=== PATIENT | female | born 1955 | race African-American/Black ===

== ENCOUNTER 2017-05-05 10:51 | Emergency (ER) | payer MEDICARE, MEDICAID ==
[2017-05-05] MEDS ORDERED: Amlodipine 5 MG TAB ONE (12:18)
[2017-05-05] MEDS ORDERED: hydrALAZINE 20 MG/ML VIAL ONE (12:18)
[2017-05-05 12:53] LABS: #Basophils 0.1 thou/uL (0.0-0.2); #Eosinphils 0.2 thou/uL (0.0-0.7); #Monocytes 0.3 thou/uL (0.11-0.59); #Neutrophils 4.5 thou/uL (1.40-6.50); %Basophils 1.1 % (0.0-1.0); %Eosinophils 2.6 % (0.0-10.0); %Lymphocytes 28.1 % (21.0-51.0); %Monocytes 3.7 % (0.0-10.0); %Neutrophils 64.5 % (42.0-75.0); Hemoglobin 11.1 g/dL (12.0-16.0); Mean Corpuscular HGB CONC 32.5 g/dL (32.0-36.0); Mean Corpuscular Hemoglobin 29.1 pg (27.0-31.0); Mean Corpuscular Volume 89.4 fl (81.0-99.0); Mean Platelet Volume 8.8 fL (7.4-10.4); Platelet Count 233 thou/uL (130-400); RBC Distribution Width 12.9 % (11.5-14.5); Red Blood Cell (RBC) Count 3.81 mill/uL (4.20-5.40)
[2017-05-05 13:12] LABS: ALT (SGPT) 20 U/L (8-55); AST (SGOT) 18 U/L (5-34); Albumin 3.8 g/dL (3.4-4.8); Alkaline Phosphatase 181 U/L (40-150); Anion Gap 18 mmol/L (10-20); BUN (Urea Nitrogen) 21 mg/dL (9.8-20.1); Bilirubin, Total 0.5 mg/dL (0.2-1.2); Calc. Creatinine Clearance 0 mL/min (70-130); Calcium 9.7 mg/dL (7.8-10.44); Carbon Dioxide 22 mmol/L (23-31); Chloride 99 mmol/L (98-107); Estimated GFR-MDRD 40; Globulin 3.8 g/dL (2.4-3.5); Glucose 536 mg/dL (80-115); Potassium 4.1 mmol/L (3.5-5.1); Protein, Total 7.6 g/dL (6.0-8.3); Sodium 135 mmol/L (136-145)
[2017-05-05 13:17] LABS: CKMB 1.3 ng/mL (0-6.6); Troponin I Less than 0.010 ng/mL (< 0.028)
[2017-05-05] MEDS ORDERED: Insulin Regular 300 UNITS/3 ML VIAL ONE (13:29)
[2017-05-05 13:48] LABS: Bilirubin Negative (Negative); Blood, Urine Negative (Negative); Clarity CLEAR (Clear); Glucose, Urine (Dipstick) >=1000 mg/dL (Negative); Leukocyte Negative (Negative); Nitrite Negative (Negative); Protein, Urine (Dipstick) 100 mg/dL (Neg-Trace); Specific Gravity, Urine 1.025 (1.002-1.036); Urobilinogen 0.2 mg/dL (0.2-1.0); pH, Urine 6.5 (5.0-9.0)
[2017-05-05 13:53] LABS: Bacteria/HPF Rare-Few HPF (None Seen); Hyaline Casts/LPF 0-3 HYALINE CAST LPF (0-3 Hyaline); Squamous Epithelial 0-3 HPF (0-3); WBC/HPF None Seen HPF (0-3)
[2017-05-05 14:02] LABS: RBC/HPF 0-3 HPF (0-3)
[2017-05-05 15:09] LABS: Base Excess-Venous 2.3 mmol/L (-30.0-30.0); Bicarbonate (HCO3v) 24.1 mmol/L (1.0-85.0); CO2 Tension (PvCO2) 28.4 mmHg (41.0-51.0); Calcium, Ionized 1.02 mmol/L (1.12-1.32); Hemoglobin - Calc 11.9 g/dL (12.0-18.0); O2 Tension (PvO2) 191.7 mmHg (35.0-45.0); Potassium 3.5 mmol/L (3.4-4.7); pH (Venous) 7.537 (7.35-7.45); vO2 Saturation-calc 99.8 % (0.0-100.0)
== END 2017-05-05 17:25 | disposition home or self-care (01) ==
LOC: ERS 10:51
DX: E11.65 Type 2 diabetes mellitus with hyperglycemia (principal); I10 Essential (primary) hypertension; I25.10 Atherosclerotic heart disease of native coronary artery without angina pectoris; F41.9 Anxiety disorder, unspecified; F32.9 Major depressive disorder, single episode, unspecified; F17.210 Nicotine dependence, cigarettes, uncomplicated; Z79.899 Other long term (current) drug therapy; Z79.4 Long term (current) use of insulin; Z79.82 Long term (current) use of aspirin
CPT/HCPCS: 36415; 36416; 80053; 81003; 81015; 82010; 82330; 82553; 82803; 84484; 85025; 87086; 96361; 96374; 96375; 96376; J0360; J1815

== ENCOUNTER 2017-05-12 02:21 | Inpatient (IN) | payer MEDICARE, MEDICAID ==
[2017-05-12] MEDS ORDERED: Ondansetron HCl/PF 4 MG/2 ML Vial ONE ×2 (02:59→09:31)
[2017-05-12 03:02] LABS: #Basophils 0.1 thou/uL (0.0-0.2); #Monocytes 0.3 thou/uL (0.11-0.59); #Neutrophils 8.3 thou/uL (1.40-6.50); %Basophils 0.5 % (0.0-1.0); %Eosinophils 0.2 % (0.0-10.0); %Lymphocytes 18.5 % (21.0-51.0); %Monocytes 2.7 % (0.0-10.0); %Neutrophils 78.2 % (42.0-75.0); Hemoglobin 12.5 g/dL (12.0-16.0); Mean Corpuscular HGB CONC 32.4 g/dL (32.0-36.0); Mean Corpuscular Hemoglobin 28.6 pg (27.0-31.0); Mean Corpuscular Volume 88.1 fl (81.0-99.0); Mean Platelet Volume 8.2 fL (7.4-10.4); Platelet Count 284 thou/uL (130-400); RBC Distribution Width 13.3 % (11.5-14.5); Red Blood Cell (RBC) Count 4.39 mill/uL (4.20-5.40); White Blood Cell (WBC) Count 10.6 thou/uL (4.8-10.8)
[2017-05-12 03:23] LABS: Anion Gap 28 mmol/L (10-20); BUN (Urea Nitrogen) 24 mg/dL (9.8-20.1); Calc. Creatinine Clearance 0 mL/min (70-130); Calcium 10.4 mg/dL (7.8-10.44); Carbon Dioxide 15 mmol/L (23-31); Chloride 98 mmol/L (98-107); Estimated GFR-MDRD 38; Glucose 442 mg/dL (80-115); Magnesium 1.4 mg/dL (1.6-2.6); Phosphorus 6.4 mg/dL (2.3-4.7); Sodium 137 mmol/L (136-145)
[2017-05-12] MEDS ORDERED: Insulin Regular 100 UNITS in Sodium Chloride 0.9% 100 ML IVPB SCH (04:00)
[2017-05-12] MEDS ORDERED: hydrALAZINE 20 MG/ML VIAL ONE (04:05)
[2017-05-12] MEDS ORDERED: Insulin Regular 300 UNITS/3 ML VIAL ONE (04:05)
[2017-05-12] MEDS ORDERED: Metoclopramide HCl 10 MG/2 ML VIAL ONE (04:44)
[2017-05-12] MEDS ORDERED: Magnesium Sulfate 2 GM/100 ML BAG ONE (06:15)
[2017-05-12 06:44] LABS: Anion Gap 22 mmol/L (10-20); BUN (Urea Nitrogen) 24 mg/dL (9.8-20.1); Calc. Creatinine Clearance 0 mL/min (70-130); Calcium 9.1 mg/dL (7.8-10.44); Carbon Dioxide 15 mmol/L (23-31); Chloride 106 mmol/L (98-107); Estimated GFR-MDRD 46; Glucose 302 mg/dL (80-115); Potassium 3.2 mmol/L (3.5-5.1); Sodium 140 mmol/L (136-145)
[2017-05-12 07:15] LABS: Bilirubin Negative (Negative); Blood, Urine Small (Negative); Clarity CLEAR (Clear); Glucose, Urine (Dipstick) >=1000 mg/dL (Negative); Leukocyte Negative (Negative); Nitrite Negative (Negative); Protein, Urine (Dipstick) > or equal to 300 mg/dL (Neg-Trace); Specific Gravity, Urine 1.027 (1.002-1.036); Urobilinogen 0.2 mg/dL (0.2-1.0); pH, Urine 5.5 (5.0-9.0)
[2017-05-12 07:19] LABS: Hyaline Casts/LPF 0-3 HYALINE CAST LPF (0-3 Hyaline); Pathc Cast-AUWi Flag 0.27 (0-2.49); RBC/HPF 0-3 HPF (0-3); WBC/HPF 0-3 HPF (0-3)
[2017-05-12] MEDS ORDERED: Dextrose 5 %-0.45 % NaCl 1,000 ML IV PRN (07:29)
[2017-05-12] MEDS ORDERED: Loperamide HCl 2 MG CAP PO PRN (07:29)
[2017-05-12] MEDS ORDERED: Artificial Tears 18 DROP/0.9 ML EA EYE PRN (07:29)
[2017-05-12] MEDS ORDERED: Ondansetron ODT 4 MG TAB PO PRN (07:29)
[2017-05-12] MEDS ORDERED: HYDROcodone/Acetaminophen 5/325 mg Tablet PO PRN (07:29)
[2017-05-12] MEDS ORDERED: NS 0.9% w/ 20 MEQ KCL 1,000 ML IV PRN ×2 (07:29)
[2017-05-12] MEDS ORDERED: Sodium Chloride 0.65% Nasal 44 ML BOT EA NARE PRN (07:29)
[2017-05-12] MEDS ORDERED: Mag-Al 1200 mg/1200 mg/30 ML UDCUP PO PRN (07:29)
[2017-05-12] MEDS ORDERED: hydrALAZINE 20 MG/ML VIAL SLOW IVP PRN (07:29)
[2017-05-12] MEDS ORDERED: Diabetic Tussin 200 MG/10 ML UDCUP PO PRN (07:29)
[2017-05-12] MEDS ORDERED: Loratadine 10 MG TAB PO PRN (07:29)
[2017-05-12] MEDS ORDERED: Eucerin (Mineral Oil/Petrolatum,White) 30 gm Jar TOP PRN (07:29)
[2017-05-12] MEDS ORDERED: Milk Of Magnesia 30 ML UDCUP PO PRN (07:29)
[2017-05-12] MEDS ORDERED: cloNIDine 0.1 MG TAB PO PRN (07:29)
[2017-05-12] MEDS ORDERED: Ondansetron HCl/PF 4 MG/2 ML Vial IVP PRN (07:29)
[2017-05-12] MEDS ORDERED: Zolpidem Tartrate 5 MG TAB PO PRN (07:29)
[2017-05-12] MEDS ORDERED: Sodium Chloride 0.9% 1,000 ML IV PRN ×4 (07:29)
[2017-05-12] MEDS ORDERED: Senokot 8.6 MG TAB PO PRN (07:29)
[2017-05-12] MEDS ORDERED: Labetalol HCl 100 MG/20 ML VIAL SLOW IVP PRN (07:29)
[2017-05-12] MEDS ORDERED: Chloraseptic Spray 180 ml Bottle PO PRN (07:29)
[2017-05-12] MEDS ORDERED: CCU Electrolyte Replacement 1 EACH IVPB SCH (07:29)
[2017-05-12] MEDS ORDERED: Acetaminophen 325 MG TAB PO PRN (07:29)
[2017-05-12 07:34] LABS: Bacteria/HPF Rare-Few HPF (None Seen)
[2017-05-12] MEDS ORDERED: Magnesium Oxide 400 MG TAB PO PRN ×2 (08:09)
[2017-05-12] MEDS ORDERED: Magnesium 2 GM/NS 0.9% 100 ML 2 GM in Premix Bag 1 BAG IVPB PRN (08:09)
[2017-05-12] MEDS ORDERED: Potassium Chloride 40 MEQ in Premix Bag 1 BAG IVPB PRN (08:09)
[2017-05-12] MEDS ORDERED: Potassium Phosphate 12 MMOL in Sodium Chloride 0.9% 250 ML 250 ML IV PRN (08:09)
[2017-05-12] MEDS ORDERED: CCU ELECTROLYTE REPLACEMENT PROTOCOL FS PRN (08:09)
[2017-05-12] MEDS ORDERED: Potassium Phosphate 9 MMOL in Sodium Chloride 0.9% 100 ML IVPB PRN (08:09)
[2017-05-12] MEDS ORDERED: Potassium Chloride 20 MEQ TAB PO PRN (08:09)
[2017-05-12] MEDS ORDERED: Potassium Chloride 40 MEQ in Sodium Chloride 0.9% 250 ML 250 ML IVPB PRN (08:09)
[2017-05-12] MEDS ORDERED: Potassium Phosphate 15 MMOL in Sodium Chloride 0.9% 250 ML 250 ML IV PRN (08:09)
[2017-05-12 08:14] LABS: Anion Gap 19 mmol/L (10-20); BUN (Urea Nitrogen) 23 mg/dL (9.8-20.1); Calc. Creatinine Clearance 0 mL/min (70-130); Calcium 8.9 mg/dL (7.8-10.44); Carbon Dioxide 17 mmol/L (23-31); Chloride 108 mmol/L (98-107); Estimated GFR-MDRD 50; Glucose 245 mg/dL (80-115); Sodium 141 mmol/L (136-145)
[2017-05-12] MEDS ORDERED: ENALAPRIL MALEATE 5 MG PO SCH (09:00)
[2017-05-12] MEDS ORDERED: Metoclopramide HCl 10 MG/2 ML VIAL IVP PRN (10:34)
--- NOTE | 2017-05-12 10:43 | HP ---
PRIMARY CARE PHYSICIAN: Dr. Valdo Rosales. REASON FOR ADMISSION: Nausea, vomiting, diarrhea, diabetes, ketoacidosis. HISTORY OF PRESENT ILLNESS: A 62-year-old -[place] female who has underlying history of hype rtension and diabetes type 2 requiring insulin, who had several admissions in our past. At this time , she came to ER with the acute onset of nausea, vomiting, diarrhea. She was also having crampy abdo dereck discomfort. She denies any melena or hematochezia. She denies any hematemesis. She denies an y fever or chills. She denies any unusual food ingestion. She was not able to keep anything down an d that is why she was not taking her insulin as well as she was not taking any medication because she was not able to keep anything down. Patient was feeling more fatigued, more dizzy and lightheaded and she was feeling more weak and short of breath and that is why she decided to come to the emergency room for evaluation. In the emergenc y room, the patient's routine blood test showed hyperglycemia. She had elevated serum ketones as wel l as elevated creatinine with metabolic acidosis. This patient was diagnosed with diabetic ketoacido sis. She also had abnormal electrolytes with low magnesium and low potassium. ER physician decided to admit this patient in the hospital. This patient does not have any bed available at [facility] and that is why she remained as an ER hold and I saw this patient in the emergency room. When we started giving her oral medication, the patient was not tolerating p.o. and that is why we have to give her more Zofran as well as symptomatic treatment for hypertension. In the emergency room, patient has received a bunch of IV fluid and insulin drip as well as magnesium sulfate. This patient does not have any UTI symptoms. She denies any focal motor symptoms. She de nies any headaches. She denies any chest pain, palpitations. She denies any focal motor weakness or sensory symptoms. REVIEW OF SYSTEMS: The following complete review of systems was negative, unless otherwise mentioned in the HPI or below: Constitutional: Weight loss or gain, ability to conduct usual activities. Sk in: Rash, itching. Eyes: Double vision, pain. ENT/Mouth: Nose bleeding, neck stiffness, pain, te nderness. Cardiovascular: Palpitations, dyspnea on exertion, orthopnea. Respiratory: Shortness of breath, wheezing, cough, hemoptysis, fever or night sweats. Gastrointestinal: Poor appetite, abdom inal pain, heartburn, nausea, vomiting, constipation, or diarrhea. Genitourinary: Urgency, frequenc y, dysuria, nocturia. Musculoskeletal: Pain, swelling. Neurologic/Psychiatric: Anxiety, depressio n. Allergy/Immunologic: Skin rash, bleeding tendency. Please see my HPI for pertinent positive and negative. All other review of systems reviewed and negative except as mentioned in the HPI. ALLERGIES: NUBAIN. CURRENT HOME MEDICATIONS: Gabapentin 400 mg p.o. 3 times daily, Coreg 3.125 mg twice daily, amlodipi ne 5 mg p.o. daily, enalapril 5 mg p.o. daily, metformin 500 mg p.o. twice daily, hydralazine 25 mg t wice daily, vitamin D2 of 50,000 units once a week, Brintellix 10 mg p.o. daily, Protonix 40 mg p.o. daily, vitamin B1 of 100 mg p.o. daily, aspirin 81 mg p.o. daily, Levemir 25 units subcutaneously twi ce daily. EMERGENCY ROOM COURSE: So far, patient has received IV fluid 3 liter, insulin drip after bolus, Regl an 10 mg, Zofran 4 mg, magnesium sulfate 2 gram. PAST MEDICAL HISTORY: Diabetes type 2, poorly controlled, insulin requiring; chronic kidney disease stage 3, hypertension, chronic hepatitis C, anemia of chronic disease, gastroparesis. PAST SURGICAL HISTORY: Cholecystectomy, temporal artery biopsy. PAST PSYCHIATRIC HISTORY: Reviewed and negative. FAMILY HISTORY: No strong family history of premature coronary artery disease, stroke or cancer. SOCIAL HISTORY: Patient is smoking about one half pack per day. She drinks alcohol socially. She d enies any other illicit drug abuse. PHYSICAL EXAMINATION: VITAL SIGNS: Currently, blood pressure 204/118, pulse 101, respiratory rate 16, temperature 98.4, sa turation 99% on room air, weight 59.4 kilograms. GENERAL: Patient is currently alert, awake, mild distress due to nausea. HEENT: Head, normocephalic, atraumatic. Eyes: Pupils are round, reactive to light. Extraocular mu scles are intact. ENT: Dry mucous membranes, no oral lesion, no pharyngeal erythema, no exudate. NECK: Supple, no JVD, no thyromegaly, no carotid bruit, no jugular venous distention. LUNGS: Clear to auscultation without any rhonchi or rales. CARDIAC: S1, S2 regular without any murmur. ABDOMEN: Soft, bowel sounds present, nontender, nondistended. No organomegaly, no mass, no suprapub ic tenderness. BACK: Unremarkable, no CVA tenderness. EXTREMITIES: Upper extremity passive movement of all joints are normal. Lower extremity: No edema. Good peripheral pulsation. SKIN: No skin rash. HEMATOLOGICAL: No lymphadenopathy. PSYCHIATRIC: Normal affect. SIGNIFICANT LABS: EKG showing normal sinus rhythm, sinus arrhythmia, left anterior fascicular block, nonspecific ST-T changes. WBC 10.6, hemoglobin 12.5, platelets 284. BMP shows sodium 141, potassium 3.0, chloride 108, carbon dioxide 17, BUN 23, creatinine 1.30, calcium 8.9. On admission, phosphorus 6.4, magnesium 1.4, creat inine 1.63. Glucose 442. Urinalysis: Proteinuria, glucosuria, ketonuria, serum ketone 7.25 and the n 3.23. ASSESSMENT AND PLAN: 1. Nausea, vomiting, diarrhea, rule out infectious etiology. If the patient is able to provide a st ool sample, then we will check ova and parasite, Campylobacter antigen, and Clostridium difficile. If negative, then patient will need symptomatic treatment for nausea, vomiting, diarrhea, and hydration with IV fluid to prevent dehydration. 2. Acute diabetes ketoacidosis, likely the patient was not taking insulin and because of poor tolera nce secondary to nausea, vomiting, diarrhea, and that could have precipitated her DKA. Patient is [facility] diabetic ketoacidosis protocol treatment. She is on insulin drip. We will keep her in IMCU. We will monitor Accu-Chek every 1 hourly and titrate insulin drip accordingly. We will monitor BMP e very 4 hourly and serum q.4 hourly x2. All blood tests will be repeated again tomorrow morning. Whe n blood sugar reaches below 250, at that point, we will overlap with the dextrose and insulin drip to clear all ketones. Tomorrow, we will resume patient's home dose of Levemir insulin. Diabetic diet education given. 3. Acute on chronic kidney failure, baseline chronic kidney disease stage 3. The patient's creatini ne was elevated on admission with a creatinine of 1.63. With IV fluid, her creatinine is improving t o 1.30 likely due to osmotic diuresis and nausea, vomiting, diarrhea. We will monitor renal function and avoid nephrotoxin agent. 4. Abnormal electrolytes. This patient has hypokalemia and hypomagnesemia. Potassium and magnesium will be replaced and we will repeat labs tomorrow morning. 5. Mild protein calorie malnutrition. The patient will need nutritional support upon discharge. 6. Hypertension with hypertensive urgency. At this point, we will try to use parenteral blood press ure medication, hydralazine and labetalol as patient is not tolerating p.o. If patient tolerates p.o ., then we will resume her home medication orally. 7. Dyslipidemia. We will continue lovastatin 20 mg p.o. at bedtime. 8. Gastroesophageal reflux disease. Continue Protonix 40 mg p.o. daily. 9. Chronic kidney disease stage 3. We will monitor renal function and avoid nephrotoxin agents. 10. Deep venous thrombosis prophylaxis. Heparin 5000 units subcu twice daily. 11. Gastrointestinal prophylaxis, Protonix 40 mg p.o. daily. CODE STATUS: The patient is FULL CODE. Patient does not have any surrogate decision maker. Disposition plan based on clinical course. We are expecting patient's stay in hospital more than 2 m idnights. Plan of care discussed with the patient in detail.
[2017-05-12 12:29] LABS: Anion Gap 13 mmol/L (10-20); BUN (Urea Nitrogen) 21 mg/dL (9.8-20.1); Calc. Creatinine Clearance 42 mL/min (70-130); Calcium 8.8 mg/dL (7.8-10.44); Carbon Dioxide 20 mmol/L (23-31); Chloride 110 mmol/L (98-107); Estimated GFR-MDRD 55; Glucose 107 mg/dL (80-115); Sodium 140 mmol/L (136-145)
[2017-05-12] MEDS: D5 1/2 NS w/20 mEq KCL 1,000 ML IV PRN ×2 (13:01→21:22)
[2017-05-12] MEDS: Heparin 5,000 UNITS/ML VIAL SC SCH ×2 (15:48→21:22)
[2017-05-12] MEDS: hydrALAZINE 25 MG TAB PO SCH ×3 (15:49→21:21)
[2017-05-12 16:10] LABS: Anion Gap 13 mmol/L (10-20); BUN (Urea Nitrogen) 20 mg/dL (9.8-20.1); Calc. Creatinine Clearance 37 mL/min (70-130); Calcium 8.8 mg/dL (7.8-10.44); Carbon Dioxide 20 mmol/L (23-31); Chloride 108 mmol/L (98-107); Estimated GFR-MDRD 48; Glucose 260 mg/dL (80-115); Potassium 3.3 mmol/L (3.5-5.1); Sodium 138 mmol/L (136-145)
[2017-05-12] MEDS ORDERED: Non-Formulary Item 1 EACH (Lovastatin [Lovastatin] 20 MG) PO SCH (17:00)
[2017-05-12] MEDS: Amlodipine 10 MG TAB PO SCH (17:15)
[2017-05-12] MEDS: Gabapentin 400 MG CAP PO SCH ×3 (17:16→21:21)
[2017-05-12] MEDS: metFORMIN 500 MG TAB PO SCH ×2 (17:17→21:20)
[2017-05-12] MEDS: Simvastatin 5 MG TAB PO SCH (21:22)
[2017-05-13 04:34] LABS: #Monocytes 0.6 thou/uL (0.11-0.59); #Neutrophils 6.5 thou/uL (1.40-6.50); %Basophils 0.3 % (0.0-1.0); %Eosinophils 0.2 % (0.0-10.0); %Lymphocytes 29.4 % (21.0-51.0); %Neutrophils 64.1 % (42.0-75.0); Hemoglobin 10.4 g/dL (12.0-16.0); Mean Corpuscular HGB CONC 32.6 g/dL (32.0-36.0); Mean Corpuscular Hemoglobin 28.6 pg (27.0-31.0); Mean Corpuscular Volume 87.7 fl (81.0-99.0); Mean Platelet Volume 8.1 fL (7.4-10.4); Platelet Count 224 thou/uL (130-400); RBC Distribution Width 13.2 % (11.5-14.5); Red Blood Cell (RBC) Count 3.64 mill/uL (4.20-5.40); White Blood Cell (WBC) Count 10.1 thou/uL (4.8-10.8)
[2017-05-13 05:36] LABS: Anion Gap 9 mmol/L (10-20); BUN (Urea Nitrogen) 17 mg/dL (9.8-20.1); Calc. Creatinine Clearance 40 mL/min (70-130); Carbon Dioxide 19 mmol/L (23-31); Chloride 109 mmol/L (98-107); Estimated GFR-MDRD 52; Potassium 3.8 mmol/L (3.5-5.1); Sodium 133 mmol/L (136-145)
[2017-05-13 05:37] LABS: ALT (SGPT) 16 U/L (8-55); AST (SGOT) 21 U/L (5-34); Albumin 2.7 g/dL (3.4-4.8); Alkaline Phosphatase 92 U/L (40-150); Bilirubin, Total 0.2 mg/dL (0.2-1.2); Calcium 7.9 mg/dL (7.8-10.44); Globulin 3.4 g/dL (2.4-3.5); Glucose 257 mg/dL (80-115); Magnesium 1.8 mg/dL (1.6-2.6); Protein, Total 6.1 g/dL (6.0-8.3)
[2017-05-13] MEDS: Gabapentin 400 MG CAP PO SCH ×3 (08:50→20:55)
[2017-05-13] MEDS: metFORMIN 500 MG TAB PO SCH ×2 (08:50→20:55)
[2017-05-13] MEDS: Amlodipine 10 MG TAB PO SCH (08:51)
[2017-05-13] MEDS: Heparin 5,000 UNITS/ML VIAL SC SCH ×2 (08:51→20:56)
[2017-05-13] MEDS: hydrALAZINE 25 MG TAB PO SCH ×3 (08:51→20:55)
[2017-05-13] MEDS: Insulin Detemir 100 UNITS/ML 15 UNITS in Pre-Filled Syringe 1 EACH SC SCH ×2 (08:52→20:57)
[2017-05-13 09:58] VITALS: BMI 20.2
--- NOTE | 2017-05-13 12:05 | PDOC.PN ---
- Subjective Encounter Start Date: 05/13/17 Encounter Start Time: 09:00 -: old records requested/rev Patient seen and examined. No new complaints. No overnight events - Objective Resuscitation Status: Resuscitation Status FULL:Full Resuscitation MAR Reviewed: Yes Vital Signs & Weight: Vital Signs (12 hours) Temp Pulse Resp BP BP BP Pulse Ox 05/13/17 10:59 98.2 F 87 16 148/77 H 100 05/13/17 08:51 91 114/59 L 05/13/17 08:50 114/59 L 05/13/17 08:00 98.7 F 91 19 99 05/13/17 07:22 98.7 F 91 19 130/75 99 05/13/17 04:00 98.6 F 96 14 118/65 98 Weight Admit Weight 123 lb Weight 133 lb 3.2 oz I&O: 05/12/17 05/13/17 05/14/17 06:59 06:59 06:59 Intake Total 3250 Output Total 300 Balance 2950 Result Diagrams: 05/13/17 04:21 05/13/17 04:21 Additional Labs: Accuchecks 05/13/17 05/13/17 05/13/17 10:15 08:49 08:24 POC Glucose 180 H 104 119 H 05/13/17 05/13/17 05/13/17 07:10 06:01 05:25 POC Glucose 209 H 229 H 252 H 05/13/17 05/13/17 05/13/17 04:03 03:06 02:01 POC Glucose 232 H 241 H 200 H 05/13/17 05/13/17 05/12/17 01:01 00:00 22:59 POC Glucose 183 H 163 H 113 H 05/12/17 05/12/17 05/12/17 21:58 21:01 20:14 POC Glucose 104 129 H 156 H 05/12/17 05/12/17 05/12/17 18:58 18:04 17:16 POC Glucose 210 H 233 H 281 H 05/12/17 05/12/17 05/12/17 15:42 14:26 13:03 POC Glucose 248 H 229 H 153 H EKG Reviewed by me: Yes (nsr) Phys Exam - Physical Examination Constitutional: NAD HEENT: PERRLA, moist MMs, sclera anicteric Neck: no JVD, supple Respiratory: no wheezing, no rales, no rhonchi Cardiovascular: RRR, no significant murmur, no rub Gastrointestinal: soft, non-tender, no distention, positive bowel sounds Musculoskeletal: no edema, pulses present Neurological: non-focal, normal sensation, moves all 4 limbs Lymphatic: no nodes Psychiatric: normal affect, A&O x 3 Skin: no rash, normal turgor Dx/Plan (1) Acute diarrhea Code(s): R19.7 - DIARRHEA, UNSPECIFIED Status: Acute (2) DKA (diabetic ketoacidoses) Code(s): E13.10 - OTH DIABETES MELLITUS WITH KETOACIDOSIS WITHOUT COMA Status : Acute (3) Hypertensive urgency Code(s): I16.0 - HYPERTENSIVE URGENCY Status: Acute (4) Hypokalemia Code(s): E87.6 - HYPOKALEMIA Status: Acute (5) Hypomagnesemia Code(s): E83.42 - HYPOMAGNESEMIA Status: Acute (6) Nausea & vomiting Code(s): R11.2 - NAUSEA WITH VOMITING, UNSPECIFIED Status: Acute (7) DM type 2 (diabetes mellitus, type 2) Status: Chronic Qualifiers: (8) Diabetic gastroparesis Code(s): E11.43 - TYPE 2 DIABETES W DIABETIC AUTONOMIC (POLY)NEUROPATHY; K31.84 - GASTROPARESIS Status: Chronic (9) HTN (hypertension) Code(s): I10 - ESSENTIAL (PRIMARY) HYPERTENSION Status: Chronic Qualifiers: (10) Noncompliance Code(s): Z91.19 - PATIENT'S NONCOMPLIANCE W OTH MEDICAL TREATMENT AND REGIMEN Status: Chronic - Plan cont current plan of care * DC insulin drip * start home dose of insulin * medication reviewed as below * symptomatic treatment * transfer to medical * advance diet * expecting discharge tomorrow . Review of Systems - Review of Systems Constitutional: negative: fever, chills, sweats, weakness, malaise, other Eyes: negative: Pain, Vision Change, Conjunctivae Inflammation, Eyelid Inflammation, Redness, Other ENT: negative: Ear Pain, Ear Discharge, Nose Pain, Nose Discharge, Nose Congestion, Mouth Pain, Mouth Swelling, Throat Pain, Throat Swelling, Other Respiratory: negative: Cough, Dry, Shortness of Breath, Hemoptysis, SOB with Excertion, Pleuritic Pain, Sputum, Wheezing Cardiovascular: negative: chest pain, palpitations, orthopnea, paroxysmal nocturnal dyspnea, edema, light headedness, other Gastrointestinal: negative: Nausea, Vomiting, Abdominal Pain, Diarrhea, Constipation, Melena, Hematochezia, Other Genitourinary: negative: Dysuria, Frequency, Incontinence, Hematuria, Retention , Other Musculoskeletal: negative: Neck Pain, Shoulder Pain, Arm Pain, Back Pain, Hand Pain, Leg Pain, Foot Pain, Other Skin: negative: Rash, Lesions, Tenzin, Bruising, Other - Medications/Allergies Allergies/Adverse Reactions: Allergies Allergy/AdvReac Type Severity Reaction Status Date / Time nalbuphine HCl [From Nubain] AdvReac Intermediate Verified 06/29/16 03:41 Medications: Current Medications Acetaminophen (Tylenol) 650 mg PO Q4H PRN PRN Reason: Headache/Fever or Pain Hydrocodone Bitart/Acetaminophen (Madison 5/325) 1 tab PO Q4H PRN PRN Reason: Moderate Pain (4-6) Al Hydroxide/Mg Hydroxide (Maalox) 30 ml PO Q6H PRN PRN Reason: Heartburn or Indigestion Amlodipine Besylate (Norvasc) 10 mg PO DAILY [facility] Last Admin: 05/13/17 08:51 Dose: Not Given Artificial Tears (Tears Naturale) 0 drop EA EYE PRN PRN PRN Reason: Dry Eyes Aspirin (Aspirin Chewable) 81 mg PO DAILY [facility] Last Admin: 05/13/17 08:50 Dose: 81 mg Clonidine (Catapres) 0.1 mg PO Q4H PRN PRN Reason: Systolic BP > 180 Enalapril Maleate (Vasotec) 5 mg PO BID [facility] Last Admin: 05/13/17 08:50 Dose: 5 mg Gabapentin (Neurontin) 400 mg PO TID [facility] Last Admin: 05/13/17 08:50 Dose: 400 mg Guaifenesin (Robitussin Sf) 200 mg PO Q4H PRN PRN Reason: Cough Heparin Sodium (Porcine) (Heparin) 5,000 units SC BID [facility] Last Admin: 05/13/17 08:51 Dose: 5,000 units Hydralazine HCl (Apresoline) 10 mg SLOW IVP Q4H PRN PRN Reason: Systolic BP > 180 Last Admin: 05/12/17 13:01 Dose: 10 mg Hydralazine HCl (Apresoline) 25 mg PO TID [facility] Last Admin: 05/13/17 08:51 Dose: 25 mg Insulin Detemir 15 units/ (Miscellaneous Medication) 0.15 mls @ 0 mls/hr SC BID [facility] Last Admin: 05/13/17 08:52 Dose: 0.15 mls Labetalol HCl (Normodyne) 20 mg SLOW IVP Q4H PRN PRN Reason: Systolic BP > 180 Loperamide HCl (Imodium) 2 mg PO PRN PRN PRN Reason: Diarrhea/Loose Stools Loratadine (Claritin) 10 mg PO DAILYPRN PRN PRN Reason: Sinus Symptoms Magnesium Hydroxide (Milk Of Magnesium) 30 ml PO DAILYPRN PRN PRN Reason: Constipation Metformin HCl (Glucophage) 500 mg PO BID [facility] Last Admin: 05/13/17 08:50 Dose: 500 mg Metoclopramide HCl (Reglan) 10 mg IVP Q6H PRN PRN Reason: Nausea/Vomiting Mineral Oil/White Petrolatum (Eucerin Cream) 0 gm TOP BIDPRN PRN PRN Reason: Dry Skin Ondansetron HCl (Zofran Odt) 4 mg PO Q6H PRN PRN Reason: Nausea/Vomiting Ondansetron HCl (Zofran) 4 mg IVP Q6H PRN PRN Reason: Nausea/Vomiting Pantoprazole Sodium (Protonix) 40 mg PO DAILY [facility] Last Admin: 05/13/17 08:51 Dose: 40 mg Phenol (Chloraseptic Gervais 180 Ml Bot) 0 ml PO PRN PRN PRN Reason: Sore Throat Senna (Senokot) 2 tab PO HSPRN PRN PRN Reason: Constipation Simvastatin (Zocor) 10 mg PO HS [facility] Last Admin: 05/12/17 21:22 Dose: 10 mg Zolpidem Tartrate (Ambien) 5 mg PO HSPRN PRN PRN Reason: Insomnia
[2017-05-13] MEDS ORDERED: Dextrose 50% Abboject 50 ML SYRINGE IVP PRN (16:52)
[2017-05-13] MEDS ORDERED: Dextrose 5% in Water 1,000 ML IV PRN (16:52)
[2017-05-13] MEDS: HumaLOG 300 UNITS/3 ML VIAL SC PRN (17:23)
[2017-05-13] MEDS: Simvastatin 5 MG TAB PO SCH (20:56)
[2017-05-14] MEDS: metFORMIN 500 MG TAB PO SCH (08:42)
[2017-05-14] MEDS: Amlodipine 10 MG TAB PO SCH (08:42)
[2017-05-14] MEDS: Gabapentin 400 MG CAP PO SCH (08:43)
[2017-05-14] MEDS: hydrALAZINE 25 MG TAB PO SCH (08:43)
[2017-05-14] MEDS: Heparin 5,000 UNITS/ML VIAL SC SCH (08:44)
[2017-05-14] MEDS: Insulin Detemir 100 UNITS/ML 15 UNITS in Pre-Filled Syringe 1 EACH SC SCH (08:44)
[2017-05-14] MEDS: HumaLOG 300 UNITS/3 ML VIAL SC PRN (12:26)
[2017-05-14 14:41] VITALS: BP 171/75; TEMP 98.3
--- NOTE | 2017-05-14 15:36 | DIS ---
DISCHARGE DISPOSITION: Home. FOLLOWUP: With primary care physician, Dr. Valdo Rosales in 1 week. ALLERGIES: The patient is allergic to NALBUPHINE. The patient was seen and examined on the day of discharge. Denies any new complaints. No chest pain , shortness of breath, palpitations, nausea, vomiting, or diarrhea reported. SIGNIFICANT LABORATORY: Ketones on admission 7.25, at discharge 0.04. Bicarbonate on admission was 15. Magnesium on admission 1.4, after replacement 1.8. Phosphorus of 2.0. Creatinine on admission was 1.63, at discharge is 1.26. Lowest potassium was 3.0, at discharge is 3.8. DISCHARGE MEDICATIONS: Amlodipine 10 mg daily, enalapril 5 mg b.i.d., aspirin 81 mg daily, metformin 500 mg b.i.d., hydralazine 25 mg three times daily, Protonix 40 mg daily, lovastatin 20 mg daily, Le vemir 15 units b.i.d., gabapentin 400 mg 3 times a day, K-Phos 250 mg 4 times a day. INPATIENT CONSULTANTS: None. BRIEF HOSPITAL COURSE: The patient is a 62-year-old female with hypertension and di abetes mellitus type 2, presented to the hospital with nausea, vomiting, and diarrhea. Please refer to the history and physical dated 05/12/2017 for further details. The patient was admitted to the intermediate care unit with a diagnosis of diabetic ketoacidosis. Pl ease note that patient did not take her insulin due to persistent nausea and vomiting. She was place d on insulin drip. Later on insulin drip was changed to subcutaneous insulin. Her ketone level is n ormal. Acidosis has been corrected. She was extensively counseled on diabetes and DKA. She appears stable for discharge. FINAL DIAGNOSES: 1. Diabetic ketoacidosis. 2. Nausea, vomiting, diarrhea, probably acute gastroenteritis, resolved. 3. Acute kidney injury on chronic kidney disease stage 3, improved. 4. Abnormal electrolytes. The patient hypokalemia, hypomagnesemia, and hypophosphatemia. 5. Hypertension with hypertensive urgency. 6. Mild protein calorie malnutrition. 7. Gastroesophageal reflux disease. 8. Dyslipidemia. 9. Metabolic acidosis secondary to diabetic ketoacidosis. Plan of care was discussed with the patient in detail. She stated understanding.
== END 2017-05-14 14:20 | disposition home or self-care (01) | DRG 638 ==
LOC: ERS 02:21 → ERHOLD 04:06 → IMCU/EMU 10:27 → T4-A 05-13 11:57
PROVIDERS: ADMIT Internal Medicine; ATTEND Internal Medicine
DX: E11.10 Type 2 diabetes mellitus with ketoacidosis without coma (principal); N17.9 Acute kidney failure, unspecified; N18.3 Chronic kidney disease, stage 3 (moderate); K31.84 Gastroparesis; E44.1 Mild protein-calorie malnutrition; E83.42 Hypomagnesemia; E83.39 Other disorders of phosphorus metabolism; F17.210 Nicotine dependence, cigarettes, uncomplicated; I12.9 Hypertensive chronic kidney disease with stage 1 through stage 4 chronic kidney disease, or unspecified chronic kidney disease; Z79.4 Long term (current) use of insulin; E11.22 Type 2 diabetes mellitus with diabetic chronic kidney disease; B19.20 Unspecified viral hepatitis C without hepatic coma; D63.1 Anemia in chronic kidney disease; E11.43 Type 2 diabetes mellitus with diabetic autonomic (poly)neuropathy; Z68.20 Body mass index [BMI] 20.0-20.9, adult; I16.0 Hypertensive urgency; E78.5 Hyperlipidemia, unspecified; K21.9 Gastro-esophageal reflux disease without esophagitis; E87.6 Hypokalemia; Z79.84 Long term (current) use of oral hypoglycemic drugs
CPT/HCPCS: 36415; 36416; 80048; 80053; 81003; 81015; 82010; 83735; 84100; 85025; 93005; J0360; J1644; J1815; J2405; J2765; J3475; J7050

== ENCOUNTER 2017-08-27 14:59 | Inpatient (IN) | payer MEDICARE, MEDICAID ==
[2017-08-27] MEDS ORDERED: Ondansetron ODT 4 MG TAB ONE ×2 (15:01→16:28)
[2017-08-27] MEDS ORDERED: Mag-Al 1200 mg/1200 mg/30 ML UDCUP ONE (16:28)
[2017-08-27] MEDS ORDERED: Lidocaine Viscous Sol 2% 15 ml UD Cup ONE (16:28)
[2017-08-27 17:49] LABS: #Lymphocytes 1.4 thou/uL (1.20-3.40); #Monocytes 0.3 thou/uL (0.11-0.59); %Basophils 0.4 % (0.0-1.0); %Eosinophils 0.4 % (0.0-10.0); %Lymphocytes 15.8 % (21.0-51.0); %Monocytes 3.5 % (0.0-10.0); %Neutrophils 79.9 % (42.0-75.0); Hemoglobin 12.2 g/dL (12.0-16.0); Mean Corpuscular HGB CONC 34.3 g/dL (32.0-36.0); Mean Corpuscular Hemoglobin 29.3 pg (27.0-31.0); Mean Corpuscular Volume 85.6 fL (78.0-98.0); Mean Platelet Volume 8.1 fL (7.4-10.4); Platelet Count 204 thou/uL (130-400); RBC Distribution Width 13.2 % (11.5-14.5); Red Blood Cell (RBC) Count 4.15 mill/uL (4.20-5.40); White Blood Cell (WBC) Count 8.7 thou/uL (4.8-10.8)
[2017-08-27 18:07] LABS: ALT (SGPT) 29 U/L (8-55); AST (SGOT) 29 U/L (5-34); Albumin 4.1 g/dL (3.4-4.8); Alkaline Phosphatase 90 U/L (40-150); Anion Gap 18 mmol/L (10-20); BUN (Urea Nitrogen) 27 mg/dL (9.8-20.1); Bilirubin, Total 0.7 mg/dL (0.2-1.2); Calc. Creatinine Clearance 0 mL/min (70-130); Carbon Dioxide 20 mmol/L (23-31); Chloride 104 mmol/L (98-107); Estimated GFR-MDRD 37; Globulin 3.9 g/dL (2.4-3.5); Glucose 248 mg/dL (80-115); Lipase 42 U/L (8-78); Potassium 3.6 mmol/L (3.5-5.1); Sodium 138 mmol/L (136-145)
[2017-08-27 18:26] LABS: Magnesium 1.6 mg/dL (1.6-2.6); Phosphorus 3.6 mg/dL (2.3-4.7)
[2017-08-27 19:06] LABS: Bilirubin Negative (Negative); Blood, Urine Small (Negative); Clarity CLOUDY (Clear); Glucose, Urine (Dipstick) 500 mg/dL (Negative); Leukocyte Small (Negative); Nitrite Negative (Negative); Protein, Urine (Dipstick) 300 mg/dL (Neg-Trace); Specific Gravity, Urine 1.018 (1.002-1.036)
[2017-08-27 19:08] LABS: Bacteria/HPF 1+ HPF (None Seen); Hyaline Casts/LPF 0-3 HYALINE CAST LPF (0-3 Hyaline)
[2017-08-27] MEDS ORDERED: Promethazine HCl 25 MG/ML VIAL ONE (19:16)
[2017-08-27 19:17] LABS: Yeast-AUWi Flag 164.7 (0-25.0)
[2017-08-27 19:19] LABS: RBC/HPF 0-3 HPF (0-3); Yeast-All Forms None Seen HPF (None Seen)
[2017-08-27] MEDS ORDERED: Acetaminophen 650 MG Suppository PR PRN (19:25)
[2017-08-27] MEDS ORDERED: D5 1/2 NS w/20 mEq KCL 1,000 ML IV PRN (19:25)
[2017-08-27] MEDS ORDERED: Dextrose 5 %-0.45 % NaCl 1,000 ML IV PRN (19:25)
[2017-08-27] MEDS ORDERED: Sodium Chloride 0.9% 1,000 ML IV PRN ×4 (19:25)
[2017-08-27] MEDS ORDERED: CCU Electrolyte Replacement 1 EACH IVPB SCH (19:25)
[2017-08-27] MEDS ORDERED: NS 0.9% w/ 20 MEQ KCL 1,000 ML IV PRN (19:25)
[2017-08-27] MEDS ORDERED: Insulin Regular 100 units/100 ml in NS IVPB SCH (19:30)
[2017-08-27] MEDS ORDERED: hydrALAZINE 20 MG/ML VIAL ONE (19:54)
[2017-08-27 20:15] LABS: Anion Gap 17 mmol/L (10-20); BUN (Urea Nitrogen) 26 mg/dL (9.8-20.1); Calc. Creatinine Clearance 0 mL/min (70-130); Calcium 9.6 mg/dL (7.8-10.44); Carbon Dioxide 19 mmol/L (23-31); Chloride 106 mmol/L (98-107); Estimated GFR-MDRD 42; Glucose 247 mg/dL (80-115); Potassium 3.5 mmol/L (3.5-5.1); Sodium 138 mmol/L (136-145)
--- NOTE | 2017-08-27 20:24 | HP ---
PRIMARY CARE PROVIDER: Valdo Rosales M.D. CHIEF COMPLAINT: Nausea and vomiting. HISTORY OF PRESENT ILLNESS: Ms. Loco is a pleasant 62-year-old lady, who was seen at [facility] on 08/27/2017. She was hospitalized here from 05/12 to 05/14 of this year for d iabetic ketoacidosis, nausea, and vomiting. She reports that she was doing well until yesterday. Today, she started having nausea and vomiting. She reports vomiting multiple times, unable to maintain any oral intake. She tried to eat, but subs equently vomited up the food as well. She currently denies any abdominal pain, although she did repo rt some right-sided abdominal pain to the emergency room physician. She denies constipation, diarrhe a, dysuria, increased frequency of urination or cough. She denies any fevers or chills. She denies any chest pain. REVIEW OF SYSTEMS: All other systems reviewed and found to be negative. PAST MEDICAL HISTORY: Diabetes mellitus, type 2; hypertension; chronic kidney disease, stage 3; [employer] hepatitis C; anemia of chronic disease; and gastroparesis. PAST SURGICAL HISTORY: Cholecystectomy and temporal artery biopsy. FAMILY HISTORY: No family history of premature coronary artery disease. SOCIAL HISTORY: The patient smokes half a pack of cigarettes a day. She drinks alcohol occasionally . She denies any recreational drug use. ALLERGIES: NUBAIN. CURRENT MEDICATIONS: Gabapentin 400 mg 3 times a day, Coreg 3.125 mg 2 times a day, amlodipine 5 mg daily, enalapril 5 mg daily, metformin 500 mg 2 times a day, hydralazine 25 mg 2 times a day, vitamin D2 of 50,000 units every week, Brintellix 10 mg daily, pantoprazole 40 mg daily, vitamin B1 of 100 m g daily, aspirin 81 mg daily, and Lantus insulin, dose unknown. PHYSICAL EXAMINATION: GENERAL: On examination, Ms. Loco is awake and alert, in mild distress from nausea. VITAL SIGNS: Blood pressure is 179/77, pulse 96, respiratory rate 19. She is saturating 100% on [place] m air. She is afebrile. EYES: No scleral icterus. No conjunctival pallor. ENT: Dry mucosal membranes, no oropharyngeal erythema or exudates. NECK: Supple, nontender, normal range of movement. Trachea is midline. RESPIRATORY: Accessory muscles of breathing are not active. Chest wall movements are symmetric bila terally. Lungs are clear to auscultation, without wheeze, rhonchi or crepitations. CARDIOVASCULAR: S1 and S2 are heard, regular. No pericardial rub, no carotid bruit, peripheral puls es palpable. ABDOMEN: Soft, nontender, bowel sounds are heard, no hepatomegaly, no splenomegaly. NEUROLOGIC: Cranial nerves II-XII intact, deep tendon reflexes are 2+. MUSCULOSKELETAL: Power is 5/5 in all 4 extremities. SKIN: No rashes or subcutaneous nodules. LYMPHATIC: No cervical lymphadenopathy. PSYCHIATRIC: The patient appears anxious, oriented to person, place, and time. LABORATORY DATA AND IMAGING: Ms. Loco's labs and investigations were reviewed. She has normal whi te count, normal hemoglobin, normal platelet count, normal sodium, normal potassium, decreased carbon dioxide of 20, anion gap of 18, elevated blood urea nitrogen of 27, elevated creatinine of 1.70, las t known creatinine 1.26 on 05/13/2017, elevated glucose of 248, normal phosphorous, normal magnesium, normal calcium, unremarkable liver profile, normal lipase, urinalysis positive for small amount of l eukocyte esterase and blood and serum beta hydroxybutyrate level elevated at 1.62. ASSESSMENT AND PLAN: Ms. Loco is a pleasant 62-year-old lady, who was seen at [facility] on 08/27/2017. Her problem list includes: 1. Diabetic ketoacidosis: Ms. Loco is presenting with recurrent diabetic ketoacidosis. She will be admitted to the hospital for further management, including DKA protocol. 2. Nausea and vomiting: Etiology unclear at this point, could be related to viral gastroenteritis. The patient is receiving peripheral IV hydration, we will continue. We will keep the patient n.p.o. except for medications as needed. 3. Hypertension: Start p.r.n. IV hydralazine in case the patient is unable to take her oral antihyp ertensives. 4. Acute on chronic renal failure: At least some of this component is from diabetic ketoacidosis. Hydrate patient, manage DKA and recheck creatinine level. Hold nephrotoxic medications including ksenia lapril for now. 5. Gastroesophageal reflux disease: Continue proton pump inhibitor. Many thanks for allowing me to participate in your patient's care. Please feel free to contact me wi any questions or concerns. LEVEL OF RISK: Moderate. LEVEL OF COMPLEXITY: Moderate.
[2017-08-27] MEDS ORDERED: Magnesium 2 GM/NS 0.9% 100 ML 2 GM in Premix Bag 1 BAG IVPB PRN (21:39)
[2017-08-27] MEDS ORDERED: Potassium Phosphate 15 MMOL in Sodium Chloride 0.9% 250 ML 250 ML IV PRN (21:39)
[2017-08-27] MEDS ORDERED: Potassium Chloride 40 MEQ in Premix Bag 1 BAG IVPB PRN (21:39)
[2017-08-27] MEDS ORDERED: Potassium Chloride 40 MEQ in Sodium Chloride 0.9% 250 ML 250 ML IVPB PRN (21:39)
[2017-08-27] MEDS ORDERED: Potassium Chloride 20 MEQ TAB PO PRN (21:39)
[2017-08-27] MEDS ORDERED: Potassium Phosphate 9 MMOL in Sodium Chloride 0.9% 100 ML IVPB PRN (21:39)
[2017-08-27] MEDS ORDERED: CCU ELECTROLYTE REPLACEMENT PROTOCOL FS PRN (21:39)
[2017-08-27] MEDS ORDERED: Magnesium Oxide 400 MG TAB PO PRN ×2 (21:39)
[2017-08-27] MEDS ORDERED: Potassium Phosphate 12 MMOL in Sodium Chloride 0.9% 250 ML 250 ML IV PRN (21:39)
[2017-08-27] MEDS: Pantoprazole 40 MG VIAL IVP SCH (22:09)
[2017-08-27] MEDS: Nicotine 14 MG PATCH TD SCH (22:09)
[2017-08-27] MEDS: Heparin 5,000 UNITS/ML VIAL SC SCH (22:09)
[2017-08-27] MEDS: NS 0.9% w/ 20 MEQ KCL 1,000 ML IV PRN (22:10)
[2017-08-28] MEDS: Metoprolol Tartrate 5 MG/5 ML VIAL IVP PRN ×2 (00:07→15:12)
[2017-08-28 00:41] LABS: Anion Gap 15 mmol/L (10-20); BUN (Urea Nitrogen) 24 mg/dL (9.8-20.1); Calc. Creatinine Clearance 41 mL/min (70-130); Calcium 9.6 mg/dL (7.8-10.44); Carbon Dioxide 20 mmol/L (23-31); Chloride 110 mmol/L (98-107); Estimated GFR-MDRD 48; Glucose 114 mg/dL (80-115); Potassium 3.1 mmol/L (3.5-5.1); Sodium 142 mmol/L (136-145)
[2017-08-28] MEDS: NS 0.9% w/ 20 MEQ KCL 1,000 ML IV PRN (01:14)
[2017-08-28] MEDS: hydrALAZINE 20 MG/ML VIAL SLOW IVP PRN ×3 (02:06→20:05)
[2017-08-28] MEDS ORDERED: hydrALAZINE 20 MG/ML VIAL SLOW IVP SCH (05:00)
[2017-08-28 05:03] LABS: #Lymphocytes 1.4 thou/uL (1.20-3.40); #Monocytes 0.3 thou/uL (0.11-0.59); #Neutrophils 10.3 thou/uL (1.40-6.50); %Basophils 0.1 % (0.0-1.0); %Eosinophils 0.1 % (0.0-10.0); %Lymphocytes 11.5 % (21.0-51.0); %Monocytes 2.8 % (0.0-10.0); %Neutrophils 85.4 % (42.0-75.0); Hemoglobin 11.2 g/dL (12.0-16.0); Mean Corpuscular HGB CONC 33.1 g/dL (32.0-36.0); Mean Corpuscular Hemoglobin 28.5 pg (27.0-31.0); Mean Corpuscular Volume 86.1 fL (78.0-98.0); Mean Platelet Volume 8.6 fL (7.4-10.4); Platelet Count 209 thou/uL (130-400); RBC Distribution Width 13.4 % (11.5-14.5); Red Blood Cell (RBC) Count 3.94 mill/uL (4.20-5.40)
[2017-08-28 05:21] LABS: Anion Gap 15 mmol/L (10-20); BUN (Urea Nitrogen) 20 mg/dL (9.8-20.1); Calc. Creatinine Clearance 46 mL/min (70-130); Calcium 9.5 mg/dL (7.8-10.44); Carbon Dioxide 18 mmol/L (23-31); Chloride 110 mmol/L (98-107); Estimated GFR-MDRD 54; Glucose 203 mg/dL (80-115); Magnesium 1.6 mg/dL (1.6-2.6); Potassium 3.7 mmol/L (3.5-5.1); Sodium 139 mmol/L (136-145)
[2017-08-28] MEDS: Ondansetron HCl/PF 4 MG/2 ML Vial IVP PRN ×3 (06:09→21:05)
[2017-08-28] MEDS: Carvedilol 6.25 MG TAB PO SCH ×2 (07:57→21:20)
[2017-08-28] MEDS: Amlodipine 10 MG TAB PO SCH (07:58)
[2017-08-28] MEDS: hydrALAZINE 25 MG TAB PO SCH ×2 (07:59→21:21)
[2017-08-28] MEDS: Heparin 5,000 UNITS/ML VIAL SC SCH ×3 (07:59→21:10)
[2017-08-28] MEDS ORDERED: Dextrose 50% Abboject 50 ML SYRINGE IVP PRN (08:38)
[2017-08-28] MEDS ORDERED: Dextrose 5% in Water 1,000 ML IV PRN (08:38)
[2017-08-28] MEDS: Insulin Glargine 25 UNITS in Pre-Filled Syringe 1 EACH SC SCH (10:43)
[2017-08-28] MEDS: Acetaminophen 325 MG TAB PO PRN (12:10)
--- NOTE | 2017-08-28 15:45 | PDOC.PN ---
- Subjective Encounter Start Date: 08/28/17 Encounter Start Time: 09:40 Pt seen for followup re: DKA. Reports nausea is better, but still present. denies chest pain, shortness of breath, fevers or chills. - Objective MAR Reviewed: Yes Vital Signs & Weight: Vital Signs (12 hours) Temp Pulse Resp BP BP BP Pulse Ox 08/28/17 15:34 98.2 F 88 189/94 H 99 08/28/17 12:09 98 185/92 H 08/28/17 11:13 98.0 F 98 20 184/87 H 96 08/28/17 08:00 98 F 102 H 20 08/28/17 07:59 102 H 177/86 H 08/28/17 07:58 104 H 177/86 H 08/28/17 07:57 177/86 H 08/28/17 07:55 177/86 H 08/28/17 07:31 98.0 F 99 20 183/87 H 97 08/28/17 06:34 161/82 H 08/28/17 06:13 110 H 184/94 H 08/28/17 04:40 104 H 203/106 H Weight Weight 135 lb 5.821 oz I&O: 08/27/17 08/28/17 08/29/17 06:59 06:59 06:59 Intake Total 3295 Output Total 2650 Balance 645 Result Diagrams: 08/28/17 04:16 08/28/17 04:16 Additional Labs: Accuchecks 08/28/17 08/28/17 08/28/17 10:31 08:21 07:01 POC Glucose 156 H 221 H 249 H 08/28/17 08/28/17 08/28/17 06:03 05:04 04:01 POC Glucose 273 H 232 H 191 H 08/28/17 08/28/17 08/28/17 03:01 02:00 00:59 POC Glucose 130 H 112 H 106 08/27/17 08/27/17 08/27/17 23:59 23:01 21:45 POC Glucose 96 118 H 204 H 08/27/17 20:45 POC Glucose 232 H EKG Reviewed by me: Yes (Tele: NSR) Phys Exam - Physical Examination Constitutional: NAD HEENT: moist MMs, sclera anicteric, oral pharynx no lesions, 2+ tonsils Neck: no nodes, no JVD, supple, full ROM Respiratory: no wheezing, no rales, no rhonchi, clear to auscultation bilateral Cardiovascular: RRR, no rub S1, S2 Gastrointestinal: soft, non-tender, no distention, positive bowel sounds Neurological: moves all 4 limbs Psychiatric: normal affect, A&O x 3 Dx/Plan (1) DKA (diabetic ketoacidoses) Code(s): E13.10 - OTH DIABETES MELLITUS WITH KETOACIDOSIS WITHOUT COMA Status : Acute Comment: Improved, transition to SC insulin (2) Nausea & vomiting Code(s): R11.2 - NAUSEA WITH VOMITING, UNSPECIFIED Status: Acute Comment: Improving (3) Diabetic gastroparesis Code(s): E11.43 - TYPE 2 DIABETES W DIABETIC AUTONOMIC (POLY)NEUROPATHY; K31.84 - GASTROPARESIS Status: Chronic Comment: continue home medications (4) HTN (hypertension) Code(s): I10 - ESSENTIAL (PRIMARY) HYPERTENSION Status: Chronic Qualifiers: (5) CKD (chronic kidney disease) Code(s): N18.9 - CHRONIC KIDNEY DISEASE, UNSPECIFIED Status: Chronic Comment : acute on chronic renal failure has resolved (6) Dyslipidemia Code(s): E78.5 - HYPERLIPIDEMIA, UNSPECIFIED Status: Chronic Comment: continue statin - Plan * . Review of Systems - Review of Systems Constitutional: negative: fever, chills, sweats, weakness, malaise Respiratory: negative: Cough, Dry, Shortness of Breath, Hemoptysis, SOB with Excertion, Pleuritic Pain, Sputum, Wheezing Cardiovascular: negative: chest pain, palpitations, orthopnea, paroxysmal nocturnal dyspnea, edema, light headedness Gastrointestinal: Nausea. negative: Vomiting, Abdominal Pain, Diarrhea, Constipation, Melena, Hematochezia Genitourinary: negative: Dysuria, Frequency, Incontinence, Hematuria, Retention Skin: negative: Rash, Lesions, Tenzin, Bruising - Medications/Allergies Allergies/Adverse Reactions: Allergies Allergy/AdvReac Type Severity Reaction Status Date / Time nalbuphine HCl [From Nubain] AdvReac Intermediate Verified 06/29/16 03:41 Medications: Current Medications Acetaminophen (Tylenol) 650 mg PO Q4H PRN PRN Reason: Headache/Fever or Pain Last Admin: 08/28/17 12:10 Dose: 650 mg Acetaminophen (Tylenol) 650 mg [place] Q4H PRN PRN Reason: Headache/Fever or Pain Amlodipine Besylate (Norvasc) 5 mg PO DAILY [facility] Last Admin: 08/28/17 07:58 Dose: 5 mg Carvedilol (Coreg) 12.5 mg PO BID [facility] Last Admin: 08/28/17 07:57 Dose: 12.5 mg Dextrose/Water (Dextrose 50%) 25 gm IVP PRN PRN PRN Reason: HYPOGLYCEMIA PROTOCOL Enalapril Maleate (Vasotec) 10 mg PO DAILY [facility] Last Admin: 08/28/17 07:55 Dose: 10 mg Glucagon (Glucagon) 1 mg IM PRN PRN PRN Reason: HYPOGLYCEMIA PROTOCOL Heparin Sodium (Porcine) (Heparin) 5,000 units SC TID [facility] Last Admin: 08/28/17 15:11 Dose: 5,000 units Hydralazine HCl (Apresoline) 10 mg SLOW IVP Q6H PRN PRN Reason: SBP Greater Than 170 Last Admin: 08/28/17 12:09 Dose: 10 mg Hydralazine HCl (Apresoline) 25 mg PO BID [facility] Last Admin: 08/28/17 07:59 Dose: 25 mg Potassium Chloride 40 meq/ (Sodium Chloride) 270 mls @ 135 mls/hr IVPB ASDIR PRN PRN Reason: FOR SERUM K+ 2.5 - 3.5 Potassium Chloride 40 meq/ (Device) 100 mls @ 50 mls/hr IVPB ASDIR PRN PRN Reason: FOR SERUM K+ 2.5 - 3.5 Magnesium Sulfate 1 gm/ Sodium (Chloride) 102 mls @ 102 mls/hr IV PRN PRN PRN Reason: MAG LEVEL 1.4 - 2.0 Last Admin: 08/28/17 05:36 Dose: 102 mls Magnesium Sulfate 2 gm/ Device 100 mls @ 100 mls/hr IVPB ASDIR PRN PRN Reason: MAGNESIUM < 1.4 Potassium Phosphate 9 mmol/ (Sodium Chloride) 103 mls @ 25.75 mls/hr IVPB ASDIR PRN PRN Reason: Phosphate 1.0-1.8 Potassium Phosphate 12 mmol/ (Sodium Chloride) 254 mls @ 63.5 mls/hr IV ASDIR PRN PRN Reason: Serum phosphate 0.5-0.9 Potassium Phosphate 15 mmol/ (Sodium Chloride) 255 mls @ 63.75 mls/hr IV ASDIR PRN PRN Reason: Serum Phos < 0.5 Insulin Glargine 20 units/ (Miscellaneous Medication) 0.2 mls @ 0 mls/hr SC HS [facility] Insulin Glargine 25 units/ (Miscellaneous Medication) 0.25 mls @ 0 mls/hr SC QAM [facility] Last Admin: 08/28/17 10:43 Dose: 0.25 mls Dextrose/Water (D5w) 1,000 mls @ 0 mls/hr IV INF PRN; As Directed PRN Reason: HYPOGLYCEMIA PROTOCOL Insulin Human Lispro (Humalog) 0 units SC .MILD SLIDING SCALE PRN; Protocol PRN Reason: MILD SLIDING SCALE Magnesium Oxide (Magnesium Oxide) 400 mg PO BIDPRN PRN PRN Reason: FOR SERUM MAG 1.4 - 2.0 Magnesium Oxide (Magnesium Oxide) 800 mg PO PRN PRN PRN Reason: FOR SERUM MAG < 1.4 Metoprolol Tartrate (Lopressor) 5 mg IVP Q6H PRN PRN Reason: SBP Greater Than 180 Last Admin: 08/28/17 15:12 Dose: 5 mg Miscellaneous Medication (Ccu Electrolyte Replacement) 1 each IVPB ONE [facility] Stop: 09/26/17 19:26 Miscellaneous Medication (Phos-Nak) 1 pkt PO TIDPRN PRN PRN Reason: FOR PHOS LEVEL 1.0 - 1.8 Miscellaneous Medication (Phos-Nak) 2 pkt PO TIDPRN PRN PRN Reason: FOR PHOS LEVEL 0.5 - 1.0 Nicotine (Nicoderm Patch) 14 mg TD Q24HR [facility] Last Admin: 08/27/17 22:09 Dose: Not Given Ccu Electrolyte (Replacement Protocol) 0 each FS PRN PRN PRN Reason: FOR ELECTROLYTE REPLACEMENT Ondansetron HCl (Zofran) 4 mg IVP Q6H PRN PRN Reason: Nausea/Vomiting Last Admin: 08/28/17 12:09 Dose: 4 mg Pantoprazole Sodium (Protonix) 40 mg IVP Q24HR [facility] Last Admin: 08/27/17 22:09 Dose: 40 mg Potassium Chloride (K-Dur) 40 meq PO ASDIR PRN PRN Reason: FOR SERUM K+ 2.5 - 3.5 Potassium Chloride (Klor-Con) 40 meq PER TUBE ASDIR PRN PRN Reason: FOR SERUM K+ 2.5-3.5 Sodium Chloride (Flush - Normal Saline) 10 ml IVF PRN PRN PRN Reason: Saline Flush
[2017-08-28] MEDS: HumaLOG 300 UNITS/3 ML VIAL SC PRN (17:29)
[2017-08-28] MEDS: K-Phos Neutral 250 MG TAB PO SCH ×2 (17:30→21:22)
[2017-08-28] MEDS: Insulin Glargine 20 UNITS in Pre-Filled Syringe 1 EACH SC SCH (21:11)
[2017-08-28] MEDS: Pantoprazole 40 MG VIAL IVP SCH (21:13)
[2017-08-28] MEDS: Nicotine 14 MG PATCH TD SCH (21:20)
[2017-08-28] MEDS: Gabapentin 400 MG CAP PO SCH (21:22)
[2017-08-28] MEDS: metFORMIN 500 MG TAB PO SCH (21:24)
[2017-08-29 05:29] LABS: #Lymphocytes 1.7 thou/uL (1.20-3.40); #Monocytes 0.8 thou/uL (0.11-0.59); #Neutrophils 9.1 thou/uL (1.40-6.50); %Basophils 0.2 % (0.0-1.0); %Eosinophils 0.2 % (0.0-10.0); %Lymphocytes 14.4 % (21.0-51.0); %Monocytes 6.9 % (0.0-10.0); %Neutrophils 78.3 % (42.0-75.0); Hemoglobin 11.2 g/dL (12.0-16.0); Mean Corpuscular HGB CONC 32.3 g/dL (32.0-36.0); Mean Corpuscular Hemoglobin 27.8 pg (27.0-31.0); Mean Corpuscular Volume 86.2 fL (78.0-98.0); Mean Platelet Volume 8.6 fL (7.4-10.4); Platelet Count 195 thou/uL (130-400); RBC Distribution Width 13.5 % (11.5-14.5); Red Blood Cell (RBC) Count 4.02 mill/uL (4.20-5.40); White Blood Cell (WBC) Count 11.6 thou/uL (4.8-10.8)
[2017-08-29 05:47] LABS: Anion Gap 11 mmol/L (10-20); BUN (Urea Nitrogen) 20 mg/dL (9.8-20.1); Calc. Creatinine Clearance 41 mL/min (70-130); Calcium 9.5 mg/dL (7.8-10.44); Carbon Dioxide 21 mmol/L (23-31); Chloride 108 mmol/L (98-107); Estimated GFR-MDRD 48; Glucose 132 mg/dL (80-115); Magnesium 1.7 mg/dL (1.6-2.6); Potassium 3.2 mmol/L (3.5-5.1); Sodium 137 mmol/L (136-145)
[2017-08-29] MEDS: K-Phos Neutral 250 MG TAB PO SCH ×4 (09:18→20:50)
[2017-08-29] MEDS: Insulin Glargine 25 UNITS in Pre-Filled Syringe 1 EACH SC SCH (09:18)
[2017-08-29] MEDS: Heparin 5,000 UNITS/ML VIAL SC SCH ×3 (09:23→20:50)
[2017-08-29] MEDS: Carvedilol 6.25 MG TAB PO SCH ×2 (09:26→20:49)
[2017-08-29] MEDS: hydrALAZINE 25 MG TAB PO SCH ×2 (09:27→20:49)
[2017-08-29] MEDS: Atorvastatin Calcium 40 MG TAB PO SCH (09:27)
[2017-08-29] MEDS: Amlodipine 10 MG TAB PO SCH (09:28)
[2017-08-29] MEDS: Gabapentin 400 MG CAP PO SCH ×3 (09:28→20:49)
[2017-08-29] MEDS: metFORMIN 500 MG TAB PO SCH ×2 (09:29→20:48)
--- NOTE | 2017-08-29 15:20 | PQF ---
DATE: 08-29-17 ATTN: DR. CHAIM TIPTON Please exercise your independent, professional judgment in responding to the clarification form. Clinical indicators are provided on the bottom of this form for your review Please check appropriate box(s): [ ] UTI [ X ] Contaminated urine specimen without UTI [ ] Other diagnosis [ ] Unable to determine In addition, please specify: Present on Admission (POA): [ ] Yes [ ] No [ ] Unable to determine For continuity of documentation, please document condition throughout progress notes and discharge summary. Thank You. CLINICAL INDICATORS - SIGNS / SYMPTOMS / LABS URINALYSIS: 08-27-17: URINE PROTEIN: 300 H URINE GLUCOSE: 500 H URINE KETONES: 40 H URINE BLOOD: SMALL H UR LEUKOCYTE ESTERASE: SMALL H URINE WBC: GREATER THAN 50- TNTC H URINE BACTERIA: 1+ H RISK FACTORS: ER: HX OF DM 2, HTN, CKD 3,. CHRONIC HEP C, ANEMIA OF CHRONIC DISEASE, SMOKER TREATMENT: ER: IVF NS 2L (This form is maintained as a part of the permanent medical record) 2014 [employer] All Rights Reserved [email or web address] Office: [phone] [facility]
--- NOTE | 2017-08-29 17:41 | PDOC.PN ---
- Subjective Encounter Start Date: 08/29/17 Encounter Start Time: 09:40 Pt seen for followup re: nausea and vomiting. Feels slightly better. - Objective MAR Reviewed: Yes Vital Signs & Weight: Vital Signs (12 hours) Temp Pulse Resp BP BP Pulse Ox 08/29/17 15:24 98.8 F 89 18 115/59 L 97 08/29/17 11:30 98.1 F 103 H 18 165/83 H 97 08/29/17 09:23 180/97 H 08/29/17 07:53 98.2 F 88 16 100 08/29/17 07:23 98.2 F 88 16 153/85 H 100 Weight Weight 135 lb 5.821 oz I&O: 08/28/17 08/29/17 08/30/17 06:59 06:59 06:59 Intake Total 3295 2020 670 Output Total 2650 1550 600 Balance 645 470 70 Result Diagrams: 08/30/17 05:00 08/30/17 05:00 Additional Labs: Accuchecks 08/29/17 08/29/17 08/29/17 16:31 10:50 05:21 POC Glucose 98 151 H 137 H 08/28/17 19:56 POC Glucose 169 H EKG Reviewed by me: Yes (Tele: NSR) Phys Exam - Physical Examination Constitutional: NAD HEENT: moist MMs, sclera anicteric, oral pharynx no lesions, 2+ tonsils Neck: no nodes, no JVD, supple, full ROM Respiratory: no wheezing, no rales, no rhonchi, clear to auscultation bilateral Cardiovascular: RRR, no rub S1, S2 Gastrointestinal: soft, non-tender, no distention, positive bowel sounds Neurological: moves all 4 limbs Psychiatric: normal affect, A&O x 3 Dx/Plan (1) Nausea & vomiting Code(s): R11.2 - NAUSEA WITH VOMITING, UNSPECIFIED Status: Acute Comment: Improving, continue PRN antiemetics (2) Diabetic gastroparesis Code(s): E11.43 - TYPE 2 DIABETES W DIABETIC AUTONOMIC (POLY)NEUROPATHY; K31.84 - GASTROPARESIS Status: Chronic Comment: continue home medications (3) HTN (hypertension) Code(s): I10 - ESSENTIAL (PRIMARY) HYPERTENSION Status: Chronic Qualifiers: Comment: Blood pressure high, increase amlodipine dose (4) CKD (chronic kidney disease) Code(s): N18.9 - CHRONIC KIDNEY DISEASE, UNSPECIFIED Status: Chronic Comment : renal function around baseline (5) Dyslipidemia Code(s): E78.5 - HYPERLIPIDEMIA, UNSPECIFIED Status: Chronic Comment: continue statin (6) DKA (diabetic ketoacidoses) Code(s): E13.10 - OTH DIABETES MELLITUS WITH KETOACIDOSIS WITHOUT COMA Status : Resolved - Plan * . Review of Systems - Review of Systems Constitutional: weakness. negative: fever, chills, sweats, malaise Respiratory: negative: Cough, Shortness of Breath, SOB with Excertion, Pleuritic Pain, Wheezing Cardiovascular: negative: chest pain, palpitations, orthopnea, paroxysmal nocturnal dyspnea, edema, light headedness Gastrointestinal: Nausea, Vomiting. negative: Abdominal Pain, Diarrhea, Constipation, Melena, Hematochezia Genitourinary: negative: Dysuria, Frequency, Incontinence, Hematuria, Retention Skin: negative: Rash, Lesions, Tenzin, Bruising - Medications/Allergies Allergies/Adverse Reactions: Allergies Allergy/AdvReac Type Severity Reaction Status Date / Time nalbuphine HCl [From Nubain] AdvReac Intermediate Verified 06/29/16 03:41 Medications: Current Medications Acetaminophen (Tylenol) 650 mg PO Q4H PRN PRN Reason: Headache/Fever or Pain Last Admin: 08/28/17 12:10 Dose: 650 mg Acetaminophen (Tylenol) [address] Q4H PRN PRN Reason: Headache/Fever or Pain Amlodipine Besylate (Norvasc) 5 mg PO DAILY [facility] Last Admin: 08/29/17 09:28 Dose: 5 mg Aspirin (Aspirin Chewable) 81 mg PO DAILY [facility] Last Admin: 08/29/17 09:27 Dose: 81 mg Atorvastatin Calcium (Lipitor) 40 mg PO DAILY [facility] Last Admin: 08/29/17 09:27 Dose: 40 mg Carvedilol (Coreg) 12.5 mg PO BID [facility] Last Admin: 08/29/17 09:26 Dose: 12.5 mg Dextrose/Water (Dextrose 50%) 25 gm IVP PRN PRN PRN Reason: HYPOGLYCEMIA PROTOCOL Enalapril Maleate (Vasotec) 10 mg PO DAILY [facility] Last Admin: 08/29/17 09:23 Dose: 10 mg Gabapentin (Neurontin) 400 mg PO TID [facility] Last Admin: 08/29/17 15:45 Dose: 400 mg Glucagon (Glucagon) 1 mg IM PRN PRN PRN Reason: HYPOGLYCEMIA PROTOCOL Heparin Sodium (Porcine) (Heparin) 5,000 units SC TID [facility] Last Admin: 08/29/17 15:45 Dose: 5,000 units Hydralazine HCl (Apresoline) 10 mg SLOW IVP Q6H PRN PRN Reason: SBP Greater Than 170 Last Admin: 08/28/17 20:05 Dose: 10 mg Hydralazine HCl (Apresoline) 25 mg PO BID [facility] Last Admin: 08/29/17 09:27 Dose: 25 mg Potassium Chloride 40 meq/ (Sodium Chloride) 270 mls @ 135 mls/hr IVPB ASDIR PRN PRN Reason: FOR SERUM K+ 2.5 - 3.5 Potassium Chloride 40 meq/ (Device) 100 mls @ 50 mls/hr IVPB ASDIR PRN PRN Reason: FOR SERUM K+ 2.5 - 3.5 Magnesium Sulfate 1 gm/ Sodium (Chloride) 102 mls @ 102 mls/hr IV PRN PRN PRN Reason: MAG LEVEL 1.4 - 2.0 Last Admin: 08/28/17 05:36 Dose: 102 mls Magnesium Sulfate 2 gm/ Device 100 mls @ 100 mls/hr IVPB ASDIR PRN PRN Reason: MAGNESIUM < 1.4 Potassium Phosphate 9 mmol/ (Sodium Chloride) 103 mls @ 25.75 mls/hr IVPB ASDIR PRN PRN Reason: Phosphate 1.0-1.8 Potassium Phosphate 12 mmol/ (Sodium Chloride) 254 mls @ 63.5 mls/hr IV ASDIR PRN PRN Reason: Serum phosphate 0.5-0.9 Potassium Phosphate 15 mmol/ (Sodium Chloride) 255 mls @ 63.75 mls/hr IV ASDIR PRN PRN Reason: Serum Phos < 0.5 Insulin Glargine 20 units/ (Miscellaneous Medication) 0.2 mls @ 0 mls/hr SC HS [facility] Last Admin: 08/28/17 21:11 Dose: 0.2 mls Insulin Glargine 25 units/ (Miscellaneous Medication) 0.25 mls @ 0 mls/hr SC QAM [facility] Last Admin: 08/29/17 09:18 Dose: 0.25 mls Dextrose/Water (D5w) 1,000 mls @ 0 mls/hr IV INF PRN; As Directed PRN Reason: HYPOGLYCEMIA PROTOCOL Insulin Human Lispro (Humalog) 0 units SC .MILD SLIDING SCALE PRN; Protocol PRN Reason: MILD SLIDING SCALE Last Admin: 08/28/17 17:29 Dose: 3 units Magnesium Oxide (Magnesium Oxide) 400 mg PO BIDPRN PRN PRN Reason: FOR SERUM MAG 1.4 - 2.0 Magnesium Oxide (Magnesium Oxide) 800 mg PO PRN PRN PRN Reason: FOR SERUM MAG < 1.4 Metformin HCl (Glucophage) 500 mg PO BID [facility] Last Admin: 08/29/17 09:29 Dose: 500 mg Metoprolol Tartrate (Lopressor) 5 mg IVP Q6H PRN PRN Reason: SBP Greater Than 180 Last Admin: 08/28/17 15:12 Dose: 5 mg Miscellaneous Medication (Ccu Electrolyte Replacement) 1 each IVPB ONE [facility] Stop: 09/26/17 19:26 Miscellaneous Medication (Phos-Nak) 1 pkt PO TIDPRN PRN PRN Reason: FOR PHOS LEVEL 1.0 - 1.8 Miscellaneous Medication (Phos-Nak) 2 pkt PO TIDPRN PRN PRN Reason: FOR PHOS LEVEL 0.5 - 1.0 Nicotine (Nicoderm Patch) 14 mg TD Q24HR [facility] Last Admin: 08/28/17 21:20 Dose: Not Given Ccu Electrolyte (Replacement Protocol) 0 each FS PRN PRN PRN Reason: FOR ELECTROLYTE REPLACEMENT Ondansetron HCl (Zofran) 4 mg IVP Q6H PRN PRN Reason: Nausea/Vomiting Last Admin: 08/28/17 21:05 Dose: 4 mg Pantoprazole Sodium (Protonix) 40 mg IVP Q24HR [facility] Last Admin: 08/28/17 21:13 Dose: 40 mg Pantoprazole Sodium (Protonix) 40 mg PO DAILY [facility] Last Admin: 08/29/17 09:29 Dose: 40 mg Vortioxetine Hydrobromide [ Trintellix] 10 Mg 0 each PO DAILY [facility] Phosphorus (Kphos Neutral) 250 mg PO QID[facility] Last Admin: 08/29/17 12:00 Dose: Not Given Potassium Chloride (K-Dur) 40 meq PO ASDIR PRN PRN Reason: FOR SERUM K+ 2.5 - 3.5 Last Admin: 08/29/17 15:45 Dose: 40 meq Potassium Chloride (Klor-Con) 40 meq PER TUBE ASDIR PRN PRN Reason: FOR SERUM K+ 2.5-3.5 Sodium Chloride (Flush - Normal Saline) 10 ml IVF PRN PRN PRN Reason: Saline Flush Last Admin: 08/29/17 09:19 Dose: 10 ml
[2017-08-29] MEDS ORDERED: Amlodipine 5 MG TAB PO SCH (18:00)
[2017-08-29] MEDS: Pantoprazole 40 MG VIAL IVP SCH (20:49)
[2017-08-29] MEDS: Nicotine 14 MG PATCH TD SCH (20:50)
[2017-08-29] MEDS: Insulin Glargine 20 UNITS in Pre-Filled Syringe 1 EACH SC SCH (20:50)
[2017-08-30 05:57] LABS: Anion Gap 12 mmol/L (10-20); BUN (Urea Nitrogen) 33 mg/dL (9.8-20.1); Calc. Creatinine Clearance 28 mL/min (70-130); Calcium 9.2 mg/dL (7.8-10.44); Carbon Dioxide 20 mmol/L (23-31); Chloride 108 mmol/L (98-107); Estimated GFR-MDRD 30; Potassium 3.7 mmol/L (3.5-5.1); Sodium 136 mmol/L (136-145)
[2017-08-30 06:08] LABS: Band 10 % (5-11); Hemoglobin 10.6 g/dL (12.0-16.0); Lymphocytes 19 % (21-51); MDiff Complete? YES; Mean Corpuscular HGB CONC 32.9 g/dL (32.0-36.0); Mean Corpuscular Hemoglobin 28.3 pg (27.0-31.0); Mean Corpuscular Volume 85.9 fL (78.0-98.0); Mean Platelet Volume 8.2 fL (7.4-10.4); Monocytes 5 % (0-10); Neutrophil 66 % (42-75); PLT Morphology Comment Appears Adequate; Platelet Count 170 thou/uL (130-400); RBC Distribution Width 13.3 % (11.5-14.5); Red Blood Cell (RBC) Count 3.76 mill/uL (4.20-5.40); White Blood Cell (WBC) Count 9.6 thou/uL (4.8-10.8)
[2017-08-30 06:09] LABS: Glucose 58 mg/dL (80-115)
[2017-08-30] MEDS: K-Phos Neutral 250 MG TAB PO SCH ×2 (07:47→12:16)
[2017-08-30] MEDS: Gabapentin 400 MG CAP PO SCH ×3 (07:47→20:05)
[2017-08-30] MEDS: Atorvastatin Calcium 40 MG TAB PO SCH (07:47)
[2017-08-30] MEDS: metFORMIN 500 MG TAB PO SCH (07:47)
[2017-08-30] MEDS: Carvedilol 6.25 MG TAB PO SCH ×2 (07:48→20:05)
[2017-08-30] MEDS: Heparin 5,000 UNITS/ML VIAL SC SCH ×3 (07:49→20:06)
[2017-08-30] MEDS: Amlodipine 10 MG TAB PO SCH (08:34)
[2017-08-30] MEDS: hydrALAZINE 25 MG TAB PO SCH ×2 (08:35→20:05)
[2017-08-30] MEDS: Insulin Glargine 25 UNITS in Pre-Filled Syringe 1 EACH SC SCH (08:35)
[2017-08-30] MEDS: Sodium Chloride 0.9% 1,000 ML IV SCH ×2 (12:16→23:12)
[2017-08-30] MEDS: Vortioxetine Hydrobromide [Trintellix] 10 MG PO SCH (14:34)
--- NOTE | 2017-08-30 17:42 | PDOC.PN ---
- Subjective Encounter Start Date: 08/30/17 Encounter Start Time: 08:40 Pt seen fo4r followup re: acute on chronic renal failure. Denies chest pain, shortness of breath, fevers or chills. - Objective MAR Reviewed: Yes Vital Signs & Weight: Vital Signs (12 hours) Temp Pulse Resp BP BP BP Pulse Ox 08/30/17 16:00 99.3 F 92 20 126/68 98 08/30/17 11:00 97.9 F 94 20 93/55 L 99 08/30/17 08:35 104/61 08/30/17 08:34 81 104/61 08/30/17 08:00 98.6 F 81 20 08/30/17 07:48 104/61 08/30/17 07:44 98.6 F 85 20 104/61 97 Weight Weight 135 lb 5.821 oz I&O: 08/29/17 08/30/17 08/31/17 06:59 06:59 06:59 Intake Total 2020 670 240 Output Total 1550 600 Balance 470 70 240 Result Diagrams: 08/30/17 05:00 08/30/17 05:00 Additional Labs: Accuchecks 08/30/17 08/30/17 08/29/17 06:15 04:54 19:44 POC Glucose 130 H 65 L 101 Labs reviewed by me Phys Exam - Physical Examination Constitutional: NAD HEENT: sclera anicteric, oral pharynx no lesions, 2+ tonsils Dry mucoase Neck: no nodes, no JVD, supple, full ROM Respiratory: no wheezing, no rales, no rhonchi, clear to auscultation bilateral Cardiovascular: RRR, no rub S1, S2 Gastrointestinal: soft, non-tender, no distention, positive bowel sounds Neurological: non-focal, moves all 4 limbs Psychiatric: normal affect, A&O x 3 Skin: no rash Dx/Plan (1) Acute on chronic renal failure Code(s): N17.9 - ACUTE KIDNEY FAILURE, UNSPECIFIED; N18.9 - CHRONIC KIDNEY DISEASE, UNSPECIFIED Status: Acute Comment: Likely prerenal from vomiting, start IV fluids, recheck creatinine (2) Hypoglycemia Code(s): E16.2 - HYPOGLYCEMIA, UNSPECIFIED Status: Acute Comment: likely from renal insufficiency, with diminished excretion of insulin (3) HTN (hypertension) Code(s): I10 - ESSENTIAL (PRIMARY) HYPERTENSION Status: Chronic Qualifiers: Comment: Blood pressure high, increase amlodipine dose (4) Dyslipidemia Code(s): E78.5 - HYPERLIPIDEMIA, UNSPECIFIED Status: Chronic Comment: continue statin (5) Diabetic gastroparesis Code(s): E11.43 - TYPE 2 DIABETES W DIABETIC AUTONOMIC (POLY)NEUROPATHY; K31.84 - GASTROPARESIS Status: Chronic (6) Nausea & vomiting Code(s): R11.2 - NAUSEA WITH VOMITING, UNSPECIFIED Status: Resolved - Plan * . Review of Systems - Review of Systems Constitutional: negative: fever, chills, sweats, weakness, malaise Respiratory: negative: Cough, Shortness of Breath, SOB with Excertion, Pleuritic Pain, Wheezing Cardiovascular: negative: chest pain, palpitations, orthopnea, paroxysmal nocturnal dyspnea, edema, light headedness Gastrointestinal: negative: Nausea, Vomiting, Abdominal Pain, Diarrhea, Constipation, Melena, Hematochezia Genitourinary: negative: Dysuria, Frequency, Incontinence, Hematuria, Retention Musculoskeletal: negative: Neck Pain, Shoulder Pain, Arm Pain, Back Pain, Hand Pain, Leg Pain, Foot Pain - Medications/Allergies Allergies/Adverse Reactions: Allergies Allergy/AdvReac Type Severity Reaction Status Date / Time nalbuphine HCl [From Nubain] AdvReac Intermediate Verified 06/29/16 03:41 Medications: Current Medications Acetaminophen (Tylenol) 650 mg PO Q4H PRN PRN Reason: Headache/Fever or Pain Last Admin: 08/28/17 12:10 Dose: 650 mg Acetaminophen (Tylenol) 650 mg [place] Q4H PRN PRN Reason: Headache/Fever or Pain Amlodipine Besylate (Norvasc) 10 mg PO DAILY [facility] Last Admin: 08/30/17 08:34 Dose: Not Given Aspirin (Aspirin Chewable) 81 mg PO DAILY [facility] Last Admin: 08/30/17 07:47 Dose: 81 mg Atorvastatin Calcium (Lipitor) 40 mg PO DAILY [facility] Last Admin: 08/30/17 07:47 Dose: 40 mg Carvedilol (Coreg) 12.5 mg PO BID [facility] Last Admin: 08/30/17 07:48 Dose: 12.5 mg Dextrose/Water (Dextrose 50%) 25 gm IVP PRN PRN PRN Reason: HYPOGLYCEMIA PROTOCOL Enalapril Maleate (Vasotec) 10 mg PO DAILY [facility] Last Admin: 08/30/17 08:35 Dose: Not Given Gabapentin (Neurontin) 400 mg PO TID [facility] Last Admin: 08/30/17 16:12 Dose: 400 mg Glucagon (Glucagon) 1 mg IM PRN PRN PRN Reason: HYPOGLYCEMIA PROTOCOL Heparin Sodium (Porcine) (Heparin) 5,000 units SC TID [facility] Last Admin: 08/30/17 16:12 Dose: 5,000 units Hydralazine HCl (Apresoline) 10 mg SLOW IVP Q6H PRN PRN Reason: SBP Greater Than 170 Last Admin: 08/28/17 20:05 Dose: 10 mg Hydralazine HCl (Apresoline) 25 mg PO BID [facility] Last Admin: 08/30/17 08:35 Dose: Not Given Insulin Glargine 20 units/ (Miscellaneous Medication) 0.2 mls @ 0 mls/hr SC HS [facility] Last Admin: 08/29/17 20:50 Dose: 0.2 mls Insulin Glargine 25 units/ (Miscellaneous Medication) 0.25 mls @ 0 mls/hr SC QAM [facility] Last Admin: 08/30/17 08:35 Dose: Not Given Dextrose/Water (D5w) 1,000 mls @ 0 mls/hr IV INF PRN; As Directed PRN Reason: HYPOGLYCEMIA PROTOCOL Sodium Chloride (Normal Saline 0.9%) 1,000 mls @ 100 mls/hr IV .Q10H [facility] Last Admin: 08/30/17 12:16 Dose: 1,000 mls Insulin Human Lispro (Humalog) 0 units SC .MILD SLIDING SCALE PRN; Protocol PRN Reason: MILD SLIDING SCALE Last Admin: 08/28/17 17:29 Dose: 3 units Metformin HCl (Glucophage) 500 mg PO BID [facility] Last Admin: 08/30/17 07:47 Dose: 500 mg Nicotine (Nicoderm Patch) 14 mg TD Q24HR [facility] Last Admin: 08/29/17 20:50 Dose: Not Given Ondansetron HCl (Zofran) 4 mg IVP Q6H PRN PRN Reason: Nausea/Vomiting Last Admin: 08/28/17 21:05 Dose: 4 mg Pantoprazole Sodium (Protonix) 40 mg PO DAILY [facility] Last Admin: 08/30/17 07:47 Dose: 40 mg Sodium Chloride (Flush - Normal Saline) 10 ml IVF PRN PRN PRN Reason: Saline Flush Last Admin: 08/29/17 20:49 Dose: 10 ml
[2017-08-30] MEDS: Nicotine 14 MG PATCH TD SCH (19:46)
[2017-08-30] MEDS: Insulin Glargine 20 UNITS in Pre-Filled Syringe 1 EACH SC SCH (20:06)
[2017-08-30] MEDS: Acetaminophen 325 MG TAB PO PRN (20:09)
[2017-08-31] MEDS: Sodium Chloride 0.9% 1,000 ML IV SCH ×4 (05:01→18:55)
[2017-08-31 05:52] LABS: Anion Gap 9 mmol/L (10-20); BUN (Urea Nitrogen) 37 mg/dL (9.8-20.1); Calc. Creatinine Clearance 28 mL/min (70-130); Calcium 8.5 mg/dL (7.8-10.44); Carbon Dioxide 22 mmol/L (23-31); Chloride 114 mmol/L (98-107); Estimated GFR-MDRD 31; Glucose 60 mg/dL (80-115); Potassium 3.2 mmol/L (3.5-5.1); Sodium 142 mmol/L (136-145)
[2017-08-31] MEDS: Atorvastatin Calcium 40 MG TAB PO SCH (08:50)
[2017-08-31] MEDS: Carvedilol 6.25 MG TAB PO SCH ×2 (08:50→20:29)
[2017-08-31] MEDS: Gabapentin 400 MG CAP PO SCH ×3 (08:50→20:29)
[2017-08-31] MEDS: hydrALAZINE 25 MG TAB PO SCH ×2 (08:50→20:29)
[2017-08-31] MEDS: Amlodipine 10 MG TAB PO SCH (08:50)
[2017-08-31] MEDS: Heparin 5,000 UNITS/ML VIAL SC SCH ×3 (08:51→20:29)
[2017-08-31] MEDS: Insulin Glargine 25 UNITS in Pre-Filled Syringe 1 EACH SC SCH (08:51)
--- NOTE | 2017-08-31 14:46 | PDOC.PN ---
- Subjective Encounter Start Date: 08/31/17 Encounter Start Time: 09:20 Pt seen for followup re: acute renal failure. Feels better, denies chest pain, shortness of breath, fevers or chills. - Objective MAR Reviewed: Yes Vital Signs & Weight: Vital Signs (12 hours) Temp Pulse Resp BP BP BP Pulse Ox 08/31/17 11:00 97.8 F 81 20 136/85 100 08/31/17 09:08 98.0 F 83 18 99 08/31/17 08:50 83 136/85 08/31/17 07:49 98.0 F 83 18 136/85 99 08/31/17 05:25 98.3 F 76 18 112/56 L Weight Weight 135 lb 5.821 oz I&O: 08/30/17 08/31/17 09/01/17 06:59 06:59 06:59 Intake Total 670 2620 Output Total 600 Balance 70 2620 Result Diagrams: 08/30/17 05:00 08/31/17 04:26 Additional Labs: Accuchecks 08/31/17 08/31/17 08/30/17 11:26 05:30 19:54 POC Glucose 73 55 L* 141 H 08/30/17 08/30/17 16:25 11:32 POC Glucose 131 H 81 labs reviewed by me Phys Exam - Physical Examination Constitutional: NAD HEENT: moist MMs Neck: supple Respiratory: clear to auscultation bilateral Cardiovascular: RRR Gastrointestinal: soft Neurological: moves all 4 limbs Psychiatric: normal affect Dx/Plan (1) Acute on chronic renal failure Code(s): N17.9 - ACUTE KIDNEY FAILURE, UNSPECIFIED; N18.9 - CHRONIC KIDNEY DISEASE, UNSPECIFIED Status: Acute Comment: creatinine still high, held ACEI and metformin, will increase IV NS to 125 ml/hr (2) Hypoglycemia Code(s): E16.2 - HYPOGLYCEMIA, UNSPECIFIED Status: Acute Comment: likely from renal insufficiency, with diminished excretion of insulin. Decreased PM dose of lantus insulin to 10 units (from 20 units) (3) Hypokalemia Code(s): E87.6 - HYPOKALEMIA Status: Acute Comment: replace potassium (4) HTN (hypertension) Code(s): I10 - ESSENTIAL (PRIMARY) HYPERTENSION Status: Chronic Qualifiers: Comment: controlled (5) Dyslipidemia Code(s): E78.5 - HYPERLIPIDEMIA, UNSPECIFIED Status: Chronic Comment: continue statin (6) Diabetic gastroparesis Code(s): E11.43 - TYPE 2 DIABETES W DIABETIC AUTONOMIC (POLY)NEUROPATHY; K31.84 - GASTROPARESIS Status: Chronic (7) Nausea & vomiting Code(s): R11.2 - NAUSEA WITH VOMITING, UNSPECIFIED Status: Resolved - Plan * . Review of Systems - Review of Systems Respiratory: negative: Cough, Shortness of Breath, SOB with Excertion, Pleuritic Pain, Wheezing Cardiovascular: negative: chest pain, palpitations, orthopnea, paroxysmal nocturnal dyspnea, edema, light headedness - Medications/Allergies Allergies/Adverse Reactions: Allergies Allergy/AdvReac Type Severity Reaction Status Date / Time nalbuphine HCl [From Nubain] AdvReac Intermediate Verified 06/29/16 03:41 Medications: Current Medications Acetaminophen (Tylenol) 650 mg PO Q4H PRN PRN Reason: Headache/Fever or Pain Last Admin: 08/30/17 20:09 Dose: 650 mg Acetaminophen (Tylenol) 650 mg VT Q4H PRN PRN Reason: Headache/Fever or Pain Amlodipine Besylate (Norvasc) 10 mg PO DAILY [facility] Last Admin: 08/31/17 08:50 Dose: 10 mg Aspirin (Aspirin Chewable) 81 mg PO DAILY [facility] Last Admin: 08/31/17 08:50 Dose: 81 mg Atorvastatin Calcium (Lipitor) 40 mg PO DAILY [facility] Last Admin: 08/31/17 08:50 Dose: 40 mg Carvedilol (Coreg) 12.5 mg PO BID [facility] Last Admin: 08/31/17 08:50 Dose: 12.5 mg Dextrose/Water (Dextrose 50%) 25 gm IVP PRN PRN PRN Reason: HYPOGLYCEMIA PROTOCOL Gabapentin (Neurontin) 400 mg PO TID [facility] Last Admin: 08/31/17 08:50 Dose: 400 mg Glucagon (Glucagon) 1 mg IM PRN PRN PRN Reason: HYPOGLYCEMIA PROTOCOL Heparin Sodium (Porcine) (Heparin) 5,000 units SC TID [facility] Last Admin: 08/31/17 08:51 Dose: 5,000 units Hydralazine HCl (Apresoline) 10 mg SLOW IVP Q6H PRN PRN Reason: SBP Greater Than 170 Last Admin: 08/28/17 20:05 Dose: 10 mg Hydralazine HCl (Apresoline) 25 mg PO BID [facility] Last Admin: 08/31/17 08:50 Dose: 25 mg Insulin Glargine 25 units/ (Miscellaneous Medication) 0.25 mls @ 0 mls/hr SC QAM [facility] Last Admin: 08/31/17 08:51 Dose: Not Given Dextrose/Water (D5w) 1,000 mls @ 0 mls/hr IV INF PRN; As Directed PRN Reason: HYPOGLYCEMIA PROTOCOL Insulin Glargine 10 units/ (Miscellaneous Medication) 0.1 mls @ 0 mls/hr SC HS [facility] Sodium Chloride (Normal Saline 0.9%) 1,000 mls @ 125 mls/hr IV .Q8H [facility] Insulin Human Lispro (Humalog) 0 units SC .MILD SLIDING SCALE PRN; Protocol PRN Reason: MILD SLIDING SCALE Last Admin: 08/28/17 17:29 Dose: 3 units Nicotine (Nicoderm Patch) 14 mg TD Q24HR [facility] Last Admin: 08/30/17 19:46 Dose: Not Given Ondansetron HCl (Zofran) 4 mg IVP Q6H PRN PRN Reason: Nausea/Vomiting Last Admin: 08/28/17 21:05 Dose: 4 mg Pantoprazole Sodium (Protonix) 40 mg PO DAILY [facility] Last Admin: 08/31/17 08:50 Dose: 40 mg Potassium Chloride (K-Dur) 40 meq PO ONE [facility] Sodium Chloride (Flush - Normal Saline) 10 ml IVF PRN PRN PRN Reason: Saline Flush Last Admin: 08/29/17 20:49 Dose: 10 ml
[2017-08-31] MEDS ORDERED: Potassium Chloride 20 MEQ TAB PO SCH (15:00)
[2017-08-31] MEDS: Nicotine 14 MG PATCH TD SCH (18:57)
[2017-08-31] MEDS: Insulin Glargine 10 UNITS in Pre-Filled Syringe 1 EACH SC SCH (19:13)
[2017-08-31] MEDS: Acetaminophen 325 MG TAB PO PRN (20:29)
[2017-09-01] MEDS: Sodium Chloride 0.9% 1,000 ML IV SCH ×3 (04:12→20:24)
[2017-09-01 05:05] LABS: Anion Gap 9 mmol/L (10-20); BUN (Urea Nitrogen) 21 mg/dL (9.8-20.1); Calc. Creatinine Clearance 34 mL/min (70-130); Calcium 8.5 mg/dL (7.8-10.44); Carbon Dioxide 23 mmol/L (23-31); Chloride 112 mmol/L (98-107); Estimated GFR-MDRD 38; Glucose 154 mg/dL (80-115); Potassium 4.2 mmol/L (3.5-5.1); Sodium 140 mmol/L (136-145)
[2017-09-01] MEDS: hydrALAZINE 25 MG TAB PO SCH ×2 (08:36→21:03)
[2017-09-01] MEDS: Amlodipine 10 MG TAB PO SCH (08:36)
[2017-09-01] MEDS: Carvedilol 6.25 MG TAB PO SCH ×2 (08:37→21:03)
[2017-09-01] MEDS: Gabapentin 400 MG CAP PO SCH ×3 (08:37→21:04)
[2017-09-01] MEDS: Heparin 5,000 UNITS/ML VIAL SC SCH (08:37)
[2017-09-01] MEDS: Atorvastatin Calcium 40 MG TAB PO SCH (08:37)
[2017-09-01] MEDS: Insulin Glargine 25 UNITS in Pre-Filled Syringe 1 EACH SC SCH (09:18)
[2017-09-01] MEDS: cefTRIAXone\\ROCEPHIN 1 GM in Sodium Chloride 0.9% 100 ML IVPB SCH (09:40)
[2017-09-01] MEDS: HumaLOG 300 UNITS/3 ML VIAL SC PRN (12:27)
[2017-09-01] MEDS: Nicotine 14 MG PATCH TD SCH (21:00)
[2017-09-01] MEDS: Insulin Glargine 10 UNITS in Pre-Filled Syringe 1 EACH SC SCH (21:04)
[2017-09-01] MEDS: Acetaminophen 325 MG TAB PO PRN (21:08)
--- NOTE | 2017-09-01 21:13 | PDOC.PN ---
- Subjective Encounter Start Date: 09/01/17 Encounter Start Time: 13:30 Patient seen and examined for TIGRE. No new complaints. No overnight events. No N/ V or urinary symptoms. - Objective MAR Reviewed: Yes Vital Signs & Weight: Vital Signs (12 hours) Temp Pulse Resp BP BP BP Pulse Ox 09/01/17 21:03 85 159/68 H 09/01/17 19:54 98.3 F 85 16 159/68 H 98 09/01/17 15:46 98.0 F 79 16 151/89 H 98 09/01/17 12:00 98.7 F 80 16 126/72 98 Weight Weight 135 lb 5.821 oz I&O: 08/31/17 09/01/17 09/02/17 06:59 06:59 06:59 Intake Total 2620 2885 1800 Balance 2620 2885 1800 Result Diagrams: 08/30/17 05:00 09/02/17 04:30 Additional Labs: Accuchecks 09/01/17 09/01/17 09/01/17 15:54 11:24 05:02 POC Glucose 114 H 327 H 177 H 08/31/17 20:20 POC Glucose 201 H Phys Exam - Physical Examination Constitutional: NAD Respiratory: no wheezing, no rhonchi Cardiovascular: RRR, no rub Gastrointestinal: soft, non-tender, positive bowel sounds Musculoskeletal: no edema Neurological: moves all 4 limbs Psychiatric: A&O x 3 Dx/Plan (1) TIGRE (acute kidney injury) Code(s): N17.9 - ACUTE KIDNEY FAILURE, UNSPECIFIED Status: Acute Plan: Cont IVF, Change to 75 ml/hr (2) UTI (urinary tract infection) Status: Acute Plan: Start IV Ceftriaxone, Will change to Cipro at dc Comment: No cultures sent on admission (3) CKD (chronic kidney disease) stage 3, GFR 30-59 ml/min Code(s): N18.3 - CHRONIC KIDNEY DISEASE, STAGE 3 (MODERATE) Status: Acute (4) Tobacco dependence Code(s): F17.200 - NICOTINE DEPENDENCE, UNSPECIFIED, UNCOMPLICATED Status: Acute Comment: Counselled. (5) HTN (hypertension) Code(s): I10 - ESSENTIAL (PRIMARY) HYPERTENSION Status: Chronic Qualifiers: Plan: Cont current home meds Comment: controlled (6) DKA (diabetic ketoacidoses) Code(s): E13.10 - OTH DIABETES MELLITUS WITH KETOACIDOSIS WITHOUT COMA Status : Resolved Comment: resolved. - Plan DVT proph w/lovenox, DVT proph w/SCDs Reduce IVF to 75 ml/hr -: AM labs Review of Systems - Review of Systems Respiratory: negative: Cough, Dry, Shortness of Breath, Hemoptysis, SOB with Excertion, Pleuritic Pain, Sputum, Wheezing Cardiovascular: negative: chest pain, palpitations, orthopnea, paroxysmal nocturnal dyspnea, edema, light headedness, other - Medications/Allergies Allergies/Adverse Reactions: Allergies Allergy/AdvReac Type Severity Reaction Status Date / Time nalbuphine HCl [From Nubain] AdvReac Intermediate Verified 06/29/16 03:41 Medications: Current Medications Acetaminophen (Tylenol) 650 mg PO Q4H PRN PRN Reason: Headache/Fever or Pain Last Admin: 09/01/17 21:08 Dose: 650 mg Acetaminophen (Tylenol) 650 mg NC Q4H PRN PRN Reason: Headache/Fever or Pain Amlodipine Besylate (Norvasc) 10 mg PO DAILY [facility] Last Admin: 09/01/17 08:36 Dose: 10 mg Aspirin (Aspirin Chewable) 81 mg PO DAILY [facility] Last Admin: 09/01/17 08:36 Dose: 81 mg Atorvastatin Calcium (Lipitor) 40 mg PO DAILY [facility] Last Admin: 09/01/17 08:37 Dose: 40 mg Carvedilol (Coreg) 12.5 mg PO BID [facility] Last Admin: 09/01/17 21:03 Dose: 12.5 mg Dextrose/Water (Dextrose 50%) 25 gm IVP PRN PRN PRN Reason: HYPOGLYCEMIA PROTOCOL Gabapentin (Neurontin) 400 mg PO TID [facility] Last Admin: 09/01/17 21:04 Dose: 400 mg Glucagon (Glucagon) 1 mg IM PRN PRN PRN Reason: HYPOGLYCEMIA PROTOCOL Hydralazine HCl (Apresoline) 10 mg SLOW IVP Q6H PRN PRN Reason: SBP Greater Than 170 Last Admin: 08/28/17 20:05 Dose: 10 mg Hydralazine HCl (Apresoline) 25 mg PO BID [facility] Last Admin: 09/01/17 21:03 Dose: 25 mg Insulin Glargine 25 units/ (Miscellaneous Medication) 0.25 mls @ 0 mls[facility] [place] Last Admin: 09/01/17 09:18 Dose: 0.25 mls Dextrose/Water (D5w) 1,000 mls @ 0 mls/hr IV INF PRN; As Directed PRN Reason: HYPOGLYCEMIA PROTOCOL Insulin Glargine 10 units/ (Miscellaneous Medication) 0.1 mls @ 0 mls/hr SC HS [facility] Last Admin: 09/01/17 21:04 Dose: 0.1 mls Ceftriaxone Sodium 1 gm/ (Sodium Chloride) 100 mls @ 200 mls/hr IVPB 0900 [facility] Last Admin: 09/01/17 09:40 Dose: 100 mls Sodium Chloride (Normal Saline 0.9%) 1,000 mls @ 75 mls/hr IV .[id number] [facility] Last Admin: 09/01/17 15:42 Dose: 1,000 mls Insulin Human Lispro (Humalog) 0 units SC .MILD SLIDING SCALE PRN; Protocol PRN Reason: MILD SLIDING SCALE Last Admin: 09/01/17 12:27 Dose: 5 units Nicotine (Nicoderm Patch) 14 mg TD Q24HR [facility] Last Admin: 09/01/17 21:00 Dose: Not Given Ondansetron HCl (Zofran) 4 mg IVP Q6H PRN PRN Reason: Nausea/Vomiting Last Admin: 08/28/17 21:05 Dose: 4 mg Pantoprazole Sodium (Protonix) 40 mg PO DAILY [facility] Last Admin: 09/01/17 08:36 Dose: 40 mg Sodium Chloride (Flush - Normal Saline) 10 ml IVF PRN PRN PRN Reason: Saline Flush Last Admin: 08/29/17 20:49 Dose: 10 ml
[2017-09-02] MEDS: Sodium Chloride 0.9% 1,000 ML IV SCH (03:48)
[2017-09-02] MEDS: HumaLOG 300 UNITS/3 ML VIAL SC PRN ×2 (05:16→12:58)
[2017-09-02 05:42] LABS: Anion Gap 10 mmol/L (10-20); BUN (Urea Nitrogen) 21 mg/dL (9.8-20.1); Calc. Creatinine Clearance 38 mL/min (70-130); Calcium 8.6 mg/dL (7.8-10.44); Carbon Dioxide 25 mmol/L (23-31); Chloride 110 mmol/L (98-107); Estimated GFR-MDRD 44; Glucose 231 mg/dL (80-115); Potassium 3.9 mmol/L (3.5-5.1); Sodium 141 mmol/L (136-145)
[2017-09-02] MEDS: Insulin Glargine 25 UNITS in Pre-Filled Syringe 1 EACH SC SCH (08:51)
[2017-09-02] MEDS: cefTRIAXone\\ROCEPHIN 1 GM in Sodium Chloride 0.9% 100 ML IVPB SCH (08:52)
[2017-09-02] MEDS: Carvedilol 6.25 MG TAB PO SCH (08:54)
[2017-09-02] MEDS: Amlodipine 10 MG TAB PO SCH (08:54)
[2017-09-02] MEDS: Gabapentin 400 MG CAP PO SCH (08:54)
[2017-09-02] MEDS: Atorvastatin Calcium 40 MG TAB PO SCH (08:54)
[2017-09-02] MEDS: hydrALAZINE 25 MG TAB PO SCH (08:55)
[2017-09-02 11:27] VITALS: BP 135/74; TEMP 98.4
--- NOTE | 2017-09-03 07:29 | DIS ---
DATE OF ADMISSION: 08/27/2017 DATE OF DISCHARGE: 09/02/2017 DISCHARGE DISPOSITION: Home. FOLLOWUP: 1. Follow up with primary care physician, Dr. Valdo Rosales in 1 week. 2. Repeat base met after 1 week is recommended. Primary care physician is advised to follow. DISCHARGE MEDICATIONS: 1. Ciprofloxacin 250 mg twice a day for 3 days. 2. K-Phos Neutral 250 mg 4 times a day, #10. 3. All other home medications were resumed. 4. The patient was advised to resume enalapril after 2 days. 5. The patient was advised to resume metformin after the repeat base met (after 1 week). SIGNIFICANT LABORATORY DATA: Creatinine on the day of discharge is 1.45, on admission was 1.7. Maxi mum creatinine was 2.0. Urinalysis showed greater than 50 WBCs with 1+ bacteria. Ketones on admissi on was 1.62. Maximum WBC was 12.0. BRIEF HOSPITAL COURSE: The patient is a 62-year-old female with hypertension and diabetes mellitus t ype 2, presented to the hospital with nausea, vomiting along with some abdominal discomfort. Her ini tial vital signs in the emergency room showed blood pressure of 220/116 with pulse rate of 107, tempe rature 98.6. She was started on IV fluids with insulin drip for mild DKA. Please refer to the histo ry and physical for further details. The patient was admitted to the intermediate care unit with the above diagnosis. Insulin drip was ch anged to subcutaneous insulin. She had some episodes of hypoglycemia on her home insulin dose. For this reason, night insulin dose was reduced to 10 units. She was advised to monitor her blood sugar on a daily basis. She also developed acute kidney injury that improved with IV fluids. She was also diagnosed with urinary tract infection. She received ceftriaxone during this hospital stay and has been changed to ciprofloxacin. Nausea and vomiting has completely resolved. Her blood pressure on t day of discharge is 135/74. Plan of care was discussed with the patient in detail. She stated un derstanding. FINAL DIAGNOSES: 1. Intractable nausea and vomiting secondary to diabetic ketoacidosis, resolved. 2. Acute kidney injury on chronic kidney disease stage 3, resolved. 3. Urinary tract infection. Please note that urine cultures were not sent on admission. 4. Tobacco dependence. The patient was extensively counseled. 5. Hypertension with hypertensive urgency on admission. 6. Metabolic acidosis secondary to diabetic ketoacidosis. 7. Chronic anemia. Plan of care was discussed with the patient.
== END 2017-09-02 14:35 | disposition home health service (06) | DRG 638 ==
LOC: ERS 14:59 → IMCU/EMU 20:39 → T4-A 08-29 17:02
PROVIDERS: ADMIT Internal Medicine; ATTEND Internal Medicine
DX: E11.10 Type 2 diabetes mellitus with ketoacidosis without coma (principal); N17.9 Acute kidney failure, unspecified; N39.0 Urinary tract infection, site not specified; I16.0 Hypertensive urgency; F17.210 Nicotine dependence, cigarettes, uncomplicated; I12.9 Hypertensive chronic kidney disease with stage 1 through stage 4 chronic kidney disease, or unspecified chronic kidney disease; E11.22 Type 2 diabetes mellitus with diabetic chronic kidney disease; E11.649 Type 2 diabetes mellitus with hypoglycemia without coma; E87.6 Hypokalemia; N18.3 Chronic kidney disease, stage 3 (moderate); D63.1 Anemia in chronic kidney disease; E11.43 Type 2 diabetes mellitus with diabetic autonomic (poly)neuropathy; K31.84 Gastroparesis; K21.9 Gastro-esophageal reflux disease without esophagitis; E78.5 Hyperlipidemia, unspecified; Z79.4 Long term (current) use of insulin; Z88.5 Allergy status to narcotic agent; Z79.899 Other long term (current) drug therapy; Z79.82 Long term (current) use of aspirin; Z90.49 Acquired absence of other specified parts of digestive tract; Z87.19 Personal history of other diseases of the digestive system
CPT/HCPCS: 36415; 36416; 80048; 80053; 81003; 81015; 82010; 83690; 83735; 84100; 85025; 96361; 96365; 96375; A4216; C9113; J0360; J0696; J1644; J1815; J2405; J2550; J3475; J7050; Q0162

== ENCOUNTER 2017-12-20 10:02 | Emergency (ER) | payer MEDICARE, MEDICAID ==
[2017-12-20 10:51] LABS: Bilirubin Negative (Negative); Blood, Urine Trace (Negative); Glucose, Urine (Dipstick) 500 mg/dL (Negative); Leukocyte Negative (Negative); Nitrite Negative (Negative); Protein, Urine (Dipstick) 100 mg/dL (Neg-Trace); Urobilinogen 0.2 mg/dL (0.2-1.0)
[2017-12-20 10:52] LABS: #Eosinphils 0.1 thou/uL (0.0-0.7); #Monocytes 0.4 thou/uL (0.11-0.59); #Neutrophils 3.2 thou/uL (1.40-6.50); %Basophils 0.5 % (0.0-1.0); %Lymphocytes 35.5 % (21.0-51.0); %Monocytes 6.1 % (0.0-10.0); %Neutrophils 56.9 % (42.0-75.0); Hemoglobin 11.8 g/dL (12.0-16.0); Mean Corpuscular HGB CONC 32.1 g/dL (32.0-36.0); Mean Corpuscular Hemoglobin 28.1 pg (27.0-31.0); Mean Corpuscular Volume 87.5 fL (78.0-98.0); Mean Platelet Volume 8.6 fL (7.4-10.4); Platelet Count 211 thou/uL (130-400); RBC Distribution Width 13.1 % (11.5-14.5); Red Blood Cell (RBC) Count 4.21 mill/uL (4.20-5.40); White Blood Cell (WBC) Count 5.7 thou/uL (4.8-10.8)
[2017-12-20 10:55] LABS: Clarity Clear (Clear)
[2017-12-20 10:59] LABS: WBC/HPF 0-3 HPF (0-3)
[2017-12-20 11:00] LABS: Bacteria/HPF None Seen HPF (None Seen); Hyaline Casts/LPF NONE SEEN LPF (0-3 Hyaline)
[2017-12-20] MEDS ORDERED: Ondansetron ODT 4 MG TAB ONE (11:01)
[2017-12-20] MEDS ORDERED: ISOVUE-370 76%-LOCM 1 ML ONE (11:09)
[2017-12-20 11:10] LABS: Chloride 103 mmol/L (98-107); Potassium 4.5 mmol/L (3.5-5.1); Sodium 138 mmol/L (136-145)
[2017-12-20 11:11] LABS: ALT (SGPT) 21 U/L (8-55); AST (SGOT) 21 U/L (5-34); Albumin 4.4 g/dL (3.4-4.8); Alkaline Phosphatase 72 U/L (40-150); BUN (Urea Nitrogen) 23 mg/dL (9.8-20.1); Bilirubin, Total 0.5 mg/dL (0.2-1.2); Calc. Creatinine Clearance 0 mL/min (70-130); Calcium 10.1 mg/dL (7.8-10.44); Carbon Dioxide 26 mmol/L (23-31); Estimated GFR-MDRD 32; Globulin 3.5 g/dL (2.4-3.5); Glucose 269 mg/dL (80-115); Protein, Total 7.9 g/dL (6.0-8.3)
[2017-12-20 11:20] LABS: CKMB 1.3 ng/mL (0-6.6); Troponin I Less than 0.010 ng/mL (< 0.028)
[2017-12-20] MEDS ORDERED: cloNIDine 0.1 MG TAB ONE (12:11)
[2017-12-20] MEDS ORDERED: Pantoprazole 40 MG VIAL ONE (12:28)
[2017-12-20] MEDS ORDERED: Dicyclomine 20 MG TAB ONE (12:28)
[2017-12-20 12:32] LABS: Anion Gap 14 mmol/L (10-20)
[2017-12-20] MEDS ORDERED: Ketorolac Tromethamine 30 MG/ML VIAL ONE (12:41)
[2017-12-20] MEDS ORDERED: hydrALAZINE 20 MG/ML VIAL ONE (13:13)
[2017-12-20] MEDS ORDERED: METHOCARBAMOL IVPB SCH (13:15)
[2017-12-20] MEDS ORDERED: ADMIXTURE FEE IVPB SCH (13:15)
[2017-12-20] MEDS ORDERED: SODIUM CHLORIDE IVPB SCH (13:15)
[2017-12-20] MEDS ORDERED: Methocarbamol 1 GM, Admixture Fee 1 EACH in Sodium Chloride 0.9% 100 ML IVPB SCH (13:15)
[2017-12-20] MEDS ORDERED: Lorazepam 2 MG/ML VIAL ONE (13:59)
[2017-12-20] MEDS ORDERED: Metoclopramide HCl 10 MG/2 ML VIAL ONE (13:59)
--- NOTE | 2017-12-20 15:55 | CT ---
CT ARTERIOGRAM CHEST WITH IV CONTRAST AND 3D MIP IMAGING: Date: 12/20/17 HISTORY: Chest pain. Fever. COMPARISON: 08/02/12. FINDINGS: There is good contrast opacification of the pulmonary arteries and thoracic aorta with bovine origin of the great vessels at the aortic arch. No pleural fluid or mediastinal adenopathy. No lobar consoli dation. IMPRESSION: No CT evidence of pulmonary embolus. POS: [facility]
== END 2017-12-20 16:06 | disposition home or self-care (01) ==
LOC: ERS 10:02
DX: E86.0 Dehydration (principal); R11.2 Nausea with vomiting, unspecified; E11.9 Type 2 diabetes mellitus without complications; I10 Essential (primary) hypertension; F32.9 Major depressive disorder, single episode, unspecified; F17.210 Nicotine dependence, cigarettes, uncomplicated; Z79.891 Long term (current) use of opiate analgesic; Z79.82 Long term (current) use of aspirin; Z79.899 Other long term (current) drug therapy; Z79.4 Long term (current) use of insulin
CPT/HCPCS: 71275; 80053; 81003; 81015; 82553; 84484; 85025; 96361; 96365; 96366; 96375; C9113; J0360; J1885; J2060; J2765; J2800; J7050; Q0162

== ENCOUNTER 2018-01-19 03:10 | Emergency (ER) | payer MEDICARE, MEDICAID ==
[2018-01-19] MEDS ORDERED: Acetaminophen 325 MG TAB ONE (04:26)
--- NOTE | 2018-01-19 09:55 | RAD ---
RIBS RIGHT SIDED GREATER/EQUAL TO TWO VIEWS WITH A PA CHEST RADIOGRAPH: History: Pain. Comparison: None. FINDINGS: No right sided rib fracture. The thoracic vertebrae appear normal. Lungs are clear. No pneumothorax o r effusion. Right upper quadrant surgical clips. IMPRESSION: 1. No acute abnormality. 2. 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 POS: [facility]
== END 2018-01-19 05:21 | disposition home or self-care (01) ==
LOC: ERS 03:10
DX: R07.81 Pleurodynia (principal); E11.9 Type 2 diabetes mellitus without complications; I10 Essential (primary) hypertension; F32.9 Major depressive disorder, single episode, unspecified; F17.210 Nicotine dependence, cigarettes, uncomplicated; Z79.899 Other long term (current) drug therapy; Z79.4 Long term (current) use of insulin; Z79.82 Long term (current) use of aspirin
CPT/HCPCS: 36416

== ENCOUNTER 2018-01-28 09:09 | Observation (INO) | payer MEDICARE, MEDICAID ==
[2018-01-28] MEDS ORDERED: Ondansetron PF 4 MG/2 ML Vial ONE ×2 (09:54→11:50)
[2018-01-28] MEDS ORDERED: Nitroglycerin 2% Ointment 1 INCH/1 GM Packet ONE (10:10)
[2018-01-28 10:11] LABS: Bilirubin Negative (Negative); Blood, Urine Negative (Negative); Clarity CLEAR (Clear); Glucose, Urine (Dipstick) >=1000 mg/dL (Negative); Leukocyte Negative (Negative); Nitrite Negative (Negative); Protein, Urine (Dipstick) 300 mg/dL (Neg-Trace); Specific Gravity, Urine 1.022 (1.002-1.036); pH, Urine 6.5 (5.0-9.0)
[2018-01-28 10:12] LABS: Bacteria/HPF Rare-Few HPF (None Seen); Hyaline Casts/LPF 0-3 HYALINE CAST LPF (0-3 Hyaline); Pathc Cast-AUWi Flag 0.43 (0-2.49); WBC/HPF 0-3 HPF (0-3)
[2018-01-28 10:14] LABS: Renal Epithelial None Seen HPF (0-3); Transitional Epithelial NONE SEEN HPF (0-3)
[2018-01-28 10:27] LABS: #Basophils 0.1 thou/uL (0.0-0.2); #Eosinphils 0.1 thou/uL (0.0-0.7); #Monocytes 0.3 thou/uL (0.11-0.59); #Neutrophils 2.8 thou/uL (1.40-6.50); %Basophils 1.3 % (0.0-1.0); %Eosinophils 1.8 % (0.0-10.0); %Lymphocytes 38.6 % (21.0-51.0); %Monocytes 6.1 % (0.0-10.0); %Neutrophils 52.1 % (42.0-75.0); Hemoglobin 11.1 g/dL (12.0-16.0); Mean Corpuscular HGB CONC 33.2 g/dL (32.0-36.0); Mean Corpuscular Hemoglobin 28.5 pg (27.0-31.0); Mean Corpuscular Volume 85.9 fL (78.0-98.0); Mean Platelet Volume 8.6 fL (7.4-10.4); Platelet Count 219 thou/uL (130-400); RBC Distribution Width 13.3 % (11.5-14.5); Red Blood Cell (RBC) Count 3.91 mill/uL (4.20-5.40); White Blood Cell (WBC) Count 5.3 thou/uL (4.8-10.8)
[2018-01-28 10:50] LABS: ALT (SGPT) 12 U/L (8-55); AST (SGOT) 19 U/L (5-34); Albumin 3.8 g/dL (3.4-4.8); Alkaline Phosphatase 66 U/L (40-150); Anion Gap 14 mmol/L (10-20); BUN (Urea Nitrogen) 18 mg/dL (9.8-20.1); Bilirubin, Total 0.5 mg/dL (0.2-1.2); CK (CPK) 128 U/L (29-168); Calc. Creatinine Clearance 0 mL/min (70-130); Calcium 9.5 mg/dL (7.8-10.44); Carbon Dioxide 24 mmol/L (23-31); Chloride 105 mmol/L (98-107); Estimated GFR-MDRD 38; Globulin 3.3 g/dL (2.4-3.5); Glucose 235 mg/dL (80-115); Lipase 15 U/L (8-78); Potassium 3.9 mmol/L (3.5-5.1); Protein, Total 7.1 g/dL (6.0-8.3); Sodium 139 mmol/L (136-145)
[2018-01-28 10:53] LABS: Troponin I Less than 0.010 ng/mL (< 0.028)
--- NOTE | 2018-01-28 10:53 | RAD ---
RADIOGRAPH CHEST 1 VIEW: HISTORY: 63-year-old female with chest pain. FINDINGS: There are no air space densities, pulmonary edema, pneumothorax, or cardiomegaly. The lateral costop hrenic angles are sharp. IMPRESSION: No acute cardiopulmonary findings. clovis [] POS: [facility]
[2018-01-28] MEDS ORDERED: Ondansetron PF 4 MG/2 ML Vial IVP PRN ×2 (13:07→14:47)
[2018-01-28] MEDS ORDERED: Acetaminophen 325 MG TAB PO PRN ×2 (13:07→14:47)
[2018-01-28] MEDS ORDERED: Ondansetron ODT 4 MG TAB SL PRN (13:07)
[2018-01-28] MEDS ORDERED: Sodium Chloride 0.9% 1,000 ML IV SCH (13:07)
[2018-01-28 13:11] VITALS: BMI 19.2
[2018-01-28 14:03] LABS: Troponin I Less than 0.010 ng/mL (< 0.028)
[2018-01-28] MEDS ORDERED: hydrALAZINE 20 MG/ML VIAL SLOW IVP PRN (14:47)
[2018-01-28] MEDS ORDERED: Dextrose 5% in Water 1,000 ML IV PRN (14:47)
[2018-01-28] MEDS ORDERED: Dextrose 50% Abboject 50 ML SYRINGE SLOW IVP PRN (14:47)
[2018-01-28] MEDS ORDERED: Enoxaparin Sodium 30 MG/0.3 ML SYRINGE SC SCH ×2 (14:47→23:45)
[2018-01-28] MEDS ORDERED: Ondansetron ODT 4 MG TAB PO PRN (14:47)
[2018-01-28] MEDS: Gabapentin 400 MG CAP PO SCH ×2 (15:17→21:07)
[2018-01-28 16:12] LABS: CKMB 1.4 ng/mL (0-6.6); Troponin I Less than 0.010 ng/mL (< 0.028)
[2018-01-28] MEDS: Metoclopramide HCl 10 MG TAB PO SCH ×2 (17:05→21:07)
[2018-01-28] MEDS: HumaLOG 300 UNITS/3 ML VIAL SC PRN (17:10)
[2018-01-28] MEDS ORDERED: Nitroglycerin 2% Ointment 1 INCH/1 GM Packet TOP SCH (18:00)
[2018-01-28] MEDS: Carvedilol 6.25 MG TAB PO SCH (21:06)
[2018-01-28] MEDS: hydrALAZINE 25 MG TAB PO SCH (21:07)
[2018-01-28 23:31] LABS: CKMB 0.8 ng/mL (0-6.6); Troponin I Less than 0.010 ng/mL (< 0.028)
[2018-01-29 05:35] LABS: Hemoglobin A1c 8.3 % (4.0-6.0)
[2018-01-29 05:37] LABS: Anion Gap 10 mmol/L (10-20); BUN (Urea Nitrogen) 23 mg/dL (9.8-20.1); Calc. Creatinine Clearance 30 mL/min (70-130); Calcium 9.3 mg/dL (7.8-10.44); Carbon Dioxide 24 mmol/L (23-31); Chloride 108 mmol/L (98-107); Estimated GFR-MDRD 36; Glucose 82 mg/dL (80-115); Sodium 139 mmol/L (136-145)
[2018-01-29 05:41] LABS: Potassium 2.9 mmol/L (3.5-5.1)
[2018-01-29 06:02] LABS: Eosinophils 2 % (0-10); Hemoglobin 9.9 g/dL (12.0-16.0); Lymphocytes 47 % (21-51); MDiff Complete? YES; Mean Corpuscular HGB CONC 33.1 g/dL (32.0-36.0); Mean Corpuscular Hemoglobin 28.5 pg (27.0-31.0); Mean Corpuscular Volume 85.9 fL (78.0-98.0); Mean Platelet Volume 8.7 fL (7.4-10.4); Monocytes 11 % (0-10); Neutrophil 40 % (42-75); PLT Morphology Comment Appears Adequate; Platelet Count 198 thou/uL (130-400); RBC Distribution Width 13.4 % (11.5-14.5); Red Blood Cell (RBC) Count 3.46 mill/uL (4.20-5.40); White Blood Cell (WBC) Count 5.4 thou/uL (4.8-10.8)
[2018-01-29] MEDS ORDERED: Potassium Chloride 30 MEQ in Sodium Chloride 0.9% 250 ML 250 ML IVPB SCH (06:30)
[2018-01-29] MEDS ORDERED: Magnesium 2 GM/50 ML 2 GM in Premix Bag 1 BAG IVPB SCH (07:30)
[2018-01-29] MEDS ORDERED: Vortioxetine Hydrobromide [Trintellix] 10 MG PO SCH (09:00)
[2018-01-29] MEDS: hydrALAZINE 25 MG TAB PO SCH ×2 (10:00→20:40)
[2018-01-29] MEDS: Insulin Glargine 30 UNITS in Pre-Filled Syringe 1 EACH SC SCH (10:00)
[2018-01-29] MEDS: Metoclopramide HCl 10 MG TAB PO SCH ×4 (10:01→20:40)
[2018-01-29] MEDS: Atorvastatin Calcium 40 MG TAB PO SCH (10:01)
[2018-01-29] MEDS: Amlodipine 10 MG TAB PO SCH (10:01)
[2018-01-29] MEDS: Gabapentin 400 MG CAP PO SCH ×3 (10:01→20:40)
[2018-01-29] MEDS: Carvedilol 6.25 MG TAB PO SCH ×2 (10:02→20:40)
[2018-01-29] MEDS: PARoxetine 20 MG TAB PO SCH (10:38)
[2018-01-29] MEDS ORDERED: Potassium Chloride 20 MEQ TAB PO SCH (14:00)
[2018-01-29] MEDS ORDERED: Enoxaparin Sodium 30 MG/0.3 ML SYRINGE SC SCH (21:00)
[2018-01-29] MEDS ORDERED: HumaLOG 300 UNITS/3 ML VIAL SC PRN (21:21)
[2018-01-30 04:04] LABS: #Eosinphils 0.2 thou/uL (0.0-0.7); #Lymphocytes 2.7 thou/uL (1.20-3.40); #Monocytes 0.5 thou/uL (0.11-0.59); #Neutrophils 3.2 thou/uL (1.40-6.50); %Basophils 0.2 % (0.0-1.0); %Eosinophils 2.5 % (0.0-10.0); %Lymphocytes 41.3 % (21.0-51.0); %Monocytes 8.1 % (0.0-10.0); %Neutrophils 47.9 % (42.0-75.0); Hemoglobin 9.1 g/dL (12.0-16.0); Mean Corpuscular HGB CONC 33.4 g/dL (32.0-36.0); Mean Corpuscular Hemoglobin 28.8 pg (27.0-31.0); Mean Corpuscular Volume 86.3 fL (78.0-98.0); Mean Platelet Volume 8.9 fL (7.4-10.4); Platelet Count 180 thou/uL (130-400); RBC Distribution Width 13.5 % (11.5-14.5); Red Blood Cell (RBC) Count 3.14 mill/uL (4.20-5.40); White Blood Cell (WBC) Count 6.6 thou/uL (4.8-10.8)
[2018-01-30 04:25] LABS: Anion Gap 8 mmol/L (10-20); BUN (Urea Nitrogen) 32 mg/dL (9.8-20.1); Calc. Creatinine Clearance 29 mL/min (70-130); Carbon Dioxide 25 mmol/L (23-31); Chloride 108 mmol/L (98-107); Estimated GFR-MDRD 34; Glucose 204 mg/dL (80-115); Potassium 3.8 mmol/L (3.5-5.1); Sodium 137 mmol/L (136-145)
--- NOTE | 2018-01-30 07:49 | PRG ---
DATE OF SERVICE: 01/29/2018 SUBJECTIVE: The patient reports she is feeling better. Nausea and vomiting has resolved. No further chest pain. No abdominal pain. The patient reports she does have a PCP, Dr. Rosales. She has not had any cardiac stress testing in the past that she is aware of. OBJECTIVE: VITAL SIGNS: Temperature 98.9, pulse 78, respirations 16, O2 saturation 98% on room air, BP 136/65. GENERAL APPEARANCE: Age-appropriate female. She is in no distress. Awake, alert, oriented, pleasant, cooperative. HEENT: PERRL. No OP lesions. HEART: Regular rate and rhythm without murmurs, gallops, or rubs. LUNGS: Clear to auscultation bilaterally. Good chest wall expansion and air exchange. ABDOMEN: Soft, nontender, nondistended. Positive bowel sounds. No masses. No organomegaly. EXTREMITIES: Warm and dry. No edema. LABORATORY DATA: White count 5.6, hemoglobin 9.9 with 11% monocytes, 40% neutrophils. Sodium 139, potassium 2.9, chloride 108, CO2 of 24, BUN 23, creatinine 1.73, glucose 79. A1c is 8.3, magnesium 1.5. Troponins negative x4. IMPRESSION AND PLAN: 1. Nausea and vomiting, resolved. Continue p.r.n.'s as needed. 2. Chest pain. The patient was ruled out for acute myocardial injury. She says she has intermittent chest pain and she has not had evaluation. Given her risk factors, I believe she deserves a stress test. We will not do that today given her electrolyte abnormalities. We will work on getting those addressed today and plan on a stress test tomorrow. 3. Hypokalemia. Replete and recheck. 4. Hypomagnesemia. Replete and recheck. 5. Diabetes mellitus. The patient is well controlled. Currently, her A1c is above desired range, but is not terrible. We will continue with current regimen including sliding scale. 6. Chronic kidney disease. Her numbers are consistent with her typical baseline recently. Consistent with stage 3 disease. We will avoid nephrotoxins. 7. Anemia. This appears to be consistent with her baseline numbers as well, likely related to her chronic kidney disease. 8. History of depression/anxiety. Do not have Trintellix here. We will try to substitute that with some Paxil in the short-term. 9. Discussed all this with the patient. We answered all her questions. Job ID: [id number]
[2018-01-30] MEDS ORDERED: Sodium Chloride 0.9% 1,000 ML IV SCH (08:00)
[2018-01-30] MEDS: Metoclopramide HCl 10 MG TAB PO SCH ×2 (09:44→11:11)
[2018-01-30] MEDS: Insulin Glargine 30 UNITS in Pre-Filled Syringe 1 EACH SC SCH (11:10)
[2018-01-30] MEDS ORDERED: ADENOSINE 60 MG/20 ML VIAL ONE (11:10)
[2018-01-30] MEDS: Carvedilol 6.25 MG TAB PO SCH (11:10)
[2018-01-30] MEDS: Atorvastatin Calcium 40 MG TAB PO SCH (11:12)
[2018-01-30] MEDS: Amlodipine 10 MG TAB PO SCH (11:12)
[2018-01-30] MEDS: Gabapentin 400 MG CAP PO SCH ×2 (11:12→15:05)
[2018-01-30] MEDS: PARoxetine 20 MG TAB PO SCH (11:13)
[2018-01-30] MEDS: hydrALAZINE 25 MG TAB PO SCH (11:14)
[2018-01-30 11:48] VITALS: BP 165/67; TEMP 98
[2018-01-30] MEDS: HumaLOG 300 UNITS/3 ML VIAL SC PRN (11:55)
--- NOTE | 2018-01-30 13:01 | NM ---
NUCLEAR MEDICINE CARDIAC MYOCARDIAL PERFUSION SPECT EJECTION FRACTION STUDY WALL MOTION CINE: DATE: 02-04-18 HISTORY: 63-year-old female with chest pain. TECHNIQUE: Number of days: 1 Rest study: Tc99m sestamibi (Cardiolite) dose: 11.0 mCi Pharmacologic stress: adenosine dose: 33 mg Stress study: Tc99m sestamibi (Cardiolite) dose: 3.0 mCi FINDINGS: CARDIAC (MYOCARDIAL PERFUSION) SPECT Distribution of sestamibi is homogeneous throughout the left ventricle, with no fixed or reversible m yocardial perfusion defects. EJECTION FRACTION STUDY EF = 71% WALL MOTION CINE The left ventricular wall motion is normal. There is normal systolic wall thickening. IMPRESSION: Normal. [facility] POS: [facility]
--- NOTE | 2018-01-31 15:21 | DIS ---
DATE OF ADMISSION: 01/28/2018 DATE OF DISCHARGE: 01/30/2018 PCP: Valdo Rosales MD CODE STATUS: Full. PROCEDURES PERFORMED: 1. The patient had a chest x-ray, which showed no acute cardiopulmonary process. 2. The patient had a nuclear stress test, which was normal with an ejection fraction of 71%. DISCHARGE DIAGNOSES: 1. Chest pain, most likely atypical. 2. Nausea and vomiting, resolved. 3. Hypokalemia, resolved. 4. Hypomagnesemia, resolved. 5. Diabetes mellitus. 6. Chronic kidney disease. 7. Anemia. 8. History of depression and anxiety. REVIEW OF SYSTEMS: The patient was examined this morning. Denies any complaints. Reports that her nausea and vomiting have resolved. Denies any chest pain or shortness of breath. All other systems were reviewed and are negative. PHYSICAL EXAMINATION: VITAL SIGNS: Temperature is 98.7, pulse is 74, respirations are 16, pulse ox is 98% on room air, and blood pressure is 128/60. CONSTITUTIONAL: The patient is alert, oriented, lying in the hospital bed, does not appear in any distress. HEAD: Atraumatic and normocephalic. EYES: Eyelids are normal to inspection. Pupils are equally round and reactive to light. ENT: Mouth exam is normal. Mucous membranes are moist. NECK: Trachea is midline. Normal range of motion. RESPIRATORY/CHEST: No respiratory distress. Breath sounds are clear. No wheezing, rales, or rhonchi. CARDIOVASCULAR: Normal S1 and S2. Regular rate and rhythm. No murmurs, rubs, or gallops. ABDOMEN: Female. Nontender. Bowel sounds are heard in 4 quadrants. BACK: Normal inspection. Normal range of motion. EXTREMITIES: Upper extremities; normal inspection, normal range of motion. Sensation and pulses are intact bilaterally. Lower extremities; normal range of motion, normal inspection. Strength is normal bilaterally. Sensation and pedal pulses are normal bilaterally. No edema noted. NEURO: The patient is oriented to person, place, and time. Speech is normal. SKIN: Skin is warm, dry, normal in color. HOSPITAL COURSE: The patient reported to the emergency on 01/28/2018, for vomiting. She reports a decreased oral intake and reports similar episodes in the past. Denied any urinary symptoms. Reports intermittent constipation. The last bowel movement was the day before admission. Reported an episode of chest pain earlier that morning and reports a history of an irregular heart beat. The patient reports that she feels dizzy all the time. The patient was admitted for nausea, vomiting, and chest pain rule out. She underwent a stress test, which showed normal with an EF of 71%. She was also shown to have some hypokalemia and some hypomagnesemia, which were replaced. The patient was examined this morning. Denied any chest pain, abdominal pain, nausea, or vomiting. States she would like to go home. Case was discussed with Dr. Rowe, who agreed with the discharge plan. The patient was discharged home. ALLERGIES: NALBUPHINE. MEDICATIONS: Home medications are restarted. 1. Norvasc 5 mg p.o. daily. 2. Lipitor 40 mg p.o. daily. 3. Coreg 12.5 mg b.i.d. 4. Enalapril 10 mg p.o. daily. 5. Apresoline 25 mg p.o. b.i.d. 6. Long-acting insulin Toujeo 30 units subcu q.a.m. 7. Trintellix 10 mg p.o. daily. 8. Aspirin 81 mg p.o. daily. 9. Gabapentin 400 mg p.o. t.i.d. CONDITION: Stable. DISPOSITION: The patient will be discharged home. REFERRALS: The patient should follow up with Dr. Rosales in the next week. Job ID: [id number]
--- NOTE | 2018-02-04 14:17 | EKG ---
Test Reason : Blood Pressure : / mmHG Vent. Rate : 077 BPM Atrial Rate : 077 BPM P-R Int : 120 ms QRS Dur : 066 ms QT Int : 412 ms P-R-T Axes : 002 -70 097 degrees QTc Int : 466 ms Normal sinus rhythm Left anterior fascicular block Inferior infarct , age undetermined Abnormal ECG Confirmed by NIKOS TIWARI, SALVADOR ([id number]), content editor JIN DHALIWAL ([id number]) on 02/04/2018 2:16:34 PM Referred By: Confirmed By:SALVADOR KNOTT MD
== END 2018-01-30 16:05 | disposition home or self-care (01) ==
LOC: ERS 09:09 → 2SW 13:01
PROVIDERS: ADMIT Internal Medicine Infectious Disease; ATTEND Internal Medicine Infectious Disease
DX: R07.9 Chest pain, unspecified (principal); R11.2 Nausea with vomiting, unspecified; E87.6 Hypokalemia; E83.42 Hypomagnesemia; E11.22 Type 2 diabetes mellitus with diabetic chronic kidney disease; N18.9 Chronic kidney disease, unspecified; E11.40 Type 2 diabetes mellitus with diabetic neuropathy, unspecified; F41.9 Anxiety disorder, unspecified; F32.9 Major depressive disorder, single episode, unspecified; D64.9 Anemia, unspecified; Z88.5 Allergy status to narcotic agent; Z90.49 Acquired absence of other specified parts of digestive tract; Z79.4 Long term (current) use of insulin; Z79.82 Long term (current) use of aspirin; Z79.899 Other long term (current) drug therapy; Z98.890 Other specified postprocedural states
CPT/HCPCS: 71045; 78452; 80048 ×2; 80053; 82550; 82553 ×2; 82962 ×3; 83036; 83690; 83735; 84484 ×2; 85025 ×3; 93005; 93017; 96361; 96365; 96366; 96367; 96372; 96375 ×2; 96376; 99285; A9500; G0378 ×2; 36415; 36416; 81003; 81015; 96374; J0153; J0360; J1650; J2405; J3480; J7050; Q0162

== ENCOUNTER 2018-03-08 13:55 | Inpatient (IN) | payer MEDICARE, MEDICAID ==
[2018-03-08] MEDS ORDERED: Ondansetron ODT 4 MG TAB ONE (14:53)
[2018-03-08] MEDS ORDERED: Nitroglycerin 0.4 MG TAB (25 Tab Bottle) ONE (14:53)
[2018-03-08] MEDS ORDERED: Nitroglycerin 2% Ointment 1 INCH/1 GM Packet ONE (14:53)
--- NOTE | 2018-03-08 15:36 | RAD ---
SINGLE VIEW OF THE CHEST: Comparison: 01-28-18 History: Chest pain FINDINGS: Single view of the chest shows a normal sized cardiomediastinal silhouette. There is no evidence of c onsolidation, mass, or pleural effusion. The bones are unremarkable. IMPRESSION: No evidence of acute cardiopulmonary disease. POS: [facility]
[2018-03-08 15:41] LABS: #Lymphocytes 1.1 thou/uL (1.20-3.40); #Monocytes 0.2 thou/uL (0.11-0.59); #Neutrophils 3.6 thou/uL (1.40-6.50); %Basophils 0.4 % (0.0-1.0); %Eosinophils 0.6 % (0.0-10.0); %Lymphocytes 22.7 % (21.0-51.0); %Monocytes 3.8 % (0.0-10.0); %Neutrophils 72.4 % (42.0-75.0); Hemoglobin 11.5 g/dL (12.0-16.0); Mean Corpuscular HGB CONC 33.6 g/dL (32.0-36.0); Mean Corpuscular Hemoglobin 28.5 pg (27.0-31.0); Mean Corpuscular Volume 84.8 fL (78.0-98.0); Mean Platelet Volume 8.2 fL (7.4-10.4); Platelet Count 259 thou/uL (130-400); RBC Distribution Width 13.4 % (11.5-14.5); Red Blood Cell (RBC) Count 4.02 mill/uL (4.20-5.40)
[2018-03-08 15:50] LABS: ALT (SGPT) 16 U/L (8-55); AST (SGOT) 17 U/L (5-34); Albumin 3.7 g/dL (3.4-4.8); Alkaline Phosphatase 67 U/L (40-150); Anion Gap 17 mmol/L (10-20); BUN (Urea Nitrogen) 18 mg/dL (9.8-20.1); Bilirubin, Total 0.7 mg/dL (0.2-1.2); Calc. Creatinine Clearance 0 mL/min (70-130); Calcium 10.1 mg/dL (7.8-10.44); Carbon Dioxide 20 mmol/L (23-31); Chloride 106 mmol/L (98-107); Estimated GFR-MDRD 37; Globulin 4.2 g/dL (2.4-3.5); Glucose 229 mg/dL (80-115); Magnesium 1.8 mg/dL (1.6-2.6); Potassium 3.3 mmol/L (3.5-5.1); Protein, Total 7.9 g/dL (6.0-8.3); Sodium 140 mmol/L (136-145)
[2018-03-08 16:26] LABS: Bilirubin Small (Negative); Blood, Urine Trace (Negative); Clarity CLEAR (Clear); Glucose, Urine (Dipstick) 500 mg/dL (Negative); Leukocyte Negative (Negative); Nitrite Negative (Negative); Protein, Urine (Dipstick) 300 mg/dL (Neg-Trace); Specific Gravity, Urine 1.022 (1.002-1.036)
[2018-03-08 16:29] LABS: Bacteria/HPF Rare-Few HPF (None Seen); Hyaline Casts/LPF 0-3 HYALINE CAST LPF (0-3 Hyaline); Pathc Cast-AUWi Flag 0.14 (0-2.49); WBC/HPF 0-3 HPF (0-3)
[2018-03-08] MEDS ORDERED: Potassium Chloride 30 MEQ in Sodium Chloride 0.9% 1,000 ML IV SCH (16:30)
[2018-03-08 16:38] LABS: RBC/HPF 0-3 HPF (0-3); Renal Epithelial None Seen HPF (0-3); Transitional Epithelial NONE SEEN HPF (0-3)
[2018-03-08] MEDS ORDERED: Potassium Chloride 20 MEQ TAB ONE (17:09)
[2018-03-08] MEDS ORDERED: Ondansetron PF 4 MG/2 ML Vial ONE (17:09)
[2018-03-08] MEDS ORDERED: hydrALAZINE 20 MG/ML VIAL ONE (17:09)
[2018-03-08] MEDS ORDERED: Ondansetron PF 4 MG/2 ML Vial IVP PRN (21:08)
[2018-03-08] MEDS ORDERED: Acetaminophen 650 MG Suppository PR PRN (21:09)
[2018-03-08] MEDS: Promethazine HCl 25 MG/ML VIAL IM/IV PRN (21:29)
[2018-03-08] MEDS: hydrALAZINE 20 MG/ML VIAL SLOW IVP PRN (21:42)
[2018-03-08 21:55] VITALS: BMI 18.3
[2018-03-08] MEDS ORDERED: Lorazepam 2 MG/ML VIAL SLOW IVP PRN (23:38)
[2018-03-08] MEDS ORDERED: Lorazepam 2 MG/ML VIAL ONE (23:59)
[2018-03-09] MEDS ORDERED: Bisacodyl 10 MG SUPP PR PRN (00:34)
[2018-03-09] MEDS ORDERED: HumaLOG 300 UNITS/3 ML VIAL SC PRN ×2 (00:34)
[2018-03-09] MEDS ORDERED: Senokot S 8.6-50 MG TAB PO PRN (00:34)
[2018-03-09] MEDS ORDERED: Bisacodyl 5 MG TAB PO PRN (00:34)
[2018-03-09] MEDS ORDERED: Dextrose 50% Abboject 50 ML SYRINGE SLOW IVP PRN (00:34)
[2018-03-09] MEDS ORDERED: Dextrose 5% in Water 1,000 ML IV PRN (00:34)
[2018-03-09] MEDS: Sodium Chloride 0.9% 1,000 ML IV SCH ×3 (01:28→21:08)
[2018-03-09] MEDS: hydrALAZINE 20 MG/ML VIAL SLOW IVP PRN (02:50)
[2018-03-09] MEDS: Acetaminophen 325 MG TAB PO PRN (02:52)
[2018-03-09] MEDS: Promethazine HCl 25 MG/ML VIAL IM/IV PRN (04:36)
[2018-03-09] MEDS: hydrALAZINE 25 MG TAB PO SCH ×2 (06:04→21:07)
[2018-03-09] MEDS: Carvedilol 6.25 MG TAB PO SCH ×2 (06:05→21:07)
[2018-03-09] MEDS: Amlodipine 10 MG TAB PO SCH (06:26)
[2018-03-09] MEDS ORDERED: Labetalol HCl 100 MG/20 ML VIAL SLOW IVP PRN (06:55)
[2018-03-09 07:18] LABS: #Monocytes 0.5 thou/uL (0.11-0.59); #Neutrophils 6.8 thou/uL (1.40-6.50); %Basophils 0.3 % (0.0-1.0); %Eosinophils 0.2 % (0.0-10.0); %Lymphocytes 12.5 % (21.0-51.0); %Monocytes 5.5 % (0.0-10.0); %Neutrophils 81.4 % (42.0-75.0); Mean Corpuscular HGB CONC 32.1 g/dL (32.0-36.0); Mean Corpuscular Hemoglobin 27.7 pg (27.0-31.0); Mean Corpuscular Volume 86.4 fL (78.0-98.0); Mean Platelet Volume 8.4 fL (7.4-10.4); Platelet Count 257 thou/uL (130-400); RBC Distribution Width 13.6 % (11.5-14.5); Red Blood Cell (RBC) Count 3.59 mill/uL (4.20-5.40); White Blood Cell (WBC) Count 8.3 thou/uL (4.8-10.8)
[2018-03-09 07:41] LABS: ALT (SGPT) 14 U/L (8-55); AST (SGOT) 15 U/L (5-34); Alkaline Phosphatase 62 U/L (40-150); Anion Gap 21 mmol/L (10-20); BUN (Urea Nitrogen) 23 mg/dL (9.8-20.1); BUN/Creatinine Ratio 14.02; Bilirubin, Total 0.7 mg/dL (0.2-1.2); Calc. Creatinine Clearance 30 mL/min (70-130); Calcium 9.6 mg/dL (7.8-10.44); Carbon Dioxide 15 mmol/L (23-31); Chloride 108 mmol/L (98-107); Estimated GFR-MDRD 38; Globulin 3.4 g/dL (2.4-3.5); Glucose 309 mg/dL (80-115); Phosphorus 3.8 mg/dL (2.3-4.7); Potassium 3.7 mmol/L (3.5-5.1); Protein, Total 7.4 g/dL (6.0-8.3); Sodium 140 mmol/L (136-145)
[2018-03-09] MEDS ORDERED: Vortioxetine Hydrobromide [Trintellix] 10 MG PO SCH (09:00)
[2018-03-09] MEDS ORDERED: Famotidine/PF 20 mg/2ml Vial SLOW IVP SCH (09:00)
[2018-03-09] MEDS ORDERED: INSULIN GLARGINE HUM REC ANLOG 30 UNIT SQ SCH (09:00)
[2018-03-09] MEDS ORDERED: Prevnar 13-Val Conj/PF 0.5 ML SYRINGE IM ONE (09:00)
[2018-03-09] MEDS ORDERED: Famotidine 20 MG TAB PO SCH (09:00)
[2018-03-09] MEDS: Enoxaparin Sodium 30 MG/0.3 ML SYRINGE SC SCH (09:33)
[2018-03-09] MEDS: Atorvastatin Calcium 40 MG TAB PO SCH (09:34)
[2018-03-09] MEDS: Gabapentin 400 MG CAP PO SCH ×3 (09:34→21:07)
--- NOTE | 2018-03-09 10:24 | HP ---
CHIEF COMPLAINT: Nausea and vomiting. HISTORY OF PRESENT ILLNESS: This is a 63-year-old lady with past medical history of diabetes mellitus type 2, hypertension, chronic kidney disease stage 3, chronic hepatitis C, anemia of chronic disease, and gastroparesis, presenting with nausea, vomiting. Per the patient, she has been having nausea, vomiting, diarrhea starting the past 2 days prior to the day of admission. The patient states that she had diabetes mellitus, however, she has not been able to take her medications due to her nausea and vomiting. The patient states that she has not also administered her insulin that she is supposed to administer at home. At this time, the patient is having associated nausea, inability to tolerate p.o. and the patient is also having vomiting. Of note, the patient was seen in the hospital on 08/27/2017 for similar presentation, whereby the patient came in and the patient was having nausea and vomiting. During that time, the patient also reported episode of chest pain. Therefore, the patient was worked up for chest pain. An echo was done, which showed ejection fraction of 71%. Cardiology saw the patient and the patient was discharged home. At this time, the patient denies any constipation, diarrhea, dysuria, increased frequency with urination, cough, fever, chills, chest pain. REVIEW OF SYSTEMS: All other systems have been reviewed and are negative except for nausea and vomiting. PAST MEDICAL HISTORY: Diabetes mellitus type 2, hypertension, chronic kidney disease stage 3, chronic hepatitis C, anemia of chronic disease, and gastroparesis. PAST SURGICAL HISTORY: Cholecystectomy and temporal artery biopsy. FAMILY HISTORY: No family history of premature coronary artery disease. SOCIAL HISTORY: The patient smokes half a pack of cigarettes a day. The patient drinks occasionally and the patient denies any illicit drug use. ALLERGIES: THE PATIENT IS ALLERGIC TO NUBAIN. CURRENT MEDICATIONS: The patient takes; 1. Gabapentin 400 t.i.d. 2. Coreg 3.125. 3. Amlodipine 5 mg. 4. Enalapril 5 mg. 5. Metformin 500 mg b.i.d. 6. Hydralazine 25 mg. 7. Vitamin D2 50,000 weekly. 8. Brintellix 10 mg. 9. Pantoprazole 40 mg. 10. B1 of 100 mg. 11. Aspirin 81 mg. 12. Lantus. PHYSICAL EXAMINATION: VITAL SIGNS: Blood pressure is 211/111, pulse of 106, respiratory rate of 24, temperature is 97.8, and oxygen saturation is 100%. GENERAL: The patient is lying in bed, does not appear to be in any acute distress. The patient is speaking to me in full sentences. HEENT: Normocephalic and atraumatic. Pupils are equally round and reactive to light. Extraocular movements are intact. No scleral icterus. Mucous membranes are moist. NECK: Trachea is midline. Full range of motion. CARDIAC: Positive S1 and S2. Regular rate and rhythm. No murmurs, no gallops, no rubs appreciated. LUNGS: Clear to auscultation bilaterally. No wheezing, no rales, no rhonchi appreciated. ABDOMEN: Soft, nontender, and nondistended. Positive bowel sounds in all quadrants. EXTREMITIES: The patient has very thin extremities. The patient has 5/5 upper extremity strength. The patient has good pulses bilaterally of the lower extremities and good strength bilaterally of the lower extremities. There is no edema noted. NEUROLOGIC: Cranial nerves 2 through 12 grossly intact. No neurologic deficits noted. LABORATORY DATA: WBC is 5.0, hemoglobin is 11.5, hematocrit is 34.1. Electrolytes; sodium is 140, potassium is 3.3, carbon dioxide of 20, anion gap of 17, creatinine is 1.64, glucose is 229. Urinalysis; negative for nitrites, negative for leukocyte esterases. ASSESSMENT AND PLAN: This is a 63-year-old female, being admitted for nausea and vomiting. Etiology unclear at this time, but likely due to gastroparesis. At this point, the patient has been put on antiemetic. We will continue the patient on these medications. We will continue IV hydration since the patient seemed to be very dehydrated. We will continue to monitor the patient closely. 1. Diabetes mellitus type 2. The patient is noncompliant with medication. The patient's blood glucose is currently elevated. At this point, we will continue insulin sliding scale. We will start the patient on Lantus and t.i.d. NovoLog. 2. Hypertension, uncontrolled. The patient seemed to become noncompliant with her medications. The patient's blood pressure is currently elevated. At this time, we have p.r.n. blood pressure medications to treat the patient's blood pressure accordingly and we will adjust the patient's blood pressure medication and we will advice the patient to take her medications. 3. Acute on chronic kidney disease. At this point, the patient's creatinine is 1.67. We have started the patient on IV fluids, and we will continue IV fluids. We will trend the patient's creatinine. If the patient's creatinine does not trend down and if it trends up, we will consult Nephrology. 4. DVT and GI prophylaxis. Job ID: [id number]
[2018-03-09] MEDS ORDERED: Insulin Glargine 24 UNITS in Pre-Filled Syringe 1 EACH SC SCH (11:30)
[2018-03-09 13:09] LABS: Amphetamine Not Detected (NotDetected); Barbiturates Screen Not Detected (NotDetected); Benzodiazepine Screen Not Detected (NotDetected); Cocaine Metabolite Screen Not Detected (NotDetected); Medtox Reader # READER 4; Methadone Not Detected (NotDetected); Methamphetamine Not Detected (NotDetected); Opiate Screen Not Detected (NotDetected); Oxycodone Screen Not Detected (NotDetected); Phencyclidine (PCP) Not Detected (NotDetected); THC/Cannabinoid Screen Detected (NotDetected); Tricyclic Screen Not Detected (NotDetected)
[2018-03-09 13:10] LABS: Medtox Control Line Valid? VALID (VALID)
--- NOTE | 2018-03-09 15:14 | PDOC.PN ---
- Subjective Encounter Start Date: 03/09/18 Encounter Start Time: 15:08 Patient lying in bed, she reports feeling much better. She denies chest pain, shortness of breath. Abdominal pain improved with improved nausea and vomiting. Recurrent elevated BP with home medications and PRN IV antihypertensives. - Objective Resuscitation Status - Order Detail: 03/09/18 00:34 Resuscitation Status Routine Resuscitation Status: FULL: Full Resuscitation MAR Reviewed: Yes Vital Signs & Weight: Vital Signs (12 hours) Temp Pulse Resp BP BP Pulse Ox 03/09/18 11:00 98.2 F 97 18 179/87 H 98 03/09/18 10:27 98 198/88 H 03/09/18 07:52 98.5 F 102 H 18 193/92 H 99 03/09/18 06:26 112 H 211/97 H 03/09/18 06:05 211/97 H 03/09/18 06:04 112 H 211/97 H 03/09/18 04:40 98 F 118 H 18 183/81 H 98 Weight Admit Weight 124 lb Weight 124 lb 1.924 oz I&O: 03/08/18 03/09/18 03/10/18 06:59 06:59 06:59 Intake Total 500 Output Total 400 Balance 100 Result Diagrams: 03/09/18 06:56 03/09/18 06:56 Additional Labs: Accuchecks 03/09/18 03/09/18 03/08/18 11:21 05:21 22:37 POC Glucose 295 H 268 H 276 H Radiology Reviewed by me: Yes EKG Reviewed by me: Yes Phys Exam - Physical Examination Constitutional: NAD HEENT: PERRLA, moist MMs, oral pharynx no lesions Neck: no nodes, no JVD, supple Respiratory: no wheezing, no rales, no rhonchi, clear to auscultation bilateral Cardiovascular: RRR, no significant murmur, no rub Gastrointestinal: soft, non-tender, no distention, positive bowel sounds Musculoskeletal: no edema, pulses present Neurological: non-focal, normal sensation, moves all 4 limbs Lymphatic: no nodes Psychiatric: normal affect, A&O x 3 Skin: no rash, normal turgor, cap refill <2 seconds Dx/Plan (1) Hypertensive urgency Code(s): I16.0 - HYPERTENSIVE URGENCY Status: Acute (2) CKD (chronic kidney disease) Code(s): N18.9 - CHRONIC KIDNEY DISEASE, UNSPECIFIED Status: Chronic Comment : renal function around baseline (3) DM type 2 (diabetes mellitus, type 2) Status: Chronic Qualifiers: (4) HTN (hypertension) Code(s): I10 - ESSENTIAL (PRIMARY) HYPERTENSION Status: Chronic Qualifiers: - Plan cont current plan of care, DVT proph w/lovenox * BP improving now, will closely monitor and add further coverage as needed * With persistent elevated BPs, ordered drug screen which was positive for cannibinoids * Start on Full liquid diet and advance as tolerated * Continue home medications and encourage compliance
[2018-03-09 21:44] LABS: Actual Bicarbonate (HCO3a) 22.9 mEq/L (22-28); Base Excess (BEa) -0.8 mEq/L (-2.0 to +3.0); CO2 Tension 33.8 mmHg (35.0-45.0); Calcium, Ionized 1.15 mmol/L (1.12-1.30); Hemoglobin (Hb) 9.2 g/dL (12.0-16.0); pH, Arterial 7.45 (7.35-7.45)
[2018-03-09 21:54] LABS: Puncture Site R RADIAL
[2018-03-09 22:23] LABS: #Lymphocytes 2.4 thou/uL (1.20-3.40); #Monocytes 0.8 thou/uL (0.11-0.59); #Neutrophils 4.9 thou/uL (1.40-6.50); %Basophils 0.1 % (0.0-1.0); %Eosinophils 0.2 % (0.0-10.0); %Lymphocytes 29.6 % (21.0-51.0); %Monocytes 9.9 % (0.0-10.0); %Neutrophils 60.2 % (42.0-75.0); Hemoglobin 9.4 g/dL (12.0-16.0); Mean Corpuscular HGB CONC 32.8 g/dL (32.0-36.0); Mean Corpuscular Hemoglobin 27.9 pg (27.0-31.0); Mean Corpuscular Volume 85.2 fL (78.0-98.0); Mean Platelet Volume 8.3 fL (7.4-10.4); Platelet Count 234 thou/uL (130-400); RBC Distribution Width 13.8 % (11.5-14.5); Red Blood Cell (RBC) Count 3.38 mill/uL (4.20-5.40); White Blood Cell (WBC) Count 8.1 thou/uL (4.8-10.8)
[2018-03-09 22:39] LABS: Anion Gap 11 mmol/L (10-20); BUN (Urea Nitrogen) 29 mg/dL (9.8-20.1); Calc. Creatinine Clearance 25 mL/min (70-130); Calcium 9.4 mg/dL (7.8-10.44); Carbon Dioxide 21 mmol/L (23-31); Chloride 108 mmol/L (98-107); Estimated GFR-MDRD 30; Glucose 198 mg/dL (80-115); Potassium 3.3 mmol/L (3.5-5.1); Sodium 137 mmol/L (136-145)
[2018-03-10] MEDS: Insulin Glargine 24 UNITS in Pre-Filled Syringe 1 EACH SC SCH (07:53)
[2018-03-10] MEDS: Carvedilol 6.25 MG TAB PO SCH ×2 (07:54→20:20)
[2018-03-10] MEDS: Enoxaparin Sodium 30 MG/0.3 ML SYRINGE SC SCH (07:54)
[2018-03-10] MEDS: Atorvastatin Calcium 40 MG TAB PO SCH (07:55)
[2018-03-10] MEDS: Gabapentin 400 MG CAP PO SCH ×3 (07:55→20:20)
[2018-03-10] MEDS: hydrALAZINE 25 MG TAB PO SCH ×2 (07:55→20:20)
[2018-03-10] MEDS: Amlodipine 10 MG TAB PO SCH (07:55)
[2018-03-10] MEDS: Famotidine 20 MG TAB PO SCH (07:56)
[2018-03-10] MEDS: Acetaminophen 325 MG TAB PO PRN ×2 (07:56→23:18)
[2018-03-10] MEDS: Famotidine/PF 20 mg/2ml Vial SLOW IVP SCH (07:57)
[2018-03-10] MEDS: Sodium Chloride 0.9% 1,000 ML IV SCH ×3 (08:01→23:19)
[2018-03-10 13:43] LABS: #Eosinphils 0.1 thou/uL (0.0-0.7); #Lymphocytes 3.7 thou/uL (1.20-3.40); #Monocytes 0.5 thou/uL (0.11-0.59); #Neutrophils 4.1 thou/uL (1.40-6.50); %Basophils 0.4 % (0.0-1.0); %Eosinophils 0.8 % (0.0-10.0); %Lymphocytes 43.9 % (21.0-51.0); %Monocytes 6.1 % (0.0-10.0); %Neutrophils 48.9 % (42.0-75.0); Hemoglobin 10.7 g/dL (12.0-16.0); Mean Corpuscular HGB CONC 33.1 g/dL (32.0-36.0); Mean Corpuscular Volume 87.5 fL (78.0-98.0); Mean Platelet Volume 7.7 fL (7.4-10.4); Platelet Count 283 thou/uL (130-400); RBC Distribution Width 13.8 % (11.5-14.5); Red Blood Cell (RBC) Count 3.69 mill/uL (4.20-5.40); White Blood Cell (WBC) Count 8.3 thou/uL (4.8-10.8)
[2018-03-10 14:09] LABS: Anion Gap 14 mmol/L (10-20); BUN (Urea Nitrogen) 27 mg/dL (9.8-20.1); Calc. Creatinine Clearance 26 mL/min (70-130); Calcium 9.6 mg/dL (7.8-10.44); Carbon Dioxide 19 mmol/L (23-31); Chloride 110 mmol/L (98-107); Estimated GFR-MDRD 32; Glucose 80 mg/dL (80-115); Sodium 139 mmol/L (136-145)
--- NOTE | 2018-03-10 15:57 | PDOC.PN ---
- Subjective Encounter Start Date: 03/10/18 Encounter Start Time: 15:55 Patient lying in bed this morning and feeling well. No complaints at that time. She denies chest pain, shortness of breath or abdominal pain. No headache, fever , chills, dizziness. No n/v/d. Later in the day, I received a call about her falling upon standing, she denies passing out, palpitations or any further symptoms. Labs displayed TIGRE, orthostatic vitals were obtained and positive. - Objective Resuscitation Status - Order Detail: 03/09/18 00:34 Resuscitation Status Routine Resuscitation Status: FULL: Full Resuscitation MAR Reviewed: Yes Vital Signs & Weight: Vital Signs (12 hours) Temp Pulse Resp BP BP BP BP 03/10/18 13:16 113/71 03/10/18 13:13 125/75 104/66 03/10/18 13:10 115/41 L 154/77 H 03/10/18 11:00 98.4 F 75 18 149/81 H 03/10/18 07:55 89 03/10/18 07:35 99.7 F H 89 18 162/81 H Pulse Ox 03/10/18 13:16 03/10/18 13:13 03/10/18 13:10 03/10/18 11:00 100 03/10/18 07:55 03/10/18 07:35 95 Weight Admit Weight 124 lb Weight 124 lb 1.924 oz I&O: 03/09/18 03/10/18 03/11/18 06:59 06:59 06:59 Intake Total 500 50 Output Total 400 Balance 100 50 Result Diagrams: 03/10/18 13:22 03/10/18 13:22 Additional Labs: Accuchecks 03/10/18 03/10/18 03/10/18 11:26 07:53 05:08 POC Glucose 167 H 147 H 90 03/10/18 03/10/18 03/09/18 04:24 00:10 22:00 POC Glucose 64 L 101 188 H 03/09/18 03/09/18 03/09/18 20:51 19:56 16:22 POC Glucose 108 83 225 H Radiology Reviewed by me: Yes Phys Exam - Physical Examination Constitutional: NAD HEENT: PERRLA, moist MMs, oral pharynx no lesions Neck: no nodes, no JVD, supple Respiratory: no wheezing, no rales, no rhonchi, clear to auscultation bilateral Cardiovascular: RRR, no significant murmur, no rub Gastrointestinal: soft, non-tender, no distention, positive bowel sounds Musculoskeletal: no edema, pulses present Neurological: non-focal, normal sensation, moves all 4 limbs Lymphatic: no nodes Psychiatric: normal affect, A&O x 3 Skin: no rash, normal turgor, cap refill <2 seconds Dx/Plan (1) Hypertensive urgency Code(s): I16.0 - HYPERTENSIVE URGENCY Status: Resolved (2) CKD (chronic kidney disease) Code(s): N18.9 - CHRONIC KIDNEY DISEASE, UNSPECIFIED Status: Chronic Comment : renal function around baseline (3) DM type 2 (diabetes mellitus, type 2) Status: Chronic Qualifiers: (4) HTN (hypertension) Code(s): I10 - ESSENTIAL (PRIMARY) HYPERTENSION Status: Chronic Qualifiers: (5) Orthostatic hypotension Code(s): I95.1 - ORTHOSTATIC HYPOTENSION Status: Acute (6) TIGRE (acute kidney injury) Code(s): N17.9 - ACUTE KIDNEY FAILURE, UNSPECIFIED Status: Acute - Plan cont current plan of care, DVT proph w/SCDs * Due to new TIGRE and orthostatic hypotension IV fluids will be increased to 125ml/hr and place compression stockings * Monitor vital signs and labs * Patient remains asymptomatic and denied passing out, dizziness or vertigo * Patient tolerating diabetic diet * Hold discharge as patient not stable for discharge, switch to inpatient
--- NOTE | 2018-03-10 22:59 | PDOC.EVN ---
Event Note - Event Note Event Note: Patient seen and examined. Chart reviewed.
[2018-03-11 07:40] VITALS: TEMP 98.4
[2018-03-11] MEDS: Insulin Glargine 24 UNITS in Pre-Filled Syringe 1 EACH SC SCH (08:40)
[2018-03-11] MEDS: Gabapentin 400 MG CAP PO SCH (08:41)
[2018-03-11] MEDS: Amlodipine 10 MG TAB PO SCH (08:41)
[2018-03-11] MEDS: Atorvastatin Calcium 40 MG TAB PO SCH (08:42)
[2018-03-11] MEDS: Carvedilol 6.25 MG TAB PO SCH (08:42)
[2018-03-11] MEDS: Famotidine 20 MG TAB PO SCH (08:43)
[2018-03-11] MEDS: Sodium Chloride 0.9% 1,000 ML IV SCH (08:43)
[2018-03-11] MEDS: hydrALAZINE 25 MG TAB PO SCH (08:44)
[2018-03-11] MEDS: Famotidine/PF 20 mg/2ml Vial SLOW IVP SCH (08:44)
--- NOTE | 2018-03-11 11:34 | PDOC.EVN ---
Event Note - Event Note Event Note: DC SUMMARY #[id number]
[2018-03-11 13:03] VITALS: BP 165/73
--- NOTE | 2018-03-11 16:08 | DIS ---
DATE OF ADMISSION: 03/10/2018 DATE OF DISCHARGE: 03/11/2018 ADMITTING DIAGNOSES: Nausea, vomiting, diabetes mellitus type 2, hypertension, chronic kidney disease 3, chronic hepatitis, and anemia. DISCHARGE DIAGNOSES: Nausea and vomiting, resolved. Diabetes mellitus type 2, stable. Hypertension, stable. Chronic kidney disease stage 3, stable. Chronic hepatitis C, stable. HOSPITAL COURSE: This is a 63-year-old lady, who was admitted to the hospital with nausea, vomiting, and gastroparesis. The patient was admitted to Internal Medicine Team, was also followed very closely to evaluate for any symptoms or changes in her condition. The patient had a chest x-ray done, which did not show any cardiopulmonary abnormalities. The patient was started on supportive care, medical management, and was found to have significant improvement in her condition. The patient upon the time of discharge, was able to tolerate diet, had no nausea, vomiting, diarrhea, constipation, chest pain, fevers, chills, or shortness of breath. The patient was stable, stated that she was back to her baseline and ready to go home. DISPOSITION: Home. FOLLOWUP: Follow up with her PCP. MEDICATIONS: Resume home medications. No new prescriptions. CONDITION: Stable. PROGNOSIS: Good. ACTIVITY: As tolerated with assistance as needed. DIET: The patient was advised to pursue a low-fat, low-calorie, low-carb, high-fiber diet, and contact her PCP if any issues or go to the ER for any life-threatening issues. Case and plan discussed with the patient at length. She understood and agreed with this plan. Job ID: [id number]
--- NOTE | 2018-03-13 12:54 | PQF ---
[employer] Crystal Reports Winform SINDY Klein ROHAN [id number] [facility]409 [id number] CLINICAL DOCUMENTATION IMPROVEMENT CLARIFICATION FORM: ICD-10 Updated PLEASE DO AN ADDENDUM TO THE PROGRESS NOTE WITH ANY DOCUMENTATION UPDATES OR ADDITIONS AND CARRY THROUGH TO DC SUMMARY. THANK YOU. DATE: 03-13-18 ATTN: DR. VELASQUEZ Please exercise your independent, professional judgment in responding to the clarification form. Clinical indicators are provided on the bottom of this form for your review Please check appropriate box(s): [ ] Diabetes Type II with Gastroparesis [ ] Diabetes Type II with out Gastroparesis [ ] Other cause of Nausea and Vomiting [ ] Other diagnosis [ ] Unable to determine In addition, please specify: Present on Admission (POA): [ ] Yes [ ] No [ ] Unable to determine CLINICAL INDICATORS - SIGNS / SYMPTOMS / LABS H&P: * HX OF GASTROPARESIS AND DM TYPE II. HX GASTROPARESIS * NAUSEA, VOMITING, DIARRHEA STARTING THE PAST 2 DAYS PRIOR TO DAY OF ADMISSION. * TIGRE ON CKD STAGE 3 * ADMITTED FOR NAUSEA AND VOMITING. ETIOLOGY UNCLEAR AT THIS TIME, BUT LIKELY DUE TO GASTROPARESIS. LABS: GLUCOSE LEVEL 1-9 @1524 229 -10 @0659 309 - @2204 198 -11 @1322 80 RISK FACTORS H&P: * DM TYPE II - NONCOMPLIANT WITH MEDICATION * HX GASTROPARESIS * VERY DEHYDRATED * ADMITTED FOR NAUSEA AND VOMITING. ETIOLOGY UNCLEAR AT THIS TIME, BUT LIKELY DUE TO GASTROPARESIS. TREATMENTS: H&P: INSULIN SLIDING SCALE; START LANTUS AND t.i.d. NOVOLOG IV FLUIDS () TREND PT'S CREATININE (-/ 03-10) THANK YOU, ALIA (This form is maintained as a part of the permanent medical record) 2015 [employer]. All Rights Reserved Alia Hamm, RN, BS [email or web address]
== END 2018-03-11 13:29 | disposition home or self-care (01) | DRG 305 ==
LOC: ERS 13:55 → T4-A 19:51 → OBSVTOIN 03-10 15:31
PROVIDERS: ADMIT Internal Medicine; ATTEND Internal Medicine
DX: I16.0 Hypertensive urgency (principal); N17.9 Acute kidney failure, unspecified; N18.3 Chronic kidney disease, stage 3 (moderate); E11.22 Type 2 diabetes mellitus with diabetic chronic kidney disease; B18.2 Chronic viral hepatitis C; I12.9 Hypertensive chronic kidney disease with stage 1 through stage 4 chronic kidney disease, or unspecified chronic kidney disease; I95.1 Orthostatic hypotension
CPT/HCPCS: 36415; 36416; 71045; 80048; 80053; 80069; 80306; 81003; 81015; 82140; 82805; 83735; 84484; 85025; 87804; 90471; 90662; 96361; 96374; 96375; G0008; J0360; J1650; J2060; J2405; J2550; J3480; J7050; Q0162; S0028

== ENCOUNTER 2018-04-19 10:36 | Emergency (ER) | payer MEDICARE, MEDICAID ==
[2018-04-19] MEDS ORDERED: Metoclopramide HCl 10 MG/2 ML VIAL ONE (12:24)
[2018-04-19 13:39] LABS: #Basophils 0.1 thou/uL (0.0-0.2); #Eosinphils 0.1 thou/uL (0.0-0.7); #Lymphocytes 2.2 thou/uL (1.20-3.40); #Monocytes 0.4 thou/uL (0.11-0.59); #Neutrophils 2.3 thou/uL (1.40-6.50); %Basophils 1.1 % (0.0-1.0); %Eosinophils 1.5 % (0.0-10.0); %Lymphocytes 44.6 % (21.0-51.0); %Monocytes 7.2 % (0.0-10.0); %Neutrophils 45.5 % (42.0-75.0); Hemoglobin 10.5 g/dL (12.0-16.0); Mean Corpuscular Hemoglobin 28.6 pg (27.0-31.0); Mean Corpuscular Volume 89.1 fL (78.0-98.0); Mean Platelet Volume 8.7 fL (7.4-10.4); Platelet Count 175 thou/uL (130-400); RBC Distribution Width 13.2 % (11.5-14.5); Red Blood Cell (RBC) Count 3.67 mill/uL (4.20-5.40)
[2018-04-19 14:10] LABS: ALT (SGPT) 9 U/L (8-55); AST (SGOT) 16 U/L (5-34); Albumin 3.8 g/dL (3.4-4.8); Alkaline Phosphatase 62 U/L (40-150); Anion Gap 14 mmol/L (10-20); BUN (Urea Nitrogen) 18 mg/dL (9.8-20.1); Bilirubin, Total 0.5 mg/dL (0.2-1.2); Calc. Creatinine Clearance 0 mL/min (70-130); Calcium 9.2 mg/dL (7.8-10.44); Carbon Dioxide 23 mmol/L (23-31); Chloride 105 mmol/L (98-107); Estimated GFR-MDRD 35; Globulin 2.9 g/dL (2.4-3.5); Glucose 168 mg/dL (80-115); Lipase 22 U/L (8-78); Potassium 3.8 mmol/L (3.5-5.1); Protein, Total 6.7 g/dL (6.0-8.3); Sodium 138 mmol/L (136-145)
[2018-04-19 16:29] LABS: Bilirubin Small (Negative); Blood, Urine Negative (Negative); Clarity TURBID (Clear); Glucose, Urine (Dipstick) 100 mg/dL (Negative); Leukocyte Small (Negative); Nitrite Negative (Negative); Protein, Urine (Dipstick) 300 mg/dL (Neg-Trace); Specific Gravity, Urine 1.024 (1.002-1.036)
[2018-04-19 16:30] LABS: Bacteria/HPF 4+ HPF (None Seen)
[2018-04-19 16:32] LABS: Pathc Cast-AUWi Flag 15.41 (0-2.49); Yeast-AUWi Flag 48.6 (0-25.0)
[2018-04-19 16:42] LABS: Hyaline Casts/LPF 0-3 HYALINE CAST LPF (0-3 Hyaline); Manual Microscopic Reviewed? No Path Casts Seen; Yeast-All Forms None Seen HPF (None Seen)
== END 2018-04-19 17:28 | disposition home or self-care (01) ==
LOC: ERS 10:36
DX: E86.0 Dehydration (principal); E11.9 Type 2 diabetes mellitus without complications; I10 Essential (primary) hypertension; F32.9 Major depressive disorder, single episode, unspecified; F17.210 Nicotine dependence, cigarettes, uncomplicated; Z79.899 Other long term (current) drug therapy; Z79.84 Long term (current) use of oral hypoglycemic drugs; Z79.82 Long term (current) use of aspirin
CPT/HCPCS: 36415; 51701; 80053; 81003; 81015; 83690; 84484; 85025; 87086; 93005; 96365; 96366; A4353; J2765

== ENCOUNTER 2018-09-30 20:44 | Emergency (ER) | payer MEDICARE, MEDICAID ==
[2018-09-30] MEDS ORDERED: diphenhydrAMINE 50 MG/ML VIAL ONE (21:10)
[2018-09-30] MEDS ORDERED: Metoclopramide HCl 10 MG/2 ML VIAL ONE (21:10)
[2018-09-30] MEDS ORDERED: methylPREDNISolone Sod Succ/PF 125 MG/2 ML VIAL ONE (21:10)
[2018-09-30 21:40] LABS: #Basophils 0.1 thou/uL (0.0-0.2); #Eosinphils 0.3 thou/uL (0.0-0.7); #Lymphocytes 3.2 thou/uL (1.20-3.40); #Monocytes 0.7 thou/uL (0.11-0.59); #Neutrophils 6.1 thou/uL (1.40-6.50); %Basophils 0.7 % (0.0-1.0); %Neutrophils 58.3 % (42.0-75.0); Hemoglobin 11.1 g/dL (12.0-16.0); Mean Corpuscular HGB CONC 32.5 g/dL (32.0-36.0); Mean Corpuscular Hemoglobin 28.6 pg (27.0-31.0); Mean Corpuscular Volume 88.1 fL (78.0-98.0); Mean Platelet Volume 8.5 fL (7.4-10.4); Platelet Count 207 thou/uL (130-400); RBC Distribution Width 13.2 % (11.5-14.5); Red Blood Cell (RBC) Count 3.89 mill/uL (4.20-5.40); White Blood Cell (WBC) Count 10.5 thou/uL (4.8-10.8)
--- NOTE | 2018-09-30 21:49 | CT ---
BRAIN CT WITHOUT IV CONTRAST: 09/30/18. HISTORY: Headache, nausea, vomiting, weakness, history of diabetes mellitus and hypertension. No focal mass or midline shift. No intra or extra-axial hemorrhage. Sinus mucosal disease including the ethmoid, sphe noid and maxillary sinuses. No acute process from 07/19/16. IMPRESSION: No mass, bleed or other acute process. Sinus mucosal disease. POS: [facility]
[2018-09-30 22:08] LABS: ALT (SGPT) 14 U/L (8-55); AST (SGOT) 22 U/L (5-34); Albumin 3.9 g/dL (3.4-4.8); Alkaline Phosphatase 82 U/L (40-150); Anion Gap 17 mmol/L (10-20); BUN (Urea Nitrogen) 21 mg/dL (9.8-20.1); Bilirubin, Total 0.4 mg/dL (0.2-1.2); Calc. Creatinine Clearance 0 mL/min (70-130); Calcium 9.1 mg/dL (7.8-10.44); Carbon Dioxide 20 mmol/L (23-31); Chloride 101 mmol/L (98-107); Estimated GFR-MDRD 33; Globulin 3.3 g/dL (2.4-3.5); Glucose 268 mg/dL (80-115); Potassium 3.6 mmol/L (3.5-5.1); Protein, Total 7.2 g/dL (6.0-8.3); Sodium 134 mmol/L (136-145)
== END 2018-10-01 00:38 | disposition home or self-care (01) ==
LOC: ERS 20:44
DX: I10 Essential (primary) hypertension (principal); E11.9 Type 2 diabetes mellitus without complications; F32.9 Major depressive disorder, single episode, unspecified; F17.210 Nicotine dependence, cigarettes, uncomplicated; Z79.891 Long term (current) use of opiate analgesic; Z79.82 Long term (current) use of aspirin; Z79.899 Other long term (current) drug therapy; I20.9 Angina pectoris, unspecified
CPT/HCPCS: 36415; 70450; 80053; 84484; 85025; 93005; 96361; 96374; 96375; J1200; J2765; J2930

== ENCOUNTER 2018-11-20 09:27 | Emergency (ER) | payer MEDICARE, MEDICAID ==
[2018-11-20 10:36] LABS: #Basophils 0.1 thou/uL (0.0-0.2); #Eosinphils 0.1 thou/uL (0.0-0.7); #Lymphocytes 2.1 thou/uL (1.20-3.40); #Monocytes 0.3 thou/uL (0.11-0.59); #Neutrophils 3.2 thou/uL (1.40-6.50); %Basophils 1.2 % (0.0-1.0); %Eosinophils 1.8 % (0.0-10.0); %Lymphocytes 36.2 % (21.0-51.0); %Monocytes 5.2 % (0.0-10.0); %Neutrophils 55.7 % (42.0-75.0); Hemoglobin 13.6 g/dL (12.0-16.0); Mean Corpuscular HGB CONC 32.7 g/dL (32.0-36.0); Mean Corpuscular Hemoglobin 28.7 pg (27.0-31.0); Mean Corpuscular Volume 87.7 fL (78.0-98.0); Mean Platelet Volume 9.5 fL (7.4-10.4); Platelet Count 200 thou/uL (130-400); RBC Distribution Width 13.3 % (11.5-14.5); Red Blood Cell (RBC) Count 4.75 mill/uL (4.20-5.40); White Blood Cell (WBC) Count 5.7 thou/uL (4.8-10.8)
[2018-11-20 10:59] LABS: ALT (SGPT) 29 U/L (8-55); AST (SGOT) 31 U/L (5-34); Albumin 4.3 g/dL (3.4-4.8); Alkaline Phosphatase 77 U/L (40-150); Anion Gap 17 mmol/L (10-20); BUN (Urea Nitrogen) 36 mg/dL (9.8-20.1); Bilirubin, Total 0.6 mg/dL (0.2-1.2); CK (CPK) 141 U/L (29-168); Calc. Creatinine Clearance 0 mL/min (70-130); Calcium 9.8 mg/dL (7.8-10.44); Carbon Dioxide 21 mmol/L (23-31); Chloride 100 mmol/L (98-107); Estimated GFR-MDRD 23; Globulin 3.3 g/dL (2.4-3.5); Glucose 311 mg/dL (80-115); Lipase 35 U/L (8-78); Potassium 4.7 mmol/L (3.5-5.1); Protein, Total 7.6 g/dL (6.0-8.3); Sodium 133 mmol/L (136-145)
== END 2018-11-20 11:24 | disposition home or self-care (01) ==
LOC: ERS 09:27
DX: F43.20 Adjustment disorder, unspecified (principal); I12.9 Hypertensive chronic kidney disease with stage 1 through stage 4 chronic kidney disease, or unspecified chronic kidney disease; N18.9 Chronic kidney disease, unspecified; E11.65 Type 2 diabetes mellitus with hyperglycemia; F32.9 Major depressive disorder, single episode, unspecified; F17.210 Nicotine dependence, cigarettes, uncomplicated; Z79.899 Other long term (current) drug therapy; Z79.82 Long term (current) use of aspirin
CPT/HCPCS: 36415; 80053; 82010; 82550; 83690; 84484; 85025; 93005

== ENCOUNTER 2018-11-22 09:04 | Inpatient (IN) | payer MEDICARE, MEDICAID ==
--- NOTE | 2018-11-22 11:33 | CT ---
CT OF THE ABDOMEN AND PELVIS WITHOUT IV CONTRAST INDICATION: 53-year-old female with nausea vomiting that started last night COMPARISON: Contrast-enhanced CT of the abdomen and pelvis dated November 12, 2015 FINDINGS: The lack of IV contrast limits evaluation of the solid organs of the abdomen and pelvis. ABDOMEN: Lung bases: Clear Liver: There is diffuse fatty infiltration of the liver Gallbladder: Surgically absent Pancreas: Normal. Adrenal glands: There is a 2 cm left adrenal adenoma. Right adrenal gland is normal-appearing. Spleen: Normal. Kidneys: Normal. Retroperitoneum of the upper abdomen: No lymphadenopathy or free fluid is identified. Additional findings: None. Pelvis: Small and large bowel: Unopacified large and small bowel are normal caliber. There is a normal append ix in the right lower quadrant of the abdomen. Bladder: Normal. Rectal and perirectal soft tissues:Normal. Reproductive structures: Normal. Free fluid in pelvis: No free fluid is evident. Lymphadenopathy pelvis: No lymphadenopathy is evident. Osseous structures: There is prominent endplate degenerative change at L4-5. There is a posterior lotus tral projecting protrusion at L4-5 likely inducing at least severe central canal narrowing. There is a prominent disc osteophyte complex and facet joint degenerative change at L4-5 likely inducing at least mild bilateral osseous neural foraminal narrowing. There is vacuum disc phenomenon at L3-4 and L4-5 likely indicative of some is disc instability. There is scattered degenerative and osteoart hritic changes. IMPRESSION: 1. Prominent central projecting disc protrusion at L4-5 inducing at least severe central canal narrow ing. Disc osteophyte complex and facet joint degenerative change at this level induces mild bilateral neural foraminal narrowing. 2. Diffuse fatty liver 3. Left adrenal adenoma
--- NOTE | 2018-11-22 11:40 | CT ---
CT BRAIN: Date: 11/22/18 PROVIDED CLINICAL HISTORY: Injury. FINDINGS: Comparison with 09/30/18. The ventricular system appears normal in size and morphology. There is no evidence for intracranial h emorrhage or mass effect. Chronic microvascular ischemic changes are again seen. The soft tissues and osseous structures appear unremarkable. IMPRESSION: No evidence for intracranial hemorrhage or mass effect. POS: [facility]
[2018-11-22 11:53] LABS: #Lymphocytes 1.3 thou/uL (1.20-3.40); #Monocytes 0.5 thou/uL (0.11-0.59); #Neutrophils 9.7 thou/uL (1.40-6.50); %Basophils 0.1 % (0.0-1.0); %Eosinophils 0.1 % (0.0-10.0); %Lymphocytes 11.4 % (21.0-51.0); %Monocytes 4.6 % (0.0-10.0); %Neutrophils 83.7 % (42.0-75.0); Hemoglobin 12.8 g/dL (12.0-16.0); Mean Corpuscular HGB CONC 31.7 g/dL (32.0-36.0); Mean Corpuscular Hemoglobin 27.9 pg (27.0-31.0); Mean Platelet Volume 9.9 fL (7.4-10.4); Platelet Count 191 thou/uL (130-400); Red Blood Cell (RBC) Count 4.58 mill/uL (4.20-5.40); White Blood Cell (WBC) Count 11.5 thou/uL (4.8-10.8)
[2018-11-22] MEDS ORDERED: Ondansetron PF 4 MG/2 ML Vial ONE ×2 (11:59→13:01)
[2018-11-22] MEDS ORDERED: hydrALAZINE 20 MG/ML VIAL ONE (11:59)
[2018-11-22 12:05] LABS: ALT (SGPT) 29 U/L (8-55); AST (SGOT) 23 U/L (5-34); Albumin 4.8 g/dL (3.4-4.8); Alkaline Phosphatase 85 U/L (40-110); Anion Gap 36 mmol/L (10-20); BUN (Urea Nitrogen) 53 mg/dL (9.8-20.1); Bilirubin, Total 0.6 mg/dL (0.2-1.2); Calc. Creatinine Clearance 0 mL/min (70-130); Calcium 9.9 mg/dL (7.8-10.44); Chloride 93 mmol/L (98-107); Estimated GFR-MDRD 16; Globulin 3.7 g/dL (2.4-3.5); Lipase 160 U/L (8-78); Potassium 5.5 mmol/L (3.5-5.1); Protein, Total 8.5 g/dL (6.0-8.3); Sodium 132 mmol/L (136-145)
[2018-11-22 12:14] LABS: Carbon Dioxide 9 mmol/L (23-31); Glucose 666 mg/dL (80-115)
[2018-11-22 12:25] LABS: CKMB 3.8 ng/mL (0-6.6)
[2018-11-22 13:03] LABS: Base Excess-Venous -15.3 mmol/L (-2.0 to 3.0); Bicarbonate (HCO3v) 9.1 mmol/L (22.0-28.0); CO2 Tension (PvCO2) 18.9 mmHg (40.0-50.0); Chloride 104 mmol/L (98-107); Potassium 4.8 mmol/L (3.5-5.1); Sodium 130 mmol/L (138-145); T. Carbon Dioxide 9.6 mmol/L (22.0-28.0); vO2 Saturation-calc 80.9 % (60.0-85.0)
[2018-11-22] MEDS ORDERED: Insulin Regular 300 UNITS/3 ML VIAL ONE (13:48)
[2018-11-22] MEDS ORDERED: Dextrose 5 %-0.45 % NaCl 1,000 ML IV PRN (14:39)
[2018-11-22] MEDS ORDERED: NS 0.9% w/ 20 MEQ KCL 1,000 ML IV PRN ×2 (14:39)
[2018-11-22] MEDS ORDERED: CCU Electrolyte Replacement 1 EACH IVPB ONE (14:39)
[2018-11-22] MEDS ORDERED: Sodium Chloride 0.9% 1,000 ML IV PRN ×4 (14:39)
[2018-11-22] MEDS ORDERED: HUMULIN R 100 UNITS in Sodium Chloride 0.9% 100 ML IVPB SCH (14:39)
[2018-11-22] MEDS ORDERED: Potassium Chloride 20 MEQ TAB PO PRN (14:44)
[2018-11-22] MEDS ORDERED: Potassium Phosphate 15 MMOL in Sodium Chloride 0.9% 250 ML 250 ML IV PRN (14:44)
[2018-11-22] MEDS ORDERED: CCU ELECTROLYTE REPLACEMENT PROTOCOL FS PRN (14:44)
[2018-11-22] MEDS ORDERED: Potassium Chloride 40 MEQ in Sodium Chloride 0.9% 250 ML 250 ML IVPB PRN (14:44)
[2018-11-22] MEDS ORDERED: Potassium Phosphate 9 MMOL in Sodium Chloride 0.9% 100 ML IVPB PRN (14:44)
[2018-11-22] MEDS ORDERED: Magnesium Oxide 400 MG TAB PO PRN ×2 (14:44)
[2018-11-22] MEDS ORDERED: PHOS-NAK 1 PKT PACK PO PRN ×2 (14:44)
[2018-11-22] MEDS ORDERED: Magnesium 2 GM/50 ML 2 GM in Premix Bag 1 BAG IVPB PRN (14:44)
[2018-11-22] MEDS ORDERED: Potassium Phosphate 12 MMOL in Sodium Chloride 0.9% 250 ML 250 ML IV PRN (14:44)
[2018-11-22] MEDS ORDERED: Potassium Chloride 40 MEQ in Premix Bag 1 BAG IVPB PRN (14:44)
--- NOTE | 2018-11-22 15:03 | HP ---
PRIMARY CARE PROVIDER: Valdo Rosales MD. HISTORY OF PRESENT ILLNESS: [facility] diabetic ketoacidosis. The patient has had nausea and vomiting for 3 days. No definite pain. She has had some diarrhea all day yesterday. No blood in her stools. No fever. No chills. PAST MEDICAL HISTORY: Pertinent for diabetes mellitus, type 2, insulin dependent; coronary artery disease; hypertension; history of pancreatitis; and major depressive disorder. PAST SURGICAL HISTORY: Includes temporal vein biopsy and cholecystectomy. CURRENT MEDICATIONS: 1. Insulin Toujeo 30 units subcutaneously in the morning. 2. Gabapentin 400 mg 3 times a day. 3. Coreg 3.125 mg twice a day. 4. Amlodipine 5 mg a day. 5. Enalapril 5 mg a day. 6. Hydralazine 25 mg twice a day. 7. Brintellix 10 mg a day. 8. Aspirin 81 mg a day. 9. Protonix 40 mg a day. ALLERGIES: NUBAIN. FAMILY HISTORY: Negative for bleeding disorders. No immune dysfunction. Positive for diabetes mellitus. SOCIAL HISTORY: No alcohol or drugs. Smokes less than 5 cigarettes a day. Full code status. She gave no surrogate decision maker. REVIEW OF SYSTEMS: GENERAL: She is dizzy all the time. She is weak in her legs and falls frequently. 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 EARS, NOSE, AND THROAT: No ear pain or drainage. No nasal bleeding. No trouble swallowing. CARDIAC: No chest pain, orthopnea, or paroxysmal nocturnal dyspnea. RESPIRATORY: No cough, wheezing, or asthma. GASTROINTESTINAL: See present illness. GENITOURINARY: Frequency, nocturia. No hematuria. MUSCULOSKELETAL: She states she is weak in her legs. She has trouble getting up and that she falls frequently. NEUROLOGIC: She states she had a stroke in 2017, with no focal residual. PSYCHIATRIC: She has anxiety and depression, takes medications. SKIN: No bruising, bleeding, or rash. HEME/LYMPH: No tender or swollen lymph nodes in axilla, inguinal, or cervical area. PHYSICAL EXAMINATION: GENERAL: Alert, pleasant lady. VITAL SIGNS: Blood pressure 170/77, pulse 104, respirations 18, room air saturation 99%. HEAD, EYES, EARS, NOSE, AND THROAT: Revealed blind in right eye. Extraocular movements are intact. Pupillary response is intact on left eye. Sclerae are white. Tympanic membranes are clear. Nose is clear. Oral mucous membranes are wet. NECK: Supple without jugular venous distention, adenopathy, or thyromegaly. CHEST: Clear to auscultation and percussion. HEART: Had a regular rate and rhythm. First and second heart sounds are clear. No murmurs or gallops. ABDOMEN: Soft. Bowel sounds are normal. There is no hepatosplenomegaly. No mass. No rebound. EXTREMITIES: Revealed no cyanosis, clubbing, or edema. PULSES: Carotid, radial, femoral, and dorsalis pedis pulses are intact. SKIN: Warm and dry without bruises or rash. HEME/LYMPH: No tender or swollen lymph nodes in axilla, inguinal, or cervical area. NEUROLOGIC: Absent deep tendon reflexes in the legs. Subjective decreased strength in the legs compared to the arms. Both are symmetric. IMAGING DATA: EKG, none. I have ordered one. Chest x-ray, none. I have ordered one. CT scan of the brain done for reasons unknown reveals no acute intracranial process, reviewed by me. Abdominal pelvis CT reveals no pancreatic findings. Gallbladder surgically absent. Heterogeneous liver. There is a left adrenal adenoma. A prominent L4-L5 disk protrusion causing severe spinal canal stenosis. LABORATORY DATA: Blood gas reveals a pH of 7.29. White count 11.5, hemoglobin 12.8, platelet count 191,000. Chemistries; sodium 132; potassium 5.5; CO2 of 9; BUN 53; creatinine 3.52, it was 2.56 two days ago, 1.67 nine months ago; glucose is 666. ADMITTING DIAGNOSES: Diabetic ketoacidosis, [id number] renal failure, coronary artery disease, hypertension, lumbar spinal stenosis, and adrenal adenoma. PLAN: Admit to [facility]. DKA protocol. Selected home medicines. The patient will need workup for severe spinal canal stenosis before she leaves. Job ID: [id number]
[2018-11-22 15:45] LABS: BUN (Urea Nitrogen) 54 mg/dL (9.8-20.1); Calc. Creatinine Clearance 0 mL/min (70-130); Calcium 9.2 mg/dL (7.8-10.44); Chloride 99 mmol/L (98-107); Estimated GFR-MDRD 18; Glucose 546 mg/dL (80-115); Phosphorus 4.9 mg/dL (2.3-4.7); Potassium 4.3 mmol/L (3.5-5.1); Sodium 134 mmol/L (136-145)
[2018-11-22 15:49] LABS: Carbon Dioxide Less than 8 mmol/L (23-31)
--- NOTE | 2018-11-22 15:52 | RAD ---
CHEST 2 VIEWS: HISTORY: Nausea and vomiting. COMPARISON: Chest radiograph 10/18/2016. FINDINGS: Lungs are clear. No pneumothorax or effusion. Cardiac silhouette and mediastinal contours are withi n normal limits. No acute osseous abnormality. Incidental note is made of a right coracoclavicular joint. IMPRESSION: No acute intrathoracic abnormality. POS: [facility]
[2018-11-22 16:25] LABS: Bacteria/HPF None Seen HPF (None Seen); Bilirubin Negative (Negative); Blood, Urine Trace (Negative); Clarity Clear (Clear); Glucose, Urine (Dipstick) Greater than 1000 mg/dL (Negative); Leukocyte Negative Leu/uL (Negative); Nitrite Negative (Negative); Protein, Urine (Dipstick) 50 mg/dL (Neg-Trace); Squamous Epithelial 0-3 HPF (0-3); Urobilinogen Normal mg/dL (Less than 2); WBC/HPF 0-3 HPF (0-3)
[2018-11-22 17:22] VITALS: BMI 14.8
[2018-11-22] MEDS: D5 1/2 NS w/20 mEq KCL 1,000 ML IV PRN ×2 (17:44→23:58)
[2018-11-22 20:21] LABS: Anion Gap 25 mmol/L (10-20); BUN (Urea Nitrogen) 47 mg/dL (9.8-20.1); Calc. Creatinine Clearance 14 mL/min (70-130); Calcium 8.6 mg/dL (7.8-10.44); Chloride 106 mmol/L (98-107); Estimated GFR-MDRD 20; Glucose 470 mg/dL (80-115); Sodium 134 mmol/L (136-145)
[2018-11-22 20:28] LABS: Carbon Dioxide 8 mmol/L (23-31)
[2018-11-22] MEDS: Acetaminophen 325 MG TAB PO PRN (21:35)
[2018-11-22] MEDS: Zolpidem Tartrate 5 MG TAB PO PRN (21:35)
[2018-11-22] MEDS: hydrALAZINE 20 MG/ML VIAL SLOW IVP PRN (23:17)
[2018-11-22 23:36] LABS: Anion Gap 15 mmol/L (10-20); BUN (Urea Nitrogen) 39 mg/dL (9.8-20.1); Calc. Creatinine Clearance 16 mL/min (70-130); Carbon Dioxide 16 mmol/L (23-31); Chloride 106 mmol/L (98-107); Estimated GFR-MDRD 23; Glucose 222 mg/dL (80-115); Potassium 4.3 mmol/L (3.5-5.1); Sodium 133 mmol/L (136-145)
[2018-11-23] MEDS: hydrALAZINE 20 MG/ML VIAL SLOW IVP PRN ×2 (02:11→11:53)
[2018-11-23] MEDS: D5 1/2 NS w/20 mEq KCL 1,000 ML IV PRN (04:23)
[2018-11-23 06:10] LABS: Hemoglobin 11.7 g/dL (12.0-16.0); Mean Corpuscular HGB CONC 35.5 g/dL (32.0-36.0); Mean Corpuscular Hemoglobin 29.5 pg (27.0-31.0); Mean Corpuscular Volume 83.1 fL (78.0-98.0); Mean Platelet Volume 9.3 fL (7.4-10.4); Platelet Count 163 thou/uL (130-400); RBC Distribution Width 13.1 % (11.5-14.5); Red Blood Cell (RBC) Count 3.95 mill/uL (4.20-5.40); White Blood Cell (WBC) Count 12.2 thou/uL (4.8-10.8)
--- NOTE | 2018-11-23 08:03 | PDOC.HOSPP ---
- Subjective Encounter Date: 11/23/18 Encounter Time: 08:01 Subjective: feels better, no sob, nausea - Objective Vital Signs & Weight: Vital Signs (12 hours) Temp Pulse Ox 11/23/18 07:18 100 11/23/18 06:56 97.5 F L 11/23/18 03:30 97.9 F 11/22/18 23:00 98.2 F Weight Weight 100 lb 12.8 oz Most Recent Monitor Data Heart Rate from ECG 100 NIBP 168/90 NIBP BP-Mean 116 Respiration from ECG 19 SpO2 97 I&O: 11/22/18 11/23/18 11/24/18 06:59 06:59 06:59 Intake Total 4289 255 Output Total 1400 0 Balance 2889 255 Result Diagrams: 11/23/18 06:01 11/23/18 07:39 Additional Labs: Accuchecks 11/23/18 11/23/18 11/23/18 06:57 05:59 05:02 POC Glucose 145 H 171 H 201 H 11/23/18 11/23/18 11/23/18 04:08 03:01 01:58 POC Glucose 210 H 209 H 188 H 11/23/18 11/23/18 11/22/18 00:59 00:04 22:58 POC Glucose 172 H 148 H 198 H 11/22/18 11/22/18 11/22/18 22:07 21:10 20:08 POC Glucose 261 H 324 H 412 H 11/22/18 11/22/18 11/22/18 18:56 18:06 17:05 POC Glucose 514 H 500 H 362 H 11/22/18 11/22/18 16:00 13:58 POC Glucose 441 H Greater than 550 H* Hospitalist ROS - Medication Medications: Active Medications Generic Name Dose Route Start Last Admin Trade Name Freq PRN Reason Stop Dose Admin Acetaminophen 650 mg 11/22/18 14:39 11/22/18 21:35 Tylenol PO 650 mg Q4H PRN Administration Headache/Fever/Mild Pain (1-3) Hydralazine HCl 10 mg 11/22/18 22:59 11/23/18 02:11 Apresoline SLOW IVP 10 mg Q4H PRN Administration SBP>170 Potassium Chloride/Dextrose/Sod Cl 1,000 mls @ 250 mls/hr 11/22/18 14:39 04:23 D5 1/2 Ns W/20 Meq Kcl IV 1,000 mls .Q4H PRN Administration Step 4 of DKA Protocol Protocol Insulin Human Regular 100 101 mls @ 0 mls/hr 11/22/18 14:39 11/22/18 17:44 units/ Sodium Chloride IVPB 101 mls INF YVETTE Administration Protocol Titrate Sodium Chloride 1,000 mls @ 250 mls/hr 11/22/18 14:39 11/22/18 21:35 Normal Saline 0.9% IV 1,000 mls .Q4H PRN Administration SEE STEP 3 OF DKA PROTOCOL Protocol Potassium Chloride/Sodium Chloride 1,000 mls @ 500 mls/hr 11/22/18 14:39 20:00 Ns 0.9% W/ 20 Meq Kcl IV 1,000 mls .Q2H PRN Administration Step 2 of DKA Protocol Protocol Zolpidem Tartrate 5 mg 11/22/18 14:39 11/22/18 21:35 Ambien PO 5 mg HSPRN PRN Administration Insomnia - Exam General Appearance: awake alert Neck: no JVD Heart: RRR, no murmur Respiratory: CTAB Gastrointestinal: soft, normal bowel sounds Extremities: no edema Hosp A/P (1) DKA (diabetic ketoacidoses) Code(s): E13.10 - OTH DIABETES MELLITUS WITH KETOACIDOSIS WITHOUT COMA Status : Resolved Qualifiers: Diabetes mellitus type: type 2 Diabetes mellitus complication detail: without coma Qualified Code(s): E11.10 - Type 2 diabetes mellitus with ketoacidosis without coma (2) Acute on chronic renal failure Code(s): N17.9 - ACUTE KIDNEY FAILURE, UNSPECIFIED; N18.9 - CHRONIC KIDNEY DISEASE, UNSPECIFIED Status: Acute Qualifiers: Acute renal failure type: unspecified (3) Dyslipidemia Code(s): E78.5 - HYPERLIPIDEMIA, UNSPECIFIED Status: Chronic (4) HTN (hypertension) Code(s): I10 - ESSENTIAL (PRIMARY) HYPERTENSION Status: Chronic Qualifiers: Hypertension type: essential hypertension Qualified Code(s): I10 - Essential (primary) hypertension (5) Nausea & vomiting Code(s): R11.2 - NAUSEA WITH VOMITING, UNSPECIFIED Status: Resolved Qualifiers: Vomiting Intractability: unspecified - Plan BS stable acidosis improving BMP pending institute antihypertensives, etc DC iv insulin q4h accu/moderate sliding scale, advance diet
[2018-11-23 08:40] LABS: Anion Gap 12 mmol/L (10-20); BUN (Urea Nitrogen) 28 mg/dL (9.8-20.1); Calc. Creatinine Clearance 22 mL/min (70-130); Calcium 8.9 mg/dL (7.8-10.44); Carbon Dioxide 16 mmol/L (23-31); Chloride 109 mmol/L (98-107); Estimated GFR-MDRD 33; Glucose 138 mg/dL (80-115); Potassium 3.9 mmol/L (3.5-5.1); Sodium 133 mmol/L (136-145)
[2018-11-23] MEDS: hydrALAZINE 25 MG TAB PO SCH ×2 (08:43→20:26)
[2018-11-23] MEDS: Aspirin Chewable 81 MG TAB PO SCH (08:43)
[2018-11-23] MEDS: Carvedilol 6.25 MG TAB PO SCH ×2 (08:43→20:25)
[2018-11-23] MEDS: Atorvastatin Calcium 40 MG TAB PO SCH (08:43)
[2018-11-23] MEDS: Amlodipine 5 MG TAB PO SCH (08:43)
[2018-11-23] MEDS: Enoxaparin Sodium 30 MG/0.3 ML SYRINGE SC SCH (08:43)
[2018-11-23] MEDS: Lisinopril 10 MG TAB PO SCH (08:44)
[2018-11-23] MEDS: Gabapentin 400 MG CAP PO SCH ×3 (08:44→20:25)
[2018-11-23] MEDS ORDERED: Amlodipine 10 MG TAB PO SCH (09:00)
[2018-11-23] MEDS ORDERED: Non-Formulary Item 1 EACH (Carvedilol [Carvedilol] 12.5 MG) PO SCH (09:00)
[2018-11-23] MEDS ORDERED: Non-Formulary Item 1 EACH (Vortioxetine Hydrobromide [Trintellix] 10 MG) PO SCH (09:00)
[2018-11-23] MEDS ORDERED: Dextrose 5% in Water 1,000 ML IV PRN (10:55)
[2018-11-23] MEDS ORDERED: Dextrose 50% Abboject 50 ML SYRINGE SLOW IVP PRN (10:55)
[2018-11-23] MEDS ORDERED: Insulin Glargine 30 UNITS in Pre-Filled Syringe 1 EACH SC SCH (11:00)
[2018-11-23] MEDS: Ondansetron ODT 4 MG TAB PO PRN ×2 (11:52→20:29)
[2018-11-23] MEDS: HumaLOG 300 UNITS/3 ML VIAL SC PRN (16:02)
--- NOTE | 2018-11-23 16:16 | CON ---
DATE OF CONSULTATION: HISTORY OF PRESENT ILLNESS: Saray Loco is a 63-year-old female with history of diabetes, hypertension, high cholesterol, presents with nausea and vomiting and vague abdominal pain. She was dizzy. Came to the ER with elevated blood sugar. This morning, she is still feeling vague abdominal pain. PAST MEDICAL HISTORY: Diabetes, hypertension, previous pancreatitis, and history of depression. PREVIOUS SURGERIES: Include an elbow surgery and cholecystectomy. HOME MEDICATIONS: Include; 1. Hydralazine 25 twice a day. 2. Insulin 30 units once a day. 3. Neurontin 400. 4. Coreg 12.5 b.i.d. 5. Lipitor 40. 6. Aspirin. 7. Norvasc 5. SOCIAL HISTORY: Smokes a pack a day. No alcohol abuse. No drug abuse. ALLERGIES: NUBAIN. REVIEW OF SYSTEMS: Ten-point negative. PHYSICAL EXAMINATION: VITAL SIGNS: Blood pressure is 200/105, temp 97, sats 100%, and respiratory rate 18. CHEST: No wheezing or crackles. CARDIAC: Normal S1 and S2. No gallops. ABDOMEN: No masses. LABORATORY DATA: White count 12,000 and H and H 10/32. Creatinine is 1.86, sodium 133, and glucose 138. ASSESSMENT: 1. Abdominal pain, nausea, and vomiting. 2. Azotemia. 3. Diabetes. 4. Hypertension. 5. Former smoker. PLAN: Continue insulin drip. Supportive care. Slow hydration. Job ID: [id number]
[2018-11-23] MEDS: Zolpidem Tartrate 5 MG TAB PO PRN (20:29)
[2018-11-24 07:12] LABS: Anion Gap 10 mmol/L (10-20); BUN (Urea Nitrogen) 7 mg/dL (9.8-20.1); Calc. Creatinine Clearance 23 mL/min (70-130); Calcium 8.8 mg/dL (7.8-10.44); Carbon Dioxide 19 mmol/L (23-31); Chloride 108 mmol/L (98-107); Estimated GFR-MDRD 36; Glucose 204 mg/dL (80-115); Potassium 4.1 mmol/L (3.5-5.1); Sodium 133 mmol/L (136-145)
[2018-11-24] MEDS ORDERED: INSULIN GLARGINE HUM REC ANLOG 30 UNIT SQ SCH (09:00)
[2018-11-24] MEDS: Amlodipine 5 MG TAB PO SCH (09:07)
[2018-11-24] MEDS: Aspirin Chewable 81 MG TAB PO SCH (09:07)
[2018-11-24] MEDS: Atorvastatin Calcium 40 MG TAB PO SCH (09:07)
[2018-11-24] MEDS: Carvedilol 6.25 MG TAB PO SCH ×2 (09:07→21:07)
[2018-11-24] MEDS: Gabapentin 400 MG CAP PO SCH ×3 (09:08→21:08)
[2018-11-24] MEDS: hydrALAZINE 25 MG TAB PO SCH ×2 (09:08→21:08)
[2018-11-24] MEDS: Enoxaparin Sodium 30 MG/0.3 ML SYRINGE SC SCH (09:08)
[2018-11-24] MEDS: Lisinopril 10 MG TAB PO SCH (09:09)
[2018-11-24] MEDS: Insulin Glargine 30 UNITS in Pre-Filled Syringe 1 EACH SC SCH (09:09)
--- NOTE | 2018-11-24 09:41 | PRG ---
DATE OF SERVICE: 11/24/2018 SUBJECTIVE: This morning, the patient is somewhat better. She is less encephalopathic. OBJECTIVE: VITAL SIGNS: Temperature 97, blood pressure 140/72, pulse 80, and respirations are 18. CHEST: No wheezing or crackles. CARDIAC: Normal S1 and S2. No gallops. LABORATORY DATA: Creatinine 1.34. Blood sugars are down trended to 295. ASSESSMENT: 1. Uncontrolled diabetes. 2. Azotemia, much improved. 3. Nausea and vomiting, improved. PLAN: Pulmonary-rivera, she appears to be stabilized. Disposition as per primary care physician. Pulmonary will follow at a distance. Call if needed. Job ID: [id number]
[2018-11-24] MEDS: Vortioxetine Hydrobromide [Trintellix] 10 MG TAB PO SCH ×2 (13:51)
[2018-11-24] MEDS: Acetaminophen 325 MG TAB PO PRN ×2 (15:34→22:21)
[2018-11-24] MEDS: HumaLOG 300 UNITS/3 ML VIAL SC PRN (16:52)
--- NOTE | 2018-11-24 18:21 | PDOC.HOSPP ---
- Subjective Encounter Date: 11/24/18 Subjective: reports generalized weakness, off insulin drip; tolerating oral intake; awaiting physical therapy evaluation - Objective Vital Signs & Weight: Vital Signs (12 hours) Temp Pulse BP Pulse Ox 11/24/18 15:16 97.7 F 11/24/18 11:27 97.2 F L 11/24/18 09:09 147/83 H 11/24/18 09:08 82 147/83 H 11/24/18 09:07 84 147/83 H 11/24/18 08:00 100 11/24/18 07:25 97.7 F Weight Admit Weight 100 lb 12.8 oz Weight 100 lb 12.8 oz Most Recent Monitor Data Heart Rate from ECG 85 NIBP 115/62 NIBP BP-Mean 79 Respiration from ECG 28 SpO2 98 I&O: 11/23/18 11/24/18 11/25/18 06:59 06:59 06:59 Intake Total 4289 1974.9 1197 Output Total 1400 1325 575 Balance 2889 649.9 622 Result Diagrams: 11/23/18 06:01 11/24/18 05:51 Additional Labs: Accuchecks 11/24/18 11/24/18 11/24/18 16:24 12:08 08:50 POC Glucose 282 H 174 H 195 H 11/24/18 11/23/18 11/23/18 03:51 23:52 20:07 POC Glucose 176 H 183 H 157 H Hospitalist ROS - Review of Systems Constitutional: reports: weakness Respiratory: denies: shortness of breath Gastrointestinal: denies: nausea, vomiting, abdominal pain - Medication Medications: Active Medications Generic Name Dose Route Start Last Admin Trade Name Freq PRN Reason Stop Dose Admin Acetaminophen 650 mg 11/22/18 14:39 11/24/18 15:34 Tylenol PO 650 mg Q4H PRN Administration Headache/Fever/Mild Pain (1-3) Amlodipine Besylate 5 mg 11/23/18 09:00 11/24/18 09:07 Norvasc PO 5 mg DAILY YVETTE Administration Aspirin 81 mg 11/23/18 09:00 11/24/18 09:07 Aspirin Chewable PO 81 mg DAILY YVETTE Administration Atorvastatin Calcium 40 mg 11/23/18 09:00 11/24/18 09:07 Lipitor PO 40 mg DAILY YVETTE Administration Carvedilol 12.5 mg 11/23/18 09:00 11/24/18 09:07 Coreg PO 12.5 mg BID YVETTE Administration Enoxaparin Sodium 30 mg 11/23/18 09:00 11/24/18 09:08 Lovenox SC 30 mg 0900 YVETTE Administration Gabapentin 400 mg 11/23/18 09:00 11/24/18 15:01 Neurontin PO 400 mg TID YVETTE Administration Hydralazine HCl 10 mg 11/22/18 22:59 11/23/18 11:53 Apresoline SLOW IVP 10 mg Q4H PRN Administration SBP>170 Hydralazine HCl 25 mg 11/23/18 09:00 11/24/18 09:08 Apresoline PO 25 mg BID YVETTE Administration Insulin Glargine 30 units/ 0.3 mls @ 0 mls/hr 11/24/18 09:00 11/24/18 09:09 Miscellaneous Medication SC 0.3 mls QAM YVETTE Administration Insulin Human Lispro 0 units 11/23/18 10:55 11/24/18 16:52 Humalog SC 6 unit .MODERATE SLIDING SC PRN Administration Moderate Correctional Scale Lisinopril 10 mg 11/23/18 09:00 11/24/18 09:09 Zestril PO 10 mg DAILY YVETTE Administration Ondansetron HCl 4 mg 11/22/18 14:39 11/23/18 20:29 Zofran Odt PO 4 mg Q6H PRN Administration Nausea/Vomiting Vortioxetine 0 each 11/23/18 09:00 11/24/18 13:51 Hydrobromide [ PO 1 each Trintellix] 10 Mg DAILY YVETTE Administration Tab Sodium Chloride 10 ml 11/23/18 09:00 11/24/18 09:10 Flush - Normal Saline IVF 10 ml Q12HR YVETTE Administration Zolpidem Tartrate 5 mg 11/22/18 14:39 11/23/18 20:29 Ambien PO 5 mg HSPRN PRN Administration Insomnia - Exam General Appearance: NAD, awake alert Eye: PERRL, anicteric sclera ENT: normocephalic atraumatic, no oropharyngeal lesions Neck: supple, no JVD Heart: RRR, no murmur Respiratory: CTAB, no wheezes, no rales Gastrointestinal: soft, non-tender, non-distended Skin: normal turgor Neurological: cranial nerve grossly intact, normal sensation to touch Musculoskeletal: normal tone, normal strength Psychiatric: normal affect, normal behavior, A&O x 3 Hosp A/P (1) Acute on chronic renal failure Code(s): N17.9 - ACUTE KIDNEY FAILURE, UNSPECIFIED; N18.9 - CHRONIC KIDNEY DISEASE, UNSPECIFIED Status: Acute Qualifiers: Acute renal failure type: unspecified Plan: continue to avoid nephrotoxins; closely monitor urine output; renal dose medications (2) Orthostatic hypotension Code(s): I95.1 - ORTHOSTATIC HYPOTENSION Status: Acute Plan: likely due to autonomic dysfunction; fall risk precautions; continue working with physical therapy (3) DM type 2 (diabetes mellitus, type 2) Status: Chronic Qualifiers: Diabetes mellitus intermediate frame tender insulin use: with halfway use Diabetes mellitus complication status: with ketoacidosis Diabetes mellitus complication detail: without coma Qualified Code(s): E11.10 - Type 2 diabetes mellitus with ketoacidosis without coma; Z79.4 - retirement (current) use of insulin Plan: DKA resolved and now off insulin drip (4) Diabetic gastroparesis Code(s): E11.43 - TYPE 2 DIABETES W DIABETIC AUTONOMIC (POLY)NEUROPATHY; K31.84 - GASTROPARESIS Status: Chronic Plan: continue with reglan (5) DKA (diabetic ketoacidoses) Code(s): E13.10 - OTH DIABETES MELLITUS WITH KETOACIDOSIS WITHOUT COMA Status : Resolved Qualifiers: Diabetes mellitus type: type 2 Diabetes mellitus complication detail: without coma Qualified Code(s): E11.10 - Type 2 diabetes mellitus with ketoacidosis without coma - Plan discharge home orthostatic has improved
[2018-11-24] MEDS: Sodium Chloride 0.9% 1,000 ML IV SCH (21:07)
[2018-11-24] MEDS: Zolpidem Tartrate 5 MG TAB PO PRN (22:19)
[2018-11-25] MEDS: Sodium Chloride 0.9% 1,000 ML IV SCH ×3 (03:41→14:10)
[2018-11-25 05:39] LABS: Anion Gap 9 mmol/L (10-20); BUN (Urea Nitrogen) 24 mg/dL (9.8-20.1); Calc. Creatinine Clearance 22 mL/min (70-130); Calcium 8.1 mg/dL (7.8-10.44); Carbon Dioxide 20 mmol/L (23-31); Chloride 111 mmol/L (98-107); Estimated GFR-MDRD 34; Glucose 167 mg/dL (80-115); Potassium 3.7 mmol/L (3.5-5.1); Sodium 136 mmol/L (136-145)
[2018-11-25] MEDS: Aspirin Chewable 81 MG TAB PO SCH (08:54)
[2018-11-25] MEDS: Carvedilol 6.25 MG TAB PO SCH ×2 (08:54→20:48)
[2018-11-25] MEDS: Atorvastatin Calcium 40 MG TAB PO SCH (08:54)
[2018-11-25] MEDS: Enoxaparin Sodium 30 MG/0.3 ML SYRINGE SC SCH (08:54)
[2018-11-25] MEDS: Gabapentin 400 MG CAP PO SCH ×3 (08:54→20:48)
[2018-11-25] MEDS: Amlodipine 5 MG TAB PO SCH (08:55)
[2018-11-25] MEDS: Vortioxetine Hydrobromide [Trintellix] 10 MG TAB PO SCH (08:56)
[2018-11-25] MEDS: Acetaminophen 325 MG TAB PO PRN ×2 (09:03→20:48)
[2018-11-25] MEDS: Insulin Glargine 30 UNITS in Pre-Filled Syringe 1 EACH SC SCH (09:04)
[2018-11-25] MEDS: hydrALAZINE 25 MG TAB PO SCH (10:06)
[2018-11-25] MEDS: Lisinopril 10 MG TAB PO SCH (10:07)
--- NOTE | 2018-11-25 17:32 | PDOC.HOSPP ---
- Subjective Encounter Date: 11/25/18 Subjective: feeling much better; she is at baseline; no events overnight; reports he is anxious about being home alone and is asking to stay in the hospital - Objective Vital Signs & Weight: Vital Signs (12 hours) Temp Pulse Resp BP BP BP BP 11/25/18 17:23 99.9 F H 85 16 11/25/18 12:28 97.9 F 73 18 11/25/18 10:54 95/60 94/60 108/66 11/25/18 10:07 108/63 11/25/18 10:06 70 108/63 11/25/18 09:00 11/25/18 08:55 70 123/73 11/25/18 08:54 125/73 11/25/18 08:16 98.3 F 70 18 BP BP Pulse Ox 11/25/18 17:23 136/69 99 11/25/18 12:28 113/59 L 100 11/25/18 10:54 112/65 11/25/18 10:07 11/25/18 10:06 11/25/18 09:00 98 11/25/18 08:55 11/25/18 08:54 11/25/18 08:16 125/73 98 Weight Admit Weight 100 lb 12.8 oz Weight 100 lb 12.8 oz Most Recent Monitor Data Heart Rate from ECG 85 NIBP 115/62 NIBP BP-Mean 79 Respiration from ECG 28 SpO2 98 I&O: 11/24/18 11/25/18 11/26/18 06:59 06:59 06:59 Intake Total 1974.9 3097 Output Total 1325 575 Balance 649.9 2522 Result Diagrams: 11/23/18 06:01 11/25/18 04:36 Additional Labs: Accuchecks 11/25/18 11/25/18 11/25/18 11:30 09:42 05:16 POC Glucose 140 H 171 H 134 H 11/25/18 11/25/18 11/25/18 03:39 03:17 00:10 POC Glucose 235 H 79 84 11/24/18 19:34 POC Glucose 107 Hospitalist ROS - Review of Systems Respiratory: denies: cough, shortness of breath Gastrointestinal: denies: nausea, vomiting, abdominal pain Genitourinary: denies: dysuria, frequency - Medication Medications: Active Medications Generic Name Dose Route Start Last Admin Trade Name Freq PRN Reason Stop Dose Admin Acetaminophen 650 mg 11/22/18 14:39 11/25/18 09:03 Tylenol PO 650 mg Q4H PRN Administration Headache/Fever/Mild Pain (1-3) Amlodipine Besylate 5 mg 11/23/18 09:00 11/25/18 08:55 Norvasc PO 5 mg DAILY YVETTE Administration Aspirin 81 mg 11/23/18 09:00 11/25/18 08:54 Aspirin Chewable PO 81 mg DAILY YVETTE Administration Atorvastatin Calcium 40 mg 11/23/18 09:00 11/25/18 08:54 Lipitor PO 40 mg DAILY YVETTE Administration Carvedilol 12.5 mg 11/23/18 09:00 11/25/18 08:54 Coreg PO 12.5 mg BID YVETTE Administration Dextrose/Water 25 gm 11/23/18 10:55 11/25/18 03:24 Dextrose 50% SLOW IVP 25 gm PRN PRN Administration Hypoglycemia Enoxaparin Sodium 30 mg 11/23/18 09:00 11/25/18 08:54 Lovenox SC 30 mg 09 YVETTE Administration Gabapentin 400 mg 11/23/18 09:00 11/25/18 15:30 Neurontin PO 400 mg TID YVETTE Administration Hydralazine HCl 10 mg 11/22/18 22:59 11/23/18 11:53 Apresoline SLOW IVP 10 mg Q4H PRN Administration SBP>170 Hydralazine HCl 25 mg 11/23/18 09:00 11/25/18 10:06 Apresoline PO Not Given BID [facility] Insulin Glargine 30 units/ 0.3 mls @ 0 mls/hr 11/24/18 09:00 11/25/18 09:04 Miscellaneous Medication SC 0.3 mls QAM YVETTE Administration Sodium Chloride 1,000 mls @ 125 mls/hr 11/24/18 18:45 11/25/18 14:10 Normal Saline 0.9% IV 1,000 mls .Q8H YVETTE Administration Insulin Human Lispro 0 units 11/23/18 10:55 11/24/18 16:52 Humalog SC 6 unit .MODERATE SLIDING SC PRN Administration Moderate Correctional Scale Lisinopril 10 mg 11/23/18 09:00 11/25/18 10:07 Zestril PO Not Given DAILY YVETTE Ondansetron HCl 4 mg 11/22/18 14:39 11/23/18 20:29 Zofran Odt PO 4 mg Q6H PRN Administration Nausea/Vomiting Vortioxetine 0 each 11/23/18 09:00 11/25/18 08:56 Hydrobromide [ PO 1 each Trintellix] 10 Mg DAILY YVETTE Administration Tab Sodium Chloride 10 ml 11/23/18 09:00 11/25/18 09:04 Flush - Normal Saline IVF Not Given Q12HR YVETTE Zolpidem Tartrate 5 mg 11/22/18 14:39 11/24/18 22:19 Ambien PO 5 mg HSPRN PRN Administration Insomnia - Exam General Appearance: NAD, awake alert Eye: PERRL, anicteric sclera ENT: normocephalic atraumatic, no oropharyngeal lesions, moist mucosa Neck: supple, symmetric, no JVD, no thyromegaly, no lymphadenopathy, no carotid bruit Heart: RRR, no murmur, no gallops, no rubs, normal peripheral pulses Respiratory: CTAB, no wheezes, no rales, no ronchi, normal chest expansion, no tachypnea, normal percussion Gastrointestinal: soft, non-tender, non-distended, normal bowel sounds, no palpable masses, no hepatomegaly, no splenomegaly, no bruit Extremities: no cyanosis, no clubbing, no edema Skin: normal turgor, no lesions, no rashes Neurological: cranial nerve grossly intact, normal sensation to touch, no weakness, no focal deficits, no new deficit Musculoskeletal: normal tone, normal strength, no muscle wasting Psychiatric: normal affect, normal behavior, A&O x 3 Hosp A/P (1) Acute on chronic renal failure Code(s): N17.9 - ACUTE KIDNEY FAILURE, UNSPECIFIED; N18.9 - CHRONIC KIDNEY DISEASE, UNSPECIFIED Status: Acute Qualifiers: Acute renal failure type: unspecified Plan: now resolved; avoid nephrotoxins; renal dose medications; monitor urine output (2) Orthostatic hypotension Code(s): I95.1 - ORTHOSTATIC HYPOTENSION Status: Acute Plan: acute on chronic, now resolved (3) DM type 2 (diabetes mellitus, type 2) Status: Chronic Qualifiers: Diabetes mellitus remote computer terminal operator insulin use: with fdc use Diabetes mellitus complication status: with ketoacidosis Diabetes mellitus complication detail: without coma Qualified Code(s): E11.10 - Type 2 diabetes mellitus with ketoacidosis without coma; Z79.4 - intermission coordinator (current) use of insulin Plan: continue bedside glucose monitor with insulin sliding scale goal blood sugar of 150 (4) Diabetic gastroparesis Code(s): E11.43 - TYPE 2 DIABETES W DIABETIC AUTONOMIC (POLY)NEUROPATHY; K31.84 - GASTROPARESIS Status: Chronic - Plan discharge home orthostatic has improved
[2018-11-26 05:12] LABS: Anion Gap 8 mmol/L (10-20); BUN (Urea Nitrogen) 22 mg/dL (9.8-20.1); Calc. Creatinine Clearance 25 mL/min (70-130); Calcium 8.4 mg/dL (7.8-10.44); Carbon Dioxide 22 mmol/L (23-31); Chloride 110 mmol/L (98-107); Estimated GFR-MDRD 38; Glucose 72 mg/dL (80-115); Potassium 3.8 mmol/L (3.5-5.1); Sodium 136 mmol/L (136-145)
[2018-11-26] MEDS: Atorvastatin Calcium 40 MG TAB PO SCH (09:05)
[2018-11-26] MEDS: Lisinopril 10 MG TAB PO SCH (09:05)
[2018-11-26] MEDS: Aspirin Chewable 81 MG TAB PO SCH (09:05)
[2018-11-26] MEDS: Amlodipine 5 MG TAB PO SCH (09:05)
[2018-11-26] MEDS: Carvedilol 6.25 MG TAB PO SCH (09:05)
[2018-11-26] MEDS: Insulin Glargine 30 UNITS in Pre-Filled Syringe 1 EACH SC SCH (09:06)
[2018-11-26] MEDS: Gabapentin 400 MG CAP PO SCH ×2 (09:06→14:22)
[2018-11-26] MEDS: Enoxaparin Sodium 30 MG/0.3 ML SYRINGE SC SCH (09:09)
[2018-11-26] MEDS: Vortioxetine Hydrobromide [Trintellix] 10 MG TAB PO SCH (09:10)
[2018-11-26] MEDS: HumaLOG 300 UNITS/3 ML VIAL SC PRN ×2 (12:30→17:39)
[2018-11-26 18:18] VITALS: BP 151/71; TEMP 98.1
--- NOTE | 2018-11-26 23:39 | DIS ---
DATE OF ADMISSION: 11/22/2018 DATE OF DISCHARGE: 11/26/2018 DISPOSITION: The patient was discharged home with home health. FINAL DIAGNOSES: 1. Acute on chronic renal failure. 2. Chronic orthostatic hypotension. 3. Diabetes mellitus type 2 with vascular complications with hyperglycemia. 4. Gastroparesis. 5. Lipidemia. 6. Diabetic ketoacidosis. CONDITION: Stable and improved. DIET: Carbohydrate controlled diet. MEDICATIONS: Please refer to medication discharge reconciliation form. ACTIVITY: As tolerated. Do not over exert yourself, no strenuous activities. DISCHARGE INSTRUCTIONS: If any fevers, chills, nausea, vomiting, chest pain, shortness of breath, bleeding, swelling, weakness, numbness, to seek immediate medical attention. CONSULTANTS: None. FOLLOWUP: With primary care physician in 1 week. BRIEF HOSPITAL COURSE: Saray Loco is a pleasant 63-year-old diabetic female who had presented to the emergency room with a 3-day history of intractable nausea and vomiting, was found to have diabetic ketoacidosis and was admitted to the [facility] where she was started on an insulin drip, rehydrated, there was no evidence of infection. Her diabetic ketoacidosis resolved. She has been ambulatory and tolerating oral intake. She was noted to have orthostatic hypotension. On the evening of November 24, she was kept overnight. She will be discharged home in a stable condition with home health. On the day of discharge, during my face-to- face meeting with the patient, I discussed all discharge instructions including the need for compliance with medication, followup and when to return to the emergency room for which she has verbalized understanding. TIME SPENT: Total discharge time spent 35 minutes. Job ID: [id number] [facility]
== END 2018-11-26 18:57 | disposition home health service (06) | DRG 638 ==
LOC: ERS 09:04 → ERHOLD 13:53 → IMCU/EMU 16:51 → T4-A 11-24 19:09
PROVIDERS: ADMIT Internal Medicine; ATTEND Internal Medicine
DX: E11.10 Type 2 diabetes mellitus with ketoacidosis without coma (principal); N17.9 Acute kidney failure, unspecified; E11.65 Type 2 diabetes mellitus with hyperglycemia; I25.10 Atherosclerotic heart disease of native coronary artery without angina pectoris; F32.9 Major depressive disorder, single episode, unspecified; F17.210 Nicotine dependence, cigarettes, uncomplicated; M48.061 Spinal stenosis, lumbar region without neurogenic claudication; D35.02 Benign neoplasm of left adrenal gland; I12.9 Hypertensive chronic kidney disease with stage 1 through stage 4 chronic kidney disease, or unspecified chronic kidney disease; N18.9 Chronic kidney disease, unspecified; R79.89 Other specified abnormal findings of blood chemistry; E11.43 Type 2 diabetes mellitus with diabetic autonomic (poly)neuropathy; K31.84 Gastroparesis; I95.1 Orthostatic hypotension; Z79.4 Long term (current) use of insulin; Z90.49 Acquired absence of other specified parts of digestive tract; Z79.82 Long term (current) use of aspirin; Z79.899 Other long term (current) drug therapy; Z88.8 Allergy status to other drugs, medicaments and biological substances
CPT/HCPCS: 36415; 36416; 70450; 71046; 74176; 80048; 80053; 81001; 82010; 82330; 82550; 82553; 82803; 83690; 83735; 84100; 84484; 85025; 85027; 93005; 96361; 96374; 96375; 96376; J0360; J1650; J1815; J2405; J3480; J3490; Q0162

== ENCOUNTER 2019-06-01 15:37 | Inpatient (IN) | payer MEDICARE, MEDICAID ==
[2019-06-01] MEDS ORDERED: Ondansetron ODT 4 MG TAB ONE (15:52)
[2019-06-01] MEDS ORDERED: Ondansetron PF 4 MG/2 ML Vial ONE (16:56)
[2019-06-01 17:03] LABS: #Eosinphils 0.1 thou/uL (0.0-0.7); #Lymphocytes 1.3 thou/uL (1.20-3.40); #Monocytes 0.2 thou/uL (0.11-0.59); #Neutrophils 6.9 thou/uL (1.40-6.50); %Basophils 0.4 % (0.0-1.0); %Eosinophils 0.9 % (0.0-10.0); %Lymphocytes 15.6 % (21.0-51.0); %Monocytes 2.3 % (0.0-10.0); %Neutrophils 80.7 % (42.0-75.0); Hemoglobin 12.3 g/dL (12.0-16.0); Mean Corpuscular HGB CONC 32.9 g/dL (32.0-36.0); Mean Corpuscular Hemoglobin 28.2 pg (27.0-31.0); Mean Corpuscular Volume 85.7 fL (78.0-98.0); Mean Platelet Volume 9.6 fL (7.4-10.4); Platelet Count 212 thou/uL (130-400); RBC Distribution Width 13.9 % (11.5-14.5); Red Blood Cell (RBC) Count 4.37 mill/uL (4.20-5.40); White Blood Cell (WBC) Count 8.6 thou/uL (4.8-10.8)
--- NOTE | 2019-06-01 17:15 | RAD ---
PORTABLE CHEST: 06/01/19 HISTORY: Cough, altered mental status. COMPARISON: 03/08/18 study. Heart size and mediastinum are within normal limits. Lungs are clear of infiltrates. No significant b katherine findings. IMPRESSION: No active intrathoracic disease. POS: [facility]
[2019-06-01 17:25] LABS: Bacteria/HPF None Seen HPF (None Seen); Bilirubin Negative (Negative); Blood, Urine Trace (Negative); Clarity Clear (Clear); Glucose, Urine (Dipstick) Greater than 1000 mg/dL (Negative); Leukocyte Negative Leu/uL (Negative); Nitrite Negative (Negative); Protein, Urine (Dipstick) 70 mg/dL (Neg-Trace); RBC/HPF 0-3 HPF (0-3); Squamous Epithelial 0-3 HPF (0-3); Urobilinogen Normal mg/dL (Less than 2); WBC/HPF 0-3 HPF (0-3)
[2019-06-01 17:41] LABS: ALT (SGPT) 27 U/L (8-55); AST (SGOT) 24 U/L (5-34); Albumin 4.9 g/dL (3.4-4.8); Alkaline Phosphatase 128 U/L (40-110); Anion Gap 21 mmol/L (10-20); BUN (Urea Nitrogen) 26 mg/dL (9.8-20.1); Bilirubin, Total 0.9 mg/dL (0.2-1.2); Calc. Creatinine Clearance 0 mL/min (70-130); Calcium 10.8 mg/dL (7.8-10.44); Carbon Dioxide 17 mmol/L (23-31); Chloride 103 mmol/L (98-107); Estimated GFR-MDRD 29; Glucose 420 mg/dL (80-115); Lipase 78 U/L (8-78); Magnesium 1.9 mg/dL (1.6-2.6); Potassium 4.1 mmol/L (3.5-5.1); Protein, Total 8.9 g/dL (6.0-8.3); Sodium 137 mmol/L (136-145)
[2019-06-01] MEDS ORDERED: HUMULIN R 100 UNITS in Sodium Chloride 0.9% 100 ML IVPB SCH ×2 (18:15→19:30)
--- NOTE | 2019-06-01 18:24 | CT ---
CT OF BRAIN PERFORMED WITHOUT CONTRAST ENHANCEMENT: 06/01/19 HISTORY: Altered mental status. Vomiting. COMPARISON: 11/22/18 study. Some mild generalized ventricular and sulcal prominence. There is decreased attenuation to the perive ntricular white matter consistent with some chronic white matter change. There is no signs of intrace rebral hemorrhage or extra-axial fluid collections. Mastoid air cells are clear. There is mucosal bryson nge within the sphenoid and ethmoid air cells and right maxillary sinus. IMPRESSION: 1. No acute intracranial abnormalities. 2. Mild sinus disease. POS: [facility]
--- NOTE | 2019-06-01 18:58 | CT ---
CT ABDOMEN AND PELVIS PERFORMED WITHOUT CONTRAST ENHANCEMENT: 06/01/19 HISTORY: Abdominal pain and vomiting. No IV contrast was administered due to low GFR. The lung bases are clear of any infiltrative process. Some minimal gravity dependent atelectasis is s een. The liver, spleen, and pancreas regions appear unremarkable. The gallbladder has been removed. Low attenuation areas involving both the right and left adrenal glands similar to a 11/22/18 study pro bably represent adenomas. The right and left kidneys are normal in size. There is no evidence of obst ruction. There is no significant periaortic or mesenteric adenopathy. CT OF PELVIS PERFORMED WITHOUT CONTRAST ENHANCEMENT: Moderate amount of stool within the rectum changes suggests stercoral colitis. No free fluid. No rodney opathy or mass. Bladder is moderately distended on this exam. The appendix is normal. There is some m inimal colonic diverticulosis which is more in the right colon. IMPRESSION: 1. Moderate amount of stool in the rectum. 2. Minimal colonic diverticulosis. 3. Probable bilateral adrenal adenomas. 4. Post cholecystectomy change. 5. Distended bladder. 6. Once again L4-5 central disc protrusion is noted with vacuum disc material seen at this level . Similar to the previous exam. POS: [facility]
[2019-06-01] MEDS ORDERED: Sodium Chloride 0.9% 1,000 ML IV PRN ×4 (19:22)
[2019-06-01] MEDS ORDERED: Dextrose 5 %-0.45 % NaCl 1,000 ML IV PRN (19:22)
[2019-06-01] MEDS ORDERED: CCU Electrolyte Replacement 1 EACH IVPB ONE (19:22)
[2019-06-01] MEDS ORDERED: NS 0.9% w/ 20 MEQ KCL 1,000 ML IV PRN ×2 (19:22)
[2019-06-01] MEDS ORDERED: Potassium Chloride 40 MEQ in Premix Bag 1 BAG IVPB PRN (19:29)
[2019-06-01] MEDS ORDERED: CCU ELECTROLYTE REPLACEMENT PROTOCOL FS PRN (19:29)
[2019-06-01] MEDS ORDERED: Potassium Chloride 20 MEQ TAB PO PRN (19:29)
[2019-06-01] MEDS ORDERED: Potassium Chloride 40 MEQ in Sodium Chloride 0.9% 250 ML 250 ML IVPB PRN (19:29)
[2019-06-01] MEDS ORDERED: PHOS-NAK 1 PKT PACK PO PRN ×2 (19:29)
[2019-06-01] MEDS ORDERED: Magnesium 2 GM/50 ML 2 GM in Premix Bag 1 BAG IVPB PRN (19:29)
[2019-06-01] MEDS ORDERED: Potassium Phosphate 12 MMOL in Sodium Chloride 0.9% 250 ML 250 ML IV PRN (19:29)
[2019-06-01] MEDS ORDERED: Potassium Phosphate 15 MMOL in Sodium Chloride 0.9% 250 ML 250 ML IV PRN (19:29)
[2019-06-01] MEDS ORDERED: Potassium Phosphate 9 MMOL in Sodium Chloride 0.9% 100 ML IVPB PRN (19:29)
[2019-06-01] MEDS ORDERED: Magnesium Oxide 400 MG TAB PO PRN ×2 (19:29)
[2019-06-01 20:07] LABS: Lactic Acid 1.4 mmol/L (0.5-2.2)
[2019-06-01 20:10] LABS: Anion Gap 20 mmol/L (10-20); BUN (Urea Nitrogen) 24 mg/dL (9.8-20.1); Calc. Creatinine Clearance 0 mL/min (70-130); Calcium 9.9 mg/dL (7.8-10.44); Carbon Dioxide 17 mmol/L (23-31); Chloride 107 mmol/L (98-107); Estimated GFR-MDRD 33; Glucose 333 mg/dL (80-115); Potassium 4.1 mmol/L (3.5-5.1); Sodium 140 mmol/L (136-145)
--- NOTE | 2019-06-01 20:32 | HP ---
CHIEF COMPLAINT: Nausea and vomiting. HISTORY OF PRESENT ILLNESS: Ms. Loco is a 64-year-old female with past medical history of diabetes mellitus, hypertension, hyperlipidemia, angina, pancreatitis, cigarette smoker, among others, presents to the emergency room with nausea and vomiting for the last few days. Also, she has been having generalized abdominal cramping and occasional cough. Denies chest pain, fever, or chills. Denies diarrhea. Workup in the emergency room, the patient was found to be in diabetic ketoacidosis with a glucose of 420, anion gap of 21. Also, the patient was found to be hypertensive with a blood pressure of 200/100. The patient is on IV fluids and insulin, the patient is being admitted to the hospital for further management. PAST MEDICAL HISTORY: As mentioned above in history present illness. PAST SURGICAL HISTORY: 1. Temporal vein biopsy. 2. Cholecystectomy. 3. Right elbow surgery. PAST PSYCHIATRIC HISTORY: Depression. SOCIAL HISTORY: The patient denies alcohol use. Denies drug abuse. She smokes cigarettes half pack a day. FAMILY HISTORY: Reviewed and noncontributory. HOME MEDICATIONS: Please see home medication reconciliation form for updated medications. The patient ran out of the needle for insulin in the last 2 days. ALLERGIES: ALLERGIC TO NALBUPHINE (NUBAIN). REVIEW OF SYSTEMS: Review of 14 systems negative except what is mentioned in history of present illness. PHYSICAL EXAMINATION: GENERAL: The patient is awake and alert, in moderate distress. VITAL SIGNS: Blood pressure 200/100, pulse is 88, respiratory rate is 18, temperature 97.6, and her oxygen saturation is 99% on room air. HEAD AND NECK: Normocephalic and atraumatic. Neck is supple. No JVD. CHEST: Fair bilateral air entry. HEART: S1 and S2. Regular. ABDOMEN: Soft with mild epigastric tenderness. Bowel sounds present. NEUROLOGIC: Awake, alert, and oriented x3. No focal deficits. PSYCHIATRIC: Unable to assess. EXTREMITIES: No clubbing. No cyanosis. GENITOURINARY: No suprapubic tenderness. No flank tenderness. ASSESSMENT AND PLAN: 1. Diabetic ketoacidosis. The patient is not taking her insulin for the last 2 days. 2. Hypertensive urgency. 3. Acute renal failure. Creatinine is 2.0. 4. Cigarette smoker. PLAN: 1. Admit. 2. IV fluids. 3. Insulin. 4. Monitor and correct electrolytes. 5. Monitor and control blood pressure. 6. Monitor kidney function and urine output. 7. Reconcile home medications. 8. DVT prophylaxis as appropriate. 9. Expected length of stay, 2 midnights or more. Job ID: [id number]
[2019-06-01] MEDS ORDERED: Ondansetron ODT 4 MG TAB SL PRN (20:38)
[2019-06-01] MEDS ORDERED: Ondansetron PF 4 MG/2 ML Vial IVP PRN (20:38)
[2019-06-01 21:22] VITALS: BMI 19.8
[2019-06-01] MEDS: hydrALAZINE 20 MG/ML VIAL SLOW IVP PRN (22:53)
[2019-06-01] MEDS: D5 1/2 NS w/20 mEq KCL 1,000 ML IV PRN (23:06)
[2019-06-01 23:54] LABS: Anion Gap 18 mmol/L (10-20); BUN (Urea Nitrogen) 22 mg/dL (9.8-20.1); Calc. Creatinine Clearance 31 mL/min (70-130); Calcium 9.6 mg/dL (7.8-10.44); Carbon Dioxide 18 mmol/L (23-31); Chloride 112 mmol/L (98-107); Estimated GFR-MDRD 36; Glucose 167 mg/dL (80-115); Potassium 3.7 mmol/L (3.5-5.1); Sodium 144 mmol/L (136-145)
[2019-06-02] MEDS: hydrALAZINE 20 MG/ML VIAL SLOW IVP PRN ×2 (03:21→08:18)
[2019-06-02] MEDS: D5 1/2 NS w/20 mEq KCL 1,000 ML IV PRN (03:26)
[2019-06-02 04:02] LABS: Anion Gap 14 mmol/L (10-20); BUN (Urea Nitrogen) 19 mg/dL (9.8-20.1); Calc. Creatinine Clearance 33 mL/min (70-130); Calcium 9.7 mg/dL (7.8-10.44); Carbon Dioxide 20 mmol/L (23-31); Chloride 109 mmol/L (98-107); Estimated GFR-MDRD 39; Glucose 210 mg/dL (80-115); Potassium 3.5 mmol/L (3.5-5.1); Sodium 139 mmol/L (136-145)
[2019-06-02] MEDS ORDERED: Dextrose 5% in Water 1,000 ML IV PRN (10:40)
[2019-06-02] MEDS ORDERED: Dextrose 50% Abboject 50 ML SYRINGE SLOW IVP PRN (10:40)
[2019-06-02] MEDS ORDERED: Insulin Regular 300 UNITS/3 ML VIAL SC PRN (10:40)
[2019-06-02] MEDS ORDERED: Senokot S 8.6-50 MG TAB PO PRN (10:41)
[2019-06-02] MEDS ORDERED: Acetaminophen 325 MG TAB PO PRN ×2 (10:41→12:56)
[2019-06-02] MEDS ORDERED: Ondansetron ODT 4 MG TAB PO PRN (10:41)
[2019-06-02] MEDS ORDERED: Calcium Carbonate 500 MG ChewTAB PO PRN (10:41)
[2019-06-02] MEDS ORDERED: Ondansetron PF 4 MG/2 ML Vial IVP PRN (10:41)
[2019-06-02] MEDS ORDERED: Insulin Glargine 10 UNITS in Pre-Filled Syringe 1 EACH SC SCH (10:45)
[2019-06-02] MEDS ORDERED: 1/2 NS w/KCL 20 mEq 1,000 ML IV SCH (11:00)
[2019-06-02] MEDS ORDERED: Amlodipine 5 MG TAB PO SCH (13:00)
[2019-06-02] MEDS ORDERED: Carvedilol 6.25 MG TAB PO SCH (13:00)
[2019-06-02 13:03] LABS: Magnesium 1.4 mg/dL (1.6-2.6)
[2019-06-02 13:07] LABS: Phosphorus 1.3 mg/dL (2.3-4.7)
[2019-06-02 13:09] LABS: Troponin I Less than 0.010 ng/mL (< 0.028)
[2019-06-02] MEDS: 1/2 NS w/KCL 20 mEq 1,000 ML IV SCH (13:11)
[2019-06-02] MEDS ORDERED: Sodium Phosphate 15 MMOL in Sodium Chloride 0.9% 250 ML 250 ML IVPB SCH (13:30)
[2019-06-02] MEDS ORDERED: Magnesium Sulfate 4 GM in Sodium Chloride 0.9% 250 ML 250 ML IVPB SCH (13:30)
--- NOTE | 2019-06-02 13:58 | PDOC.HOSPP ---
- Subjective Encounter Date: 06/02/19 Encounter Time: 11:30 Subjective: Patient seen and examined for DKA. Some nausea. Feels better. No CP/SOB. No other complaints. No overnight events - Objective Vital Signs & Weight: Vital Signs (12 hours) Temp Pulse BP Pulse Ox 06/02/19 13:11 102 H 178/92 H 06/02/19 11:04 97.4 F L 06/02/19 08:18 102 H 178/92 H 06/02/19 08:00 100 06/02/19 07:20 97.5 F L 06/02/19 03:42 98.8 F Weight Weight 134 lb 6.4 oz Most Recent Monitor Data Heart Rate from ECG 100 NIBP 181/89 NIBP BP-Mean 119 Respiration from ECG 19 SpO2 98 I&O: 06/01/19 06/02/19 06/03/19 06:59 06:59 06:59 Intake Total 2500 750 Output Total 1425 350 Balance 1075 400 Result Diagrams: 06/01/19 16:59 06/02/19 03:31 Additional Labs: Accuchecks 06/02/19 06/02/19 06/02/19 13:18 10:24 10:10 POC Glucose 184 H 151 H 145 H 06/02/19 06/02/19 06/02/19 09:15 08:15 07:07 POC Glucose 161 H 181 H 205 H 06/02/19 06/02/19 06/02/19 06:09 04:07 03:13 POC Glucose 217 H 235 H 215 H 06/02/19 06/02/19 06/02/19 02:13 01:07 00:03 POC Glucose 242 H 206 H 162 H 06/01/19 06/01/19 06/01/19 23:05 22:17 21:16 POC Glucose 125 H 210 H 261 H 06/01/19 06/01/19 19:46 16:08 POC Glucose 325 H 404 H EKG Reviewed by me: Yes (Tele SR) Hospitalist ROS - Review of Systems Respiratory: denies: cough, dry, shortness of breath, hemoptysis, SOB with excertion, pleuritic pain, sputum, wheezing, other Cardiovascular: denies: chest pain, palpitations, orthopnea, paroxysmal noc. dyspnea, edema, light headedness, other - Medication Medications: Active Medications Generic Name Dose Route Start Last Admin Trade Name Freq PRN Reason Stop Dose Admin Amlodipine Besylate 5 mg 06/02/19 13:00 06/02/19 13:11 Norvasc PO 06/02/19 16:00 5 mg NOW YVETTE Administration Carvedilol 12.5 mg 06/02/19 13:00 06/02/19 13:11 Coreg PO 06/02/19 16:00 12.5 mg NOW YVETTE Administration Potassium Chloride/Sodium Chloride 1,000 mls @ 75 mls/hr 06/02/19 12:58 06/01 13:11 1/2 Ns W/Kcl 20 Meq IV 1,000 mls .[id number] YVETTE Administration Ondansetron HCl 4 mg 06/02/19 10:41 06/02/19 13:11 Zofran IVP 4 mg Q6H PRN Administration Nausea/Vomiting - Exam General Appearance: NAD Neck: supple, no JVD Heart: RRR, no gallops, no rubs, normal peripheral pulses Respiratory: CTAB, no wheezes, no rales, no ronchi, normal chest expansion Gastrointestinal: non-tender, non-distended, normal bowel sounds Extremities: no clubbing Neurological: no new deficit Psychiatric: normal affect, A&O x 3 Hosp A/P - Plan DVT proph w/SCDs DKA TIGRE on CKD 3 DM2 - uncontrolled HTN urgency Gastroparesis Hypomagnesemia Hypophosphatemia Tobacco dep PLAN: Change Insulin drip to SQ Insulin DC DKA protocol Replace electrolyte Restart Coreg Advance diet Transfer to medical once off the drip AM labs Add sliding scale Full code. DPOA - self/family
[2019-06-02] MEDS: Gabapentin 400 MG CAP PO SCH ×2 (15:41→20:08)
[2019-06-02] MEDS: Insulin Regular 300 UNITS/3 ML VIAL SC PRN (15:51)
[2019-06-02] MEDS: Carvedilol 6.25 MG TAB PO SCH (20:05)
[2019-06-02] MEDS: Famotidine 20 MG TAB PO SCH (20:05)
[2019-06-02] MEDS: Insulin Glargine 10 UNITS in Pre-Filled Syringe 1 EACH SC SCH (20:08)
[2019-06-02] MEDS ORDERED: Non-Formulary Item 1 EACH (Carvedilol [Carvedilol] 12.5 MG) PO SCH (21:00)
[2019-06-03] MEDS: 1/2 NS w/KCL 20 mEq 1,000 ML IV SCH (01:54)
[2019-06-03 03:50] LABS: #Lymphocytes 1.4 thou/uL (1.20-3.40); #Monocytes 0.7 thou/uL (0.11-0.59); #Neutrophils 10.7 thou/uL (1.40-6.50); %Eosinophils 0.2 % (0.0-10.0); %Lymphocytes 11.1 % (21.0-51.0); %Monocytes 5.2 % (0.0-10.0); %Neutrophils 83.5 % (42.0-75.0); Hemoglobin 11.2 g/dL (12.0-16.0); Mean Corpuscular HGB CONC 32.7 g/dL (32.0-36.0); Mean Corpuscular Hemoglobin 28.2 pg (27.0-31.0); Mean Platelet Volume 9.6 fL (7.4-10.4); Platelet Count 170 thou/uL (130-400); RBC Distribution Width 14.3 % (11.5-14.5); Red Blood Cell (RBC) Count 3.99 mill/uL (4.20-5.40); White Blood Cell (WBC) Count 12.8 thou/uL (4.8-10.8)
[2019-06-03 04:11] LABS: Anion Gap 12 mmol/L (10-20); BUN (Urea Nitrogen) 15 mg/dL (9.8-20.1); Calc. Creatinine Clearance 34 mL/min (70-130); Calcium 9.3 mg/dL (7.8-10.44); Carbon Dioxide 20 mmol/L (23-31); Chloride 107 mmol/L (98-107); Estimated GFR-MDRD 40; Glucose 274 mg/dL (80-115); Magnesium 2.3 mg/dL (1.6-2.6); Phosphorus 3.3 mg/dL (2.3-4.7); Sodium 135 mmol/L (136-145)
[2019-06-03] MEDS: Insulin Regular 300 UNITS/3 ML VIAL SC PRN ×2 (05:02→12:03)
[2019-06-03 07:58] VITALS: TEMP 97.9
[2019-06-03] MEDS ORDERED: Atorvastatin Calcium 40 MG TAB PO SCH (09:00)
[2019-06-03] MEDS ORDERED: Amlodipine 5 MG TAB PO SCH (09:00)
[2019-06-03] MEDS ORDERED: Aspirin Chewable 81 MG TAB PO SCH (09:00)
[2019-06-03] MEDS: Famotidine 20 MG TAB PO SCH (09:30)
[2019-06-03] MEDS: Carvedilol 6.25 MG TAB PO SCH (09:30)
[2019-06-03] MEDS: Insulin Glargine 10 UNITS in Pre-Filled Syringe 1 EACH SC SCH (09:31)
[2019-06-03] MEDS: Gabapentin 400 MG CAP PO SCH (09:31)
[2019-06-03 09:46] VITALS: BP 193/90
--- NOTE | 2019-06-03 15:02 | DIS ---
DATE OF ADMISSION: 06/01/2019 DATE OF DISCHARGE: 06/03/2019 DISCHARGE DISPOSITION: Home. FOLLOWUP: Follow up with primary care physician, Dr. Rosales, in 1 week. ALLERGIES: THE PATIENT IS ALLERGIC TO NALBUPHINE. DISCHARGE MEDICATIONS: Same as admission medications. The patient was seen and examined on the day of discharge. Denies any new complaints. No chest pain, shortness of breath, or palpitations reported. BRIEF HOSPITAL COURSE: The patient is a 64-year-old female with diabetes mellitus type 2, currently out of insulin needles, presented to the hospital with nausea, vomiting with abdominal discomfort. Her workup was consistent with diabetic ketoacidosis. A CT scan of the abdomen and pelvis was negative for acute infectious etiology. She was monitored in the intermediate care unit, on insulin drip. She also had electrolyte imbalances, which were replaced. Her anion gap has normalized. She has been transitioned to subcu insulin. She denies any nausea, vomiting, or abdominal discomfort. She will pick up and delivery driver the insulin needles from the pharmacy today. No changes in her medications were made. She was advised to monitor her blood sugar on a daily basis and to maintain a log. FINAL DIAGNOSES: 1. Diabetic ketoacidosis. 2. Noncompliance with insulin regimen. Please note, the patient was out of needles. 3. Acute kidney injury on chronic kidney disease stage 3, resolved. 4. Uncontrolled diabetes mellitus type 2. 5. Hypertensive urgency on admission, improved. 6. History of gastroparesis. 7. Hypomagnesemia. 8. Hypophosphatemia. 9. Tobacco dependence. 10. The patient understands the above plan of care. Job ID: [id number]
--- NOTE | 2019-06-05 05:59 | PQF ---
SINDY TEJEDA MALIK MD [id number] CLINICAL DOCUMENTATION CLARIFICATION FORM: POST DISCHARGE Addendum to original discharge summary date: ____ Late entry note date: __ DATE: 06/05/2019 ATTN: Eliezer Garcia Please exercise your independent, professional judgment in responding to the clarification form. Clinical indicators are provided on the bottom of this form for your review In your clinical opinion based on clinical findings below, can you please identify the condition as the reason for Inpatient admission if due to: Please check appropriate box(s): [ x ] DKA [ x ] TIGRE [ ] HTN urgency [ ] Other diagnosis For continuity of documentation, please document condition throughout progress notes and discharge summary. Thank You. CLINICAL INDICATORS - SIGNS / SYMPTOMS / LABS Laboratory 05/31 BUN 26, Crratinine 2.06, GFR 29, Glucose 420, POC Glucseo 402; 325 Vital signs 05/31 BP 206/101, Pulse 93, Resp 18 ED notes p11 4/3 DKA, dehydration, vomiting H&P p1 4/3 Dr Jiang presents to ER with nasuea and vomint for the last martha days. Also she has been generalized abdominal cramping and occaisional cough H&P p1 4/3 Dr Jiang found to be in diabetic ketoacosis with glucose of 420, anion garp of 21 H&P p1 4/3 Dr Jiang the pt was found to be hypertensive with blood pressure of 200/100 H&P p2 4/3 Dr Jiang HTN urgency. Acute kidney injuty, creatinine is 2.0 RISK FACTORS H&P p1 4/3 64 year old Female H&P p1 4/3 HTN H&P p1 4/3 HLD H&P p1 4/3 DM H&P p1 4/3 Cigarette smoker H&P p1 4/3 CKD 3 DS p1 06/02 Noncompliance to insulin TREATMENTS: MAY 01 IV Hydralazine Hcl 10mg MAY 01 IV Insulin drip 100units MAY 01 IV KCL 20 Meq/D5 MAY 01 IVF NS 1L MAY 01 Coreg 12.5mg oral MAY 01 Insulin 10 units subq MAY 01 Aspirin 81mg oral H&P p2 05/31 Monitor and control [employer] H&P p2 05/31 Monitor kidney function and urine output H&P p2 05/31 Monitor and correct electrolytes (This form is maintained as a part of the permanent medical record) 2014 [email or web address], [employer]. All Rights Reserved [email or web address]
--- NOTE | 2019-06-05 06:01 | PQF ---
SINDY TEJEDA MALIK MD [id number] CLINICAL DOCUMENTATION CLARIFICATION FORM: POST DISCHARGE Addendum to original discharge summary date: ____ Late entry note date: __ DATE: 06/05/2019 ATTN: Eliezer Garcia Please exercise your independent, professional judgment in responding to the clarification form. Clinical indicators are provided on the bottom of this form for your review Please check appropriate box(s): [x ] Encephalopathy: Etiology: [ x ] Hypertensive [ x ] Metabolic [ x ] Toxic [ ] Other (please specify) [ ] Transient Alteration of Awareness [ ] Other diagnosis [ ] Unable to determine In addition, please specify: Present on Admission (POA): [ ] Yes [ ] No [ ] Unable to determine For continuity of documentation, please document condition throughout progress notes and discharge summary. Thank You. CLINICAL INDICATORS - SIGNS / SYMPTOMS / LABS Laboratory 05/31 BUN 26, Creatinine 2.06, GFR 29, Glucose 420, POC Glucseo 402; 325 Vital signs 05/31 BP 206/101, Pulse 93, Resp 18 GCS 13 ED note p10 Confused/Disoriented H&P p1 / Dr Jiang presents to ER with nasuea and vomint for the last martha days. Also she has been generalized abdominal cramping and occaisional cough H&P p1 4/3 Dr Jiang found to be in diabetic ketoacosis with glucose of 420, anion gap of 21 H&P p1 4/3 Dr Jiang the pt was found to be hypertensive with blood pressure of 200/100 H&P p2 4/3 Dr Jiang HTN urgency. Acute kidney injury, creatinine is 2.0 RISK FACTORS H&P p1 4/3 64 year old Female H&P p1 4/3 HTN H&P p1 4/3 HLD H&P p1 05/31 DM H&P p1 05/31 Cigarette smoker H&P p1 05/31 CKD 3 TREATMENTS: MAY 01 IV Hydralazine Hcl 10mg MAY 01 IV Insulin drip 100units MAY 01 IV KCL 20 Meq/D5 MAY 01 IVF NS 1L MAY 01 Coreg 12.5mg oral MAY 01 Insulin 10 units subq MAY 01 Aspirin 81mg oral H&P p2 05/31 Monitor and control [employer] H&P p2 05/31 Monitor kidney function and urine output H&P p2 05/31 Monitor and correct electrolytes (This form is maintained as a part of the permanent medical record) 2014 [employer], [employer]. All Rights Reserved [email or web address]
--- NOTE | 2019-06-06 13:56 | EKG ---
Test Reason : Blood Pressure : / mmHG Vent. Rate : 081 BPM Atrial Rate : 081 BPM P-R Int : 150 ms QRS Dur : 080 ms QT Int : 418 ms P-R-T Axes : 080 -69 075 degrees QTc Int : 485 ms Normal sinus rhythm with sinus arrhythmia Possible Left atrial enlargement Left anterior fascicular block Inferior infarct , age undetermined Abnormal ECG Confirmed by KAYLEEN LAZARO DO ([id number]), editorial director RAMÓN STEVENS ([id number]) on 06/06/2019 1:55:37 PM Referred By: Confirmed By:KAYLEEN LAZARO DO
== END 2019-06-03 12:29 | disposition home or self-care (01) | DRG 682 ==
LOC: ERS 15:37 → IMCU/EMU 18:53 → ONC 06-02 14:57
PROVIDERS: ADMIT Internal Medicine; ATTEND Internal Medicine
DX: N17.9 Acute kidney failure, unspecified (principal); E11.10 Type 2 diabetes mellitus with ketoacidosis without coma; G92 Toxic encephalopathy; I67.4 Hypertensive encephalopathy; Z79.4 Long term (current) use of insulin; I16.0 Hypertensive urgency; N18.3 Chronic kidney disease, stage 3 (moderate); E11.22 Type 2 diabetes mellitus with diabetic chronic kidney disease; I12.9 Hypertensive chronic kidney disease with stage 1 through stage 4 chronic kidney disease, or unspecified chronic kidney disease; E11.43 Type 2 diabetes mellitus with diabetic autonomic (poly)neuropathy; K31.84 Gastroparesis; E83.42 Hypomagnesemia; E83.39 Other disorders of phosphorus metabolism; F17.210 Nicotine dependence, cigarettes, uncomplicated; Z90.49 Acquired absence of other specified parts of digestive tract; Z88.6 Allergy status to analgesic agent; Z91.14 Patient's other noncompliance with medication regimen; Z79.899 Other long term (current) drug therapy; Z79.82 Long term (current) use of aspirin
CPT/HCPCS: 36415; 36416; 70450; 71045; 74176; 80048; 80053; 81003; 81015; 82010; 83605; 83690; 83735; 84100; 84484; 85025; 93005; 94760; 96361; 96365; 96374; J0360; J1815; J2405; J3475; J3480; J3490; J7050; Q0162

== ENCOUNTER 2020-05-30 08:57 | Inpatient (IN) | payer MEDICARE, MEDICAID ==
[2020-05-30] MEDS ORDERED: Ondansetron PF 4 MG/2 ML Vial ONE (09:45)
[2020-05-30] MEDS ORDERED: Fentanyl 100 MCG/2 ML VIAL ONE ×3 (09:45→13:14)
[2020-05-30 09:51] LABS: #Eosinphils 0.3 thou/uL (0.0-0.7); #Monocytes 0.5 thou/uL (0.11-0.59); %Basophils 0.7 % (0.0-1.0); %Eosinophils 4.9 % (0.0-10.0); %Monocytes 7.6 % (0.0-10.0); %Neutrophils 57.8 % (42.0-75.0); Hemoglobin 10.8 g/dL (12.0-16.0); Mean Corpuscular HGB CONC 32.3 g/dL (32.0-36.0); Mean Corpuscular Hemoglobin 28.4 pg (27.0-31.0); Mean Platelet Volume 9.3 fL (7.4-10.4); Platelet Count 171 thou/uL (130-400); RBC Distribution Width 14.6 % (11.5-14.5); Red Blood Cell (RBC) Count 3.81 mill/uL (4.20-5.40); White Blood Cell (WBC) Count 6.9 thou/uL (4.8-10.8)
[2020-05-30 10:13] LABS: ALT (SGPT) 16 U/L (8-55); AST (SGOT) 16 U/L (5-34); Alkaline Phosphatase 119 U/L (40-110); Anion Gap 12 mmol/L (10-20); BUN (Urea Nitrogen) 38 mg/dL (9.8-20.1); Bilirubin, Total 0.3 mg/dL (0.2-1.2); Calc. Creatinine Clearance 0 mL/min (70-130); Carbon Dioxide 21 mmol/L (23-31); Chloride 108 mmol/L (98-107); Globulin 3.4 g/dL (2.4-3.5); Glucose 330 mg/dL (80-115); Potassium 4.6 mmol/L (3.5-5.1); Protein, Total 7.4 g/dL (5.8-8.1); Sodium 136 mmol/L (136-145)
[2020-05-30] MEDS ORDERED: CEFAZOLIN 2 GM in Premix Bag 1 BAG IVPB SCH (12:00)
[2020-05-30] MEDS ORDERED: hydrALAZINE 20 MG/ML VIAL SLOW IVP PRN (12:59)
[2020-05-30] MEDS ORDERED: Ondansetron ODT 4 MG TAB PO PRN (12:59)
[2020-05-30] MEDS ORDERED: Dextrose 50% Abboject 50 ML SYRINGE SLOW IVP PRN (12:59)
[2020-05-30] MEDS ORDERED: Morphine 2 MG/ML VIAL SLOW IVP PRN (12:59)
[2020-05-30] MEDS ORDERED: Ondansetron PF 4 MG/2 ML Vial IVP PRN (12:59)
[2020-05-30] MEDS ORDERED: Dextrose 5% in Water 1,000 ML IV PRN (12:59)
[2020-05-30 13:02] LABS: SARS-CoV-2 NAA Rapid Test Not Detected (NotDetected)
[2020-05-30] MEDS ORDERED: Midazolam HCl 2 mg/2 ml Vial ONE (13:14)
[2020-05-30] MEDS ORDERED: Propofol 1,000 MG/100 ML VIAL IV ONE (13:14)
[2020-05-30] MEDS ORDERED: Phenylephrine 10 MG/ML VIAL ONE (13:16)
[2020-05-30] MEDS ORDERED: Morphine 4 MG/ML VIAL ONE (13:45)
[2020-05-30 14:09] LABS: Magnesium 1.9 mg/dL (1.6-2.6); Phosphorus 3.6 mg/dL (2.3-4.7)
[2020-05-30] MEDS ORDERED: PHENYLEPHRINE-NS 100 MCG/ML 10 ML SYRINGE ONE (14:44)
[2020-05-30] MEDS ORDERED: ePHEDrine 50 MG/ML VIAL ONE (14:44)
[2020-05-30 14:46] LABS: Hemoglobin A1c 9.9 % (4.0-6.0)
[2020-05-30] MEDS ORDERED: Morphine Sulfate 2 MG/ML SYRINGE SLOW IVP PRN (16:16)
[2020-05-30] MEDS ORDERED: PACU-Morphine 4MG/ML VIAL SLOW IVP PRN (16:16)
[2020-05-30] MEDS ORDERED: Ondansetron HCl/PF 4 MG/2 ML Vial IVP PRN (16:16)
[2020-05-30 18:41] VITALS: BMI 20.5
[2020-05-30] MEDS: Nicotine 14 MG PATCH TD SCH (18:44)
[2020-05-30] MEDS: Sodium Chloride 0.9% 1,000 ML IV SCH ×2 (18:44→22:58)
[2020-05-30] MEDS: Acetaminophen 500 MG TAB PO SCH ×2 (18:44→20:01)
[2020-05-30] MEDS: traMADol HCl 50 MG TAB PO SCH (18:44)
[2020-05-30] MEDS: Ferrous Sulfate 325 MG TAB PO SCH (18:45)
[2020-05-30] MEDS: Gabapentin 300 MG CAP PO SCH (19:59)
[2020-05-30] MEDS: Senokot S 8.6-50 MG TAB PO SCH (20:00)
[2020-05-30] MEDS: Famotidine 20 MG TAB PO SCH (20:00)
[2020-05-30] MEDS: Cyclobenzaprine 10 MG TAB PO PRN (20:00)
[2020-05-30] MEDS: Ascorbic Acid 500 mg Chewable Tablet PO SCH (20:02)
[2020-05-30] MEDS: CEFAZOLIN 2 GM in Premix Bag 1 BAG IVPB SCH (21:57)
[2020-05-30] MEDS: Insulin Regular 300 UNITS/3 ML VIAL SC PRN (23:35)
[2020-05-31] MEDS: traMADol HCl 50 MG TAB PO SCH ×2 (01:14→15:15)
[2020-05-31] MEDS: traMADol HCl 50 MG TAB PO PRN (01:15)
[2020-05-31] MEDS: Acetaminophen 500 MG TAB PO SCH ×4 (01:15→19:38)
[2020-05-31] MEDS: Sodium Chloride 0.9% 1,000 ML IV SCH (02:34)
[2020-05-31 05:10] LABS: #Eosinphils 0.2 thou/uL (0.0-0.7); #Lymphocytes 1.6 thou/uL (1.20-3.40); #Monocytes 0.5 thou/uL (0.11-0.59); #Neutrophils 4.7 thou/uL (1.40-6.50); %Basophils 0.6 % (0.0-1.0); %Eosinophils 2.7 % (0.0-10.0); %Lymphocytes 22.6 % (21.0-51.0); %Monocytes 6.5 % (0.0-10.0); %Neutrophils 67.6 % (42.0-75.0); Hemoglobin 6.7 g/dL (12.0-16.0); Mean Corpuscular Hemoglobin 29.1 pg (27.0-31.0); Mean Corpuscular Volume 88.1 fL (78.0-98.0); Mean Platelet Volume 9.1 fL (7.4-10.4); Platelet Count 116 thou/uL (130-400); RBC Distribution Width 14.3 % (11.5-14.5)
[2020-05-31] MEDS: Cyclobenzaprine 10 MG TAB PO PRN (05:25)
[2020-05-31] MEDS: CEFAZOLIN 2 GM in Premix Bag 1 BAG IVPB SCH (05:25)
[2020-05-31] MEDS: Insulin Regular 300 UNITS/3 ML VIAL SC PRN ×2 (05:30→21:02)
[2020-05-31 05:31] LABS: Phosphorus 3.3 mg/dL (2.3-4.7)
[2020-05-31 05:34] LABS: Anion Gap 12 mmol/L (10-20); BUN (Urea Nitrogen) 32 mg/dL (9.8-20.1); Calc. Creatinine Clearance 24 mL/min (70-130); Calcium 7.8 mg/dL (7.8-10.44); Carbon Dioxide 18 mmol/L (23-31); Chloride 110 mmol/L (98-107); Glucose 192 mg/dL (80-115); Magnesium 1.6 mg/dL (1.6-2.6); Sodium 136 mmol/L (136-145)
[2020-05-31] MEDS: Lisinopril 5 MG TAB PO SCH (08:09)
[2020-05-31] MEDS: Ferrous Sulfate 325 MG TAB PO SCH ×2 (08:09→16:29)
[2020-05-31] MEDS: Senokot S 8.6-50 MG TAB PO SCH ×2 (08:09→19:37)
[2020-05-31] MEDS: Ascorbic Acid 500 mg Chewable Tablet PO SCH ×2 (08:09→19:39)
[2020-05-31] MEDS: Gabapentin 300 MG CAP PO SCH (08:09)
[2020-05-31] MEDS: Amlodipine 5 MG TAB PO SCH (08:10)
[2020-05-31] MEDS: Polyethylene Glycol 3350 17 GM Packet PO SCH (08:10)
[2020-05-31] MEDS ORDERED: Amlodipine 10 MG TAB PO SCH ×2 (09:00)
[2020-05-31] MEDS ORDERED: Sodium Chloride 0.9% 1,000 ML IV SCH (12:30)
[2020-05-31] MEDS: Nicotine 14 MG PATCH TD SCH (15:15)
[2020-05-31 15:28] LABS: Hemoglobin 8.8 g/dL (12.0-16.0); Mean Corpuscular HGB CONC 32.1 g/dL (32.0-36.0); Mean Corpuscular Hemoglobin 28.6 pg (27.0-31.0); Mean Corpuscular Volume 89.1 fL (78.0-98.0); Mean Platelet Volume 9.4 fL (7.4-10.4); Platelet Count 121 thou/uL (130-400); Red Blood Cell (RBC) Count 3.06 mill/uL (4.20-5.40); White Blood Cell (WBC) Count 10.7 thou/uL (4.8-10.8)
[2020-05-31] MEDS: Gabapentin 100 MG CAP PO SCH (19:38)
[2020-05-31] MEDS: Famotidine 20 MG TAB PO SCH (19:39)
[2020-06-01] MEDS: traMADol HCl 50 MG TAB PO SCH ×2 (01:45→14:21)
[2020-06-01] MEDS: Acetaminophen 500 MG TAB PO SCH ×4 (01:46→20:03)
[2020-06-01 05:07] LABS: #Eosinphils 0.4 thou/uL (0.0-0.7); #Lymphocytes 1.7 thou/uL (1.20-3.40); #Monocytes 0.7 thou/uL (0.11-0.59); #Neutrophils 7.6 thou/uL (1.40-6.50); %Basophils 0.4 % (0.0-1.0); %Eosinophils 3.5 % (0.0-10.0); %Lymphocytes 16.5 % (21.0-51.0); %Monocytes 6.5 % (0.0-10.0); %Neutrophils 73.1 % (42.0-75.0); Hemoglobin 8.4 g/dL (12.0-16.0); Mean Corpuscular HGB CONC 33.1 g/dL (32.0-36.0); Mean Corpuscular Hemoglobin 29.4 pg (27.0-31.0); Mean Corpuscular Volume 88.9 fL (78.0-98.0); Mean Platelet Volume 9.2 fL (7.4-10.4); Platelet Count 109 thou/uL (130-400); RBC Distribution Width 13.9 % (11.5-14.5); Red Blood Cell (RBC) Count 2.84 mill/uL (4.20-5.40); White Blood Cell (WBC) Count 10.4 thou/uL (4.8-10.8)
[2020-06-01 05:25] LABS: Anion Gap 10 mmol/L (10-20); BUN (Urea Nitrogen) 27 mg/dL (9.8-20.1); Calc. Creatinine Clearance 25 mL/min (70-130); Calcium 8.1 mg/dL (7.8-10.44); Carbon Dioxide 24 mmol/L (23-31); Chloride 111 mmol/L (98-107); Glucose 151 mg/dL (80-115); Magnesium 2.5 mg/dL (1.6-2.6); Phosphorus 2.9 mg/dL (2.3-4.7); Potassium 4.5 mmol/L (3.5-5.1); Sodium 140 mmol/L (136-145)
[2020-06-01] MEDS: Insulin Regular 300 UNITS/3 ML VIAL SC PRN ×3 (06:08→17:44)
[2020-06-01] MEDS: Gabapentin 100 MG CAP PO SCH ×2 (09:00→20:04)
[2020-06-01] MEDS: Senokot S 8.6-50 MG TAB PO SCH ×2 (09:00→21:15)
[2020-06-01] MEDS: Polyethylene Glycol 3350 17 GM Packet PO SCH (09:00)
[2020-06-01] MEDS: Ferrous Sulfate 325 MG TAB PO SCH ×2 (09:00→17:43)
[2020-06-01] MEDS: Amlodipine 5 MG TAB PO SCH (09:01)
[2020-06-01] MEDS: Heparin 5,000 UNITS/ML VIAL SC SCH ×2 (09:01→20:03)
[2020-06-01] MEDS: Lisinopril 5 MG TAB PO SCH (09:01)
[2020-06-01] MEDS: Ascorbic Acid 500 mg Chewable Tablet PO SCH ×2 (09:01→20:04)
[2020-06-01] MEDS: traMADol HCl 50 MG TAB PO PRN (09:07)
[2020-06-01] MEDS: Nicotine 14 MG PATCH TD SCH (14:20)
[2020-06-01] MEDS: Gabapentin 300 MG CAP PO SCH (20:03)
[2020-06-01] MEDS: Famotidine 20 MG TAB PO SCH (20:04)
[2020-06-01] MEDS: Atorvastatin Calcium 40 MG TAB PO SCH (20:04)
[2020-06-02] MEDS: traMADol HCl 50 MG TAB PO SCH ×2 (01:14→14:08)
[2020-06-02] MEDS: Acetaminophen 500 MG TAB PO SCH ×4 (01:15→20:29)
[2020-06-02 04:58] LABS: Hemoglobin 7.9 g/dL (12.0-16.0); Mean Corpuscular HGB CONC 33.1 g/dL (32.0-36.0); Mean Corpuscular Hemoglobin 29.2 pg (27.0-31.0); Mean Corpuscular Volume 88.4 fL (78.0-98.0); Mean Platelet Volume 9.2 fL (7.4-10.4); Platelet Count 115 thou/uL (130-400); RBC Distribution Width 13.9 % (11.5-14.5); White Blood Cell (WBC) Count 7.5 thou/uL (4.8-10.8)
[2020-06-02 05:22] LABS: Anion Gap 11 mmol/L (10-20); BUN (Urea Nitrogen) 26 mg/dL (9.8-20.1); Calc. Creatinine Clearance 24 mL/min (70-130); Calcium 8.2 mg/dL (7.8-10.44); Carbon Dioxide 23 mmol/L (23-31); Chloride 107 mmol/L (98-107); Glucose 175 mg/dL (80-115); Magnesium 2.1 mg/dL (1.6-2.6); Phosphorus 2.6 mg/dL (2.3-4.7); Potassium 4.2 mmol/L (3.5-5.1); Sodium 137 mmol/L (136-145)
[2020-06-02] MEDS: Senokot S 8.6-50 MG TAB PO SCH ×2 (08:28→20:29)
[2020-06-02] MEDS: Amlodipine 5 MG TAB PO SCH (08:28)
[2020-06-02] MEDS: Ferrous Sulfate 325 MG TAB PO SCH ×2 (08:29→17:11)
[2020-06-02] MEDS: Gabapentin 300 MG CAP PO SCH ×2 (08:29→20:30)
[2020-06-02] MEDS: traMADol HCl 50 MG TAB PO PRN ×2 (08:30→20:32)
[2020-06-02] MEDS: Ascorbic Acid 500 mg Chewable Tablet PO SCH ×2 (08:30→20:29)
[2020-06-02] MEDS: Carvedilol 3.125 MG TAB PO SCH (08:30)
[2020-06-02] MEDS: Lisinopril 5 MG TAB PO SCH (08:30)
[2020-06-02] MEDS: Gabapentin 100 MG CAP PO SCH ×2 (08:32→20:29)
[2020-06-02] MEDS: Heparin 5,000 UNITS/ML VIAL SC SCH ×2 (08:32→20:31)
[2020-06-02] MEDS: Polyethylene Glycol 3350 17 GM Packet PO SCH (08:48)
[2020-06-02] MEDS: Insulin Regular 300 UNITS/3 ML VIAL SC PRN ×2 (11:24→17:12)
[2020-06-02] MEDS: Nicotine 14 MG PATCH TD SCH (14:08)
[2020-06-02] MEDS: Famotidine 20 MG TAB PO SCH (20:29)
[2020-06-02] MEDS: Atorvastatin Calcium 40 MG TAB PO SCH (20:29)
[2020-06-03] MEDS: traMADol HCl 50 MG TAB PO SCH ×2 (02:17→13:37)
[2020-06-03] MEDS: Acetaminophen 500 MG TAB PO SCH ×3 (02:20→13:36)
[2020-06-03] MEDS: traMADol HCl 50 MG TAB PO PRN (05:21)
[2020-06-03] MEDS: Insulin Regular 300 UNITS/3 ML VIAL SC PRN ×2 (05:43→11:41)
[2020-06-03] MEDS: Gabapentin 100 MG CAP PO SCH (08:04)
[2020-06-03] MEDS: Ferrous Sulfate 325 MG TAB PO SCH (08:05)
[2020-06-03] MEDS: Ascorbic Acid 500 mg Chewable Tablet PO SCH (08:05)
[2020-06-03] MEDS: Lisinopril 5 MG TAB PO SCH (08:06)
[2020-06-03] MEDS: Carvedilol 3.125 MG TAB PO SCH (08:07)
[2020-06-03] MEDS: Amlodipine 5 MG TAB PO SCH (08:08)
[2020-06-03] MEDS: Senokot S 8.6-50 MG TAB PO SCH (08:08)
[2020-06-03] MEDS: Polyethylene Glycol 3350 17 GM Packet PO SCH (08:09)
[2020-06-03] MEDS: Heparin 5,000 UNITS/ML VIAL SC SCH (08:09)
[2020-06-03] MEDS: Gabapentin 300 MG CAP PO SCH (08:19)
[2020-06-03 13:09] VITALS: BP 136/67; TEMP 98.1
[2020-06-03] MEDS: Nicotine 14 MG PATCH TD SCH (13:37)
== END 2020-06-03 14:50 | disposition home health service (06) | DRG 481 ==
LOC: ERS 08:57 → ERHOLD 10:21 → SURG A 17:22
PROVIDERS: ADMIT Surgery; ATTEND Surgery
PROC: 0QS636Z Reposition Right Upper Femur with Intramedullary Internal Fixation Device, Percutaneous Approach (ICD-10-PCS; principal; 2020-05-30)
PROC: 30233N1 Transfusion of Nonautologous Red Blood Cells into Peripheral Vein, Percutaneous Approach (ICD-10-PCS; 2020-05-31)
DX: S72.141A Displaced intertrochanteric fracture of right femur, initial encounter for closed fracture (principal); N17.9 Acute kidney failure, unspecified; D62 Acute posthemorrhagic anemia; Z20.822 Contact with and (suspected) exposure to COVID-19; N18.30 Chronic kidney disease, stage 3 unspecified; I12.9 Hypertensive chronic kidney disease with stage 1 through stage 4 chronic kidney disease, or unspecified chronic kidney disease; E11.22 Type 2 diabetes mellitus with diabetic chronic kidney disease; E11.65 Type 2 diabetes mellitus with hyperglycemia; E78.5 Hyperlipidemia, unspecified; W18.30XA Fall on same level, unspecified, initial encounter; F17.210 Nicotine dependence, cigarettes, uncomplicated; E11.40 Type 2 diabetes mellitus with diabetic neuropathy, unspecified; F32.9 Major depressive disorder, single episode, unspecified; Z90.49 Acquired absence of other specified parts of digestive tract; Z88.5 Allergy status to narcotic agent; Z79.899 Other long term (current) drug therapy; Z79.82 Long term (current) use of aspirin; Z79.4 Long term (current) use of insulin
CPT/HCPCS: 0240U; 36415; 36416; 36430; 71045; 76000; 80048; 80053; 82010; 83036; 83735; 84100; 85025; 85027; 86850; 86900; 86901; 93005; 93010; 96374; 96375; 96376; C1713; G0390; J0690; J1644; J1815; J2250; J2270; J2370; J2405; J2704; J3010; J3475; J3490; P9016

== ENCOUNTER 2020-06-06 10:53 | Inpatient (IN) | payer MEDICARE, MEDICAID ==
[2020-06-06] MEDS ORDERED: Promethazine HCl 25 MG/ML VIAL ONE (11:12)
[2020-06-06 11:32] LABS: Analyzer IN Cardio ER; Base Excess -7.4 mEq/L (-2.0 to +3.0); Calcium, Ionized (venous) 1.11 mmol/L (1.16-1.32); Chloride (VBG) 102 mmol/L (98-106); Hemoglobin (Hb) 9.7 g/dL (11.7-16.1); Potassium (VBG) 4.18 mmol/L (3.70-5.30); Sodium 134.9 mmol/L (133-146)
[2020-06-06 11:35] LABS: Actual Bicarbonate (HCO3v) 14 mEq/L (22-28)
[2020-06-06 11:41] LABS: #Eosinphils 0.1 thou/uL (0.0-0.7); #Lymphocytes 1.4 thou/uL (1.20-3.40); #Monocytes 0.6 thou/uL (0.11-0.59); #Neutrophils 7.8 thou/uL (1.40-6.50); %Basophils 0.2 % (0.0-1.0); %Eosinophils 1.1 % (0.0-10.0); %Monocytes 5.6 % (0.0-10.0); %Neutrophils 79.1 % (42.0-75.0); Mean Corpuscular HGB CONC 32.6 g/dL (32.0-36.0); Mean Corpuscular Hemoglobin 28.7 pg (27.0-31.0); Mean Platelet Volume 8.1 fL (7.4-10.4); Platelet Count 281 thou/uL (130-400); RBC Distribution Width 14.3 % (11.5-14.5); Red Blood Cell (RBC) Count 3.13 mill/uL (4.20-5.40); White Blood Cell (WBC) Count 9.8 thou/uL (4.8-10.8)
[2020-06-06 11:51] LABS: Lipase 18 U/L (8-78); Phosphorus 2.9 mg/dL (2.3-4.7)
[2020-06-06 11:58] LABS: ALT (SGPT) Less than 7 U/L (8-55); AST (SGOT) 15 U/L (5-34); Alkaline Phosphatase 79 U/L (40-110); Anion Gap 23 mmol/L (10-20); BUN (Urea Nitrogen) 29 mg/dL (9.8-20.1); Bilirubin, Total 1.3 mg/dL (0.2-1.2); Calc. Creatinine Clearance 0 mL/min (70-130); Calcium 9.3 mg/dL (7.8-10.44); Carbon Dioxide 17 mmol/L (23-31); Chloride 101 mmol/L (98-107); Globulin 3.4 g/dL (2.4-3.5); Glucose 463 mg/dL (80-115); Potassium 4.3 mmol/L (3.5-5.1); Protein, Total 7.4 g/dL (5.8-8.1); Sodium 137 mmol/L (136-145)
[2020-06-06] MEDS ORDERED: INSULIN REGULAR IN 0.9 % NACL 100 UNIT/100 ML BAG ONE (13:48)
[2020-06-06] MEDS ORDERED: Haloperidol Lactate 5 MG/ML VIAL ONE (13:48)
[2020-06-06] MEDS ORDERED: Sodium Chloride 0.9% 1,000 ML IV PRN ×4 (14:23)
[2020-06-06] MEDS ORDERED: Loperamide HCl 2 MG CAP PO PRN (14:23)
[2020-06-06] MEDS ORDERED: Ondansetron PF 4 MG/2 ML Vial IVP PRN (14:23)
[2020-06-06] MEDS ORDERED: Senokot S 8.6-50 MG TAB PO PRN (14:23)
[2020-06-06] MEDS ORDERED: Dextrose 5 %-0.45 % NaCl 1,000 ML IV PRN (14:23)
[2020-06-06] MEDS ORDERED: Electrolyte Replacement Protocol 1 EACH IVPB ONE (14:23)
[2020-06-06] MEDS ORDERED: Acetaminophen 325 MG TAB PO PRN (14:23)
[2020-06-06] MEDS ORDERED: Bisacodyl 10 MG SUPP PR PRN (14:23)
[2020-06-06] MEDS ORDERED: HYDROcodone/Acetaminophen 5/325 mg Tablet PO PRN (14:23)
[2020-06-06] MEDS ORDERED: Ondansetron ODT 4 MG TAB PO PRN (14:23)
[2020-06-06] MEDS ORDERED: NS 0.9% w/ 20 MEQ KCL 1,000 ML IV PRN ×2 (14:23)
[2020-06-06] MEDS ORDERED: Calcium Carbonate 500 MG ChewTAB PO PRN (14:23)
[2020-06-06] MEDS ORDERED: Zolpidem Tartrate 5 MG TAB PO PRN (14:23)
[2020-06-06] MEDS ORDERED: HUMULIN R 100 UNITS in Sodium Chloride 0.9% 100 ML IVPB SCH (14:30)
[2020-06-06] MEDS ORDERED: Electrolyte Replacement Protocol FS PRN (14:45)
[2020-06-06] MEDS: NS 0.9% w/ 20 MEQ KCL 1,000 ML IV SCH ×3 (14:51→23:45)
[2020-06-06 15:13] LABS: Anion Gap 24 mmol/L (10-20); BUN (Urea Nitrogen) 28 mg/dL (9.8-20.1); Calc. Creatinine Clearance 0 mL/min (70-130); Calcium 9.1 mg/dL (7.8-10.44); Carbon Dioxide 15 mmol/L (23-31); Chloride 104 mmol/L (98-107); Glucose 407 mg/dL (80-115); Potassium 3.9 mmol/L (3.5-5.1); Sodium 139 mmol/L (136-145)
[2020-06-06] MEDS ORDERED: D5 1/2 NS w/20 mEq KCL 1,000 ML ONE (17:44)
[2020-06-06] MEDS: D5 1/2 NS w/20 mEq KCL 1,000 ML IV PRN ×2 (17:51→22:58)
[2020-06-06 18:50] LABS: ALT (SGPT) Less than 7 U/L (8-55); AST (SGOT) 17 U/L (5-34); Albumin 3.9 g/dL (3.4-4.8); Alkaline Phosphatase 75 U/L (40-110); Anion Gap 17 mmol/L (10-20); BUN (Urea Nitrogen) 26 mg/dL (9.8-20.1); Bilirubin, Total 0.8 mg/dL (0.2-1.2); Calc. Creatinine Clearance 0 mL/min (70-130); Calcium 9.2 mg/dL (7.8-10.44); Carbon Dioxide 20 mmol/L (23-31); Chloride 110 mmol/L (98-107); Globulin 3.9 g/dL (2.4-3.5); Glucose 132 mg/dL (80-115); Potassium 3.7 mmol/L (3.5-5.1); Protein, Total 7.8 g/dL (5.8-8.1); Sodium 143 mmol/L (136-145)
[2020-06-06 21:12] LABS: Anion Gap 22 mmol/L (10-20); BUN (Urea Nitrogen) 24 mg/dL (9.8-20.1); Calc. Creatinine Clearance 0 mL/min (70-130); Calcium 9.3 mg/dL (7.8-10.44); Carbon Dioxide 15 mmol/L (23-31); Chloride 108 mmol/L (98-107); Glucose 222 mg/dL (80-115); Potassium 4.4 mmol/L (3.5-5.1); Sodium 141 mmol/L (136-145)
[2020-06-06] MEDS: Heparin 5,000 UNITS/ML VIAL SC SCH (22:58)
[2020-06-06 23:13] VITALS: BMI 20.6
[2020-06-06] MEDS ORDERED: Lisinopril 5 MG TAB PO SCH (23:45)
[2020-06-06] MEDS ORDERED: Carvedilol 3.125 MG TAB PO SCH (23:45)
[2020-06-07] MEDS: NS 0.9% w/ 20 MEQ KCL 1,000 ML IV SCH ×10 (00:29→23:15)
[2020-06-07] MEDS: hydrALAZINE 20 MG/ML VIAL SLOW IVP PRN ×4 (01:26→17:26)
[2020-06-07] MEDS: D5 1/2 NS w/20 mEq KCL 1,000 ML IV PRN ×2 (02:56→07:11)
[2020-06-07 04:01] LABS: #Monocytes 0.6 thou/uL (0.11-0.59); #Neutrophils 10.6 thou/uL (1.40-6.50); %Basophils 0.2 % (0.0-1.0); %Eosinophils 0.1 % (0.0-10.0); %Lymphocytes 7.8 % (21.0-51.0); %Neutrophils 86.9 % (42.0-75.0); Hemoglobin 8.5 g/dL (12.0-16.0); Mean Corpuscular HGB CONC 33.9 g/dL (32.0-36.0); Mean Corpuscular Hemoglobin 29.6 pg (27.0-31.0); Mean Corpuscular Volume 87.3 fL (78.0-98.0); Platelet Count 292 thou/uL (130-400); RBC Distribution Width 15.3 % (11.5-14.5); Red Blood Cell (RBC) Count 2.86 mill/uL (4.20-5.40); White Blood Cell (WBC) Count 12.2 thou/uL (4.8-10.8)
[2020-06-07 04:16] LABS: ALT (SGPT) 9 U/L (8-55); AST (SGOT) 17 U/L (5-34); Albumin 3.7 g/dL (3.4-4.8); Alkaline Phosphatase 72 U/L (40-110); Anion Gap 17 mmol/L (10-20); BUN (Urea Nitrogen) 22 mg/dL (9.8-20.1); Bilirubin, Total 0.8 mg/dL (0.2-1.2); Calc. Creatinine Clearance 30 mL/min (70-130); Calcium 9.3 mg/dL (7.8-10.44); Carbon Dioxide 15 mmol/L (23-31); Chloride 109 mmol/L (98-107); Globulin 3.8 g/dL (2.4-3.5); Glucose 186 mg/dL (80-115); Magnesium 1.6 mg/dL (1.6-2.6); Phosphorus 1.7 mg/dL (2.3-4.7); Potassium 3.6 mmol/L (3.5-5.1); Protein, Total 7.5 g/dL (5.8-8.1); Sodium 137 mmol/L (136-145)
[2020-06-07] MEDS ORDERED: Magnesium 2 GM/50 ML 2 GM in Premix Bag 1 BAG IVPB SCH (06:45)
[2020-06-07] MEDS: Famotidine 20 MG TAB PO SCH (08:35)
[2020-06-07] MEDS: PHOS-NAK 1 PKT PACK PO SCH ×2 (08:35→12:35)
[2020-06-07] MEDS: Atorvastatin Calcium 40 MG TAB PO SCH (08:35)
[2020-06-07] MEDS: Heparin 5,000 UNITS/ML VIAL SC SCH ×2 (08:36→20:31)
[2020-06-07] MEDS ORDERED: Lisinopril 5 MG TAB PO SCH (09:00)
[2020-06-07] MEDS ORDERED: Amlodipine 5 MG TAB PO SCH (09:00)
[2020-06-07] MEDS ORDERED: Carvedilol 3.125 MG TAB PO SCH (09:00)
[2020-06-07] MEDS ORDERED: hydrALAZINE 20 MG/ML VIAL SLOW IVP PRN (09:40)
[2020-06-07] MEDS ORDERED: Cyclobenzaprine 10 MG TAB PO PRN (09:47)
[2020-06-07] MEDS: Acetaminophen 500 MG TAB PO SCH ×4 (10:26→23:04)
[2020-06-07] MEDS: Sodium Chloride 0.9% 1,000 ML IV SCH ×2 (10:27→20:38)
[2020-06-07] MEDS: Lantus 1000 UNITS/10 ML VIAL SC SCH ×2 (10:29→22:50)
[2020-06-07] MEDS: Insulin Regular 300 UNITS/3 ML VIAL SC PRN ×2 (12:35→17:29)
[2020-06-07 15:41] LABS: Anion Gap 15 mmol/L (10-20); BUN (Urea Nitrogen) 18 mg/dL (9.8-20.1); Calc. Creatinine Clearance 33 mL/min (70-130); Calcium 9.2 mg/dL (7.8-10.44); Carbon Dioxide 17 mmol/L (23-31); Chloride 107 mmol/L (98-107); Glucose 256 mg/dL (80-115); Potassium 4.2 mmol/L (3.5-5.1); Sodium 135 mmol/L (136-145)
[2020-06-07] MEDS: Ferrous Sulfate 325 MG TAB PO SCH (17:25)
[2020-06-07] MEDS ORDERED: Melatonin 3 MG TAB PO PRN (20:20)
[2020-06-07] MEDS: Ascorbic Acid 500 mg Chewable Tablet PO SCH (20:30)
[2020-06-07] MEDS: Gabapentin 100 MG CAP PO SCH (20:31)
[2020-06-07] MEDS: Carvedilol 3.125 MG TAB PO SCH (20:31)
[2020-06-07] MEDS: Amlodipine 5 MG TAB PO SCH (20:31)
[2020-06-08] MEDS: NS 0.9% w/ 20 MEQ KCL 1,000 ML IV SCH ×3 (00:43→04:52)
[2020-06-08] MEDS: Sodium Chloride 0.9% 1,000 ML IV SCH ×4 (01:04→22:01)
[2020-06-08] MEDS: hydrALAZINE 20 MG/ML VIAL SLOW IVP PRN ×2 (01:05→13:21)
[2020-06-08] MEDS: traMADol HCl 50 MG TAB PO PRN ×2 (02:40→21:56)
[2020-06-08 03:48] LABS: #Lymphocytes 1.5 thou/uL (1.20-3.40); #Neutrophils 10.6 thou/uL (1.40-6.50); %Basophils 0.1 % (0.0-1.0); %Eosinophils 0.3 % (0.0-10.0); %Lymphocytes 11.1 % (21.0-51.0); %Monocytes 7.6 % (0.0-10.0); Hemoglobin 8.5 g/dL (12.0-16.0); Mean Corpuscular HGB CONC 33.3 g/dL (32.0-36.0); Mean Corpuscular Hemoglobin 29.5 pg (27.0-31.0); Mean Corpuscular Volume 88.7 fL (78.0-98.0); Mean Platelet Volume 7.6 fL (7.4-10.4); Platelet Count 325 thou/uL (130-400); RBC Distribution Width 15.8 % (11.5-14.5); Red Blood Cell (RBC) Count 2.87 mill/uL (4.20-5.40); White Blood Cell (WBC) Count 13.1 thou/uL (4.8-10.8)
[2020-06-08 03:52] LABS: Hemoglobin A1c 8.4 % (4.0-6.0)
[2020-06-08 04:21] LABS: Anion Gap 15 mmol/L (10-20); BUN (Urea Nitrogen) 16 mg/dL (9.8-20.1); Calc. Creatinine Clearance 36 mL/min (70-130); Calcium 8.5 mg/dL (7.8-10.44); Carbon Dioxide 16 mmol/L (23-31); Chloride 109 mmol/L (98-107); Glucose 178 mg/dL (80-115); Magnesium 1.9 mg/dL (1.6-2.6); Phosphorus 3.5 mg/dL (2.3-4.7); Potassium 3.5 mmol/L (3.5-5.1); Sodium 136 mmol/L (136-145)
[2020-06-08] MEDS: Acetaminophen 500 MG TAB PO SCH ×4 (04:38→22:00)
[2020-06-08] MEDS ORDERED: Magnesium 2 GM/50 ML 2 GM in Premix Bag 1 BAG IVPB SCH (05:00)
[2020-06-08] MEDS: Insulin Regular 300 UNITS/3 ML VIAL SC PRN (05:06)
[2020-06-08] MEDS ORDERED: Potassium Chloride 20 MEQ in Premix Bag 1 BAG IVPB SCH (06:00)
[2020-06-08] MEDS ORDERED: Potassium Chloride 20 MEQ TAB PO SCH (06:00)
[2020-06-08] MEDS ORDERED: Non-Formulary Item 1 EACH (Vortioxetine Hydrobromide [Trintellix] 10 MG Tablet) PO SCH (09:00)
[2020-06-08] MEDS: Gabapentin 100 MG CAP PO SCH ×2 (09:55→21:55)
[2020-06-08] MEDS: Heparin 5,000 UNITS/ML VIAL SC SCH ×2 (09:55→21:56)
[2020-06-08] MEDS: Lantus 1000 UNITS/10 ML VIAL SC SCH ×2 (09:55→21:57)
[2020-06-08] MEDS: Aspirin Chewable 81 MG TAB PO SCH (09:57)
[2020-06-08] MEDS: Amlodipine 5 MG TAB PO SCH ×2 (09:57→21:55)
[2020-06-08] MEDS: Carvedilol 3.125 MG TAB PO SCH (09:57)
[2020-06-08] MEDS: Famotidine 20 MG TAB PO SCH (09:57)
[2020-06-08] MEDS: Ascorbic Acid 500 mg Chewable Tablet PO SCH ×2 (09:58→21:54)
[2020-06-08] MEDS: Atorvastatin Calcium 40 MG TAB PO SCH (09:58)
[2020-06-08] MEDS: Ferrous Sulfate 325 MG TAB PO SCH ×2 (09:58→16:09)
[2020-06-08] MEDS: Lisinopril 20 MG TAB PO SCH (09:58)
[2020-06-08] MEDS: Polyethylene Glycol 3350 17 GM Packet PO SCH (09:58)
[2020-06-08] MEDS: Carvedilol 6.25 MG TAB PO SCH (21:54)
[2020-06-09] MEDS: Acetaminophen 500 MG TAB PO SCH ×2 (04:37→10:10)
[2020-06-09 05:00] LABS: #Eosinphils 0.2 thou/uL (0.0-0.7); #Lymphocytes 1.1 thou/uL (1.20-3.40); #Monocytes 0.8 thou/uL (0.11-0.59); #Neutrophils 5.7 thou/uL (1.40-6.50); %Basophils 0.5 % (0.0-1.0); %Lymphocytes 14.4 % (21.0-51.0); %Monocytes 10.7 % (0.0-10.0); %Neutrophils 72.5 % (42.0-75.0); Hemoglobin 8.8 g/dL (12.0-16.0); Mean Corpuscular HGB CONC 32.7 g/dL (32.0-36.0); Mean Corpuscular Hemoglobin 29.5 pg (27.0-31.0); Mean Corpuscular Volume 90.3 fL (78.0-98.0); Platelet Count 339 thou/uL (130-400); RBC Distribution Width 15.9 % (11.5-14.5); Red Blood Cell (RBC) Count 2.99 mill/uL (4.20-5.40); White Blood Cell (WBC) Count 7.9 thou/uL (4.8-10.8)
[2020-06-09 05:30] LABS: Anion Gap 16 mmol/L (10-20); BUN (Urea Nitrogen) 16 mg/dL (9.8-20.1); Calc. Creatinine Clearance 34 mL/min (70-130); Calcium 8.3 mg/dL (7.8-10.44); Carbon Dioxide 16 mmol/L (23-31); Chloride 109 mmol/L (98-107); Glucose 113 mg/dL (80-115); Potassium 3.6 mmol/L (3.5-5.1); Sodium 137 mmol/L (136-145)
[2020-06-09] MEDS: Polyethylene Glycol 3350 17 GM Packet PO SCH (08:34)
[2020-06-09] MEDS: Gabapentin 100 MG CAP PO SCH (08:34)
[2020-06-09] MEDS: Aspirin Chewable 81 MG TAB PO SCH (08:35)
[2020-06-09] MEDS: Carvedilol 6.25 MG TAB PO SCH (08:35)
[2020-06-09] MEDS: Amlodipine 5 MG TAB PO SCH (08:35)
[2020-06-09] MEDS: Heparin 5,000 UNITS/ML VIAL SC SCH (08:35)
[2020-06-09] MEDS: Famotidine 20 MG TAB PO SCH (08:35)
[2020-06-09] MEDS: Ascorbic Acid 500 mg Chewable Tablet PO SCH (08:35)
[2020-06-09] MEDS: Atorvastatin Calcium 40 MG TAB PO SCH (08:35)
[2020-06-09] MEDS: Lisinopril 20 MG TAB PO SCH (08:35)
[2020-06-09] MEDS: Ferrous Sulfate 325 MG TAB PO SCH (08:35)
[2020-06-09] MEDS: Lantus 1000 UNITS/10 ML VIAL SC SCH (08:36)
[2020-06-09 11:24] VITALS: BP 142/66; TEMP 98.2
[2020-06-09] MEDS: Sodium Chloride 0.9% 1,000 ML IV SCH (14:17)
== END 2020-06-09 14:30 | disposition home or self-care (01) | DRG 638 ==
LOC: ERS 10:53 → ERHOLD 13:43 → IMCU/EMU 22:45 → 2NO 06-08 17:03
PROVIDERS: ADMIT Internal Medicine; ATTEND Family Medicine
DX: E11.10 Type 2 diabetes mellitus with ketoacidosis without coma (principal); N17.9 Acute kidney failure, unspecified; I16.0 Hypertensive urgency; Z79.82 Long term (current) use of aspirin; Z79.4 Long term (current) use of insulin; Z88.8 Allergy status to other drugs, medicaments and biological substances; E78.5 Hyperlipidemia, unspecified; Z90.49 Acquired absence of other specified parts of digestive tract; F32.9 Major depressive disorder, single episode, unspecified; F17.210 Nicotine dependence, cigarettes, uncomplicated; N18.30 Chronic kidney disease, stage 3 unspecified; E11.43 Type 2 diabetes mellitus with diabetic autonomic (poly)neuropathy; Z91.19 Patient's noncompliance with other medical treatment and regimen; I12.9 Hypertensive chronic kidney disease with stage 1 through stage 4 chronic kidney disease, or unspecified chronic kidney disease
CPT/HCPCS: 36415; 36416; 71045; 80048; 80053; 82010; 82805; 83036; 83690; 83735; 84100; 85025; 93005; 96365; 96366; 96367; 96375; J0360; J1630; J1644; J1815; J2405; J2550; J3475; J3480; J3490

== ENCOUNTER 2020-08-20 14:01 | Inpatient (IN) | payer MEDICARE, MEDICAID ==
[~2020-08-20 14:01] MED LIST: Iopamidol-370 76% 500 ML 1 ML ONE
[2020-08-20] MEDS ORDERED: Promethazine HCl 25 MG/ML VIAL ONE (14:41)
[2020-08-20 15:02] LABS: #Eosinphils 0.1 thou/uL (0.0-0.7); #Lymphocytes 1.5 thou/uL (1.20-3.40); #Monocytes 0.3 thou/uL (0.11-0.59); #Neutrophils 4.8 thou/uL (1.40-6.50); %Basophils 0.6 % (0.0-1.0); %Eosinophils 1.7 % (0.0-10.0); %Monocytes 3.8 % (0.0-10.0); Mean Corpuscular HGB CONC 33.1 g/dL (32.0-36.0); Mean Corpuscular Hemoglobin 28.9 pg (27.0-31.0); Mean Corpuscular Volume 87.4 fL (78.0-98.0); Mean Platelet Volume 8.6 fL (7.4-10.4); Platelet Count 188 thou/uL (130-400); RBC Distribution Width 13.5 % (11.5-14.5); Red Blood Cell (RBC) Count 3.79 mill/uL (4.20-5.40); White Blood Cell (WBC) Count 6.6 thou/uL (4.8-10.8)
[2020-08-20 15:22] LABS: ALT (SGPT) 45 U/L (8-55); AST (SGOT) 32 U/L (5-34); Alkaline Phosphatase 144 U/L (40-110); Anion Gap 15 mmol/L (10-20); BUN (Urea Nitrogen) 20 mg/dL (9.8-20.1); Bilirubin, Total 0.5 mg/dL (0.2-1.2); Calc. Creatinine Clearance 0 mL/min (70-130); Calcium 9.5 mg/dL (7.8-10.44); Carbon Dioxide 20 mmol/L (23-31); Chloride 106 mmol/L (98-107); Globulin 3.7 g/dL (2.4-3.5); Glucose 257 mg/dL (80-115); Lipase 23 U/L (8-78); Potassium 3.5 mmol/L (3.5-5.1); Protein, Total 7.7 g/dL (5.8-8.1); Sodium 137 mmol/L (136-145)
[2020-08-20] MEDS ORDERED: Metoclopramide HCl 10 MG/2 ML VIAL ONE (15:23)
[2020-08-20 15:29] LABS: Actual Bicarbonate (HCO3v) 20 mEq/L (22-28); Analyzer IN Cardio ER; Base Excess -1.8 mEq/L (-2.0 to +3.0); Calcium, Ionized (venous) 1.11 mmol/L (1.16-1.32); Chloride (VBG) 108 mmol/L (98-106); Potassium (VBG) 3.63 mmol/L (3.70-5.30); Sodium 138.3 mmol/L (133-146)
[2020-08-20 17:30] LABS: Bacteria/HPF None Seen HPF (None Seen); Bilirubin Negative (Negative); Blood, Urine Trace (Negative); Clarity Clear (Clear); Glucose, Urine (Dipstick) Greater than 1000 mg/dL (Negative); Ketone, Urine Trace mg/dL (Negative); Leukocyte Negative Leu/uL (Negative); Nitrite Negative (Negative); Protein, Urine (Dipstick) 50 mg/dL (Neg-Trace); RBC/HPF 0-3 HPF (0-3); Specific Gravity, Urine 1.015 (1.002-1.036); Squamous Epithelial 0-3 HPF (0-3); Urobilinogen Normal mg/dL (Less than 2); WBC/HPF 0-3 HPF (0-3)
[2020-08-20] MEDS ORDERED: hydrALAZINE 20 MG/ML VIAL ONE (20:29)
[2020-08-20] MEDS ORDERED: Ondansetron ODT 4 MG TAB PO PRN (21:20)
[2020-08-20] MEDS ORDERED: Acetaminophen 325 MG TAB PO PRN (21:20)
[2020-08-20] MEDS ORDERED: HYDROcodone/Acetaminophen 5/325 mg Tablet PO PRN (21:20)
[2020-08-20] MEDS ORDERED: hydrALAZINE 20 MG/ML VIAL SLOW IVP PRN (21:21)
[2020-08-20] MEDS ORDERED: Promethazine HCl 25 MG in Sodium Chloride 0.9% 50 ML IVPB PRN (21:23)
[2020-08-20] MEDS ORDERED: Dextrose 5% in Water 1,000 ML IV PRN (21:24)
[2020-08-20] MEDS ORDERED: HumaLOG 300 UNITS/3 ML VIAL SC PRN ×2 (21:24)
[2020-08-20] MEDS ORDERED: Dextrose 50% Abboject 50 ML SYRINGE SLOW IVP PRN (21:24)
[2020-08-20] MEDS ORDERED: Amlodipine 5 MG TAB PO SCH (21:45)
[2020-08-20] MEDS: Sodium Chloride 0.9% 1,000 ML IV SCH (22:20)
[2020-08-21] MEDS: Metoclopramide HCl 10 MG/2 ML VIAL IVP SCH ×3 (03:00→16:34)
[2020-08-21] MEDS: Sodium Chloride 0.9% 1,000 ML IV SCH ×2 (04:11→15:51)
[2020-08-21 06:49] LABS: #Lymphocytes 1.3 thou/uL (1.20-3.40); #Monocytes 0.3 thou/uL (0.11-0.59); #Neutrophils 7.1 thou/uL (1.40-6.50); %Basophils 0.3 % (0.0-1.0); %Eosinophils 0.1 % (0.0-10.0); %Lymphocytes 14.8 % (21.0-51.0); %Monocytes 3.8 % (0.0-10.0); Hemoglobin 11.2 g/dL (12.0-16.0); Mean Corpuscular HGB CONC 31.9 g/dL (32.0-36.0); Mean Corpuscular Hemoglobin 27.9 pg (27.0-31.0); Mean Corpuscular Volume 87.5 fL (78.0-98.0); Mean Platelet Volume 8.7 fL (7.4-10.4); Platelet Count 214 thou/uL (130-400); RBC Distribution Width 13.7 % (11.5-14.5); Red Blood Cell (RBC) Count 4.01 mill/uL (4.20-5.40); White Blood Cell (WBC) Count 8.7 thou/uL (4.8-10.8)
[2020-08-21 07:00] LABS: Anion Gap 15 mmol/L (10-20); BUN (Urea Nitrogen) 21 mg/dL (9.8-20.1); Calc. Creatinine Clearance 29 mL/min (70-130); Calcium 9.7 mg/dL (7.8-10.44); Carbon Dioxide 20 mmol/L (23-31); Chloride 107 mmol/L (98-107); Glucose 223 mg/dL (80-115); Potassium 3.3 mmol/L (3.5-5.1); Sodium 139 mmol/L (136-145)
[2020-08-21] MEDS ORDERED: Amlodipine 5 MG TAB PO SCH ×2 (09:00)
[2020-08-21 11:00] LABS: SARS-CoV-2 PCR by NAA Not Detected (NotDetected)
[2020-08-21] MEDS ORDERED: HumaLOG 300 UNITS/3 ML VIAL SC PRN (11:47)
[2020-08-21] MEDS ORDERED: hydrALAZINE 20 MG/ML VIAL SLOW IVP PRN (11:57)
[2020-08-21] MEDS ORDERED: Sodium Chloride 0.9% 1,000 ML IV SCH (12:00)
[2020-08-21] MEDS ORDERED: Polyethylene Glycol 3350 17 GM Packet PO SCH (12:00)
[2020-08-21] MEDS ORDERED: Lantus 1000 UNITS/10 ML VIAL SC SCH (12:00)
[2020-08-21] MEDS ORDERED: Senokot S 8.6-50 MG TAB PO SCH (12:15)
[2020-08-21] MEDS: Labetalol HCl 100 MG/20 ML VIAL SLOW IVP PRN ×2 (15:10→22:19)
[2020-08-21] MEDS: Carvedilol 6.25 MG TAB PO SCH (16:35)
[2020-08-21] MEDS: Potassium Chloride 20 MEQ TAB PO SCH (17:35)
[2020-08-21] MEDS: Ondansetron PF 4 MG/2 ML Vial IVP PRN (21:04)
[2020-08-21] MEDS: Polyethylene Glycol 3350 17 GM Packet PO SCH (21:04)
[2020-08-21] MEDS: Bisacodyl 10 MG SUPP PR SCH (21:05)
[2020-08-21] MEDS: Senokot S 8.6-50 MG TAB PO SCH (21:05)
[2020-08-21] MEDS: Amlodipine 5 MG TAB PO SCH (21:05)
[2020-08-21] MEDS: hydrALAZINE 25 MG TAB PO SCH (21:06)
[2020-08-21] MEDS: Lantus 1000 UNITS/10 ML VIAL SC SCH (21:07)
[2020-08-21] MEDS ORDERED: Melatonin 3 MG TAB PO PRN (21:27)
[2020-08-22] MEDS: Labetalol HCl 100 MG/20 ML VIAL SLOW IVP PRN ×2 (03:35→15:07)
[2020-08-22] MEDS: Sodium Chloride 0.9% 1,000 ML IV SCH (05:13)
[2020-08-22 06:27] LABS: Anion Gap 15 mmol/L (10-20); BUN (Urea Nitrogen) 19 mg/dL (9.8-20.1); Calc. Creatinine Clearance 32 mL/min (70-130); Calcium 9.5 mg/dL (7.8-10.44); Carbon Dioxide 19 mmol/L (23-31); Chloride 106 mmol/L (98-107); Glucose 126 mg/dL (80-115); Magnesium 1.7 mg/dL (1.6-2.6); Potassium 3.4 mmol/L (3.5-5.1); Sodium 137 mmol/L (136-145)
[2020-08-22 06:40] LABS: #Lymphocytes 1.9 thou/uL (1.20-3.40); #Monocytes 0.5 thou/uL (0.11-0.59); #Neutrophils 8.4 thou/uL (1.40-6.50); %Basophils 0.4 % (0.0-1.0); %Eosinophils 0.1 % (0.0-10.0); %Lymphocytes 17.4 % (21.0-51.0); %Monocytes 4.4 % (0.0-10.0); %Neutrophils 77.8 % (42.0-75.0); Hemoglobin 12.4 g/dL (12.0-16.0); Mean Corpuscular HGB CONC 33.4 g/dL (32.0-36.0); Mean Corpuscular Hemoglobin 29.2 pg (27.0-31.0); Mean Corpuscular Volume 87.4 fL (78.0-98.0); Mean Platelet Volume 8.9 fL (7.4-10.4); Platelet Count 188 thou/uL (130-400); RBC Distribution Width 13.8 % (11.5-14.5); Red Blood Cell (RBC) Count 4.26 mill/uL (4.20-5.40); White Blood Cell (WBC) Count 10.7 thou/uL (4.8-10.8)
[2020-08-22] MEDS: Lisinopril 10 MG TAB PO SCH (08:12)
[2020-08-22] MEDS: Polyethylene Glycol 3350 17 GM Packet PO SCH ×2 (08:12→20:19)
[2020-08-22] MEDS: Carvedilol 6.25 MG TAB PO SCH ×2 (08:12→16:31)
[2020-08-22] MEDS: hydrALAZINE 25 MG TAB PO SCH ×3 (08:12→20:18)
[2020-08-22] MEDS: Amlodipine 5 MG TAB PO SCH ×2 (08:12→20:17)
[2020-08-22] MEDS: Potassium Chloride 20 MEQ TAB PO SCH ×2 (08:12→09:48)
[2020-08-22] MEDS: Senokot S 8.6-50 MG TAB PO SCH ×2 (08:13→20:16)
[2020-08-22] MEDS: Atorvastatin Calcium 40 MG TAB PO SCH (08:13)
[2020-08-22] MEDS: Lantus 1000 UNITS/10 ML VIAL SC SCH ×3 (08:14→20:55)
[2020-08-22] MEDS: Ondansetron PF 4 MG/2 ML Vial IVP PRN (08:28)
[2020-08-22] MEDS ORDERED: Magnesium Sulfate 2 GM in Sodium Chloride 0.9% 100 ML IVPB SCH (09:00)
[2020-08-22] MEDS ORDERED: Potassium Chloride 20 MEQ TAB PO SCH (09:00)
[2020-08-22] MEDS ORDERED: Amlodipine 5 MG TAB PO SCH (09:00)
[2020-08-22] MEDS ORDERED: Magnesium 2 GM/50 ML 2 GM in Premix Bag 1 BAG IVPB SCH (09:30)
[2020-08-22] MEDS: Bisacodyl 10 MG SUPP PR SCH (20:17)
[2020-08-22] MEDS: Melatonin 3 MG TAB PO SCH (20:17)
[2020-08-23] MEDS: Labetalol HCl 100 MG/20 ML VIAL SLOW IVP PRN (02:14)
[2020-08-23] MEDS: Sodium Chloride 0.9% 1,000 ML IV SCH ×2 (03:38→08:23)
[2020-08-23 05:44] LABS: #Eosinphils 0.1 thou/uL (0.0-0.7); #Monocytes 0.5 thou/uL (0.11-0.59); #Neutrophils 5.3 thou/uL (1.40-6.50); %Basophils 0.2 % (0.0-1.0); %Eosinophils 0.8 % (0.0-10.0); %Lymphocytes 25.8 % (21.0-51.0); %Monocytes 6.7 % (0.0-10.0); %Neutrophils 66.6 % (42.0-75.0); Hemoglobin 12.3 g/dL (12.0-16.0); Mean Corpuscular HGB CONC 32.9 g/dL (32.0-36.0); Mean Corpuscular Hemoglobin 28.9 pg (27.0-31.0); Mean Corpuscular Volume 87.9 fL (78.0-98.0); Mean Platelet Volume 9.1 fL (7.4-10.4); Platelet Count 176 thou/uL (130-400); RBC Distribution Width 13.6 % (11.5-14.5); Red Blood Cell (RBC) Count 4.25 mill/uL (4.20-5.40); White Blood Cell (WBC) Count 7.9 thou/uL (4.8-10.8)
[2020-08-23 06:08] LABS: Anion Gap 11 mmol/L (10-20); BUN (Urea Nitrogen) 17 mg/dL (9.8-20.1); Calc. Creatinine Clearance 34 mL/min (70-130); Carbon Dioxide 21 mmol/L (23-31); Chloride 107 mmol/L (98-107); Glucose 75 mg/dL (80-115); Magnesium 2.1 mg/dL (1.6-2.6); Potassium 3.2 mmol/L (3.5-5.1); Sodium 136 mmol/L (136-145)
[2020-08-23] MEDS: Atorvastatin Calcium 40 MG TAB PO SCH (08:24)
[2020-08-23] MEDS: Lisinopril 10 MG TAB PO SCH (08:24)
[2020-08-23] MEDS: Senokot S 8.6-50 MG TAB PO SCH ×2 (08:24→20:26)
[2020-08-23] MEDS: Amlodipine 5 MG TAB PO SCH ×2 (08:24→20:25)
[2020-08-23] MEDS: Potassium Chloride 20 MEQ TAB PO SCH ×2 (08:24→16:55)
[2020-08-23] MEDS: hydrALAZINE 25 MG TAB PO SCH ×3 (08:25→20:25)
[2020-08-23] MEDS: Lantus 1000 UNITS/10 ML VIAL SC SCH ×2 (08:25→20:25)
[2020-08-23] MEDS: Carvedilol 6.25 MG TAB PO SCH ×2 (08:25→16:55)
[2020-08-23] MEDS: Melatonin 3 MG TAB PO SCH (20:26)
[2020-08-24] MEDS: Sodium Chloride 0.9% 1,000 ML IV SCH (01:08)
[2020-08-24] MEDS: hydrALAZINE 25 MG TAB PO SCH ×3 (09:16→21:07)
[2020-08-24] MEDS: Potassium Chloride 20 MEQ TAB PO SCH ×2 (09:16→16:25)
[2020-08-24] MEDS: Senokot S 8.6-50 MG TAB PO SCH ×2 (09:16→21:06)
[2020-08-24] MEDS: Amlodipine 5 MG TAB PO SCH ×2 (09:17→21:07)
[2020-08-24] MEDS: Lisinopril 10 MG TAB PO SCH (09:17)
[2020-08-24] MEDS: Carvedilol 6.25 MG TAB PO SCH ×2 (09:17→16:24)
[2020-08-24] MEDS: Atorvastatin Calcium 40 MG TAB PO SCH (09:17)
[2020-08-24] MEDS: Lantus 1000 UNITS/10 ML VIAL SC SCH ×2 (09:19→21:08)
[2020-08-24] MEDS: Melatonin 3 MG TAB PO SCH (21:07)
[2020-08-25] MEDS: Sodium Chloride 0.9% 1,000 ML IV SCH (00:39)
[2020-08-25 08:11] VITALS: BP 137/67; TEMP 98.7
[2020-08-25] MEDS: Lantus 1000 UNITS/10 ML VIAL SC SCH (08:35)
[2020-08-25] MEDS: Amlodipine 5 MG TAB PO SCH (08:36)
[2020-08-25] MEDS: Senokot S 8.6-50 MG TAB PO SCH (08:36)
[2020-08-25] MEDS: Atorvastatin Calcium 40 MG TAB PO SCH (08:36)
[2020-08-25] MEDS: Carvedilol 6.25 MG TAB PO SCH (08:37)
[2020-08-25] MEDS: Potassium Chloride 20 MEQ TAB PO SCH (08:37)
[2020-08-25] MEDS: hydrALAZINE 25 MG TAB PO SCH (08:37)
[2020-08-25] MEDS: Lisinopril 10 MG TAB PO SCH (08:38)
== END 2020-08-25 11:33 | disposition home or self-care (01) | DRG 304 ==
LOC: ERS 14:01 → T4-B 20:53 → OBSVTOIN 08-22 11:36
PROVIDERS: ADMIT Student in an Organized Health Care Education/Training Program; ATTEND Internal Medicine
DX: I16.0 Hypertensive urgency (principal); E11.10 Type 2 diabetes mellitus with ketoacidosis without coma; E11.43 Type 2 diabetes mellitus with diabetic autonomic (poly)neuropathy; E86.0 Dehydration; Z20.822 Contact with and (suspected) exposure to COVID-19; K59.00 Constipation, unspecified; R33.9 Retention of urine, unspecified; N18.30 Chronic kidney disease, stage 3 unspecified; E87.6 Hypokalemia; F32.9 Major depressive disorder, single episode, unspecified; E83.42 Hypomagnesemia; E11.22 Type 2 diabetes mellitus with diabetic chronic kidney disease; K31.84 Gastroparesis; I12.9 Hypertensive chronic kidney disease with stage 1 through stage 4 chronic kidney disease, or unspecified chronic kidney disease; E78.5 Hyperlipidemia, unspecified; F17.210 Nicotine dependence, cigarettes, uncomplicated; D63.1 Anemia in chronic kidney disease; Z91.81 History of falling; Z88.8 Allergy status to other drugs, medicaments and biological substances; Z90.49 Acquired absence of other specified parts of digestive tract; Z79.82 Long term (current) use of aspirin; Z79.899 Other long term (current) drug therapy
CPT/HCPCS: 36415; 36416; 74177; 80048; 80053; 81003; 81015; 82010; 82805; 83690; 83735; 83930; 84100; 84484; 85025; 93005; 96375; 96376; G0378; J0360; J1815; J2405; J2550; J2765; J3475; Q9967; U0003; U0005

== ENCOUNTER 2022-04-22 12:57 | Inpatient (IN) | payer OTHER, MEDICAID ==
[2022-04-22 13:40] LABS: Actual Bicarbonate (HCO3v) 19 mEq/L (22-28); Base Excess -3.3 mEq/L (-2.0 to +3.0); Calcium, Ionized (venous) 1.14 mmol/L (1.16-1.32); Chloride (VBG) 107 mmol/L (98-106); Hemoglobin (Hb) 13.6 g/dL (11.7-16.1); Potassium (VBG) 4.95 mmol/L (3.70-5.30); Sodium 141.2 mmol/L (133-146); pH (venous) 7.48 (7.32-7.43)
[2022-04-22] MEDS ORDERED: Ondansetron PF 4 MG/2 ML Vial ONE (13:41)
[2022-04-22] MEDS ORDERED: Promethazine HCl 12.5 MG in Sodium Chloride 0.9% 50 ML IVPB SCH (14:00)
[2022-04-22 14:25] LABS: #Basophils 0.1 thou/uL (0.0-0.2); #Eosinphils 0.2 thou/uL (0.0-0.7); #Lymphocytes 1.7 thou/uL (1.20-3.40); #Monocytes 0.4 thou/uL (0.11-0.59); #Neutrophils 4.8 thou/uL (1.40-6.50); %Basophils 0.9 % (0.0-1.0); %Eosinophils 2.5 % (0.0-10.0); %Lymphocytes 23.7 % (21.0-51.0); %Neutrophils 67.8 % (42.0-75.0); Mean Corpuscular HGB CONC 32.9 g/dL (32.0-36.0); Mean Corpuscular Volume 88.1 fl (78.0-98.0); Mean Platelet Volume 10.1 fL (7.4-10.4); Platelet Count 173 10x3/uL (130-400); RBC Distribution Width 13.7 % (11.5-14.5); Red Blood Cell (RBC) Count 4.47 mill/uL (4.20-5.40); White Blood Cell (WBC) Count 7.1 10x3/uL (4.8-10.8)
[2022-04-22 14:47] LABS: ALT (SGPT) 24 U/L (8-55); AST (SGOT) 28 U/L (5-34); Albumin 4.2 g/dL (3.4-4.8); Alkaline Phosphatase 88 U/L (40-110); Anion Gap 16 mmol/L (10-20); BUN (Urea Nitrogen) 36 mg/dL (9.8-20.1); Bilirubin, Total 0.6 mg/dL (0.2-1.2); Calc. Creatinine Clearance 0 mL/min (70-130); Calcium 10.2 mg/dL (7.8-10.44); Carbon Dioxide 17 mmol/L (23-31); Chloride 109 mmol/L (98-107); Estimated GFR 18; Glucose 245 mg/dL (80-115); Lipase 60 U/L (8-78); Protein, Total 8.2 g/dL (5.8-8.1); Sodium 138 mmol/L (136-145)
[2022-04-22] MEDS ORDERED: Pantoprazole 40 MG VIAL ONE (14:51)
[2022-04-22] MEDS ORDERED: Labetalol HCl 100 MG/20 ML VIAL ONE (16:56)
[2022-04-22 17:05] LABS: Bacteria/HPF None Seen HPF (None Seen); Bilirubin Negative (Negative); Blood, Urine Negative (Negative); Clarity Clear (Clear); Glucose, Urine (Dipstick) 500 mg/dL (Negative); Ketone, Urine Trace mg/dL (Negative); Leukocyte Negative Leu/uL (Negative); Nitrite Negative (Negative); Protein, Urine (Dipstick) 30 mg/dL (Neg-Trace); RBC/HPF 0-3 HPF (0-3); Squamous Epithelial 0-3 HPF (0-3); Urobilinogen Normal mg/dL (Less than 2); WBC/HPF 0-3 HPF (0-3); pH, Urine 6.5 (5.0-9.0)
[2022-04-22] MEDS ORDERED: Dextrose 50% Abboject 50 ML SYRINGE SLOW IVP PRN ×2 (17:44→20:11)
[2022-04-22] MEDS ORDERED: Ondansetron ODT 4 MG TAB PO PRN (17:44)
[2022-04-22] MEDS ORDERED: Dextrose 5% in Water 1,000 ML IV PRN ×2 (17:44→20:11)
[2022-04-22] MEDS ORDERED: HumaLOG 300 UNITS/3 ML VIAL SC PRN ×2 (17:44)
[2022-04-22] MEDS ORDERED: Acetaminophen 325 MG TAB PO PRN (17:44)
[2022-04-22] MEDS ORDERED: Acetaminophen 650 MG Suppository PR PRN (17:44)
[2022-04-22] MEDS ORDERED: Ondansetron PF 4 MG/2 ML Vial IVP PRN (17:44)
[2022-04-22] MEDS ORDERED: Promethazine HCl 25 MG in Sodium Chloride 0.9% 50 ML IVPB PRN (18:11)
[2022-04-22 19:09] VITALS: BMI 21.4
[2022-04-22] MEDS: hydrALAZINE 20 MG/ML VIAL SLOW IVP PRN (19:29)
[2022-04-22] MEDS: Sodium Chloride 0.9% 1,000 ML IV SCH (20:03)
[2022-04-22] MEDS ORDERED: cloNIDine 0.1 MG TAB PO PRN (20:08)
[2022-04-23] MEDS: hydrALAZINE 20 MG/ML VIAL SLOW IVP PRN (04:51)
[2022-04-23] MEDS: Sodium Chloride 0.9% 1,000 ML IV SCH ×2 (04:51→17:08)
[2022-04-23] MEDS: HumaLOG 300 UNITS/3 ML VIAL SC PRN ×3 (05:30→17:14)
[2022-04-23 05:43] LABS: #Lymphocytes 1.1 thou/uL (1.20-3.40); #Monocytes 0.3 thou/uL (0.11-0.59); #Neutrophils 8.1 thou/uL (1.40-6.50); %Basophils 0.3 % (0.0-1.0); %Eosinophils 0.2 % (0.0-10.0); %Monocytes 3.2 % (0.0-10.0); %Neutrophils 85.3 % (42.0-75.0); Hemoglobin 12.2 g/dL (12.0-16.0); Mean Corpuscular HGB CONC 32.3 g/dL (32.0-36.0); Mean Corpuscular Hemoglobin 28.5 pg (27.0-31.0); Mean Corpuscular Volume 88.3 fl (78.0-98.0); Mean Platelet Volume 9.7 fL (7.4-10.4); Platelet Count 176 10x3/uL (130-400); RBC Distribution Width 13.8 % (11.5-14.5); Red Blood Cell (RBC) Count 4.29 mill/uL (4.20-5.40); White Blood Cell (WBC) Count 9.5 10x3/uL (4.8-10.8)
[2022-04-23 06:02] LABS: Anion Gap 20 mmol/L (10-20); BUN (Urea Nitrogen) 35 mg/dL (9.8-20.1); Calc. Creatinine Clearance 25 mL/min (70-130); Calcium 9.4 mg/dL (7.8-10.44); Carbon Dioxide 14 mmol/L (23-31); Chloride 110 mmol/L (98-107); Estimated GFR 24; Glucose 292 mg/dL (80-115); Sodium 140 mmol/L (136-145)
[2022-04-23] MEDS: Pantoprazole 40 MG VIAL IVP SCH (08:55)
[2022-04-23] MEDS ORDERED: Lisinopril 20 MG TAB PO SCH (09:15)
[2022-04-23] MEDS ORDERED: Amlodipine 10 MG TAB PO SCH (09:15)
[2022-04-23] MEDS: Carvedilol 6.25 MG TAB PO SCH (20:05)
[2022-04-23] MEDS: hydrALAZINE 25 MG TAB PO SCH (20:05)
[2022-04-23] MEDS ORDERED: Atorvastatin Calcium 40 MG TAB PO SCH (21:00)
[2022-04-24] MEDS: Sodium Chloride 0.9% 1,000 ML IV SCH ×2 (03:35→13:00)
[2022-04-24] MEDS: HumaLOG 300 UNITS/3 ML VIAL SC PRN (05:43)
[2022-04-24] MEDS: Amlodipine 5 MG TAB PO SCH ×2 (05:43→08:57)
[2022-04-24] MEDS: hydrALAZINE 25 MG TAB PO SCH ×2 (08:56→14:23)
[2022-04-24] MEDS: Carvedilol 6.25 MG TAB PO SCH (08:56)
[2022-04-24] MEDS: Pantoprazole 40 MG VIAL IVP SCH (08:57)
[2022-04-24] MEDS ORDERED: Insulin Glargine 30 UNITS/0.3 ML VIAL SC SCH (09:00)
[2022-04-24] MEDS ORDERED: Aspirin 81 mg Enteric Coated Tablet PO SCH (09:00)
[2022-04-24] MEDS ORDERED: Vortioxetine Hydrobromide [Trintellix] 10 MG Tablet PO SCH (09:00)
[2022-04-24] MEDS ORDERED: Lisinopril 10 MG TAB PO SCH (09:00)
[2022-04-24 12:19] VITALS: TEMP 97.9
[2022-04-24 14:24] VITALS: BP 178/77
== END 2022-04-24 14:55 | disposition home or self-care (01) | DRG 305 ==
LOC: ERS 12:57 → T4-B 18:48 → OBSVTOIN 04-23 15:02
PROVIDERS: ADMIT Family Medicine; ATTEND Internal Medicine
DX: I16.0 Hypertensive urgency (principal); N17.9 Acute kidney failure, unspecified; E78.5 Hyperlipidemia, unspecified; E11.22 Type 2 diabetes mellitus with diabetic chronic kidney disease; I12.9 Hypertensive chronic kidney disease with stage 1 through stage 4 chronic kidney disease, or unspecified chronic kidney disease; F12.10 Cannabis abuse, uncomplicated; F17.210 Nicotine dependence, cigarettes, uncomplicated; Z60.2 Problems related to living alone; E11.65 Type 2 diabetes mellitus with hyperglycemia; N18.9 Chronic kidney disease, unspecified; Z88.8 Allergy status to other drugs, medicaments and biological substances; Z79.82 Long term (current) use of aspirin; Z79.899 Other long term (current) drug therapy; Z79.4 Long term (current) use of insulin; Z90.49 Acquired absence of other specified parts of digestive tract
CPT/HCPCS: 36415; 36416; 74176; 80048; 80053; 81003; 81015; 82010; 82805; 83690; 83930; 84484; 85025; 93005; 96361; 96365; 96372; 96375; 96376; C9113; G0378; J0360; J1650; J1815; J2405; J2550; J7050; U0003; U0005

== ENCOUNTER 2022-05-06 11:55 | Inpatient (IN) | payer OTHER, MEDICAID ==
[2022-05-06 13:00] LABS: #Eosinphils 0.2 thou/uL (0.0-0.7); #Lymphocytes 1.7 thou/uL (1.20-3.40); #Monocytes 0.4 thou/uL (0.11-0.59); #Neutrophils 4.6 thou/uL (1.40-6.50); %Basophils 0.6 % (0.0-1.0); %Eosinophils 2.5 % (0.0-10.0); %Lymphocytes 25.1 % (21.0-51.0); %Monocytes 5.4 % (0.0-10.0); %Neutrophils 66.4 % (42.0-75.0); Hemoglobin 10.1 g/dL (12.0-16.0); Mean Corpuscular HGB CONC 32.7 g/dL (32.0-36.0); Mean Corpuscular Hemoglobin 29.5 pg (27.0-31.0); Mean Corpuscular Volume 90.3 fl (78.0-98.0); Mean Platelet Volume 8.7 fL (7.4-10.4); Platelet Count 242 10x3/uL (130-400); RBC Distribution Width 13.5 % (11.5-14.5); Red Blood Cell (RBC) Count 3.42 mill/uL (4.20-5.40); White Blood Cell (WBC) Count 6.9 10x3/uL (4.8-10.8)
[2022-05-06 13:27] LABS: ALT (SGPT) 14 U/L (8-55); AST (SGOT) 17 U/L (5-34); Alkaline Phosphatase 116 U/L (40-110); Anion Gap 16 mmol/L (10-20); BUN (Urea Nitrogen) 21 mg/dL (9.8-20.1); Bilirubin, Total 0.4 mg/dL (0.2-1.2); Calc. Creatinine Clearance 0 mL/min (70-130); Calcium 9.5 mg/dL (7.8-10.44); Carbon Dioxide 21 mmol/L (23-31); Chloride 102 mmol/L (98-107); Estimated GFR 15; Globulin 3.6 g/dL (2.4-3.5); Potassium 5.3 mmol/L (3.5-5.1); Protein, Total 7.6 g/dL (5.8-8.1); Sodium 134 mmol/L (136-145)
[2022-05-06 13:36] LABS: Glucose 551 mg/dL (80-115)
[2022-05-06] MEDS ORDERED: Bacitracin 1 PK ONE (14:18)
[2022-05-06 14:51] LABS: Bilirubin Negative (Negative); Blood, Urine Negative (Negative); Clarity Clear (Clear); Glucose, Urine (Dipstick) Greater than 1000 mg/dL (Negative); Ketone, Urine Negative (Negative); Leukocyte Negative Leu/uL (Negative); Nitrite Negative (Negative); Protein, Urine (Dipstick) 20 mg/dL (Neg-Trace); Specific Gravity, Urine 1.019 (1.002-1.036); Urobilinogen Normal mg/dL (Less than 2); pH, Urine 6.5 (5.0-9.0)
[2022-05-06] MEDS ORDERED: Insulin Glargine 30 UNITS/0.3 ML VIAL SC SCH ×2 (15:30→21:00)
[2022-05-06] MEDS ORDERED: Dextrose 5% in Water 1,000 ML IV PRN (15:39)
[2022-05-06] MEDS ORDERED: Dextrose 50% Abboject 50 ML SYRINGE SLOW IVP PRN (15:39)
[2022-05-06] MEDS ORDERED: Insulin Regular 300 UNITS/3 ML VIAL SC PRN ×2 (15:39)
[2022-05-06] MEDS ORDERED: Ondansetron PF 4 MG/2 ML Vial IVP PRN (15:44)
[2022-05-06] MEDS ORDERED: Acetaminophen 325 MG TAB PO PRN ×2 (15:44→16:02)
[2022-05-06] MEDS ORDERED: Senokot S 8.6-50 MG TAB PO PRN (15:44)
[2022-05-06] MEDS ORDERED: Ondansetron ODT 4 MG TAB PO PRN (15:44)
[2022-05-06] MEDS ORDERED: Calcium Carbonate 500 MG ChewTAB PO PRN (15:44)
[2022-05-06] MEDS ORDERED: Nitroglycerin 0.4 MG TAB (25 Tab Bottle) SL PRN (15:56)
[2022-05-06 15:57] LABS: Magnesium 1.8 mg/dL (1.6-2.6)
[2022-05-06] MEDS ORDERED: Aspirin Chewable 81 MG TAB PO SCH (16:00)
[2022-05-06] MEDS ORDERED: hydrALAZINE 25 MG TAB PO PRN (16:00)
[2022-05-06] MEDS ORDERED: traMADol HCl 50 MG TAB PO PRN (16:01)
[2022-05-06] MEDS: Sodium Chloride 0.9% 1,000 ML IV SCH (17:07)
[2022-05-06] MEDS: Carvedilol 6.25 MG TAB PO SCH (17:07)
[2022-05-06 17:37] VITALS: BMI 20.8
[2022-05-06] MEDS ORDERED: Labetalol HCl 100 MG/20 ML VIAL SLOW IVP PRN (17:51)
[2022-05-06] MEDS: Acetaminophen 325 MG TAB PO SCH (20:14)
[2022-05-06] MEDS: Amlodipine 5 MG TAB PO SCH (20:15)
[2022-05-06] MEDS: Famotidine 20 MG TAB PO SCH (20:16)
[2022-05-06] MEDS: Heparin 5,000 UNITS/ML VIAL SC SCH (20:17)
[2022-05-06] MEDS: hydrALAZINE 25 MG TAB PO SCH (20:17)
[2022-05-07] MEDS: Sodium Chloride 0.9% 1,000 ML IV SCH ×2 (01:00→08:34)
[2022-05-07 04:59] LABS: #Eosinphils 0.3 thou/uL (0.0-0.7); #Lymphocytes 2.7 thou/uL (1.20-3.40); #Monocytes 0.4 thou/uL (0.11-0.59); #Neutrophils 3.5 thou/uL (1.40-6.50); %Basophils 0.4 % (0.0-1.0); %Eosinophils 4.1 % (0.0-10.0); %Lymphocytes 38.9 % (21.0-51.0); %Monocytes 5.7 % (0.0-10.0); Hemoglobin 9.3 g/dL (12.0-16.0); Mean Corpuscular HGB CONC 32.4 g/dL (32.0-36.0); Mean Corpuscular Hemoglobin 29.1 pg (27.0-31.0); Mean Corpuscular Volume 89.7 fl (78.0-98.0); Mean Platelet Volume 8.5 fL (7.4-10.4); Platelet Count 239 10x3/uL (130-400); RBC Distribution Width 13.5 % (11.5-14.5); Red Blood Cell (RBC) Count 3.19 mill/uL (4.20-5.40); White Blood Cell (WBC) Count 6.9 10x3/uL (4.8-10.8)
[2022-05-07 05:22] LABS: ALT (SGPT) 12 U/L (8-55); AST (SGOT) 14 U/L (5-34); Albumin 3.4 g/dL (3.4-4.8); Alkaline Phosphatase 69 U/L (40-110); Anion Gap 12 mmol/L (10-20); BUN (Urea Nitrogen) 24 mg/dL (9.8-20.1); Bilirubin, Total 0.3 mg/dL (0.2-1.2); Calc. Creatinine Clearance 21 mL/min (70-130); Calcium 8.7 mg/dL (7.8-10.44); Carbon Dioxide 22 mmol/L (23-31); Chloride 112 mmol/L (98-107); Estimated GFR 20; Glucose 56 mg/dL (80-115); Potassium 4.3 mmol/L (3.5-5.1); Protein, Total 6.4 g/dL (5.8-8.1); Sodium 142 mmol/L (136-145)
[2022-05-07] MEDS: Carvedilol 6.25 MG TAB PO SCH ×3 (08:19→21:30)
[2022-05-07] MEDS: hydrALAZINE 25 MG TAB PO SCH ×3 (08:19→21:31)
[2022-05-07] MEDS: Aspirin Chewable 81 MG TAB PO SCH (08:19)
[2022-05-07] MEDS: Acetaminophen 325 MG TAB PO SCH ×3 (08:19→21:31)
[2022-05-07] MEDS: Amlodipine 5 MG TAB PO SCH ×2 (08:20→21:30)
[2022-05-07] MEDS: Heparin 5,000 UNITS/ML VIAL SC SCH ×2 (08:20→21:31)
[2022-05-07] MEDS ORDERED: Insulin Regular 300 UNITS/3 ML VIAL SC PRN (08:23)
[2022-05-07] MEDS ORDERED: Lactated Ringer's 1,000 ML IV SCH ×3 (08:30→12:45)
[2022-05-07] MEDS ORDERED: hydrALAZINE 25 MG TAB PO SCH (12:43)
[2022-05-07] MEDS ORDERED: Insulin Glargine 30 UNITS/0.3 ML VIAL SC SCH (21:00)
[2022-05-07] MEDS: Famotidine 20 MG TAB PO SCH (21:30)
[2022-05-08 05:45] LABS: Anion Gap 11 mmol/L (10-20); BUN (Urea Nitrogen) 23 mg/dL (9.8-20.1); Calc. Creatinine Clearance 23 mL/min (70-130); Calcium 9.1 mg/dL (7.8-10.44); Carbon Dioxide 23 mmol/L (23-31); Chloride 110 mmol/L (98-107); Estimated GFR 22; Glucose 136 mg/dL (80-115); Sodium 140 mmol/L (136-145)
[2022-05-08] MEDS: Carvedilol 6.25 MG TAB PO SCH ×2 (08:41→14:52)
[2022-05-08] MEDS: Aspirin Chewable 81 MG TAB PO SCH (08:41)
[2022-05-08] MEDS: hydrALAZINE 25 MG TAB PO SCH ×2 (08:41→14:52)
[2022-05-08] MEDS: Acetaminophen 325 MG TAB PO SCH ×2 (08:41→14:52)
[2022-05-08] MEDS: Amlodipine 5 MG TAB PO SCH (08:41)
[2022-05-08] MEDS: Heparin 5,000 UNITS/ML VIAL SC SCH (08:42)
[2022-05-08 16:08] VITALS: BP 190/78; TEMP 97.8
== END 2022-05-08 17:10 | disposition home or self-care (01) | DRG 563 ==
LOC: ERS 11:55 → 2SW 15:15 → OBSVTOIN 05-08 15:49
PROVIDERS: ADMIT Internal Medicine; ATTEND Internal Medicine
DX: S92.331A Displaced fracture of third metatarsal bone, right foot, initial encounter for closed fracture (principal); N17.9 Acute kidney failure, unspecified; N18.4 Chronic kidney disease, stage 4 (severe); E87.1 Hypo-osmolality and hyponatremia; E87.20 Acidosis, unspecified; E86.0 Dehydration; Z20.822 Contact with and (suspected) exposure to COVID-19; E78.5 Hyperlipidemia, unspecified; F17.210 Nicotine dependence, cigarettes, uncomplicated; E11.22 Type 2 diabetes mellitus with diabetic chronic kidney disease; I12.9 Hypertensive chronic kidney disease with stage 1 through stage 4 chronic kidney disease, or unspecified chronic kidney disease; S92.341A Displaced fracture of fourth metatarsal bone, right foot, initial encounter for closed fracture; S92.351A Displaced fracture of fifth metatarsal bone, right foot, initial encounter for closed fracture; E87.5 Hyperkalemia; E11.65 Type 2 diabetes mellitus with hyperglycemia; D63.1 Anemia in chronic kidney disease; E86.9 Volume depletion, unspecified; W18.30XA Fall on same level, unspecified, initial encounter; Z88.8 Allergy status to other drugs, medicaments and biological substances; Z79.82 Long term (current) use of aspirin; Z79.4 Long term (current) use of insulin; Z90.49 Acquired absence of other specified parts of digestive tract
CPT/HCPCS: 36415; 36416; 71045; 80048; 80053; 81003; 82010; 83735; 83930; 84484; 85025; 93005; 93306; 93880; 96360; G0378; J1644; J1815; J7050; J7120; U0003; U0005

== ENCOUNTER 2023-04-15 18:02 | Emergency (ER) | payer MEDICAID, MEDICARE, OTHER ==
[2023-04-15 18:35] LABS: #Eosinphils 0.2 thou/uL (0.0-0.7); #Monocytes 0.3 thou/uL (0.11-0.59); #Neutrophils 2.9 thou/uL (1.40-6.50); %Basophils 0.5 % (0.0-1.0); %Eosinophils 3.5 % (0.0-10.0); %Lymphocytes 37.8 % (21.0-51.0); %Monocytes 5.1 % (0.0-10.0); %Neutrophils 52.9 % (42.0-75.0); Hemoglobin 10.8 g/dL (12.0-16.0); Mean Corpuscular HGB CONC 31.8 g/dL (32.0-36.0); Mean Corpuscular Hemoglobin 27.4 pg (27.0-31.0); Mean Corpuscular Volume 86.3 fl (78.0-98.0); Mean Platelet Volume 11.2 fL (7.4-10.4); Platelet Count 219 10x3/uL (130-400); RBC Distribution Width 15.5 % (11.5-14.5); Red Blood Cell (RBC) Count 3.94 mill/uL (4.20-5.40); White Blood Cell (WBC) Count 5.5 10x3/uL (4.8-10.8)
[2023-04-15 19:03] LABS: ALT (SGPT) 15 U/L (8-55); AST (SGOT) 16 U/L (5-34); Albumin 4.1 g/dL (3.4-4.8); Alkaline Phosphatase 115 U/L (40-110); Anion Gap 13 mmol/L (10-20); BUN (Urea Nitrogen) 51 mg/dL (9.8-20.1); Bilirubin, Total 0.4 mg/dL (0.2-1.2); Calc. Creatinine Clearance 0 mL/min (70-130); Calcium 9.3 mg/dL (7.8-10.44); Carbon Dioxide 21 mmol/L (23-31); Chloride 103 mmol/L (98-107); Estimated GFR 11; Globulin 3.4 g/dL (2.4-3.5); Potassium 4.7 mmol/L (3.5-5.1); Protein, Total 7.5 g/dL (5.8-8.1); Sodium 132 mmol/L (136-145)
[2023-04-15 19:06] LABS: Critical Call Chemistry NUR.MH15@1906; Glucose 457 mg/dL (80-115)
[2023-04-15 19:10] LABS: Bacteria/HPF 2+ HPF (None Seen); Bilirubin Negative (Negative); Blood, Urine Negative (Negative); CAUTI Indications for Culture Pelvic or flank pain; Clarity Clear (Clear); Glucose, Urine (Dipstick) Greater than 1000 mg/dL (Negative); Ketone, Urine Negative (Negative); Leukocyte Negative Leu/uL (Negative); Nitrite Negative (Negative); Protein, Urine (Dipstick) 30 mg/dL (Neg-Trace); RBC/HPF 0-3 HPF (0-3); Specific Gravity, Urine 1.016 (1.002-1.036); Squamous Epithelial 0-3 HPF (0-3); Urobilinogen Normal mg/dL (Less than 2); WBC/HPF 0-3 HPF (0-3); pH, Urine 5.5 (5.0-9.0)
[2023-04-15 19:11] LABS: Urine Culture Reflex No No
== END 2023-04-15 20:02 | disposition home or self-care (01) ==
LOC: ERS 18:02
DX: I12.9 Hypertensive chronic kidney disease with stage 1 through stage 4 chronic kidney disease, or unspecified chronic kidney disease (principal); E11.22 Type 2 diabetes mellitus with diabetic chronic kidney disease; N18.9 Chronic kidney disease, unspecified; E11.65 Type 2 diabetes mellitus with hyperglycemia; Z79.4 Long term (current) use of insulin
CPT/HCPCS: 36415; 80053; 81001; 85025; 99283

== ENCOUNTER 2023-08-15 09:10 | Observation (INO) | payer MEDICARE ==
[2023-08-15 10:30] LABS: #Basophils 0.03 10x3/uL (0.0-0.2); %Basophils 0.5 % (0.0-1.0); %Eosinophils 3.7 % (0.0-10.0); %Lymphocytes 22.9 % (21.0-51.0); %Monocytes 5.6 % (0.0-10.0); %Neutrophils 67.1 % (42.0-75.0); Hematocrit 37.1 % (36.0-47.0); Hemoglobin 11.9 g/dL (12.0-16.0); Mean Corpuscular HGB CONC 32.1 g/dL (32.0-36.0); Mean Corpuscular Hemoglobin 27.1 pg (27.0-31.0); Mean Corpuscular Volume 84.5 fL (78.0-98.0); Mean Platelet Volume 10.6 fL (7.4-10.4); Platelet Count 237 10x3/uL (130-400); RBC Distribution Width 15.9 % (11.5-14.5); Red Blood Cell (RBC) Count 4.39 mill/uL (4.20-5.40)
[2023-08-15] MEDS ORDERED: Fluorescein Opthalmic Strip ONE (10:31)
[2023-08-15] MEDS ORDERED: Proparacaine 0.5% Opth 15 ML BOT ONE (10:31)
[2023-08-15 10:46] LABS: ALT (SGPT) 25 U/L (8-55); AST (SGOT) 30 U/L (5-34); Albumin 4.2 g/dL (3.4-4.8); Alkaline Phosphatase 110 U/L (40-110); Anion Gap 17 mmol/L (10-20); BUN (Urea Nitrogen) 34 mg/dL (9.8-20.1); Bilirubin, Total 0.4 mg/dL (0.2-1.2); Calc. Creatinine Clearance 0 mL/min (70-130); Calcium 9.7 mg/dL (7.8-10.44); Carbon Dioxide 19 mmol/L (23-31); Chloride 108 mmol/L (98-107); Estimated GFR 17; Globulin 4.3 g/dL (2.4-3.5); Glucose 308 mg/dL (80-115); Potassium 5.3 mmol/L (3.5-5.1); Protein, Total 8.5 g/dL (5.8-8.1); Sodium 139 mmol/L (136-145)
[2023-08-15 11:13] LABS: Troponin I Less than 0.010 ng/mL (< 0.028)
[2023-08-15] MEDS ORDERED: Loratadine 10 MG TAB ONE (11:22)
[2023-08-15] MEDS ORDERED: Aspirin Chewable 81 MG TAB ONE (11:27)
[2023-08-15] MEDS ORDERED: hydrALAZINE 25 MG TAB ONE ×2 (11:27→14:17)
[2023-08-15] MEDS ORDERED: Acetaminophen 650 MG Suppository PR PRN (13:11)
[2023-08-15] MEDS ORDERED: Acetaminophen 325 MG TAB PO PRN (13:11)
[2023-08-15 13:41] LABS: Troponin I Less than 0.010 ng/mL (< 0.028)
[2023-08-15] MEDS: Loratadine 10 MG TAB PO SCH (14:06)
[2023-08-15] MEDS ORDERED: Lisinopril 10 MG TAB ONE (14:17)
[2023-08-15] MEDS: Moxifloxacin 0.5% Opth Drop 3 ML BOT EA EYE SCH (14:20)
[2023-08-15] MEDS: hydrALAZINE 25 MG TAB PO SCH ×2 (14:22→20:43)
[2023-08-15] MEDS: Amlodipine 10 MG TAB PO SCH (14:22)
[2023-08-15] MEDS: Lisinopril 10 MG TAB PO SCH (14:22)
[2023-08-15] MEDS: Ciprofloxacin 0.3% Ophth Soln 2.5 ml Bottle EA EYE SCH (15:25)
[2023-08-15] MEDS ORDERED: Insulin Regular, Human 100 UNIT/ML 10 ML VIAL SC PRN (15:40)
[2023-08-15] MEDS ORDERED: Dextrose 50% Abboject 50 ML SYRINGE SLOW IVP PRN (15:40)
[2023-08-15] MEDS ORDERED: Dextrose 5% in Water 1,000 ML IV PRN (15:40)
[2023-08-15] MEDS ORDERED: Glucagon 1 MG/ML KIT IM PRN (15:40)
[2023-08-15] MEDS ORDERED: Loratadine 10 MG TAB PO PRN (16:45)
[2023-08-15 18:03] VITALS: BMI 20.2
[2023-08-15] MEDS: Erythromycin Base 0.5% Oint 1 GM TUBE EA EYE SCH (20:43)
[2023-08-15] MEDS: Carvedilol 6.25 MG TAB PO SCH (20:43)
[2023-08-15] MEDS: Atorvastatin Calcium 40 MG TAB PO SCH (20:43)
[2023-08-15 21:12] LABS: Troponin I Less than 0.010 ng/mL (< 0.028)
[2023-08-16 04:52] LABS: #Basophils 0.04 10x3/uL (0.0-0.2); %Basophils 0.8 % (0.0-1.0); %Eosinophils 4.7 % (0.0-10.0); %Lymphocytes 29.2 % (21.0-51.0); %Monocytes 7.7 % (0.0-10.0); %Neutrophils 57.4 % (42.0-75.0); Hematocrit 33.9 % (36.0-47.0); Hemoglobin 10.9 g/dL (12.0-16.0); Mean Corpuscular HGB CONC 32.2 g/dL (32.0-36.0); Mean Corpuscular Hemoglobin 27.2 pg (27.0-31.0); Mean Corpuscular Volume 84.5 fL (78.0-98.0); Mean Platelet Volume 10.8 fL (7.4-10.4); Platelet Count 220 10x3/uL (130-400); RBC Distribution Width 15.9 % (11.5-14.5); Red Blood Cell (RBC) Count 4.01 mill/uL (4.20-5.40)
[2023-08-16 05:36] LABS: Anion Gap 12 mmol/L (10-20); BUN (Urea Nitrogen) 31 mg/dL (9.8-20.1); Calc. Creatinine Clearance 19 mL/min (70-130); Calcium 9.3 mg/dL (7.8-10.44); Carbon Dioxide 20 mmol/L (23-31); Cardiac Risk 3.2 (Less than 4.5); Chloride 110 mmol/L (98-107); Cholesterol 131 mg/dl (< 200 Desired); Estimated GFR 19; Glucose 231 mg/dL (80-115); HDL Cholesterol 41 mg/dL (>60 Neg Risk); LDL Cholesterol, Calculated 74 mg/dL; Potassium 4.2 mmol/L (3.5-5.1); Sodium 138 mmol/L (136-145); Triglycerides 82 mg/dL (Less than 150)
[2023-08-16] MEDS: Insulin Regular, Human 100 UNIT/ML 10 ML VIAL SC PRN (06:22)
[2023-08-16] MEDS: Aspirin 81 mg Enteric Coated Tablet PO SCH (08:38)
[2023-08-16] MEDS: Lisinopril 20 MG TAB PO SCH (08:38)
[2023-08-16] MEDS: Gabapentin 400 MG CAP PO SCH (08:38)
[2023-08-16] MEDS: NIFEdipine XL 60 MG ER.TAB PO SCH (08:39)
[2023-08-16] MEDS: Insulin Glargine 30 UNITS/0.3 ML VIAL SC SCH (08:39)
[2023-08-16] MEDS ORDERED: Aspirin Chewable 81 MG TAB PO SCH (09:00)
[2023-08-16] MEDS ORDERED: Amlodipine 10 MG TAB PO SCH (09:00)
[2023-08-16] MEDS ORDERED: (Vortioxetine Hydrobromide [Trintellix] 10 MG Tablet) PO SCH (09:00)
[2023-08-16 16:54] VITALS: BP 132/82; TEMP 97.8
[2023-08-16] MEDS ORDERED: Atorvastatin Calcium 20 MG TAB PO SCH (21:00)
== END 2023-08-16 19:17 | disposition home or self-care (01) ==
LOC: ERS 09:10 → ERHOLD 12:55 → 2SW 17:43
PROVIDERS: ADMIT Family Medicine; ATTEND Internal Medicine
DX: I16.9 Hypertensive crisis, unspecified (principal); R07.9 Chest pain, unspecified; E11.9 Type 2 diabetes mellitus without complications; E78.5 Hyperlipidemia, unspecified; N18.9 Chronic kidney disease, unspecified; I10 Essential (primary) hypertension; Z86.69 Personal history of other diseases of the nervous system and sense organs; Z79.82 Long term (current) use of aspirin; Z79.899 Other long term (current) drug therapy; Z88.8 Allergy status to other drugs, medicaments and biological substances; Z79.4 Long term (current) use of insulin; Z98.890 Other specified postprocedural states
CPT/HCPCS: 80048; 80053; 80061; 82962 ×2; 83036; 84484 ×2; 85025 ×2; 93005; 94760; 99285; G0378 ×3; J1815; 36415; 36416

== ENCOUNTER 2023-09-15 09:32 | Inpatient (IN) | payer MEDICARE ==
[2023-09-15 11:03] LABS: #Basophils 0.04 10x3/uL (0.0-0.2); %Basophils 0.6 % (0.0-1.0); %Eosinophils 1.2 % (0.0-10.0); %Lymphocytes 19.6 % (21.0-51.0); %Monocytes 3.3 % (0.0-10.0); %Neutrophils 74.8 % (42.0-75.0); Hematocrit 37.6 % (36.0-47.0); Hemoglobin 11.8 g/dL (12.0-16.0); Mean Corpuscular HGB CONC 31.4 g/dL (32.0-36.0); Mean Corpuscular Hemoglobin 26.9 pg (27.0-31.0); Mean Corpuscular Volume 85.6 fL (78.0-98.0); Mean Platelet Volume 10.4 fL (7.4-10.4); Platelet Count 251 10x3/uL (130-400); RBC Distribution Width 15.7 % (11.5-14.5); Red Blood Cell (RBC) Count 4.39 mill/uL (4.20-5.40)
[2023-09-15] MEDS ORDERED: Promethazine HCl 25 MG/ML VIAL ONE (11:04)
[2023-09-15 11:24] LABS: ALT (SGPT) 25 U/L (8-55); AST (SGOT) 23 U/L (5-34); Alkaline Phosphatase 99 U/L (40-110); Anion Gap 15 mmol/L (10-20); BUN (Urea Nitrogen) 24 mg/dL (9.8-20.1); Bilirubin, Total 0.6 mg/dL (0.2-1.2); Calc. Creatinine Clearance 0 mL/min (70-130); Carbon Dioxide 19 mmol/L (23-31); Chloride 112 mmol/L (98-107); Estimated GFR 18; Globulin 4.3 g/dL (2.4-3.5); Glucose 303 mg/dL (80-115); Lipase 57 U/L (8-78); Potassium 4.1 mmol/L (3.5-5.1); Protein, Total 8.3 g/dL (5.8-8.1); Sodium 142 mmol/L (136-145)
[2023-09-15 11:45] LABS: Troponin I Less than 0.010 ng/mL (< 0.028)
[2023-09-15] MEDS ORDERED: Ketorolac Tromethamine 30 MG (1 mL) VIAL ONE (11:45)
[2023-09-15] MEDS ORDERED: hydrALAZINE 20 MG/ML VIAL ONE (13:18)
[2023-09-15] MEDS ORDERED: Haloperidol Lactate 5 MG/ML VIAL ONE (14:56)
[2023-09-15 16:30] LABS: Lactic Acid 1.2 mmol/L (0.5-2.2)
[2023-09-15 16:38] LABS: Troponin I Less than 0.010 ng/mL (< 0.028)
[2023-09-15 16:57] VITALS: BMI 19.7
[2023-09-15 17:00] LABS: Magnesium 1.8 mg/dL (1.6-2.6)
[2023-09-15] MEDS ORDERED: Dextrose 5% in Water 1,000 ML IV PRN (17:01)
[2023-09-15] MEDS ORDERED: Glucagon 1 MG/ML KIT IM PRN (17:01)
[2023-09-15] MEDS ORDERED: Dextrose 50% Abboject 50 ML SYRINGE SLOW IVP PRN (17:01)
[2023-09-15] MEDS ORDERED: Calcium Carbonate 500 MG ChewTAB PO PRN (17:02)
[2023-09-15] MEDS ORDERED: Acetaminophen 325 MG TAB PO PRN (17:02)
[2023-09-15 17:14] LABS: Bacteria/HPF 4+ HPF (None Seen); Bilirubin Negative (Negative); Blood, Urine Negative (Negative); CAUTI Indications for Culture Dysuria,urgency,freq; Clarity Turbid (Clear); Glucose, Urine (Dipstick) Greater than 1000 mg/dL (Negative); Ketone, Urine 10 mg/dL (Negative); Leukocyte 250 Leu/uL (Negative); Nitrite 2+ (Negative); Protein, Urine (Dipstick) 70 mg/dL (Neg-Trace); RBC/HPF 0-3 HPF (0-3); Specific Gravity, Urine 1.012 (1.002-1.036); Urobilinogen Normal mg/dL (Less than 2); WBC/HPF 21-50 HPF (0-3); pH, Urine 5.5 (5.0-9.0)
[2023-09-15 17:18] LABS: Amphetamine Not Detected (NotDetected); Barbiturates Screen Not Detected (NotDetected); Benzodiazepine Screen Not Detected (NotDetected); Cocaine Metabolite Screen Not Detected (NotDetected); Methadone Not Detected (NotDetected); Methamphetamine Not Detected (NotDetected); Opiate Screen Not Detected (NotDetected); Oxycodone Screen Not Detected (NotDetected); Phencyclidine (PCP) Not Detected (NotDetected); THC/Cannabinoid Screen Detected (NotDetected); Tricyclic Screen Not Detected (NotDetected)
[2023-09-15 17:19] LABS: Urine Culture Reflex Yes Yes
[2023-09-15] MEDS ORDERED: Labetalol HCl 100 MG/20 ML VIAL ONE (18:38)
[2023-09-15] MEDS ORDERED: cefTRIAXone (ROCEPHIN) 2 GM VIAL ONE (18:38)
[2023-09-15] MEDS ORDERED: Ondansetron PF 4 MG/2 ML Vial ONE (18:38)
[2023-09-15] MEDS ORDERED: Sodium Chloride 0.9% 100 ML ONE (18:39)
[2023-09-15] MEDS ORDERED: Nitroglycerin 2% Ointment 1 INCH/1 GM Packet ONE (18:39)
[2023-09-15] MEDS: Ondansetron PF 4 MG/2 ML Vial IVP SCH (18:44)
[2023-09-15] MEDS: Labetalol HCl 100 MG/20 ML VIAL SLOW IVP SCH (18:46)
[2023-09-15] MEDS: Dextrose 5 % And 0.9 % NaCl 1,000 ML IV SCH (18:52)
[2023-09-15] MEDS: Nitroglycerin 2% Ointment 1 INCH/1 GM Packet TOP SCH (18:57)
[2023-09-15] MEDS: cefTRIAXone\\ROCEPHIN 1 GM in Sodium Chloride 0.9% 100 ML IVPB SCH (18:57)
[2023-09-15] MEDS: Insulin NPH Human Isophane 100 UNITS/ML (10 ML VIAL) SC SCH (19:17)
[2023-09-15] MEDS: hydrALAZINE 20 MG/ML VIAL SLOW IVP PRN (21:49)
[2023-09-15] MEDS: Heparin 5,000 UNITS/ML VIAL SC SCH (21:50)
[2023-09-15] MEDS: Famotidine/PF 20 mg/2ml Vial SLOW IVP SCH (21:50)
[2023-09-15] MEDS: NIFEdipine XL 30 MG ER.TAB PO SCH (21:50)
[2023-09-16] MEDS: Insulin Lispro 100 UNIT/ML 10 ML VIAL SC PRN ×2 (01:22→12:25)
[2023-09-16 10:51] LABS: #Basophils Less than 0.03 10x3/uL (0.0-0.2); #Eosinphils Less than 0.03 10x3/uL (0.0-0.7); %Basophils 0.2 % (0.0-1.0); %Lymphocytes 13.8 % (21.0-51.0); %Monocytes 9.1 % (0.0-10.0); %Neutrophils 76.6 % (42.0-75.0); Hematocrit 35.4 % (36.0-47.0); Mean Corpuscular HGB CONC 31.1 g/dL (32.0-36.0); Mean Corpuscular Hemoglobin 27.5 pg (27.0-31.0); Mean Corpuscular Volume 88.5 fL (78.0-98.0); Mean Platelet Volume 11.1 fL (7.4-10.4); Platelet Count 257 10x3/uL (130-400); RBC Distribution Width 15.9 % (11.5-14.5)
[2023-09-16 11:23] LABS: ALT (SGPT) 21 U/L (8-55); AST (SGOT) 17 U/L (5-34); Albumin 3.9 g/dL (3.4-4.8); Alkaline Phosphatase 90 U/L (40-110); Anion Gap 16 mmol/L (10-20); BUN (Urea Nitrogen) 26 mg/dL (9.8-20.1); Bilirubin, Total 0.4 mg/dL (0.2-1.2); Calc. Creatinine Clearance 19 mL/min (70-130); Calcium 9.7 mg/dL (7.8-10.44); Carbon Dioxide 17 mmol/L (23-31); Chloride 113 mmol/L (98-107); Estimated GFR 19; Globulin 4.1 g/dL (2.4-3.5); Glucose 332 mg/dL (80-115); Magnesium 1.6 mg/dL (1.6-2.6); Potassium 3.9 mmol/L (3.5-5.1); Sodium 142 mmol/L (136-145)
[2023-09-16] MEDS: Aspirin 81 mg Enteric Coated Tablet PO SCH (15:22)
[2023-09-16] MEDS: Famotidine/PF 20 mg/2ml Vial SLOW IVP SCH (20:25)
[2023-09-16] MEDS ORDERED: Famotidine/PF 20 mg/2ml Vial SLOW IVP SCH (21:00)
[2023-09-17] MEDS: Gabapentin 400 MG CAP PO SCH (08:49)
[2023-09-17] MEDS: Carvedilol 6.25 MG TAB PO SCH (08:49)
[2023-09-17] MEDS: hydrALAZINE 25 MG TAB PO SCH (08:49)
[2023-09-17] MEDS: Cyanocobalamin (Vitamin B-12) 1,000 MCG TAB PO SCH (08:50)
[2023-09-17] MEDS ORDERED: Vortioxetine Hydrobromide [Trintellix] 10 MG Tablet PO SCH (09:00)
[2023-09-17 09:31] VITALS: BMI 19.7
[2023-09-17 12:06] VITALS: TEMP 98.7
[2023-09-17 15:32] VITALS: BP 130/63
[2023-09-17] MEDS ORDERED: Atorvastatin Calcium 40 MG TAB PO SCH (21:00)
== END 2023-09-17 16:54 | disposition home or self-care (01) | DRG 682 ==
LOC: ERS 09:32 → ERHOLD 16:37 → 2SW 21:24 → OBSVTOIN 09-16 17:23
PROVIDERS: ADMIT Internal Medicine; ATTEND Internal Medicine
DX: N17.9 Acute kidney failure, unspecified (principal); E11.10 Type 2 diabetes mellitus with ketoacidosis without coma; N39.0 Urinary tract infection, site not specified; E86.0 Dehydration; I16.0 Hypertensive urgency; I12.9 Hypertensive chronic kidney disease with stage 1 through stage 4 chronic kidney disease, or unspecified chronic kidney disease; E11.22 Type 2 diabetes mellitus with diabetic chronic kidney disease; E78.5 Hyperlipidemia, unspecified; Z88.8 Allergy status to other drugs, medicaments and biological substances; Z79.82 Long term (current) use of aspirin; Z79.899 Other long term (current) drug therapy; Z79.4 Long term (current) use of insulin; Z90.49 Acquired absence of other specified parts of digestive tract; Z98.890 Other specified postprocedural states; F17.210 Nicotine dependence, cigarettes, uncomplicated; N18.4 Chronic kidney disease, stage 4 (severe); F32.A Depression, unspecified
CPT/HCPCS: 36415; 36416; 74176; 80053; 80306; 82010; 83605; 83690; 83735; 84484; 85025; 87077; 87086; 87186; 93005; 96361; 96365; 96372; 96375; 96376; G0378; J0360; J0696; J1630; J1644; J1815; J1885; J2405; J2550; J3490; J7042; S0028

== ENCOUNTER 2024-10-05 21:44 | Inpatient (IN) | payer OTHER ==
[2024-10-05] MEDS ORDERED: Droperidol 5 MG/2 ML VIAL ONE (23:27)
[2024-10-05 23:31] LABS: #Basophils 0.03 10x3/uL (0.0-0.2); #Eosinophils 0.28 10x3/uL (0.0-0.7); #Monocytes 0.42 10x3/uL (0.11-0.59); #Neutrophils 6.78 10x3/uL (1.40-6.50); %Basophils 0.3 % (0.0-1.0); %Eosinophils 3.2 % (0.0-10.0); %Lymphocytes 13.5 % (21.0-51.0); %Monocytes 4.8 % (0.0-10.0); %Neutrophils 77.5 % (42.0-75.0); Hematocrit 34.4 % (36.0-47.0); Hemoglobin 11.0 g/dL (12.0-16.0); Mean Corpuscular Hemoglobin 27.2 pg (27.0-31.0); Mean Corpuscular Volume 84.9 fL (78.0-98.0); Platelet Count 200 10x3/uL (130-400); Red Blood Cell (RBC) Count 4.05 mill/uL (4.20-5.40); White Blood Cell (WBC) Count 8.75 10x3/uL (4.8-10.8)
[2024-10-05 23:52] LABS: Lipase 21 U/L (8-78)
[2024-10-05 23:55] LABS: Acetaminophen Less than 10 mcg/mL (Less than 10); Magnesium 2.0 mg/dL (1.6-2.6); Salicylate Less than 8.0 mg/dL (Less than 8.0)
[2024-10-05 23:56] LABS: ALT (SGPT) 11 U/L (Less than 34); AST (SGOT) 13 U/L (11-34); Albumin 4.2 g/dL (3.1-4.5); Alkaline Phosphatase 98 U/L (40-110); Anion Gap 19 mmol/L (10-20); BUN (Urea Nitrogen) 33 mg/dL (9.8-20.1); Bilirubin, Total 0.7 mg/dL (0.3-1.2); Calc. Creatinine Clearance 0 mL/min (70-130); Calcium 9.7 mg/dL (7.8-10.44); Carbon Dioxide 17 mmol/L (23-31); Chloride 105 mmol/L (98-107); Globulin 3.9 g/dL (2.4-3.5); Glucose 366 mg/dL (83-110); Potassium 3.9 mmol/L (3.5-5.1); Sodium 137 mmol/L (136-145)
[2024-10-05 23:58] LABS: Troponin I Less than 0.010 ng/mL (< 0.028)
[2024-10-06] MEDS ORDERED: hydrALAZINE 20 MG/ML VIAL ONE (00:55)
[2024-10-06 01:34] LABS: Cocaine Metabolite Screen Negative (Negative); THC/Cannabinoid Screen PRELIM POSITIVE (Negative); Tricyclic Screen Negative (Negative)
[2024-10-06] MEDS ORDERED: Pantoprazole 40 MG VIAL ONE (01:48)
[2024-10-06] MEDS ORDERED: niCARdipine 25 MG/10 ML SDV ONE (02:09)
[2024-10-06] MEDS: niCARdipine 25 MG in Sodium Chloride 0.9% 250 ML 250 ML IVPB SCH ×2 (02:48→08:21)
[2024-10-06 03:34] LABS: Base Excess -7.5 mEq/L (-2.0 to +3.0); Calcium, Ionized (venous) 1.01 mmol/L (1.16-1.32); Chloride (VBG) 107 mmol/L (98-106); Hematocrit-VBG 36 % (36.0-47.0); Hemoglobin (Hb) 12.4 g/dL (11.7-16.1); Sodium 138 mmol/L (133-146)
[2024-10-06 03:35] LABS: Actual Bicarbonate (HCO3v) 14.6 mEq/L (22-28); Potassium (VBG) 6.98 mmol/L (3.70-5.30)
[2024-10-06 04:26] VITALS: BMI 22.3
[2024-10-06] MEDS ORDERED: Calcium Carbonate 500 MG ChewTAB PO PRN (04:29)
[2024-10-06] MEDS ORDERED: Ondansetron PF 4 MG/2 ML Vial IVP PRN (04:29)
[2024-10-06] MEDS ORDERED: Glucagon 1 MG/ML KIT IM PRN (04:32)
[2024-10-06 07:59] LABS: Anion Gap 23 mmol/L (10-20); BUN (Urea Nitrogen) 33 mg/dL (9.8-20.1); Calc. Creatinine Clearance 15 mL/min (70-130); Calcium 8.8 mg/dL (7.8-10.44); Carbon Dioxide 12 mmol/L (23-31); Chloride 111 mmol/L (98-107); Glucose 445 mg/dL (83-110); Potassium 3.9 mmol/L (3.5-5.1); Sodium 142 mmol/L (136-145)
[2024-10-06] MEDS: Insulin Glargine 30 UNITS/0.3 ML VIAL SC SCH (08:20)
[2024-10-06] MEDS ORDERED: NS 0.9% w/ 20 MEQ KCL 1,000 ML/1,000 ML BAG IV PRN (09:00)
[2024-10-06] MEDS ORDERED: (Vortioxetine Hydrobromide [Trintellix] 10 MG Tablet) PO SCH (09:00)
[2024-10-06] MEDS: NS 0.9% w/ 20 MEQ KCL 1,000 ML/1,000 ML BAG IV PRN (09:21)
[2024-10-06] MEDS: Pantoprazole 40 MG VIAL IVP SCH (09:25)
[2024-10-06] MEDS: Heparin 5,000 UNITS/ML VIAL SC SCH (09:25)
[2024-10-06] MEDS: Carvedilol 25 MG TAB PO SCH (09:25)
[2024-10-06] MEDS: Sodium Bicarbonate Tab 325 MG TAB PO SCH ×2 (09:25→15:04)
[2024-10-06] MEDS: Gabapentin 400 MG CAP PO SCH (09:26)
[2024-10-06] MEDS: INSULIN REGULAR IN 0.9 % NACL 100 ML IVPB SCH (09:34)
[2024-10-06] MEDS: D5 1/2 NS w/20 mEq KCL 1,000 ML IV PRN (12:42)
[2024-10-06] MEDS: Dextrose 50% Abboject 50 ML SYRINGE SLOW IVP PRN (12:42)
[2024-10-06 21:22] LABS: Anion Gap 16 mmol/L (10-20); BUN (Urea Nitrogen) 30 mg/dL (9.8-20.1); Calc. Creatinine Clearance 17 mL/min (70-130); Calcium 9.0 mg/dL (7.8-10.44); Carbon Dioxide 17 mmol/L (23-31); Chloride 116 mmol/L (98-107); Glucose 82 mg/dL (83-110); Potassium 4.8 mmol/L (3.5-5.1); Sodium 144 mmol/L (136-145)
[2024-10-07 01:38] LABS: #Basophils Less than 0.03 10x3/uL (0.0-0.2); #Eosinophils 0.05 10x3/uL (0.0-0.7); #Monocytes 0.96 10x3/uL (0.11-0.59); #Neutrophils 8.58 10x3/uL (1.40-6.50); %Basophils 0.2 % (0.0-1.0); %Eosinophils 0.5 % (0.0-10.0); %Lymphocytes 11.7 % (21.0-51.0); %Monocytes 8.8 % (0.0-10.0); %Neutrophils 78.6 % (42.0-75.0); Hematocrit 29.7 % (36.0-47.0); Hemoglobin 9.2 g/dL (12.0-16.0); Mean Corpuscular Hemoglobin 26.7 pg (27.0-31.0); Mean Corpuscular Volume 86.1 fL (78.0-98.0); Platelet Count 186 10x3/uL (130-400); Red Blood Cell (RBC) Count 3.45 mill/uL (4.20-5.40); White Blood Cell (WBC) Count 10.91 10x3/uL (4.8-10.8)
[2024-10-07 01:56] LABS: ALT (SGPT) 9 U/L (Less than 34); AST (SGOT) 16 U/L (11-34); Albumin 3.2 g/dL (3.1-4.5); Alkaline Phosphatase 66 U/L (40-110); Anion Gap 11 mmol/L (10-20); BUN (Urea Nitrogen) 26 mg/dL (9.8-20.1); Bilirubin, Total 0.5 mg/dL (0.3-1.2); Calc. Creatinine Clearance 17 mL/min (70-130); Calcium 8.3 mg/dL (7.8-10.44); Carbon Dioxide 18 mmol/L (23-31); Chloride 115 mmol/L (98-107); Globulin 2.9 g/dL (2.4-3.5); Glucose 165 mg/dL (83-110); Potassium 4.4 mmol/L (3.5-5.1); Sodium 140 mmol/L (136-145)
[2024-10-07] MEDS: Sodium Bicarb 50 MEQ/50 ML Abboject 8.4% SYRINGE IVP SCH (04:14)
[2024-10-07] MEDS: hydrALAZINE 20 MG/ML VIAL SLOW IVP PRN (04:25)
[2024-10-07 06:38] LABS: Anion Gap 14 mmol/L (10-20); BUN (Urea Nitrogen) 24 mg/dL (9.8-20.1); Calc. Creatinine Clearance 20 mL/min (70-130); Calcium 8.7 mg/dL (7.8-10.44); Carbon Dioxide 21 mmol/L (23-31); Chloride 113 mmol/L (98-107); Glucose 53 mg/dL (83-110); Potassium 4.4 mmol/L (3.5-5.1); Sodium 144 mmol/L (136-145)
[2024-10-07] MEDS: Metoclopramide HCl 10 MG (2 mL) VIAL IVP PRN (09:04)
[2024-10-07] MEDS: NIFEdipine XL 30 MG ER.TAB PO SCH (13:02)
[2024-10-07 13:42] LABS: Anion Gap 15 mmol/L (10-20); BUN (Urea Nitrogen) 18 mg/dL (9.8-20.1); Calc. Creatinine Clearance 22 mL/min (70-130); Calcium 8.7 mg/dL (7.8-10.44); Carbon Dioxide 17 mmol/L (23-31); Glucose 214 mg/dL (83-110); Potassium 4.0 mmol/L (3.5-5.1)
[2024-10-07 13:50] LABS: Chloride 113 mmol/L (98-107); Sodium 142 mmol/L (136-145)
[2024-10-08] MEDS: NIFEdipine XL 30 MG ER.TAB PO SCH (08:52)
[2024-10-08 10:55] LABS: Hematocrit 36.7 % (36.0-47.0); Hemoglobin 11.4 g/dL (12.0-16.0); Mean Corpuscular Hemoglobin 26.7 pg (27.0-31.0); Mean Corpuscular Volume 85.9 fL (78.0-98.0); Platelet Count 212 10x3/uL (130-400); Red Blood Cell (RBC) Count 4.27 mill/uL (4.20-5.40); White Blood Cell (WBC) Count 6.81 10x3/uL (4.8-10.8)
[2024-10-08 11:15] LABS: Anion Gap 13 mmol/L (10-20); BUN (Urea Nitrogen) 16 mg/dL (9.8-20.1); Calc. Creatinine Clearance 22 mL/min (70-130); Calcium 8.7 mg/dL (7.8-10.44); Carbon Dioxide 23 mmol/L (23-31); Chloride 110 mmol/L (98-107); Glucose 87 mg/dL (83-110); Potassium 3.3 mmol/L (3.5-5.1); Sodium 143 mmol/L (136-145)
[2024-10-08] MEDS: Acetaminophen 325 MG TAB PO PRN (15:32)
[2024-10-09 09:22] LABS: Anion Gap 15 mmol/L (10-20); BUN (Urea Nitrogen) 21 mg/dL (9.8-20.1); Calc. Creatinine Clearance 18 mL/min (70-130); Calcium 8.9 mg/dL (7.8-10.44); Carbon Dioxide 22 mmol/L (23-31); Chloride 109 mmol/L (98-107); Glucose 158 mg/dL (83-110); Potassium 4.2 mmol/L (3.5-5.1); Sodium 142 mmol/L (136-145)
[2024-10-09 12:24] VITALS: BP 143/75; TEMP 99.2
== END 2024-10-09 15:00 | disposition home or self-care (01) | DRG 392 ==
LOC: ERS 21:44 → ERHOLD 10-06 02:12 → CCU 10-06 06:23 → OBS 10-07 21:00
PROVIDERS: ADMIT Student in an Organized Health Care Education/Training Program; ATTEND Family Medicine
DX: R11.2 Nausea with vomiting, unspecified (principal); E87.20 Acidosis, unspecified; I13.0 Hypertensive heart and chronic kidney disease with heart failure and stage 1 through stage 4 chronic kidney disease, or unspecified chronic kidney disease; I50.32 Chronic diastolic (congestive) heart failure; N18.4 Chronic kidney disease, stage 4 (severe); N17.9 Acute kidney failure, unspecified; E11.22 Type 2 diabetes mellitus with diabetic chronic kidney disease; I16.0 Hypertensive urgency; E11.65 Type 2 diabetes mellitus with hyperglycemia; D64.9 Anemia, unspecified; E11.40 Type 2 diabetes mellitus with diabetic neuropathy, unspecified; Z88.8 Allergy status to other drugs, medicaments and biological substances; Z91.148 Patient's other noncompliance with medication regimen for other reason; Z90.49 Acquired absence of other specified parts of digestive tract; Z98.890 Other specified postprocedural states; Z79.4 Long term (current) use of insulin; Z79.899 Other long term (current) drug therapy
CPT/HCPCS: 36415; 36416; 70450; 71045; 80048; 80053; 80306; 80307; 82010; 82805; 83690; 83735; 83880; 84100; 84484; 85025; 85027; 93005; 94760; J0360; J1644; J1790; J1815; J2470; J2765; J3480; J7042; J7050; J7120; J7999; Q0162

== ENCOUNTER 2024-10-29 08:26 | Inpatient (IN) | payer OTHER ==
[2024-10-29 09:03] LABS: #Basophils 0.03 10x3/uL (0.0-0.2); #Eosinophils 0.16 10x3/uL (0.0-0.7); #Monocytes 0.23 10x3/uL (0.11-0.59); #Neutrophils 4.47 10x3/uL (1.40-6.50); %Basophils 0.5 % (0.0-1.0); %Eosinophils 2.6 % (0.0-10.0); %Lymphocytes 20.8 % (21.0-51.0); %Monocytes 3.7 % (0.0-10.0); %Neutrophils 72.2 % (42.0-75.0); Hematocrit 38.3 % (36.0-47.0); Hemoglobin 12.1 g/dL (12.0-16.0); Mean Corpuscular Hemoglobin 26.7 pg (27.0-31.0); Mean Corpuscular Volume 84.5 fL (78.0-98.0); Platelet Count 282 10x3/uL (130-400); Red Blood Cell (RBC) Count 4.53 mill/uL (4.20-5.40); White Blood Cell (WBC) Count 6.19 10x3/uL (4.8-10.8)
[2024-10-29 09:04] LABS: Actual Bicarbonate (HCO3v) 15.9 mEq/L (22-28); Base Excess -6.0 mEq/L (-2.0 to +3.0); Calcium, Ionized (venous) 1.11 mmol/L (1.16-1.32); Chloride (VBG) 105 mmol/L (98-106); Hematocrit-VBG 39 % (36.0-47.0); Hemoglobin (Hb) 13.1 g/dL (11.7-16.1); Potassium (VBG) 5.23 mmol/L (3.70-5.30); Sodium 136 mmol/L (133-146)
[2024-10-29] MEDS ORDERED: Droperidol 5 MG/2 ML VIAL ONE (09:11)
[2024-10-29 09:15] LABS: ALT (SGPT) 19 U/L (Less than 34); AST (SGOT) 21 U/L (11-34); Albumin 4.0 g/dL (3.1-4.5); Alkaline Phosphatase 99 U/L (40-110); Anion Gap 20 mmol/L (10-20); BUN (Urea Nitrogen) 24 mg/dL (9.8-20.1); Bilirubin, Total 1.0 mg/dL (0.3-1.2); Calc. Creatinine Clearance 0 mL/min (70-130); Calcium 10.1 mg/dL (7.8-10.44); Carbon Dioxide 19 mmol/L (23-31); Chloride 107 mmol/L (98-107); Globulin 4.3 g/dL (2.4-3.5); Glucose 333 mg/dL (83-110); Lipase 34 U/L (8-78); Magnesium 1.9 mg/dL (1.6-2.6); Potassium 4.0 mmol/L (3.5-5.1); Sodium 142 mmol/L (136-145)
[2024-10-29] MEDS ORDERED: INSULIN REGULAR IN 0.9 % NACL 100 ML ONE (10:35)
[2024-10-29] MEDS ORDERED: NS 0.9% w/ 20 MEQ KCL 1,000 ML IV PRN (11:12)
[2024-10-29] MEDS ORDERED: Ondansetron PF 4 MG/2 ML Vial IVP PRN (11:12)
[2024-10-29] MEDS ORDERED: Acetaminophen 325 MG TAB PO PRN (11:12)
[2024-10-29] MEDS ORDERED: INSULIN REGULAR IN 0.9 % NACL 100 ML IVPB SCH (11:15)
[2024-10-29] MEDS ORDERED: Bisacodyl 10 MG SUPP PR PRN (11:16)
[2024-10-29] MEDS ORDERED: Milk Of Magnesia 30 ML UDCUP PO PRN (11:16)
[2024-10-29 12:21] LABS: Anion Gap 16 mmol/L (10-20); BUN (Urea Nitrogen) 23 mg/dL (9.8-20.1); Calc. Creatinine Clearance 0 mL/min (70-130); Calcium 9.1 mg/dL (7.8-10.44); Carbon Dioxide 19 mmol/L (23-31); Chloride 111 mmol/L (98-107); Glucose 253 mg/dL (83-110); Potassium 4.0 mmol/L (3.5-5.1); Sodium 142 mmol/L (136-145)
[2024-10-29 13:04] VITALS: BMI 19.5
[2024-10-29] MEDS: NS 0.9% w/ 20 MEQ KCL 1,000 ML IV PRN (13:13)
[2024-10-29] MEDS: Bisacodyl 10 MG SUPP PR SCH (13:17)
[2024-10-29] MEDS: Electrolyte Replacement Protocol 1 EACH IVPB ONE (13:37)
[2024-10-29] MEDS: Dextrose 50% Abboject 50 ML SYRINGE SLOW IVP PRN (14:26)
[2024-10-29] MEDS: D5 1/2 NS w/20 mEq KCL 1,000 ML IV PRN (14:35)
[2024-10-29 16:14] LABS: Anion Gap 14 mmol/L (10-20); BUN (Urea Nitrogen) 20 mg/dL (9.8-20.1); Calc. Creatinine Clearance 21 mL/min (70-130); Calcium 8.8 mg/dL (7.8-10.44); Carbon Dioxide 19 mmol/L (23-31); Chloride 111 mmol/L (98-107); Glucose 259 mg/dL (83-110); Potassium 4.0 mmol/L (3.5-5.1); Sodium 140 mmol/L (136-145)
[2024-10-29 16:39] LABS: Glucose, Urine (Dipstick) 500 mg/dL (Negative); Leukocyte Negative Leu/uL (Negative); Protein, Urine (Dipstick) Negative (Neg-Trace); RBC/HPF 0-3 HPF (0-3); Specific Gravity, Urine 1.008 (1.002-1.036); WBC/HPF 0-3 HPF (0-3)
[2024-10-29 16:47] LABS: Bacteria/HPF 1+ HPF (None Seen)
[2024-10-29 16:59] LABS: Cocaine Metabolite Screen Negative (Negative); THC/Cannabinoid Screen PRELIM POSITIVE (Negative); Tricyclic Screen Negative (Negative)
[2024-10-29] MEDS ORDERED: Glucagon 1 MG/ML KIT IM PRN (17:56)
[2024-10-29] MEDS ORDERED: Dextrose 50% Abboject 50 ML SYRINGE SLOW IVP PRN (17:56)
[2024-10-29] MEDS ORDERED: Metoclopramide HCl 10 MG (2 mL) VIAL IVP PRN (18:00)
[2024-10-29] MEDS: Insulin Glargine 30 UNITS/0.3 ML VIAL SC SCH (18:29)
[2024-10-29 19:54] LABS: Anion Gap 17 mmol/L (10-20); BUN (Urea Nitrogen) 19 mg/dL (9.8-20.1); Calc. Creatinine Clearance 21 mL/min (70-130); Calcium 8.7 mg/dL (7.8-10.44); Carbon Dioxide 19 mmol/L (23-31); Chloride 109 mmol/L (98-107); Glucose 167 mg/dL (83-110); Potassium 3.6 mmol/L (3.5-5.1); Sodium 141 mmol/L (136-145)
[2024-10-29] MEDS: Senokot S 8.6-50 MG TAB PO SCH (21:10)
[2024-10-30 04:33] LABS: #Basophils Less than 0.03 10x3/uL (0.0-0.2); #Eosinophils 0.11 10x3/uL (0.0-0.7); #Monocytes 0.47 10x3/uL (0.11-0.59); #Neutrophils 3.71 10x3/uL (1.40-6.50); %Basophils 0.3 % (0.0-1.0); %Eosinophils 1.8 % (0.0-10.0); %Lymphocytes 27.8 % (21.0-51.0); %Monocytes 7.9 % (0.0-10.0); %Neutrophils 62.0 % (42.0-75.0); Hematocrit 29.9 % (36.0-47.0); Hemoglobin 9.1 g/dL (12.0-16.0); Mean Corpuscular Hemoglobin 26.8 pg (27.0-31.0); Mean Corpuscular Volume 88.2 fL (78.0-98.0); Platelet Count 202 10x3/uL (130-400); Red Blood Cell (RBC) Count 3.39 mill/uL (4.20-5.40); White Blood Cell (WBC) Count 5.98 10x3/uL (4.8-10.8)
[2024-10-30 05:07] LABS: ALT (SGPT) 10 U/L (Less than 34); AST (SGOT) 14 U/L (11-34); Albumin 3.1 g/dL (3.1-4.5); Alkaline Phosphatase 70 U/L (40-110); Anion Gap 13 mmol/L (10-20); BUN (Urea Nitrogen) 16 mg/dL (9.8-20.1); Bilirubin, Total 0.5 mg/dL (0.3-1.2); Calc. Creatinine Clearance 21 mL/min (70-130); Calcium 8.6 mg/dL (7.8-10.44); Carbon Dioxide 18 mmol/L (23-31); Chloride 112 mmol/L (98-107); Globulin 3.0 g/dL (2.4-3.5); Glucose 228 mg/dL (83-110); Potassium 3.7 mmol/L (3.5-5.1); Sodium 139 mmol/L (136-145)
[2024-10-30] MEDS: Insulin Glargine 30 UNITS/0.3 ML VIAL SC SCH (09:06)
[2024-10-30] MEDS: Lisinopril 10 MG TAB PO SCH (09:58)
[2024-10-30] MEDS: Carvedilol 6.25 MG TAB PO SCH (09:58)
[2024-10-31] MEDS: hydrALAZINE 20 MG/ML VIAL SLOW IVP PRN (01:45)
[2024-10-31 06:09] LABS: ALT (SGPT) 11 U/L (Less than 34); AST (SGOT) 22 U/L (11-34); Albumin 3.1 g/dL (3.1-4.5); Alkaline Phosphatase 76 U/L (40-110); Anion Gap 14 mmol/L (10-20); BUN (Urea Nitrogen) 9 mg/dL (9.8-20.1); Bilirubin, Total 0.5 mg/dL (0.3-1.2); Calc. Creatinine Clearance 24 mL/min (70-130); Calcium 9.0 mg/dL (7.8-10.44); Carbon Dioxide 19 mmol/L (23-31); Chloride 109 mmol/L (98-107); Globulin 3.5 g/dL (2.4-3.5); Glucose 230 mg/dL (83-110); Magnesium 1.5 mg/dL (1.6-2.6); Potassium 3.9 mmol/L (3.5-5.1); Sodium 138 mmol/L (136-145)
[2024-10-31 06:51] LABS: #Basophils Less than 0.03 10x3/uL (0.0-0.2); #Eosinophils 0.20 10x3/uL (0.0-0.7); #Monocytes 0.44 10x3/uL (0.11-0.59); #Neutrophils 3.20 10x3/uL (1.40-6.50); %Basophils 0.3 % (0.0-1.0); %Eosinophils 3.4 % (0.0-10.0); %Lymphocytes 33.5 % (21.0-51.0); %Monocytes 7.6 % (0.0-10.0); %Neutrophils 55.0 % (42.0-75.0); Hematocrit 32.5 % (36.0-47.0); Hemoglobin 10.3 g/dL (12.0-16.0); Mean Corpuscular Hemoglobin 26.7 pg (27.0-31.0); Mean Corpuscular Volume 84.2 fL (78.0-98.0); Platelet Count 188 10x3/uL (130-400); Red Blood Cell (RBC) Count 3.86 mill/uL (4.20-5.40); White Blood Cell (WBC) Count 5.82 10x3/uL (4.8-10.8)
[2024-10-31] MEDS: NIFEdipine XL 30 MG ER.TAB PO SCH (08:46)
[2024-10-31] MEDS: Carvedilol 6.25 MG TAB PO SCH (08:46)
[2024-10-31] MEDS: Sodium Bicarbonate Tab 325 MG TAB PO SCH (08:46)
[2024-10-31] MEDS: Gabapentin 400 MG CAP PO SCH (08:47)
[2024-10-31] MEDS ORDERED: Non-Formulary Item 1 EACH (Vortioxetine Hydrobromide [Trintellix] 10 MG Tablet) PO SCH (09:00)
[2024-10-31] MEDS ORDERED: ENALAPRIL MALEATE 10 MG PO SCH (09:00)
[2024-10-31] MEDS: Non-Formulary Item 1 EACH (Insulin Glargine,Hum.Rec.Anlog [Toujeo Max Solostar] 300 UNIT/ SQ SCH (11:19)
[2024-10-31 21:20] VITALS: BMI 19.5
[2024-11-01 06:18] LABS: #Basophils 0.03 10x3/uL (0.0-0.2); #Eosinophils 0.26 10x3/uL (0.0-0.7); #Monocytes 0.39 10x3/uL (0.11-0.59); #Neutrophils 2.00 10x3/uL (1.40-6.50); %Basophils 0.6 % (0.0-1.0); %Eosinophils 5.2 % (0.0-10.0); %Lymphocytes 46.5 % (21.0-51.0); %Monocytes 7.8 % (0.0-10.0); %Neutrophils 39.7 % (42.0-75.0); Hematocrit 30.5 % (36.0-47.0); Hemoglobin 9.7 g/dL (12.0-16.0); Mean Corpuscular Hemoglobin 27.2 pg (27.0-31.0); Mean Corpuscular Volume 85.4 fL (78.0-98.0); Platelet Count 199 10x3/uL (130-400); Red Blood Cell (RBC) Count 3.57 mill/uL (4.20-5.40); White Blood Cell (WBC) Count 5.03 10x3/uL (4.8-10.8)
[2024-11-01 06:36] LABS: ALT (SGPT) 13 U/L (Less than 34); AST (SGOT) 20 U/L (11-34); Albumin 2.9 g/dL (3.1-4.5); Alkaline Phosphatase 71 U/L (40-110); Anion Gap 10 mmol/L (10-20); BUN (Urea Nitrogen) 17 mg/dL (9.8-20.1); Bilirubin, Total 0.5 mg/dL (0.3-1.2); Calc. Creatinine Clearance 19 mL/min (70-130); Calcium 8.8 mg/dL (7.8-10.44); Carbon Dioxide 24 mmol/L (23-31); Chloride 111 mmol/L (98-107); Globulin 3.2 g/dL (2.4-3.5); Glucose 111 mg/dL (83-110); Magnesium 1.4 mg/dL (1.6-2.6); Potassium 3.6 mmol/L (3.5-5.1); Sodium 141 mmol/L (136-145)
[2024-11-01] MEDS: metroNIDAZOLE 0.75% 70 GM TUBE VAG SCH ×2 (12:53→20:46)
[2024-11-02 06:08] LABS: #Basophils 0.03 10x3/uL (0.0-0.2); #Eosinophils 0.30 10x3/uL (0.0-0.7); #Monocytes 0.36 10x3/uL (0.11-0.59); #Neutrophils 2.08 10x3/uL (1.40-6.50); %Basophils 0.6 % (0.0-1.0); %Eosinophils 6.2 % (0.0-10.0); %Lymphocytes 42.3 % (21.0-51.0); %Monocytes 7.5 % (0.0-10.0); %Neutrophils 43.2 % (42.0-75.0); Hematocrit 30.5 % (36.0-47.0); Hemoglobin 9.4 g/dL (12.0-16.0); Mean Corpuscular Hemoglobin 26.6 pg (27.0-31.0); Mean Corpuscular Volume 86.4 fL (78.0-98.0); Platelet Count 180 10x3/uL (130-400); Red Blood Cell (RBC) Count 3.53 mill/uL (4.20-5.40); White Blood Cell (WBC) Count 4.82 10x3/uL (4.8-10.8)
[2024-11-02 06:30] LABS: Anion Gap 14 mmol/L (10-20); BUN (Urea Nitrogen) 20 mg/dL (9.8-20.1); Calc. Creatinine Clearance 19 mL/min (70-130); Calcium 8.6 mg/dL (7.8-10.44); Carbon Dioxide 22 mmol/L (23-31); Chloride 109 mmol/L (98-107); Glucose 163 mg/dL (83-110); Potassium 3.8 mmol/L (3.5-5.1); Sodium 141 mmol/L (136-145)
[2024-11-02] MEDS: Insulin Glargine 30 UNITS/0.3 ML VIAL SC SCH (12:45)
[2024-11-02 16:52] VITALS: BP 112/60; TEMP 97.9
== END 2024-11-02 16:53 | disposition home or self-care (01) | DRG 391 ==
LOC: ERS 08:26 → SUATTDRO 08:26 → ERHOLD 11:15 → IMCU/EMU 12:59 → T4-A 10-31 11:14
PROVIDERS: ADMIT Family Medicine; ATTEND Internal Medicine
DX: R11.2 Nausea with vomiting, unspecified (principal); E11.10 Type 2 diabetes mellitus with ketoacidosis without coma; N17.9 Acute kidney failure, unspecified; N18.4 Chronic kidney disease, stage 4 (severe); Z68.1 Body mass index [BMI] 19.9 or less, adult; E44.0 Moderate protein-calorie malnutrition; E78.5 Hyperlipidemia, unspecified; I12.9 Hypertensive chronic kidney disease with stage 1 through stage 4 chronic kidney disease, or unspecified chronic kidney disease; F17.210 Nicotine dependence, cigarettes, uncomplicated; E11.22 Type 2 diabetes mellitus with diabetic chronic kidney disease; I25.10 Atherosclerotic heart disease of native coronary artery without angina pectoris; F32.A Depression, unspecified; K59.00 Constipation, unspecified; F12.99 Cannabis use, unspecified with unspecified cannabis-induced disorder; Z88.8 Allergy status to other drugs, medicaments and biological substances; Z98.890 Other specified postprocedural states; Z90.49 Acquired absence of other specified parts of digestive tract; Z79.899 Other long term (current) drug therapy; Z79.4 Long term (current) use of insulin
CPT/HCPCS: 36415; 36416; 74176; 80048; 80053; 80306; 80307; 81001; 82010; 82805; 83036; 83605; 83690; 83735; 84100; 84443; 84484; 85025; 87077; 87086; 87426; 93005; 94760; 96361; 96365; 96366; 96375; 96376; J0360; J1790; J1815; J3010; J3480; J7120; J7999

== ENCOUNTER 2024-11-09 02:17 | Emergency (ER) | payer MEDICARE, OTHER ==
[2024-11-09 02:57] LABS: #Basophils 0.03 10x3/uL (0.0-0.2); #Eosinophils 0.41 10x3/uL (0.0-0.7); #Monocytes 0.51 10x3/uL (0.11-0.59); #Neutrophils 4.38 10x3/uL (1.40-6.50); %Basophils 0.4 % (0.0-1.0); %Eosinophils 5.7 % (0.0-10.0); %Lymphocytes 26.0 % (21.0-51.0); %Monocytes 7.1 % (0.0-10.0); %Neutrophils 60.7 % (42.0-75.0); Hematocrit 29.4 % (36.0-47.0); Hemoglobin 9.3 g/dL (12.0-16.0); Mean Corpuscular Hemoglobin 27.4 pg (27.0-31.0); Mean Corpuscular Volume 86.5 fL (78.0-98.0); Platelet Count 203 10x3/uL (130-400); Red Blood Cell (RBC) Count 3.40 mill/uL (4.20-5.40); White Blood Cell (WBC) Count 7.22 10x3/uL (4.8-10.8)
[2024-11-09 03:02] LABS: Actual Bicarbonate (HCO3v) 23.2 mEq/L (22-28); Base Excess -1.4 mEq/L (-2.0 to +3.0); Calcium, Ionized (venous) 1.13 mmol/L (1.16-1.32); Chloride (VBG) 107 mmol/L (98-106); Hematocrit-VBG 31 % (36.0-47.0); Hemoglobin (Hb) 10.6 g/dL (11.7-16.1); Potassium (VBG) 4.50 mmol/L (3.70-5.30); Sodium 139 mmol/L (133-146)
[2024-11-09 03:13] LABS: Anion Gap 12 mmol/L (10-20); BUN (Urea Nitrogen) 25 mg/dL (9.8-20.1); Calc. Creatinine Clearance 0 mL/min (70-130); Carbon Dioxide 23 mmol/L (23-31); Chloride 110 mmol/L (98-107); Potassium 4.5 mmol/L (3.5-5.1); Sodium 140 mmol/L (136-145)
[2024-11-09 03:14] LABS: ALT (SGPT) 10 U/L (Less than 34); AST (SGOT) 13 U/L (11-34); Albumin 3.7 g/dL (3.1-4.5); Alkaline Phosphatase 109 U/L (40-110); Bilirubin, Total 0.4 mg/dL (0.3-1.2); Calcium 9.0 mg/dL (7.8-10.44); Globulin 3.3 g/dL (2.4-3.5); Glucose 363 mg/dL (83-110); Magnesium 1.8 mg/dL (1.6-2.6)
== END 2024-11-09 03:55 | disposition home or self-care (01) ==
LOC: ERS 02:17
DX: J18.9 Pneumonia, unspecified organism (principal); J90 Pleural effusion, not elsewhere classified; D63.1 Anemia in chronic kidney disease; I12.9 Hypertensive chronic kidney disease with stage 1 through stage 4 chronic kidney disease, or unspecified chronic kidney disease; E11.22 Type 2 diabetes mellitus with diabetic chronic kidney disease; N18.9 Chronic kidney disease, unspecified; F17.210 Nicotine dependence, cigarettes, uncomplicated; E78.5 Hyperlipidemia, unspecified; Z79.82 Long term (current) use of aspirin; Z79.4 Long term (current) use of insulin; Z79.899 Other long term (current) drug therapy
CPT/HCPCS: 71045; 80053; 82010; 82805; 83735; 83880; 84484; 85025; 87426; 93005; J7620

== ENCOUNTER 2024-11-28 05:54 | Emergency (ER) | payer OTHER ==
[2024-11-28 06:28] LABS: Actual Bicarbonate (HCO3v) 19.5 mEq/L (22-28); Base Excess -6.3 mEq/L (-2.0 to +3.0); Calcium, Ionized (venous) 1.15 mmol/L (1.16-1.32); Chloride (VBG) 103 mmol/L (98-106); Hematocrit-VBG 33 % (36.0-47.0); Hemoglobin (Hb) 11.2 g/dL (11.7-16.1); Potassium (VBG) 4.20 mmol/L (3.70-5.30); Sodium 136 mmol/L (133-146)
[2024-11-28 06:29] LABS: #Basophils 0.04 10x3/uL (0.0-0.2); #Eosinophils Less than 0.03 10x3/uL (0.0-0.7); #Monocytes 0.71 10x3/uL (0.11-0.59); #Neutrophils 12.28 10x3/uL (1.40-6.50); %Basophils 0.3 % (0.0-1.0); %Eosinophils 0.1 % (0.0-10.0); %Lymphocytes 5.7 % (21.0-51.0); %Monocytes 5.1 % (0.0-10.0); %Neutrophils 88.1 % (42.0-75.0); Hematocrit 32.1 % (36.0-47.0); Hemoglobin 9.8 g/dL (12.0-16.0); Mean Corpuscular Hemoglobin 26.7 pg (27.0-31.0); Mean Corpuscular Volume 87.5 fL (78.0-98.0); Platelet Count 132 10x3/uL (130-400); Red Blood Cell (RBC) Count 3.67 mill/uL (4.20-5.40); White Blood Cell (WBC) Count 13.93 10x3/uL (4.8-10.8)
[2024-11-28 06:45] LABS: ALT (SGPT) 7 U/L (Less than 34); AST (SGOT) 15 U/L (11-34); Albumin 3.3 g/dL (3.1-4.5); Alkaline Phosphatase 95 U/L (40-110); Anion Gap 15 mmol/L (10-20); BUN (Urea Nitrogen) 43 mg/dL (9.8-20.1); Bilirubin, Total 0.6 mg/dL (0.3-1.2); Calc. Creatinine Clearance 0 mL/min (70-130); Calcium 9.3 mg/dL (7.8-10.44); Carbon Dioxide 19 mmol/L (23-31); Chloride 106 mmol/L (98-107); Globulin 4.3 g/dL (2.4-3.5); Glucose 339 mg/dL (83-110); Lipase 11 U/L (8-78); Magnesium 1.7 mg/dL (1.6-2.6); Potassium 4.2 mmol/L (3.5-5.1); Sodium 136 mmol/L (136-145)
[2024-11-28] MEDS ORDERED: Ondansetron PF 4 MG/2 ML Vial ONE ×2 (06:47→15:55)
[2024-11-28 07:01] LABS: Bacteria/HPF None Seen HPF (None Seen); CAUTI Indications for Culture Dysuria,urgency,freq; Glucose, Urine (Dipstick) 500 mg/dL (Negative); Leukocyte 250 Leu/uL (Negative); Protein, Urine (Dipstick) 100 mg/dL (Neg-Trace); Specific Gravity, Urine 1.011 (1.002-1.036); WBC/HPF 21-50 HPF (0-3)
[2024-11-28 07:15] LABS: Urine Culture Reflex Yes Yes
[2024-11-28] MEDS ORDERED: cefTRIAXone (ROCEPHIN) 1 GM VIAL ONE (07:25)
[2024-11-28] MEDS ORDERED: cefTRIAXone (ROCEPHIN) 2 GM VIAL ONE (16:25)
[2024-11-28] MEDS ORDERED: Magnesium 2 GM/50 ML(in water) 2 GM in Premix 1 BAG IVPB SCH (18:30)
[2024-11-28] MEDS ORDERED: Metoclopramide HCl 10 MG (2 mL) VIAL IVP PRN (18:30)
[2024-11-28] MEDS ORDERED: Dextrose 50% Abboject 50 ML SYRINGE SLOW IVP PRN (18:33)
[2024-11-28] MEDS ORDERED: Acetaminophen 325 MG TAB PO PRN (18:33)
[2024-11-28] MEDS ORDERED: Melatonin 3 MG TAB PO PRN (18:33)
[2024-11-28] MEDS ORDERED: Glucagon 1 MG/ML KIT IM PRN (18:33)
[2024-11-28] MEDS ORDERED: Electrolyte Replacement Protocol 1 EACH FS PRN (18:45)
[2024-11-28] MEDS ORDERED: Sodium Bicarb 50 MEQ/50 ML Abboject 8.4% SYRINGE IVP SCH (18:45)
[2024-11-28 19:28] LABS: Cocaine Metabolite Screen Negative (Negative); THC/Cannabinoid Screen PRELIM POSITIVE (Negative); Tricyclic Screen Negative (Negative)
[2024-11-29] MEDS ORDERED: cefTRIAXone\\ROCEPHIN 1 GM in Sodium Chloride 0.9% 100 ML IVPB SCH (16:00)
== END 2024-11-28 09:20 | disposition home or self-care (01) ==
LOC: ERS 05:54
DX: R19.7 Diarrhea, unspecified (principal); E86.0 Dehydration; I12.9 Hypertensive chronic kidney disease with stage 1 through stage 4 chronic kidney disease, or unspecified chronic kidney disease; E11.22 Type 2 diabetes mellitus with diabetic chronic kidney disease; N18.9 Chronic kidney disease, unspecified; N39.0 Urinary tract infection, site not specified; E78.5 Hyperlipidemia, unspecified; Z79.899 Other long term (current) drug therapy; Z79.82 Long term (current) use of aspirin; F17.210 Nicotine dependence, cigarettes, uncomplicated
CPT/HCPCS: 71045; 80053; 80306; 81001; 82010; 82805; 82962; 83605; 83690; 83735; 84100; 84484; 85025; 87077; 87086; 87186; 87426; 93005; J0696 ×2; 36416; 51701; 96361; 96365; 96375

== ENCOUNTER 2024-11-28 14:30 | Inpatient (IN) | payer OTHER ==
[2024-11-28 15:18] LABS: #Basophils Less than 0.03 10x3/uL (0.0-0.2); #Eosinophils Less than 0.03 10x3/uL (0.0-0.7); #Monocytes 0.57 10x3/uL (0.11-0.59); #Neutrophils 12.99 10x3/uL (1.40-6.50); %Basophils 0.1 % (0.0-1.0); %Eosinophils 0.1 % (0.0-10.0); %Lymphocytes 3.9 % (21.0-51.0); %Monocytes 4.0 % (0.0-10.0); %Neutrophils 91.3 % (42.0-75.0); Hematocrit 34.1 % (36.0-47.0); Hemoglobin 10.6 g/dL (12.0-16.0); Mean Corpuscular Hemoglobin 26.6 pg (27.0-31.0); Mean Corpuscular Volume 85.5 fL (78.0-98.0); Platelet Count 150 10x3/uL (130-400); Red Blood Cell (RBC) Count 3.99 mill/uL (4.20-5.40); White Blood Cell (WBC) Count 14.22 10x3/uL (4.8-10.8)
[2024-11-28 15:36] LABS: ALT (SGPT) 10 U/L (Less than 34); AST (SGOT) 33 U/L (11-34); Albumin 3.6 g/dL (3.1-4.5); Alkaline Phosphatase 226 U/L (40-110); Anion Gap 20 mmol/L (10-20); BUN (Urea Nitrogen) 38 mg/dL (9.8-20.1); Bilirubin, Total 0.5 mg/dL (0.3-1.2); Calc. Creatinine Clearance 0 mL/min (70-130); Calcium 9.6 mg/dL (7.8-10.44); Carbon Dioxide 15 mmol/L (23-31); Chloride 109 mmol/L (98-107); Globulin 4.9 g/dL (2.4-3.5); Glucose 354 mg/dL (83-110); Lipase 15 U/L (8-78); Magnesium 1.8 mg/dL (1.6-2.6); Potassium 4.3 mmol/L (3.5-5.1); Sodium 140 mmol/L (136-145)
[2024-11-28 17:06] LABS: Base Excess -11.1 mEq/L (-2.0 to +3.0); Calcium, Ionized (venous) 1.13 mmol/L (1.16-1.32); Chloride (VBG) 107 mmol/L (98-106); Hematocrit-VBG 35 % (36.0-47.0); Hemoglobin (Hb) 11.9 g/dL (11.7-16.1); Potassium (VBG) 3.90 mmol/L (3.70-5.30); Sodium 140 mmol/L (133-146)
[2024-11-28 17:08] LABS: Actual Bicarbonate (HCO3v) 13.1 mEq/L (22-28)
[2024-11-28] MEDS ORDERED: Electrolyte Replacement Protocol 1 EACH FS PRN (21:33)
[2024-11-28] MEDS ORDERED: Dextrose 50% Abboject 50 ML SYRINGE SLOW IVP PRN (21:34)
[2024-11-28] MEDS ORDERED: Glucagon 1 MG/ML KIT IM PRN (21:34)
[2024-11-28] MEDS: Magnesium 2 GM/50 ML(in water) 2 GM in Premix 1 BAG IVPB SCH (22:39)
[2024-11-28] MEDS: Sodium Bicarb 50 MEQ/50 ML Abboject 8.4% SYRINGE IVP SCH (22:39)
[2024-11-29] MEDS: Melatonin 3 MG TAB PO PRN (00:25)
[2024-11-29 06:29] VITALS: BMI 20.3
[2024-11-29] MEDS: Acetaminophen 325 MG TAB PO PRN (06:35)
[2024-11-29] MEDS: Carvedilol 6.25 MG TAB PO SCH (08:15)
[2024-11-29] MEDS: Insulin Glargine 30 UNITS/0.3 ML VIAL SC SCH (08:16)
[2024-11-29] MEDS: FLU (Fluad Triv) 25-26 (65UP)PF 45 MCG/0.5 ML Syringe IM ONE (08:16)
[2024-11-29] MEDS: Lisinopril 10 MG TAB PO SCH (08:16)
[2024-11-29] MEDS: Metoclopramide HCl 10 MG (2 mL) VIAL IVP PRN (09:33)
[2024-11-29 10:28] LABS: #Basophils Less than 0.03 10x3/uL (0.0-0.2); #Eosinophils Less than 0.03 10x3/uL (0.0-0.7); #Monocytes 1.00 10x3/uL (0.11-0.59); #Neutrophils 13.72 10x3/uL (1.40-6.50); %Basophils 0.1 % (0.0-1.0); %Eosinophils 0.0 % (0.0-10.0); %Lymphocytes 7.1 % (21.0-51.0); %Monocytes 6.2 % (0.0-10.0); %Neutrophils 85.2 % (42.0-75.0); Hematocrit 33.5 % (36.0-47.0); Hemoglobin 10.8 g/dL (12.0-16.0); Mean Corpuscular Hemoglobin 27.2 pg (27.0-31.0); Mean Corpuscular Volume 84.4 fL (78.0-98.0); Platelet Count 151 10x3/uL (130-400); Red Blood Cell (RBC) Count 3.97 mill/uL (4.20-5.40); White Blood Cell (WBC) Count 16.11 10x3/uL (4.8-10.8)
[2024-11-29] MEDS: Gabapentin 400 MG CAP PO SCH (10:34)
[2024-11-29 10:50] LABS: ALT (SGPT) 8 U/L (Less than 34); AST (SGOT) 14 U/L (11-34); Albumin 3.3 g/dL (3.1-4.5); Alkaline Phosphatase 106 U/L (40-110); Anion Gap 23 mmol/L (10-20); BUN (Urea Nitrogen) 41 mg/dL (9.8-20.1); Bilirubin, Total 0.4 mg/dL (0.3-1.2); Calc. Creatinine Clearance 16 mL/min (70-130); Calcium 9.8 mg/dL (7.8-10.44); Carbon Dioxide 16 mmol/L (23-31); Chloride 107 mmol/L (98-107); Globulin 4.4 g/dL (2.4-3.5); Glucose 219 mg/dL (83-110); Magnesium 2.4 mg/dL (1.6-2.6); Potassium 3.6 mmol/L (3.5-5.1); Sodium 142 mmol/L (136-145)
[2024-11-29] MEDS: cefTRIAXone\\ROCEPHIN 1 GM in Sodium Chloride 0.9% 100 ML IVPB SCH (15:31)
[2024-11-29 15:59] VITALS: BMI 20.3
[2024-11-29 17:19] LABS: Anion Gap 17 mmol/L (10-20); BUN (Urea Nitrogen) 38 mg/dL (9.8-20.1); Calc. Creatinine Clearance 18 mL/min (70-130); Calcium 9.3 mg/dL (7.8-10.44); Carbon Dioxide 20 mmol/L (23-31); Chloride 108 mmol/L (98-107); Glucose 171 mg/dL (83-110); Potassium 3.2 mmol/L (3.5-5.1); Sodium 142 mmol/L (136-145)
[2024-11-30 07:17] LABS: ALT (SGPT) Less than 7 U/L (Less than 34); AST (SGOT) 15 U/L (11-34); Albumin 2.9 g/dL (3.1-4.5); Alkaline Phosphatase 80 U/L (40-110); Anion Gap 15 mmol/L (10-20); BUN (Urea Nitrogen) 35 mg/dL (9.8-20.1); Bilirubin, Total 0.4 mg/dL (0.3-1.2); Calc. Creatinine Clearance 17 mL/min (70-130); Calcium 9.3 mg/dL (7.8-10.44); Carbon Dioxide 20 mmol/L (23-31); Chloride 112 mmol/L (98-107); Globulin 3.9 g/dL (2.4-3.5); Glucose 74 mg/dL (83-110); Magnesium 2.1 mg/dL (1.6-2.6); Potassium 3.2 mmol/L (3.5-5.1); Sodium 144 mmol/L (136-145)
[2024-11-30 07:41] LABS: #Basophils Less than 0.03 10x3/uL (0.0-0.2); #Eosinophils Less than 0.03 10x3/uL (0.0-0.7); #Monocytes 0.92 10x3/uL (0.11-0.59); #Neutrophils 9.63 10x3/uL (1.40-6.50); %Basophils 0.2 % (0.0-1.0); %Eosinophils 0.2 % (0.0-10.0); %Lymphocytes 8.4 % (21.0-51.0); %Monocytes 7.9 % (0.0-10.0); %Neutrophils 82.9 % (42.0-75.0); Hematocrit 33.7 % (36.0-47.0); Hemoglobin 10.5 g/dL (12.0-16.0); Mean Corpuscular Hemoglobin 26.4 pg (27.0-31.0); Mean Corpuscular Volume 84.7 fL (78.0-98.0); Platelet Count 159 10x3/uL (130-400); Red Blood Cell (RBC) Count 3.98 mill/uL (4.20-5.40); White Blood Cell (WBC) Count 11.61 10x3/uL (4.8-10.8)
[2024-11-30] MEDS: Gabapentin 400 MG CAP PO SCH (08:34)
[2024-12-01 08:47] LABS: Anion Gap 15 mmol/L (10-20); BUN (Urea Nitrogen) 33 mg/dL (9.8-20.1); Calc. Creatinine Clearance 17 mL/min (70-130); Calcium 9.1 mg/dL (7.8-10.44); Carbon Dioxide 19 mmol/L (23-31); Chloride 113 mmol/L (98-107); Glucose 169 mg/dL (83-110); Potassium 4.0 mmol/L (3.5-5.1); Sodium 143 mmol/L (136-145)
[2024-12-02 06:12] LABS: Anion Gap 12 mmol/L (10-20); BUN (Urea Nitrogen) 34 mg/dL (9.8-20.1); Calc. Creatinine Clearance 17 mL/min (70-130); Calcium 8.4 mg/dL (7.8-10.44); Carbon Dioxide 22 mmol/L (23-31); Chloride 112 mmol/L (98-107); Glucose 172 mg/dL (83-110); Potassium 4.0 mmol/L (3.5-5.1); Sodium 142 mmol/L (136-145)
[2024-12-02 06:14] LABS: Hematocrit 25.6 % (36.0-47.0); Hemoglobin 8.1 g/dL (12.0-16.0); Mean Corpuscular Hemoglobin 27.3 pg (27.0-31.0); Mean Corpuscular Volume 86.2 fL (78.0-98.0); Platelet Count 132 10x3/uL (130-400); Red Blood Cell (RBC) Count 2.97 mill/uL (4.20-5.40); White Blood Cell (WBC) Count 6.24 10x3/uL (4.8-10.8)
[2024-12-02 06:54] LABS: Anisocytosis SLIGHT = 6-15 cells HPF (0-5); Burr Cells SLIGHT = 2-5 cells HPF (0-1); Macrocytosis SLIGHT = 6-15 cells HPF (0-5); Ovalocytes SLIGHT = 2-5 cells HPF (0-1); Plasma Cells 2 % (0-0); Platelet Adequacy Comment Platelets Normal; Schistocytes SLIGHT = 2-5 cells HPF (0-1); Smudge Cells 4.9 %
[2024-12-02] MEDS ORDERED: Non-Formulary Item 1 EACH (Vortioxetine Hydrobromide [Trintellix] 10 MG Tablet) PO SCH (09:00)
[2024-12-02] MEDS ORDERED: Vortioxetine Hydrobromide [Trintellix] 10 MG Tablet PO SCH (09:00)
[2024-12-02] MEDS: Insulin Glargine 30 UNITS/0.3 ML VIAL SC SCH (12:19)
[2024-12-02 22:43] VITALS: BP 176/72; TEMP 97.7
== END 2024-12-02 17:14 | disposition home or self-care (01) | DRG 683 ==
LOC: ERS 14:30 → T4-B 18:03
PROVIDERS: ADMIT Internal Medicine; ATTEND Hospitalist
PROC: 3E03329 Introduction of Other Anti-infective into Peripheral Vein, Percutaneous Approach (ICD-10-PCS; principal; 2024-11-28)
PROC: 3E0234Z Introduction of Serum, Toxoid and Vaccine into Muscle, Percutaneous Approach (ICD-10-PCS; 2024-11-29)
DX: N17.9 Acute kidney failure, unspecified (principal); E87.20 Acidosis, unspecified; N10 Acute pyelonephritis; E11.40 Type 2 diabetes mellitus with diabetic neuropathy, unspecified; E78.5 Hyperlipidemia, unspecified; I12.9 Hypertensive chronic kidney disease with stage 1 through stage 4 chronic kidney disease, or unspecified chronic kidney disease; E11.22 Type 2 diabetes mellitus with diabetic chronic kidney disease; I25.10 Atherosclerotic heart disease of native coronary artery without angina pectoris; F32.A Depression, unspecified; F17.210 Nicotine dependence, cigarettes, uncomplicated; E11.65 Type 2 diabetes mellitus with hyperglycemia; E86.0 Dehydration; B96.20 Unspecified Escherichia coli [E. coli] as the cause of diseases classified elsewhere; F12.10 Cannabis abuse, uncomplicated; N18.32 Chronic kidney disease, stage 3b; R19.7 Diarrhea, unspecified; Z88.8 Allergy status to other drugs, medicaments and biological substances; Z90.49 Acquired absence of other specified parts of digestive tract; Z98.890 Other specified postprocedural states; Z23 Encounter for immunization; Z79.4 Long term (current) use of insulin; Z79.899 Other long term (current) drug therapy; Z91.199 Patient's noncompliance with other medical treatment and regimen due to unspecified reason; Z79.01 Long term (current) use of anticoagulants
CPT/HCPCS: 36415; 36416; 51701; 71045; 74176; 80048; 80053; 80306; 81001; 82010; 82805; 83605; 83690; 83735; 84100; 84484; 85025; 87040; 87077; 87086; 87186; 87426; 90653; 93005; 93880; 96361; 96365; 96366; 96375; J0696; J1815; J2765; J3475; J3480; J7120